=== PATIENT | male | born 1980 | race Caucasian/White ===

== ENCOUNTER 2017-01-27 21:33 | Inpatient (IN) | payer OTHER ==
[~2017-01-27] VITALS: Ht 177.8 cm; Wt 102.3 kg
[~2017-01-27 21:33] MED LIST: ASPI81TA28 PO; FLV1 PO; LSN20 PO; NRV5 PO; THM100 PO; TPRSR50 PO; WARF3TAB6 PO; WARF4TAB8 PO
[2017-01-27] MEDS ORDERED: ONDANSETRON INJ 2 MG/ML 2 ML VIAL IV STA (21:44)
[2017-01-27] MEDS ORDERED: SODIUM CHLORIDE 0.9% 1000ML 1,000 ML IV STA ×2 (21:44)
[2017-01-27] MEDS ORDERED: DICYCLOMINE HCL 10 MG/ML 2 ML AMP IM ONE (21:45)
[2017-01-27] MEDS ORDERED: OPTIRAY 320 IV PRN (22:00)
[2017-01-27] MEDS ORDERED: WARF4TAB44 PO (22:05)
[2017-01-27] MEDS ORDERED: WARF-283 PO (22:05)
[2017-01-27] MEDS ORDERED: LISI1TAB3 PO (22:05)
[2017-01-27] MEDS ORDERED: TPRSR/100 PO (22:05)
[2017-01-27 22:22] LABS: BASO % 0.2 %; BASO ABS # 0.03 K/uL (0-0.2); COMPLETE YES; EOS % 0.5 %; HEMATOCRIT 45.3 % (42-52); IG% 0.4 %; LYMPH % 12.7 %; LYMPH ABS # 1.77 K/uL (1.2-3.4); MEAN CELL VOLUME 97.6 fL (80-100); MEAN CORPUSCULAR HEMOGLOBIN 34.5 pg (25-34); MEAN CORPUSCULAR HGB CONC 35.3 g/dl (32-36); MEAN PLATELET VOLUME 10.3 fL (7.4-10.4); MONO % 7.7 %; NEUT % 78.5 %; PLATELET COUNT 203 K/uL (130-400); RED BLOOD COUNT 4.64 M/uL (4.7-6.1); WHITE BLOOD COUNT 13.94 K/uL (4.8-10.8)
--- NOTE | 2017-01-27 22:32 | DIAGNOSTIC IMAGING REPORT ---
CHEST ONE VIEW PORTABLE CLINICAL HISTORY: 36 years-old Male presenting with epigastric PAIN. TECHNIQUE: Portable upright AP view of the chest was obtained. COMPARISON: 03/08/2016. FINDINGS: Median sternotomy wires and prosthetic aortic valve again noted. Cardiac silhouette normal in size. Minimally increased prominence of pulmonary vasculature in comparison to prior. Lungs and pleural spaces clear. Osseous structures normal. Upper abdomen normal. IMPRESSION: 1. No acute cardiopulmonary disease. Electronically signed by: Jose Real M.D. 01/27/2017 10:31 PM Dictated Date/Time: 01/27/2017 10:29 PM
[2017-01-27 22:37] LABS: URINE APPEARANCE CLEAR (CLEAR); URINE BILIRUBIN NEG (NEG); URINE COLOR YELLOW; URINE EPITHELIAL CELL AUTO 0-5 /lpf (0-5); URINE NITRITE NEG (NEG); URINE PH 7.5 (4.5-7.5); URINE SPECIFIC GRAVITY 1.017 (1.000-1.030); UROBILINOGEN NEG (NEG); ZZUR CULT IF INDIC CLEAN CATCH YES
[2017-01-27 22:39] LABS: ALT/SGPT 68 U/L (12-78); BLOOD UREA NITROGEN 7 mg/dl (7-18); BUN/CREATININE RATIO 7.8 (10-20); CALCIUM 9.5 mg/dl (8.5-10.1); CARBON DIOXIDE 26 mmol/L (21-32); CHLORIDE 103 mmol/L (98-107); CREATININE 0.86 mg/dl (0.60-1.40); GLUCOSE 112 mg/dl (70-99); MANUAL MICROSCOPIC REQUIRED? NO; REVIEW REQ? NO; SODIUM 137 mmol/L (136-145)
[2017-01-27 22:40] LABS: PROTHROMBIN TIME (PATIENT) 85.6 SECONDS (9.0-12.0)
[2017-01-27 22:44] LABS: ALKALINE PHOSPHATASE 82 U/L (45-117); AST/SGOT 61 U/L (15-37); CKMB/CK RATIO 0.7 (0-3.0)
[2017-01-27 22:47] LABS: BENZODIAZEPINE, URINE NEG (NEG); COCAINE,URINE NEG (NEG); PHENCYCLIDINE, URINE NEG (NEG)
[2017-01-27 22:51] LABS: INR 7.4 (0.9-1.1)
[2017-01-27] MEDS ORDERED: CEFOXITIN 2000MG/60 ML D5W IV STA (23:46)
[2017-01-28] VITALS (21 sets, daily range): BP systolic 133–180; BP diastolic 81–138; PULSE 71–90; TEMP 36.7–37.5; O2SAT 94–98; Ht 177.8 cm; Wt 102.3 kg
[2017-01-28] MEDS ORDERED: PHYTONADIONE 5 MG TAB PO STA (01:11)
[2017-01-28] MEDS ORDERED: ONDANSETRON INJ 2 MG/ML 2 ML VIAL IV PRN ×2 (01:15→20:15)
[2017-01-28] MEDS ORDERED: MAGNESIUM HYDROXIDE SUSP 30 ML UDC PO PRN (01:15)
[2017-01-28] MEDS ORDERED: POLYETHYLENE (MIRALAX) 17 GM PACK PO PRN (01:15)
[2017-01-28] MEDS ORDERED: ACETAMINOPHEN 325 MG TAB PO PRN ×2 (01:15→20:00)
[2017-01-28] MEDS ORDERED: ALUMINUM/MAGNESIUM/SIMETH (MAALOX MAX) 30 ML UDC PO PRN (01:15)
--- NOTE | 2017-01-28 01:50 | History and Physical ---
History & Physical Date & Time of Service: Jan 28, 2017 at 01:25 Chief Complaint: Acute Pain In Rt Abdomen Primary Care Physician: Jeremias Szymanski D.O. History of Present Illness Source: patient 36 year old male presented to [facility] with abdominal pain The pain started at 230pm after taking a nap. It was gradual in onset. Located in the RLQ. Made worse by moving. Laying flat was the only thing that made the pain better. It was constant and the patient rated it as a 8-9/10. He then came to the ED. He has associated sweats and chills. He did not have any nausea, or vomiting. He was found to have a elevated WCC of 13 in the ED with evidence of appendicitis on CT of the patients abdomen. He was started on antibiotics and IV fluids and was made NPO. The surgeon was contacted who said he would be doing the surgery in the morning and that the medical team will admit the patient for him. 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 Plata. He takes Warfarin and his INR was 7.4 in the ED. He also was recently treated for prostatitis and finished a 10 day course of antibiotics. He is still having some residual discomfort with urination. 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 Family History Diabetes mellitus FHx: cancer FHx: heart disease Hypertension Social History Smoking Status: Current Every Day Smoker (25 pack year) Alcohol Use: heavy (6 beers daily with 3-4 shots of hard liquor) Drug Use: heroin (past) Marital Status: Housing status: lives with family Occupational Status: employed Multi-Drug Resistant Organisms History of MDRO: No Allergies Coded Allergies: No Known Allergies (Verified , 03/02/16) Home Medications Scheduled Aspirin (Aspirin Ec), 81 MG PO DAILY Lisinopril (Zestril), 30 MG PO QAM Metoprolol Succinate (Metoprolol Succinate ER), 100 MG PO DAILY Warfarin Sodium (Warfarin Sodium), 3 MG PO 3XWK Warfarin Sodium (Warfarin Sodium), 4 MG PO 4XWK Review of Systems Constitutional: + chills, + sweats, No fever, No weakness Respiratory: No cough, No sputum, No shortness of breath Cardiovascular: No chest pain, No edema, No palpitations Abdomen: + pain, No nausea, No vomiting, No diarrhea, No constipation Musculoskeletal: No joint pain, No muscle pain, No calf pain Genitourinary - Male: + problem reported (discomfort with urination), No hematuria, No dysuria Neurologic: No paralysis, No weakness, No numbness/tingling Physical Exam Vital Signs Date Time Temp Pulse Resp B/P (MAP) Pulse Ox O2 Delivery O2 Flow Rate FiO2 01/27/17 23:34 91 18 157/108 98 Room Air 01/27/17 22:15 94 01/27/17 22:13 Room Air 01/27/17 22:13 Room Air 01/27/17 21:35 37.0 104 20 165/111 96 Room Air General Appearance: WD/WN, no apparent distress Eyes: PERRL, EOMI, funduscopic exam normal ENT: hearing grossly normal, pharynx normal Neck: supple, no JVD, no carotid bruits Respiratory/Chest: lungs clear, no respiratory distress, no accessory muscle use Cardiovascular: regular rate, rhythm, no murmur, normal peripheral pulses, + pertinent finding (audible click from mechanical valve) Abdomen/GI: normal bowel sounds, soft, + tenderness (in the RLQ without any rebound or gaurding) Back: normal inspection, no CVA tenderness, normal range of motion Extremities/Musculoskelatal: normal inspection, no calf tenderness, no pedal edema, non-tender Neurologic/Psych: alert, normal mood/affect, oriented x 3 Skin: normal color, warm/dry, no rash Diagnostics Laboratory Results Results Past 24 Hours Test 01/27/17 22:10 Range/Units White Blood Count 13.94 4.8-10.8 K/uL Red Blood Count 4.64 4.7-6.1 M/uL Hemoglobin 16.0 14.0-18.0 g/dL Hematocrit 45.3 42-52 % Mean Corpuscular Volume 97.6 80-100 fL Mean Corpuscular Hemoglobin 34.5 25-34 pg Mean Corpuscular Hemoglobin Concent 35.3 32-36 g/dl Platelet Count 203 130-400 K/uL Mean Platelet Volume 10.3 7.4-10.4 fL Neutrophils (%) (Auto) 78.5 % Lymphocytes (%) (Auto) 12.7 % Monocytes (%) (Auto) 7.7 % Eosinophils (%) (Auto) 0.5 % Basophils (%) (Auto) 0.2 % Neutrophils # (Auto) 10.93 1.4-6.5 K/uL Lymphocytes # (Auto) 1.77 1.2-3.4 K/uL Monocytes # (Auto) 1.08 0.11-0.59 K/uL Eosinophils # (Auto) 0.07 0-0.5 K/uL Basophils # (Auto) 0.03 0-0.2 K/uL RDW Standard Deviation 46.6 36.4-46.3 fL RDW Coefficient of Variation 13.2 11.5-14.5 % Immature Granulocyte % (Auto) 0.4 % Immature Granulocyte # (Auto) 0.06 0.00-0.02 K/uL Prothrombin Time 85.6 9.0-12.0 SECONDS Prothromb Time International Ratio 7.4 0.9-1.1 Activated Partial Thromboplast Time 53.1 21.0-31.0 SECONDS Partial Thromboplastin Ratio 2.0 Urine Color YELLOW Urine Appearance CLEAR CLEAR Urine pH 7.5 4.5-7.5 Urine Specific [place] 1.017 1.000-1.030 Urine Protein NEG NEG Urine Glucose (UA) NEG NEG Urine Ketones NEG NEG Urine Occult Blood TRACE NEG Urine Nitrite NEG NEG Urine Bilirubin NEG NEG Urine Urobilinogen NEG NEG Urine Leukocyte Esterase MODERATE NEG Urine WBC (Auto) >30 0-5 /hpf Urine RBC (Auto) 5-10 0-4 /hpf Urine Hyaline Casts (Auto) 1-5 0-5 /lpf Urine Epithelial Cells (Auto) 0-5 0-5 /lpf Urine Bacteria (Auto) 1+ NEG Sodium Level 137 136-145 mmol/L Potassium Level 4.0 3.5-5.1 mmol/L Chloride Level 103 98-107 mmol/L Carbon Dioxide Level 26 21-32 mmol/L Anion Gap 8.0 3-11 mmol/L Blood Urea Nitrogen 7 7-18 mg/dl Creatinine 0.86 0.60-1.40 mg/dl Est Creatinine Clear Calc Drug Dose 138.6 ml/min Estimated GFR () 127.5 Estimated GFR (Non- 110.0 BUN/Creatinine Ratio 7.8 10-20 Random Glucose 112 70-99 mg/dl Calcium Level 9.5 8.5-10.1 mg/dl Total Bilirubin 0.7 0.2-1 mg/dl Direct Bilirubin 0.2 0-0.2 mg/dl Aspartate Amino Transf (AST/SGOT) 61 15-37 U/L Alanine Aminotransferase (ALT/SGPT) 68 12-78 U/L Alkaline Phosphatase 82 45-117 U/L Total Creatine Kinase 166 39-308 U/L Creatine Kinase MB 1.1 0.5-3.6 ng/ml Creatine Kinase MB Ratio 0.7 0-3.0 Troponin I < 0.015 0-0.045 ng/ml Total Protein 7.9 6.4-8.2 gm/dl Albumin 3.9 3.4-5.0 gm/dl Lipase 279 73-393 U/L Urine Opiates Screen NEG NEG Urine Methadone, Qualitative NEG NEG Urine Barbiturates NEG NEG Urine Phencyclidine (PCP) Level NEG NEG Ur Amphetamine/Methamphetamine NEG NEG MDMA (Ecstasy) Screen NEG NEG Urine Benzodiazepines Screen NEG NEG Urine Cocaine Metabolite NEG NEG Urine Marijuana (THC) NEG NEG Microbiology Results 01/27/17 Urine Culture, Received Pending CXR normal Normal EKG Impression Assessment and Plan 36 year old male admitted to the hospital with Appendicitis Appendicitis - admitted to the surgical team (Dr. Klein) - will go for surgery in the AM - NPO - IVF with NS 125mls/hr - Morphine 2mg q2 for pain relief - Unasyn for antibiotic coverage - Will add Vanc due to patients hx of endocarditis Mechanical Mitral Valve - Hx of IV drug use and endocarditis - On warfarin at home with goal INR 2.5--3.5 - follows with Dr. Gutiérrez, will consult - INR 7.4 - will give 5 of vitamin K and 2 units of FFP - will reassess INR and will given another unit of FFP if INR> 1.5 HTN - Lisinopril and metoprolol held for now - continue to monitor Hx of Pancreatitis - monitor for alcohol withdrawal - may need thiamine, folic acid and multivitamin - may need librium Patient has Hep C Hx of Stroke NPO DVT prophylaxis held as INR >7 and going for surgery THIS PATIENT WILL BE ADMITTED TO SURGICAL TEAM. WE WILL BE CONSULTED FOR MEDICAL MANAGEMENT Resident Physician Supervision Note: I was present with Dr. Brumfield during the history and exam. I discussed the case with the resident and agree with the findings and plan as documented in the note. Any exceptions or clarifications are listed here: 36 y/o M Hx IVDU, endocarditis and resultant mitral valve replacement Pt presents with abdominal pain and was diagnosed with acute appendicitis Pts INR is 7.4 on arrival - admitted by medical team to surgical service due to high INR OE AAO x 3 S1,2 R CTAB + lower quadrant tenderness P: Pt is to proceed to OR for appendectomy We have ordered a low dose of vitamin K and Fps - following FFP admin INR will be rechecked and additional FFP can be provided if remains supratherapeutic The pt should have Lovenox or a Heparin drip for bridging at the earliest possible time following surgery - pt has requested to be seen by his readiness paraprofessional Documented By: Antony Sandoval Level of Care Med/Surg Resuscitation Status FULL RESUSCITATION VTE Prophylaxis VTE Risk Assessment Done? Y/N: Yes Risk Level: Moderate Given or contraindicated: Contraindicated
--- NOTE | 2017-01-28 02:48 | History and Physical ---
History & Physical Date & Time of Service: Jan 28, 2017 at 02:37 Chief Complaint: Appendicitis Primary Care Physician: Jeremias Szymanski D.O. History of Present Illness 36 year old male with mechanical mitral valve on chronic anticoagulation and history of IVDA presented to ED with abdominal pain. Started this afternoon, periumbilical cramping pain, migrated to right lower quadrant. No prior episodes. Recently treated for prostatitis. +nausea and anorexia, denies fevers. Normal bm's. No family history of IBD. On arrival he had supratherapeutic INR. Past Medical/Surgical History Past Medical History: mechanical mitral valve chronic anticoagulation Hep C history of IVDA recent prostatitis HTN Past Surgical History: mitral valve replacement no abdominal surgeries Family History Diabetes mellitus FHx: cancer FHx: heart disease Hypertension Social History Smoking Status: Current Every Day Smoker (25 pack year) Alcohol Use: heavy (6 beers daily with 3-4 shots of hard liquor) Drug Use: heroin (past) Marital Status: Housing status: lives with family Occupational Status: employed Multi-Drug Resistant Organisms History of MDRO: No Allergies Coded Allergies: No Known Allergies (Verified , 03/02/16) Home Medications Scheduled Aspirin (Aspirin Ec), 81 MG PO DAILY Lisinopril (Zestril), 30 MG PO QAM Metoprolol Succinate (Metoprolol Succinate ER), 100 MG PO DAILY Warfarin Sodium (Warfarin Sodium), 3 MG PO 3XWK Warfarin Sodium (Warfarin Sodium), 4 MG PO 4XWK Review of Systems Constitutional: No fever, No chills, No sweats, No weight loss, No weakness, No fatigue, No problem reported Eyes: No worsening of vision, No eye pain, No redness, No discharge, No diplopia, No problem reported ENT: No hearing loss, No unusual epistaxis, No nasal symptoms, No sore throat, No tinnitus, No dental problems, No trouble swallowing, No problem reported Respiratory: No cough, No sputum, No wheezing, No shortness of breath, No dyspnea on exertion, No dyspnea at rest, No hemoptysis, No problem reported Cardiovascular: No chest pain, No orthopnea, No PND, No edema, No claudication , No palpitations, No problem reported Abdomen: + pain, + nausea, No diarrhea, No constipation Musculoskeletal: No joint pain, No muscle pain, No swelling, No calf pain, No problem reported Neurologic: No memory loss, No paralysis, No weakness, No numbness/tingling, No vertigo, No balance problems, No problem reported Psychiatric: No depression symptoms, No anhedonism, No anxiety, No insomnia, No substance abuse, No problem reported Endocrine: No fatigue, No excessive thirst, No excessive urination, No problem reported Integumentary: No rash, No itch, No new/changing skin lesions, No color change , No bleeding, No problem reported Allergic / Immunologic: No environmental allergies, No seasonal allergies, No pet sensitivities, No food allergies, No hives, No frequent infections, No poor healing, No prolonged convalescence, No problem reported Physical Exam Vital Signs Date Time Temp Pulse Resp B/P (MAP) Pulse Ox O2 Delivery O2 Flow Rate FiO2 01/28/17 02:00 37.0 73 18 155/109 99 01/27/17 23:34 91 18 157/108 98 Room Air 01/27/17 22:15 94 01/27/17 22:13 Room Air 01/27/17 22:13 Room Air 01/27/17 21:35 37.0 104 20 165/111 96 Room Air General Appearance: WD/WN, no apparent distress Eyes: PERRL, EOMI, funduscopic exam normal ENT: hearing grossly normal, pharynx normal Neck: supple, no JVD, no carotid bruits Respiratory/Chest: lungs clear, no respiratory distress, no accessory muscle use Cardiovascular: regular rate, rhythm, no murmur, normal peripheral pulses, + pertinent finding (audible click from mechanical valve) Abdomen/GI: normal bowel sounds, soft, + tenderness (Tender to palpation in RLQ at McBurney's, localized guarding, no rebound) Back: normal inspection, no CVA tenderness, normal range of motion Extremities/Musculoskelatal: normal inspection, no calf tenderness, no pedal edema, non-tender Neurologic/Psych: alert, normal mood/affect, oriented x 3 Skin: normal color, warm/dry, no rash Lymphatic: no adenopathy Diagnostics Laboratory Results Results Past 24 Hours Test 01/27/17 22:10 Range/Units White Blood Count 13.94 4.8-10.8 K/uL Red Blood Count 4.64 4.7-6.1 M/uL Hemoglobin 16.0 14.0-18.0 g/dL Hematocrit 45.3 42-52 % Mean Corpuscular Volume 97.6 80-100 fL Mean Corpuscular Hemoglobin 34.5 25-34 pg Mean Corpuscular Hemoglobin Concent 35.3 32-36 g/dl Platelet Count 203 130-400 K/uL Mean Platelet Volume 10.3 7.4-10.4 fL Neutrophils (%) (Auto) 78.5 % Lymphocytes (%) (Auto) 12.7 % Monocytes (%) (Auto) 7.7 % Eosinophils (%) (Auto) 0.5 % Basophils (%) (Auto) 0.2 % Neutrophils # (Auto) 10.93 1.4-6.5 K/uL Lymphocytes # (Auto) 1.77 1.2-3.4 K/uL Monocytes # (Auto) 1.08 0.11-0.59 K/uL Eosinophils # (Auto) 0.07 0-0.5 K/uL Basophils # (Auto) 0.03 0-0.2 K/uL RDW Standard Deviation 46.6 36.4-46.3 fL RDW Coefficient of Variation 13.2 11.5-14.5 % Immature Granulocyte % (Auto) 0.4 % Immature Granulocyte # (Auto) 0.06 0.00-0.02 K/uL Prothrombin Time 85.6 9.0-12.0 SECONDS Prothromb Time International Ratio 7.4 0.9-1.1 Activated Partial Thromboplast Time 53.1 21.0-31.0 SECONDS Partial Thromboplastin Ratio 2.0 Urine Color YELLOW Urine Appearance CLEAR CLEAR Urine pH 7.5 4.5-7.5 Urine Specific [place] 1.017 1.000-1.030 Urine Protein NEG NEG Urine Glucose (UA) NEG NEG Urine Ketones NEG NEG Urine Occult Blood TRACE NEG Urine Nitrite NEG NEG Urine Bilirubin NEG NEG Urine Urobilinogen NEG NEG Urine Leukocyte Esterase MODERATE NEG Urine WBC (Auto) >30 0-5 /hpf Urine RBC (Auto) 5-10 0-4 /hpf Urine Hyaline Casts (Auto) 1-5 0-5 /lpf Urine Epithelial Cells (Auto) 0-5 0-5 /lpf Urine Bacteria (Auto) 1+ NEG Sodium Level 137 136-145 mmol/L Potassium Level 4.0 3.5-5.1 mmol/L Chloride Level 103 98-107 mmol/L Carbon Dioxide Level 26 21-32 mmol/L Anion Gap 8.0 3-11 mmol/L Blood Urea Nitrogen 7 7-18 mg/dl Creatinine 0.86 0.60-1.40 mg/dl Est Creatinine Clear Calc Drug Dose 138.6 ml/min Estimated GFR () 127.5 Estimated GFR (Non- 110.0 BUN/Creatinine Ratio 7.8 10-20 Random Glucose 112 70-99 mg/dl Calcium Level 9.5 8.5-10.1 mg/dl Total Bilirubin 0.7 0.2-1 mg/dl Direct Bilirubin 0.2 0-0.2 mg/dl Aspartate Amino Transf (AST/SGOT) 61 15-37 U/L Alanine Aminotransferase (ALT/SGPT) 68 12-78 U/L Alkaline Phosphatase 82 45-117 U/L Total Creatine Kinase 166 39-308 U/L Creatine Kinase MB 1.1 0.5-3.6 ng/ml Creatine Kinase MB Ratio 0.7 0-3.0 Troponin I < 0.015 0-0.045 ng/ml Total Protein 7.9 6.4-8.2 gm/dl Albumin 3.9 3.4-5.0 gm/dl Lipase 279 73-393 U/L Urine Opiates Screen NEG NEG Urine Methadone, Qualitative NEG NEG Urine Barbiturates NEG NEG Urine Phencyclidine (PCP) Level NEG NEG Ur Amphetamine/Methamphetamine NEG NEG MDMA (Ecstasy) Screen NEG NEG Urine Benzodiazepines Screen NEG NEG Urine Cocaine Metabolite NEG NEG Urine Marijuana (THC) NEG NEG Microbiology Results 01/27/17 Urine Culture, Received Pending Diagnostic Radiology CT personally reviewed: CT abd/pelvis with mildly dilated appendix with periappendiceal inflammation, no evidence of perforation Impression Assessment and Plan 36 year old male with mechanical mitral valve on anticoagulation, history of IVDA now with acute appendicitis. Discussed antibiotics verus surgery, patient elects for surgery. plan for laparoscopic appendectomy later today after INR <1.5 RIsks of the surgery discussed to include but not limited to bleeding, infection , normal appendix, need for future or more extensive surgery, damage to surrounding structures, conversion to open, abscess, hernia, and risks of anesthesia FFP and vit k for supratherapeutic INR, goal < 1.5 prior to surgery will need lovenox bridge after surgery admit to med surg, npo, ivf's, scd's mefoxin 2 grams iv q6h Medicine consulted for anticoagulation reversal and assistance with medical problems, appreciate their assistance the diagnosis, risks of surgery, and plan of care were discussed with the patient, all questions answered, patient agreed to proceed with surgery Barry Klein, DO VTE Prophylaxis VTE Risk Assessment Done? Y/N: Yes Risk Level: Moderate Given or contraindicated: Contraindicated
[2017-01-28] MEDS: SODIUM CHLORIDE 0.9% 1000ML 1,000 ML IV SCH ×3 (03:00→16:29)
[2017-01-28] MEDS: AMPICILLIN/SULBACTAM SOD INJ 1,500 MG in SODIUM CHLORIDE 0.9% 100ML 100 ML IV SCH ×4 (03:00→22:43)
[2017-01-28] MEDS: MoRPHine SULFATE 2 MG/ML CARP IV PRN ×5 (04:02→16:28)
[2017-01-28 04:32] LABS: INR 5.5 (0.9-1.1); PROTHROMBIN TIME (PATIENT) 62.9 SECONDS (9.0-12.0)
[2017-01-28] MEDS ORDERED: VANCOMYCIN CONSULT ACTIVE PRN (05:15)
[2017-01-28] MEDS ORDERED: VANCOMYCIN INJ 2,500 MG in SODIUM CHLORIDE 0.9% 500ML 500 ML IV ONE (05:30)
--- NOTE | 2017-01-28 06:22 | DIAGNOSTIC IMAGING REPORT ---
CT ABD/PELVIS IV CONTRAST ONLY CLINICAL HISTORY: Right lower quadrant abdominal pain COMPARISON STUDY: 03/02/2016 TECHNIQUE: Following the IV administration of 93 mL of Optiray-320, CT scan of the abdomen and pelvis was performed from the lung bases to the proximal femurs. Images are reviewed in the axial, sagittal, and coronal planes. IV contrast was administered without complication. A dose lowering technique was utilized adhering to the principles of ALARA. CT DOSE: 1039.82 mGycm FINDINGS: Lower chest: There are postsurgical changes of a midline sternotomy. There are minimal dependent atelectatic changes. Liver: There is hepatic steatosis. No focal masses are visualized. Gallbladder: Unremarkable. Spleen: Normal in size and attenuation. Pancreas: Unremarkable. Adrenal glands: Unremarkable. Kidneys: There is symmetric renal cortical enhancement. The kidneys are normal in size without hydronephrosis. Bowel: There are no transition zones indicate bowel obstruction. There is no acute diverticulitis. There is minimal appendiceal wall thickening of (8 mm, with equivocal minimal periappendiceal stranding. There is mild some mucosal fat hypertrophy within the appendix and cecum. Peritoneum: There is no intraperitoneal free air or abdominal ascites. Vasculature: The abdominal aorta is normal in course and caliber. Adenopathy: None. Pelvic viscera: There is borderline bladder wall thickening which may be secondary to incomplete distention Skeletal structures: No destructive osseous lesions are seen. IMPRESSION: 1. No evidence of bowel obstruction. No evidence of free air 2. Minimal appendiceal wall thickening, with equivocal minimal periappendiceal stranding. The study is equivocal for early acute appendicitis, and clinical correlation and/or close clinical follow-up is advocated. Electronically signed by: Jamie Terry M.D. 01/28/2017 6:20 AM Dictated Date/Time: 01/28/2017 6:15 AM
--- NOTE | 2017-01-28 06:27 | EMERGENCY ROOM VISIT NOTE ---
History First contact with patient: 21:41 Chief Complaint: ABDOMINAL PAIN Stated Complaint: APPENDICITIS Nursing Triage Summary: Pt c/o RLQ abd pain since 1400 today. Pain has increased and is uncomfortable now. History of Present Illness The patient is a 36 year old male who presents to the Emergency Room with complaints of right lower quadrant pain and dysuria since this afternoon after eating lunch. Pain currently 7 out of 10. Nothing makes it better or worse. Patient states he had two sloppy [employer] images with some potato salad and then had some beers and a shot and then went to sleep and woke up with severe pain. No history of similar symptoms in the past. Patient just finished Keflex for UTI and possible prostatitis from urgent care. No INR was checked this week. Last week he was subtherapeutic. He is unsure the exact number. He's had a mitral valve replacement. Patient denies chest pain, dyspnea, rectal pain, penile pain, testicular pain, back pain, vomiting. Patient states he normally has 3-6 drinks a day. No recent recreational drug use. Review of Systems See HPI for pertinent positives & negatives. A total of 10 systems reviewed and were otherwise negative. Past Medical/Surgical History Medical Problems: (1) Appendicitis (2) Blood-tinged sputum (3) CVA (cerebral vascular accident) (4) Heroin overdose Surgical Problems: (1) H/O mitral valve replacement Family History Diabetes mellitus FHx: cancer FHx: heart disease Hypertension Social History Smoking Status: Current Every Day Smoker Alcohol Use: occasionally Drug Use: heroin (past) Marital Status: Housing Status: lives with family Occupation Status: employed Current/Historical Medications Scheduled Aspirin (Aspirin Ec), 81 MG PO DAILY Lisinopril (Zestril), 30 MG PO QAM Metoprolol Succinate (Metoprolol Succinate ER), 100 MG PO DAILY Warfarin Sodium (Warfarin Sodium), 3 MG PO 3XWK Warfarin Sodium (Warfarin Sodium), 4 MG PO 4XWK Allergies Coded Allergies: No Known Allergies (Verified , 03/02/16) Physical Exam Vital Signs Date Time Temp Pulse Resp B/P (MAP) Pulse Ox O2 Delivery O2 Flow Rate FiO2 01/27/17 23:34 91 18 157/108 98 Room Air 01/27/17 22:15 94 01/27/17 22:13 Room Air 01/27/17 22:13 Room Air 01/27/17 21:35 37.0 104 20 165/111 96 Room Air Pain Rating (0-10): 2.0 Physical Exam VITALS: Vitals are noted on the nurse's note and reviewed by myself. Vital signs hypertensive. GENERAL: White male, in no acute distress, nondiaphoretic, well-developed well- nourished. SKIN: The skin was without rashes, erythema, edema, or bruising. There is no tenting of the skin. Capillary reflex less than 2 seconds. HEAD: Normocephalic atraumatic. EARS: External auditory canals clear, tympanic membranes pearly cannon without erythema or effusion bilaterally. EYES: Pupils equal round and reactive to light and accommodation. Conjunctivae without injection, sclerae without icterus. Extraocular movements intact. NOSE: Patent, turbinates without inflammation or discharge. MOUTH: Mucous membranes moist. Pharynx without erythema or exudate. Uvula midline. Airway patent. Tongue does not deviate. NECK: Supple without nuchal rigidity. No lymphadenopathy. No thyromegaly. Cervical spine is nontender. No JVD. HEART: Regular rate and rhythm LUNGS: Clear to auscultation bilaterally without wheezes, rales or rhonchi. No dullness to percussion. No retractions or accessory muscle use. ABDOMEN: Positive bowel sounds x 4. Normal tympanic percussion. Soft, tender to palpation right lower quadrant, no CVA tenderness, without masses or organomegaly. Estrada sign negative. No guarding or rebound tenderness. MUSCULOSKELETAL: No muscle atrophy, erythema, or edema noted. NEURO: Patient was alert and oriented to person place and time. Normal sensation to light and sharp touch. No focal neurological deficits. Medical Decision & Procedures Laboratory Results 01/27/17 22:10 Red Blood Count 4.64, Mean Corpuscular Volume 97.6, Mean Corpuscular Hemoglobin 34.5, Mean Corpuscular Hemoglobin Concent 35.3, Mean Platelet Volume 10.3, Neutrophils (%) (Auto) 78.5, Lymphocytes (%) (Auto) 12.7, Monocytes (%) (Auto) 7.7, Eosinophils (%) (Auto) 0.5, Basophils (%) (Auto) 0.2, Neutrophils # (Auto) 10.93, Lymphocytes # (Auto) 1.77, Monocytes # (Auto) 1.08, Eosinophils # (Auto) 0.07, Basophils # (Auto) 0.03 01/27/17 22:10 Test 01/27/17 22:10 White Blood Count 13.94 K/uL (4.8-10.8) Red Blood Count 4.64 M/uL (4.7-6.1) Hemoglobin 16.0 g/dL (14.0-18.0) Hematocrit 45.3 % (42-52) Mean Corpuscular Volume 97.6 fL (80-100) Mean Corpuscular Hemoglobin 34.5 pg (25-34) Mean Corpuscular Hemoglobin Concent 35.3 g/dl (32-36) Platelet Count 203 K/uL (130-400) Mean Platelet Volume 10.3 fL (7.4-10.4) Neutrophils (%) (Auto) 78.5 % Lymphocytes (%) (Auto) 12.7 % Monocytes (%) (Auto) 7.7 % Eosinophils (%) (Auto) 0.5 % Basophils (%) (Auto) 0.2 % Neutrophils # (Auto) 10.93 K/uL (1.4-6.5) Lymphocytes # (Auto) 1.77 K/uL (1.2-3.4) Monocytes # (Auto) 1.08 K/uL (0.11-0.59) Eosinophils # (Auto) 0.07 K/uL (0-0.5) Basophils # (Auto) 0.03 K/uL (0-0.2) RDW Standard Deviation 46.6 fL (36.4-46.3) RDW Coefficient of Variation 13.2 % (11.5-14.5) Immature Granulocyte % (Auto) 0.4 % Immature Granulocyte # (Auto) 0.06 K/uL (0.00-0.02) Activated Partial Thromboplast Time 53.1 SECONDS (21.0-31.0) Partial Thromboplastin Ratio 2.0 Urine Color YELLOW Urine Appearance CLEAR (CLEAR) Urine pH 7.5 (4.5-7.5) Urine Specific [place] 1.017 (1.000-1.030) Urine Protein NEG (NEG) Urine Glucose (UA) NEG (NEG) Urine Ketones NEG (NEG) Urine Occult Blood TRACE (NEG) Urine Nitrite NEG (NEG) Urine Bilirubin NEG (NEG) Urine Urobilinogen NEG (NEG) Urine Leukocyte Esterase MODERATE (NEG) Urine WBC (Auto) >30 /hpf (0-5) Urine RBC (Auto) 5-10 /hpf (0-4) Urine Hyaline Casts (Auto) 1-5 /lpf (0-5) Urine Epithelial Cells (Auto) 0-5 /lpf (0-5) Urine Bacteria (Auto) 1+ (NEG) Anion Gap 8.0 mmol/L (3-11) Est Creatinine Clear Calc Drug Dose 138.6 ml/min Estimated GFR () 127.5 Estimated GFR (Non- 110.0 BUN/Creatinine Ratio 7.8 (10-20) Calcium Level 9.5 mg/dl (8.5-10.1) Total Bilirubin 0.7 mg/dl (0.2-1) Direct Bilirubin 0.2 mg/dl (0-0.2) Aspartate Amino Transf (AST/SGOT) 61 U/L (15-37) Alanine Aminotransferase (ALT/SGPT) 68 U/L (12-78) Alkaline Phosphatase 82 U/L (45-117) Total Creatine Kinase 166 U/L (39-308) Creatine Kinase MB 1.1 ng/ml (0.5-3.6) Creatine Kinase MB Ratio 0.7 (0-3.0) Troponin I < 0.015 ng/ml (0-0.045) Total Protein 7.9 gm/dl (6.4-8.2) Albumin 3.9 gm/dl (3.4-5.0) Lipase 279 U/L (73-393) Urine Opiates Screen NEG (NEG) Urine Methadone, Qualitative NEG (NEG) Urine Barbiturates NEG (NEG) Urine Phencyclidine (PCP) Level NEG (NEG) Ur Amphetamine/Methamphetamine NEG (NEG) MDMA (Ecstasy) Screen NEG (NEG) Urine Benzodiazepines Screen NEG (NEG) Urine Cocaine Metabolite NEG (NEG) Urine Marijuana (THC) NEG (NEG) Medications Administered Medications (Trade) Dose Ordered Sig/Krista Route Start Time Stop Time Status Last Admin Dose Admin Sodium Chloride 1,000 ml @ 999 mls/hr Q1H1M STAT IV 01/27/17 21:44 01/27/17 22:44 DC 01/27/17 22:22 999 MLS/HR Sodium Chloride 1,000 ml @ 125 mls/hr Q8H STAT IV 01/27/17 21:44 01/28/17 03:27 DC 01/27/17 22:22 125 MLS/HR Ondansetron HCl (Zofran Inj) 4 mg NOW STAT IV 01/27/17 21:44 01/27/17 21:54 DC 01/27/17 22:23 4 MG Dicyclomine HCl (Bentyl Inj) 20 mg NOW ONCE IM 01/27/17 21:45 01/27/17 21:54 DC 01/27/17 22:23 20 MG Cefoxitin Sodium (Mefoxin 2000mg/ 60 ml D5W) 2,000 mg NOW STAT IV 01/27/17 23:46 01/27/17 23:47 DC 01/28/17 00:07 2,000 MG Acetaminophen (Tylenol Tab) 650 mg Q4H PRN PO 01/28/17 01:15 02/27/17 01:14 01/28/17 04:03 650 MG Sodium Chloride 1,000 ml @ 125 mls/hr Q8H IV 01/28/17 01:15 02/27/17 01:14 01/28/17 03:00 125 MLS/HR Phytonadione (Mephyton Tab) 5 mg NOW STAT PO 01/28/17 01:11 01/28/17 01:33 DC 01/28/17 01:51 5 MG Morphine Sulfate (MoRPHine SULFATE INJ) 2 mg Q2HWA PRN IV 01/28/17 01:15 02/11/17 01:14 01/28/17 04:02 2 MG ED Course Prior records/ancillary studies reviewed. Triage Nursing notes reviewed. Additional history obtained from family. The patient's history was concerning for abdominal pain. Differential diagnosis: Etiologies such as appendicitis, diverticulitis, PUD, biliary pathology, UTI, pancreatitis, obstruction, mesenteric ischemia, aortic pathology, infections, inflammatory bowel disease, renal colic, as well as others were entertained. Physical examination findings: As above. ER treatment provided: IV fluids, Mefoxin, Zofran On reassessment the patient felt better. Diagnostics interpreted by me: ECG: Normal sinus, normal intervals, no acute ST-T wave changes. Impression normal sinus rhythm interpreted by myself The labs revealed stable H&H. Supratherapeutic INR Leukocytosis Imaging studies: CT concerning for appendicitis per stat radiology Consultation: A consultation was placed with the surgery, Dr. Klein, and recommends medical admission due to his multiple medical problems. I spoke to medicine, Dr. Sandoval, and will evaluate the patient and surgery will take the full admission. Dr. Klein is agreeable to this. The case was discussed and diagnostics were reviewed. The patient was evaluated in the ER for further treatment. Exam and history seem consistent with appendicitis with supratherapeutic INR. Medicine will reverse the INR and antibiosis given for the urine and appendicitis. Patient is agreeable to treatment plan of admission. Surgery will take the patient to the OR today. By the evaluation outlined above emergent etiologies such as diverticulitis, PUD, biliary pathology, pancreatitis, obstruction, mesenteric ischemia, aortic pathology, inflammatory bowel disease, renal colic, as well as others were deemed relatively unlikely. The pt informed about the findings as listed above. All questions were answered and pleased with the treatment. Case reviewed with my attending Medical Decision As above Impression Primary Impression: Appendicitis Additional Impression: Supratherapeutic INR Departure Information Dispostion Admitted as an inpatient Condition GOOD Referrals Jeremias Szymanski D.O. (PCP) Forms Call Back Authorization, HOME CARE DOCUMENTATION FORM, IMPORTANT VISIT INFORMATION Patient Instructions My [facility] Problem Qualifiers Primary Impression: Appendicitis Appendicitis type: acute appendicitis Acute appendicitis type: with localized peritonitis Qualified Codes: K35.3 - Acute appendicitis with localized peritonitis
[2017-01-28 06:53] LABS: INR 2.4 (0.9-1.1); PROTHROMBIN TIME (PATIENT) 26.4 SECONDS (9.0-12.0)
[2017-01-28] MEDS ORDERED: PHYTONADIONE INJ 2.5 MG in SODIUM CHLORIDE 0.9% 50ML 50 ML IV ONE (10:15)
[2017-01-28 12:37] LABS: INR 1.8 (0.9-1.1); PROTHROMBIN TIME (PATIENT) 20.3 SECONDS (9.0-12.0)
--- NOTE | 2017-01-28 13:11 | Medical Consult ---
Consultation Note Date of Service Jan 28, 2017. Consultation Note 01/28/[address] Schmid. Asked to provide inputon this 36 year old man with a mechanical mitral valve who follows in the [facility]. Martin was last seen in our clinic on 01/20/17 at which time his INR was subtherapeutic at 2.2 (range 2.5-3.5). At the time of that visit, he was on Keflex for a UTI and had about 3 days left of his treatment ( per his report). He was given an 8% bolus and his standard dose of coumadin was resumed. Early this morning he was admitted with RLQ abdominal pain, fever and chills. He was found to have a leukocytosis and CT scan showed minimal appendiceal wall thickening, with equivocal minimal periappendiceal stranding; felt to be equivocal for early acute appendicitis. His INR was 7.4. He was admitted, placed on antibiotics and given 5 mg PO vitamin K and 2 units of FFP for upcoming surgery in the AM. Repeat INR this AM was 2.4. 9:[address] Keane contacted by phone. Given that his INR should be 1.5 or less for surgery, I recommended that he receive 2.5 mg IV vitamin K and an additional unit of FFP. Followng this, the patient's INR repeated at 1.8 ( however, this was drawn only about 90 minutes post infusion; recommended repeat) . The patient should be placed on IV heparin post operatively, as soon as surgery feels that hemostasis is established and it is safe to do so. I would recommend the normal adult weight based dosing nomogram, using a bolus. He should receive two 8 mg loading doses of coumadin (the first tonight after surgery if surgeon agrees) and the second tomorrow, after which his regular weekly dose of 3 mg MWF and 4 mg T,Th,Sa,Castañeda can be resumed (25 mg/week). Therapeutic lovenox is a reasonable alternative, dosing at therapeutic levels: 100 mg BID until his INR is documented to be in the therapeutic range. He can follow up in the clinic next week.
[2017-01-28] MEDS ORDERED: HydrALAZINE HCL 20 MG/ML VIAL IV. ONE (13:45)
[2017-01-28 14:15] LABS: INR 1.7 (0.9-1.1)
--- NOTE | 2017-01-28 14:34 | Family Medicine Progress Note ---
Progress Note Date of Service Jan 28, 2017. Subjective Pt evaluation today including: conversation w/ patient, physical exam, chart review, lab review, review of studies, conversation w/ informatics consultant, review of inpatient medication list Patient feeling better than he was prior to admission. States RLQ abdo pain well controlled with morphine- brings severity down from 7/10 to 3/10. No associated nausea. Though he feels best at rest, states he is able to sit up/ ambulate with decreased pain, compared to previous. Otherwise denies CP, SOB. Patient has been NPO, but states he is feeling more hungry now. His last meal is ~24 hours ago. States he has been voiding and stooling since pain onset, but does have residual urinary symptoms. He was being treated for prostatitis until Monday with Keflex 500mg QID, and initially his symptoms were almost resolved, but seemed to start to begin to recur as of /Mon. No fever, chills, skin changes/bruising noted by patient. States compliance with warfarin. Does admit to drinking a beer and having a "shot of [place]" with meals. Denies ever having had alcohol withdrawal in the past. ROS unremarkable except as noted above. Objective Vital Signs Date Time Temp Pulse Resp B/P (MAP) Pulse Ox O2 Delivery O2 Flow Rate FiO2 01/28/17 14:17 37.0 82 18 164/100 01/28/17 13:16 37.3 72 20 180/138 (152) 98 Room Air 01/28/17 12:00 36.9 82 18 158/109 (125) 96 Room Air 01/28/17 10:59 37.5 77 18 155/95 (115) 97 Room Air 01/28/17 10:45 36.9 76 18 155/99 01/28/17 10:29 Room Air 01/28/17 07:15 36.8 80 18 137/81 (99) 97 Room Air 01/28/17 06:00 37.3 76 18 144/95 01/28/17 05:16 37.2 81 16 143/92 (109) 96 Room Air 01/28/17 04:45 37.2 78 18 145/96 01/28/17 04:27 37.4 82 146/98 01/28/17 02:56 37.4 84 16 153/103 (120) 95 Room Air 01/28/17 02:10 37.4 84 16 153/103 Room Air 01/28/17 02:10 Room Air 01/28/17 02:00 37.0 73 18 155/109 99 01/27/17 23:34 91 18 157/108 98 Room Air 01/27/17 22:15 94 01/27/17 22:13 Room Air 01/27/17 22:13 Room Air 01/27/17 21:35 37.0 104 20 165/111 96 Room Air Physical Exam General Appearance: WD/WN, no apparent distress Eyes: normal inspection, sclerae normal ENT: hearing grossly normal, pharynx normal Neck: supple, no adenopathy Respiratory/Chest: lungs clear, normal breath sounds, no respiratory distress, no accessory muscle use Cardiovascular: regular rate, rhythm, + systolic murmur, + pertinent finding ( click in mitral region during S2 consistent with mechanical valve) Abdomen: normal bowel sounds, soft, no organomegaly, + tenderness, + pertinent finding (No guarding or rebound) Extremities: normal inspection, no pedal edema, no calf tenderness Neurologic/Psychiatric: alert, normal mood/affect, oriented x 3 Skin: normal color, warm/dry, no rash Laboratory Results Results Past 24 Hours Test 01/28/17 04:08 01/28/17 06:33 01/28/17 12:14 01/28/17 13:52 Range/Units Prothrombin Time 62.9 26.4 20.3 19.0 9.0-12.0 SECONDS Prothromb Time International Ratio 5.5 2.4 1.8 1.7 0.9-1.1 Test 01/28/17 16:57 Range/Units Prothrombin Time 16.3 9.0-12.0 SECONDS Prothromb Time International Ratio 1.5 0.9-1.1 Assessment and Plan 36 year old male admitted to the hospital with early appendicitis as per CT abdomen and found to have supratherapeutic INR. Appendicitis - NPO with mIVF with NSS 125mls/hr - Plans for surgery with Dr. Klein once INR <1.5 - IV Morphine 2mg q2h for pain relief - Continue Unasyn for antibiotic coverage. Vancomycin discontinued. 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 Gutiérrez consulted, recs appreciated. (Patient follows with Dr. Gutiérrez at anticoagulation clinic) - Initial INR 7.4. Improved to 2.4 s/p 5mg IV vitamin K and 2 units FFP - Surgical requirement INR <1.5, therefore ordered additional 2.5mg IV vitamin K and 1 unit FFP, as per Dr. Gutiérrez. Recheck INR 2 hours after administration shows INR 1.8. - Dr. Klein ordered 1 more unit FFP, with plans for appendectomy this evening. - Post surgical goals include therapeutic anticoagulation of patient as soon as surgery approves with either therapeutic IV heparin 1.5mg/kg (with bolus) or therapeutic enoxaparin 100mg BID. - Will resume warfarin tomorrow with 8mg x 2 days and 3mg x // + 4mg x // / (as it will take several days to become therapeutic). Target INR 2.5-3.5. HTN - Lisinopril and metoprolol held for now due to patient NPO. Will resume tomorrow. - IV Hydralazine 5mg for SBP >170 - Continue to monitor Prostatitis - Possibly partially treated with Keflex. - UA positive with leuks, bacteria, blood. Patient also symptomatic - Currently being treated with Unasyn Alcohol use - Monitor for alcohol withdrawal - May need thiamine, folic acid, multivitamin - May need librium Patient has Hep C - Adrian precautions Mechanical vmitral valve - Trend CBC Hx of Stroke - Monitor INR DVT prophylaxis - Chemical prophylaxis held as INR >7 and going for surgery - SCD Continued [facility] stay due to: inadequate oral pain control, multiple IV medications needed Discharge planning: home Resident Tracking Resident Involvement: Resident Care Provided Care Provided: Adult Hospital Medicine History Resident Physician Supervision Note: I was present with Dr. Keane during the history and exam. I discussed the case with the resident and agree with the findings and plan as documented in the note. Any exceptions or clarifications are listed here. Pt seen and examined at bedside. Abdominal pain is significantly improved since starting abx and pain medications. Reports no nausea, fever, chest pain, SOB, bleeding/bruising. General Appearance: WD/WN, no apparent distress Respiratory: chest non-tender, lungs clear, normal breath sounds, no respiratory distress Cardiovascular: normal peripheral pulses, regular rate, rhythm, no edema, systolic murmur (2/6) Gastrointestinal: normal bowel sounds, non tender, soft, no organomegaly Assessment/Plan 36 y/o male h/o IVDA, mitral valve replacement, HTN consulted for management of INR, medical conditions in appendicitis Appendicitis - surgical intervention per primary team after INR rectified - will d/c vanc and continue unasyn, continue morphine for pain mgmt Supratherapeutic INR - rec'd 7.5 of vit K and 3 of FFP, trending INR, will start therapeutic heparin w/ bolus per Dr. Daniel ISABEL after HTN - holding Bblocker and DEEPTHI-I, hydralazine IV PRN Alcohol abuse - CIWA protocol for prevention Hep C Hx of Stroke
[2017-01-28] MEDS ORDERED: HydrALAZINE HCL 20 MG/ML VIAL IV. STA (15:04)
[2017-01-28 17:17] LABS: INR 1.5 (0.9-1.1); PROTHROMBIN TIME (PATIENT) 16.3 SECONDS (9.0-12.0)
--- NOTE | 2017-01-28 17:22 | Surgery Progress Note ---
Surgery Progress Note Date of Service Jan 28, 2017. Subjective 36 year old male admitted with appendicitis, but INR supratherapeutic. He has been receiving FFP and vit K, INR is now 1.5 and we will proceed with surgery. Objective Vital Signs: Date Time Temp Pulse Resp B/P (MAP) Pulse Ox O2 Delivery O2 Flow Rate FiO2 01/28/17 16:12 37.0 87 18 166/97 97 01/28/17 16:05 87 166/97 (120) 01/28/17 15:14 37.2 83 20 160/107 (124) 97 Room Air 01/28/17 14:54 37.4 01/28/17 14:17 37.0 82 18 164/100 01/28/17 13:16 37.3 72 20 180/138 (152) 98 Room Air 01/28/17 12:00 36.9 82 18 158/109 (125) 96 Room Air 01/28/17 10:59 37.5 77 18 155/95 (115) 97 Room Air 01/28/17 10:45 36.9 76 18 155/99 01/28/17 10:29 Room Air 01/28/17 07:15 36.8 80 18 137/81 (99) 97 Room Air 01/28/17 06:00 37.3 76 18 144/95 01/28/17 05:16 37.2 81 16 143/92 (109) 96 Room Air 01/28/17 04:45 37.2 78 18 145/96 01/28/17 04:27 37.4 82 146/98 01/28/17 02:56 37.4 84 16 153/103 (120) 95 Room Air 01/28/17 02:10 37.4 84 16 153/103 Room Air 01/28/17 02:10 Room Air 01/28/17 02:00 37.0 73 18 155/109 99 01/27/17 23:34 91 18 157/108 98 Room Air 01/27/17 22:15 94 01/27/17 22:13 Room Air 01/27/17 22:13 Room Air 01/27/17 21:35 37.0 104 20 165/111 96 Room Air Laboratory Results: Results Past 24 Hours Test 01/27/17 22:10 01/28/17 04:08 01/28/17 06:33 01/28/17 12:14 Range/Units White Blood Count 13.94 4.8-10.8 K/uL Red Blood Count 4.64 4.7-6.1 M/uL Hemoglobin 16.0 14.0-18.0 g/dL Hematocrit 45.3 42-52 % Mean Corpuscular Volume 97.6 80-100 fL Mean Corpuscular Hemoglobin 34.5 25-34 pg Mean Corpuscular Hemoglobin Concent 35.3 32-36 g/dl Platelet Count 203 130-400 K/uL Mean Platelet Volume 10.3 7.4-10.4 fL Neutrophils (%) (Auto) 78.5 % Lymphocytes (%) (Auto) 12.7 % Monocytes (%) (Auto) 7.7 % Eosinophils (%) (Auto) 0.5 % Basophils (%) (Auto) 0.2 % Neutrophils # (Auto) 10.93 1.4-6.5 K/uL Lymphocytes # (Auto) 1.77 1.2-3.4 K/uL Monocytes # (Auto) 1.08 0.11-0.59 K/uL Eosinophils # (Auto) 0.07 0-0.5 K/uL Basophils # (Auto) 0.03 0-0.2 K/uL RDW Standard Deviation 46.6 36.4-46.3 fL RDW Coefficient of Variation 13.2 11.5-14.5 % Immature Granulocyte % (Auto) 0.4 % Immature Granulocyte # (Auto) 0.06 0.00-0.02 K/uL Prothrombin Time 85.6 62.9 26.4 20.3 9.0-12.0 SECONDS Prothromb Time International Ratio 7.4 5.5 2.4 1.8 0.9-1.1 Activated Partial Thromboplast Time 53.1 21.0-31.0 SECONDS Partial Thromboplastin Ratio 2.0 Urine Color YELLOW Urine Appearance CLEAR CLEAR Urine pH 7.5 4.5-7.5 Urine Specific [place] 1.017 1.000-1.030 Urine Protein NEG NEG Urine Glucose (UA) NEG NEG Urine Ketones NEG NEG Urine Occult Blood TRACE NEG Urine Nitrite NEG NEG Urine Bilirubin NEG NEG Urine Urobilinogen NEG NEG Urine Leukocyte Esterase MODERATE NEG Urine WBC (Auto) >30 0-5 /hpf Urine RBC (Auto) 5-10 0-4 /hpf Urine Hyaline Casts (Auto) 1-5 0-5 /lpf Urine Epithelial Cells (Auto) 0-5 0-5 /lpf Urine Bacteria (Auto) 1+ NEG Sodium Level 137 136-145 mmol/L Potassium Level 4.0 3.5-5.1 mmol/L Chloride Level 103 98-107 mmol/L Carbon Dioxide Level 26 21-32 mmol/L Anion Gap 8.0 3-11 mmol/L Blood Urea Nitrogen 7 7-18 mg/dl Creatinine 0.86 0.60-1.40 mg/dl Est Creatinine Clear Calc Drug Dose 138.6 ml/min Estimated GFR () 127.5 Estimated GFR (Non- 110.0 BUN/Creatinine Ratio 7.8 10-20 Random Glucose 112 70-99 mg/dl Calcium Level 9.5 8.5-10.1 mg/dl Total Bilirubin 0.7 0.2-1 mg/dl Direct Bilirubin 0.2 0-0.2 mg/dl Aspartate Amino Transf (AST/SGOT) 61 15-37 U/L Alanine Aminotransferase (ALT/SGPT) 68 12-78 U/L Alkaline Phosphatase 82 45-117 U/L Total Creatine Kinase 166 39-308 U/L Creatine Kinase MB 1.1 0.5-3.6 ng/ml Creatine Kinase MB Ratio 0.7 0-3.0 Troponin I < 0.015 0-0.045 ng/ml Total Protein 7.9 6.4-8.2 gm/dl Albumin 3.9 3.4-5.0 gm/dl Lipase 279 73-393 U/L Urine Opiates Screen NEG NEG Urine Methadone, Qualitative NEG NEG Urine Barbiturates NEG NEG Urine Phencyclidine (PCP) Level NEG NEG Ur Amphetamine/Methamphetamine NEG NEG MDMA (Ecstasy) Screen NEG NEG Urine Benzodiazepines Screen NEG NEG Urine Cocaine Metabolite NEG NEG Urine Marijuana (THC) NEG NEG Test 01/28/17 13:52 01/28/17 16:57 Range/Units Prothrombin Time 19.0 16.3 9.0-12.0 SECONDS Prothromb Time International Ratio 1.7 1.5 0.9-1.1 Microbiology Results 01/27/17 Urine Culture, Received Pending
[2017-01-28] MEDS ORDERED: BUPIVACAINE 0.5 % 5 MG/1 ML MPF 30ML VIAL ONE (18:17)
[2017-01-28] MEDS ORDERED: MIDAZOLAM HCL 1 MG/ML 2ML VIAL ONE (18:30)
[2017-01-28] MEDS ORDERED: FENTANYL CITRATE INJ 50 MCG/1 ML 2 ML VIAL ONE (18:30)
[2017-01-28] MEDS ORDERED: HYDROmorphone INJ 2 MG/ML SYR/VIAL ONE ×2 (19:08→20:44)
[2017-01-28] MEDS ORDERED: DEXAMETHASONE SOD INJ 4 MG/ML VIAL ONE (19:37)
[2017-01-28] MEDS ORDERED: PROPOFOL IV EMULSION 10 MG/ML 20 ML VIAL IV ONE ×2 (19:37→19:38)
[2017-01-28] MEDS ORDERED: ONDANSETRON INJ 2 MG/ML 2 ML VIAL ONE (19:37)
[2017-01-28] MEDS ORDERED: NEOSTIGMINE METHYLSULFATE 5 MG/5 ML SYR ONE (19:38)
[2017-01-28] MEDS ORDERED: GLYCOPYRROLATE INJ 0.2 MG/ML VIAL ONE (19:38)
[2017-01-28] MEDS ORDERED: ROCURONIUM BROMIDE 10 MG/ML 5 ML VIAL IV ONE (19:41)
[2017-01-28] MEDS ORDERED: SUCCINYLCHOLINE CHLORIDE 20 MG/ML 10 ML VIAL IV ONE (19:41)
--- NOTE | 2017-01-28 19:53 | [facility] Post Operative Brief Note ---
Immediate Operative Summary Operative Date Jan 28, 2017. Pre-Operative Diagnosis Acute Appendicitis Post-Operative Diagnosis Acute appendicitis Procedure(s) Performed Laparoscopic Appendectomy Surgeon Dr. Klein Line Fixer Surgeon(s) None Estimated Blood Loss 5 mL Findings acute, non perforated appendicitis. base taken with stapler, mesoappendix taken with harmonic, excellent hemostasis. Specimens Permanent specimens A: Appendix Drains None Anesthesia GETA Complication(s) None Disposition Recovery Room / PACU
--- NOTE | 2017-01-28 20:08 | [facility] Operative Report ---
Operative Report Operative Date Jan 28, 2017. Pre-Operative Diagnosis Acute Appendicitis Post-Operative Diagnosis acute, non perforated appendicitis Procedure(s) Performed laparoscopic appendectomy Surgeon Dr. Klein Customer Technical Services Manager Surgeon(s) None Estimated Blood Loss 5 mL Findings acute, non perforated appendicitis. base taken with stapler, mesoappendix taken with harmonic, excellent hemostasis Specimens Permanent specimens A: Appendix Drains None Anesthesia GETA Complication(s) None Disposition Recovery Room / PACU Indications 36 year old male with acute appendicitis. Patient on coumadin for mechanical mitral valve, supratherapeutic INR. Admitted and given vit k and FFP, placed on antibiotics. Planned for laparoscopic appendectomy after normalization of INR to 1.5. The risks of the procedure were discussed, all questions were answered, and the patient agreed to proceed with surgery as planned. Description of Procedure The patient was properly identified, consented, and taken to the operating room where he was placed in the supine position. General endotracheal anesthesia was induced. SCDs and a safety belt were placed. Preoperative antibiotics were administered. A Luther catheter was not placed. The patient's abdomen was prepped and draped in the standard sterile fashion. Surgical timeout was performed and all parties were in agreement that this was the correct patient and procedure to be performed and we continued as planned. A curvilinear infraumbilical incision was made with electrocautery and deepened down to the fascia with blunt dissection. The base of the umbilicus was grasped with a Bernabe and elevated towards the ceiling. An incision was made in the midline fascia with a knife and entry into the peritoneum was confirmed. Stay suture of 0 Vicryl was placed and a Baig trocar was inserted. The abdomen was insufflated with carbon dioxide which the patient tolerated without incident. The laparoscope was inserted and no damage from initial trocar placement was noted, no gross abnormalities were noted within the 4 quadrants the abdomen. 5 mm ports were then placed in the left lower quadrant with care not to damage the epigastric vessels, and in the suprapubic midline with care not to damage the bladder. The patient was placed in Trendelenburg position and rotated towards the left. The small bowel was swept away from the right lower quadrant. The cecum was grasped withan atraumatic grasper exposing the appendix. The appendix was mildly inflamed and there was no evidence of perforation. There was some turbid fluid in the right paracolic gutter. A window was created between the base of the appendix and the mesoappendix. A saini loaded 30 mm endoscopic stapler was then used to divide the appendix at its base. The harmonic was then used to divide the mesoappendix. Hemostasis was excellent. The appendix was placed in an Endo Catch bag and removed through the umbilical port site. The right lower quadrant and pelvis was irrigated and hemostasis was found to be excellent. 5 mm trochars were removed under direct visualization and the abdomen was allowed to collapse. The umbilical port site fascia was closed with 0 Vicryl suture. The wound was irrigated, and the skin of all ports was closed with 4-0 Monocryl subcuticular sutures. Dermabond was placed over the wounds. The patient was extubated in the operating room and taken to the PACU where he] recovered without apparent incident. All sponge, instrument and needle counts were correct at the conclusion of the procedure. The patient tolerated the procedure well. I attest to the content of the Intraoperative Record and any orders documented therein. Any exceptions are noted below.
[2017-01-28] MEDS ORDERED: LABETALOL HCL IV 5 MG/ML 20ML IV ONE (20:11)
[2017-01-28] MEDS ORDERED: NALOXONE HCL 0.4 MG/1 ML VIAL/CARP IV PRN (20:15)
[2017-01-28] MEDS ORDERED: HYDROmorphone INJ 1 MG/ML SYR IV PRN (20:15)
[2017-01-28] MEDS: LABETALOL HCL IV 5 MG/ML 20ML IV PRN ×5 (20:15→20:55)
[2017-01-28] MEDS ORDERED: PROMETHAZINE HCL INJ 12.5 MG in SODIUM CHLORIDE 0.9% 50ML 50 ML IV PRN (20:15)
[2017-01-28] MEDS ORDERED: FLUMAZENIL 0.1 MG/1 ML 10 ML VIAL IV PRN (20:15)
[2017-01-28] MEDS ORDERED: ATROPINE SULFATE 0.1 MG/ML 5ML SYR IV PRN (20:15)
[2017-01-28] MEDS ORDERED: EpHEDrine SULFATE INJ 50 MG/ML AMP IV PRN (20:15)
--- NOTE | 2017-01-28 20:50 | Anesthesiology Progress Note ---
Anesthesia Post Op Note Date & Time Jan 28, 2017 at 20:50 Vital Signs Pain Intensity: 6.0 Vital Signs Past 12 Hours Date Time Temp Pulse Resp B/P (MAP) Pulse Ox O2 Delivery O2 Flow Rate FiO2 01/28/17 20:47 82 15 94 01/28/17 20:47 83 15 01/28/17 20:46 156/96 01/28/17 20:42 84 13 01/28/17 20:42 90 13 94 01/28/17 20:41 153/100 01/28/17 20:37 89 15 01/28/17 20:37 86 15 96 01/28/17 20:36 152/101 01/28/17 20:34 92 17 01/28/17 20:34 92 17 98 01/28/17 20:31 157/103 01/28/17 20:29 86 15 97 01/28/17 20:29 88 15 01/28/17 20:26 141/98 01/28/17 20:24 90 16 01/28/17 20:24 88 16 96 01/28/17 20:21 154/106 01/28/17 20:19 74 12 98 01/28/17 20:19 76 12 01/28/17 20:16 162/106 01/28/17 20:14 93 19 01/28/17 20:14 92 19 99 01/28/17 20:11 166/107 01/28/17 20:09 91 19 01/28/17 20:09 91 19 95 01/28/17 20:08 168/110 01/28/17 20:05 151/101 01/28/17 20:04 37.2 84 15 151/101 99 Oxymask 10 01/28/17 20:04 93 01/28/17 20:04 93 99 01/28/17 16:12 37.0 87 18 166/97 97 01/28/17 16:05 87 166/97 (120) 01/28/17 15:30 97 Room Air 01/28/17 15:14 37.2 83 20 160/107 (124) 97 Room Air 01/28/17 14:54 37.4 01/28/17 14:17 37.0 82 18 164/100 01/28/17 13:16 37.3 72 20 180/138 (152) 98 Room Air 01/28/17 12:00 36.9 82 18 158/109 (125) 96 Room Air 01/28/17 10:59 37.5 77 18 155/95 (115) 97 Room Air 01/28/17 10:45 36.9 76 18 155/99 01/28/17 10:29 Room Air Notes Mental Status: alert / awake / arousable, participated in evaluation Pt Amnestic to Procedure: Yes Nausea / Vomiting: adequately controlled Pain: adequately controlled Airway Patency, RR, SpO2: stable & adequate BP & HR: stable & adequate Hydration State: stable & adequate Anesthetic Complications: no major complications apparent
[2017-01-28] MEDS ORDERED: ENOXAPARIN 30 MG/0.3 ML SYR SQ SCH (21:00)
[2017-01-28] MEDS: METOPROLOL TARTRATE 50 MG TAB PO SCH (22:10)
[2017-01-28] MEDS: KETOROLAC TROMETHAMINE 15 MG/ML VIAL IV SCH (22:11)
[2017-01-29] MEDS: SODIUM CHLORIDE 0.9% 1000ML 1,000 ML IV SCH ×2 (00:06→08:41)
[2017-01-29] MEDS: TRAMADOL HCL 50 MG TAB PO PRN ×3 (01:42→21:38)
[2017-01-29] MEDS: KETOROLAC TROMETHAMINE 15 MG/ML VIAL IV SCH ×4 (03:50→21:35)
[2017-01-29] MEDS: AMPICILLIN/SULBACTAM SOD INJ 1,500 MG in SODIUM CHLORIDE 0.9% 100ML 100 ML IV SCH ×2 (03:50→10:02)
[2017-01-29] MEDS: WARFARIN SOD 4 MG TAB PO SCH ×2 (05:29→16:29)
[2017-01-29 06:11] LABS: COMPLETE YES; HEMATOCRIT 34.7 % (42-52); IG% 0.4 %; LYMPH % 5.6 %; LYMPH ABS # 0.48 K/uL (1.2-3.4); MEAN CELL VOLUME 99.7 fL (80-100); MEAN CORPUSCULAR HEMOGLOBIN 33.3 pg (25-34); MEAN CORPUSCULAR HGB CONC 33.4 g/dl (32-36); MEAN PLATELET VOLUME 10.6 fL (7.4-10.4); PLATELET COUNT 155 K/uL (130-400); RED BLOOD COUNT 3.48 M/uL (4.7-6.1); WHITE BLOOD COUNT 8.52 K/uL (4.8-10.8)
[2017-01-29 06:14] LABS: INR 1.3 (0.9-1.1); PROTHROMBIN TIME (PATIENT) 13.9 SECONDS (9.0-12.0)
[2017-01-29 06:40] LABS: BUN/CREATININE RATIO 12.2 (10-20); CREATININE 0.64 mg/dl (0.60-1.40)
[2017-01-29 07:20] VITALS: O2SAT 96
--- NOTE | 2017-01-29 07:22 | Family Medicine Progress Note ---
Progress Note Date of Service Jan 29, 2017. Subjective Pt evaluation today including: conversation w/ patient, physical exam, chart review, lab review, review of studies, conversation w/ professional services consultant, review of inpatient medication list Patient well postop. Denies any acute overnight events. Has abdominal pain at site of surgery, and is experiencing some dyspnea secondary to inability to fully expand his chest given subsequent abdominal pain. He has been using the incentive spirometer multiple times today. His abdominal pain is described as a dull ache, exacerbated when transitioning from lying to standing and vice versa. Patient is also complaining of some right shoulder pain, which Dr. Klein has assured him is related to his surgery position/irritation of nerve leading to it. The analgesia he is being does help but advised the patient. Patient otherwise denies chest pain, palpitations, nausea, vomiting, headache. He has been tolerating diet, and voiding and stooling appropriately. ROS unremarkable except as noted above. Objective Vital Signs Date Time Temp Pulse Resp B/P (MAP) Pulse Ox O2 Delivery O2 Flow Rate FiO2 01/29/17 00:08 Room Air 01/28/17 23:52 36.7 80 16 158/95 (116) 94 Room Air 01/28/17 22:40 37.4 71 16 133/93 (106) 95 Room Air 01/28/17 22:10 36.8 80 15 155/92 (113) 97 Nasal Cannula 2.0 01/28/17 22:02 97 Nasal Cannula 2.0 01/28/17 21:40 36.9 90 18 154/91 (112) 97 Nasal Cannula 2.0 01/28/17 21:26 143/93 01/28/17 21:23 82 14 94 01/28/17 21:23 81 14 01/28/17 21:21 133/92 01/28/17 21:18 89 12 96 01/28/17 21:18 89 12 01/28/17 21:16 143/96 01/28/17 21:13 85 12 01/28/17 21:13 84 12 95 01/28/17 21:13 36.9 01/28/17 21:11 138/90 01/28/17 21:08 88 15 96 01/28/17 21:08 91 15 01/28/17 21:07 88 20 01/28/17 21:07 92 20 95 01/28/17 21:06 136/91 1617 21:03 139/90 1617 21:02 95 16 17 21:02 97 16 96 01/28/17 21:01 147/100 17 20:57 94 18 16/17 20:57 93 18 95 1617 20:56 150/98 1617 20:53 87 17 01/28/17 20:53 86 17 94 1617 20:51 132/99 1617 20:48 89 17 94 1617 20:48 92 17 01/28/17 20:47 82 15 94 1617 20:47 83 15 01/28/17 20:46 156/96 01/28/17 20:42 84 13 16 20:42 90 13 94 1617 20:41 153/100 17 20:37 89 15 01/28/17 20:37 86 15 96 01/28/17 20:36 152/101 01/28/17 20:34 92 17 01/28/17 20:34 92 17 98 01/28/17 20:31 157/103 17 20:29 86 15 97 17 20:29 88 15 17 20:26 141/98 17 20:24 90 16 01/28/17 20:24 88 16 96 01/28/17 20:21 154/106 01/28/17 20:19 74 12 98 01/28/17 20:19 76 12 01/28/17 20:16 162/106 01/28/17 20:14 93 19 1617 20:14 92 19 99 01/28/17 20:11 166/107 17 20:09 91 19 01/28/17 20:09 91 19 95 01/28/17 20:08 168/110 01/28/17 20:05 151/101 01/28/17 20:04 37.2 84 15 151/101 99 Oxymask 10 01/28/17 20:04 93 16/17 20:04 93 99 17 16:12 37.0 87 18 166/97 97 01/28/17 16:05 87 166/97 (120) 01/28/17 15:30 97 Room Air 01/28/17 15:14 37.2 83 20 160/107 (124) 97 Room Air 01/28/17 14:54 37.4 01/28/17 14:17 37.0 82 18 164/100 01/28/17 13:16 37.3 72 20 180/138 (152) 98 Room Air 01/28/17 12:00 36.9 82 18 158/109 (125) 96 Room Air 01/28/17 10:59 37.5 77 18 155/95 (115) 97 Room Air 01/28/17 10:45 36.9 76 18 155/99 01/28/17 10:29 Room Air Physical Exam General Appearance: WD/WN, no apparent distress Eyes: normal inspection ENT: hearing grossly normal Neck: supple, no adenopathy Respiratory/Chest: lungs clear, normal breath sounds, no respiratory distress, no accessory muscle use Cardiovascular: regular rate, rhythm, + systolic murmur, + pertinent finding ( S2 click related to mechanical mitral valve) Abdomen: normal bowel sounds, soft, + distended (Mild), + tenderness ( Particularly at RLQ), + pertinent finding (3 incision sites clean, dry and intact. No dressing, closed with Dermabond.) Extremities: normal inspection, no pedal edema, no calf tenderness Neurologic/Psychiatric: alert, normal mood/affect, oriented x 3 Skin: normal color, warm/dry, no rash Laboratory Results Results Past 24 Hours Test 01/29/17 05:40 Range/Units White Blood Count 8.52 4.8-10.8 K/uL Red Blood Count 3.48 4.7-6.1 M/uL Hemoglobin 11.6 14.0-18.0 g/dL Hematocrit 34.7 42-52 % Mean Corpuscular Volume 99.7 80-100 fL Mean Corpuscular Hemoglobin 33.3 25-34 pg Mean Corpuscular Hemoglobin Concent 33.4 32-36 g/dl Platelet Count 155 130-400 K/uL Mean Platelet Volume 10.6 7.4-10.4 fL Neutrophils (%) (Auto) 89.0 % Lymphocytes (%) (Auto) 5.6 % Monocytes (%) (Auto) 5.0 % Eosinophils (%) (Auto) 0.0 % Basophils (%) (Auto) 0.0 % Neutrophils # (Auto) 7.58 1.4-6.5 K/uL Lymphocytes # (Auto) 0.48 1.2-3.4 K/uL Monocytes # (Auto) 0.43 0.11-0.59 K/uL Eosinophils # (Auto) 0.00 0-0.5 K/uL Basophils # (Auto) 0.00 0-0.2 K/uL RDW Standard Deviation 46.8 36.4-46.3 fL RDW Coefficient of Variation 12.9 11.5-14.5 % Immature Granulocyte % (Auto) 0.4 % Immature Granulocyte # (Auto) 0.03 0.00-0.02 K/uL Prothrombin Time 13.9 9.0-12.0 SECONDS Prothromb Time International Ratio 1.3 0.9-1.1 Sodium Level 139 136-145 mmol/L Potassium Level 4.0 3.5-5.1 mmol/L Chloride Level 108 98-107 mmol/L Carbon Dioxide Level 24 21-32 mmol/L Anion Gap 7.0 3-11 mmol/L Blood Urea Nitrogen 8 7-18 mg/dl Creatinine 0.64 0.60-1.40 mg/dl Est Creatinine Clear Calc Drug Dose 186.3 ml/min Estimated GFR () 144.0 Estimated GFR (Non- 124.2 BUN/Creatinine Ratio 12.2 10-20 Random Glucose 124 70-99 mg/dl Calcium Level 8.0 8.5-10.1 mg/dl Assessment and Plan 36 year old male admitted to the hospital with early appendicitis as per CT abdomen and found to have supratherapeutic INR. Appendicitis - s/p laparoscopic appendectomy 01/28/17. No complications. 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 Gutiérrez consulted, recs appreciated. (Patient follows with Dr. Gutiérrez at anticoagulation clinic) - Initial INR 7.4. Improved to 1.5 (surgical requirement) s/p 7.5mg IV vitamin K and 4 units FFP total - Post surgically started on therapeutic Enoxaparin 100mg BID + loading dose of warfarin tomorrow with 8mg - Resume regular warfarin dosing 01/30: 3mg x // + 4mg x ///. Target INR 2.5-3.5. Check INR daily. - Discharge with prescription for 4-5 days worth of therapeutic Enoxaparin - Follow up with Dr. Gutiérrez in anticoagulation clinic on Monday. HTN - Home meds Lisinopril 30mg qAM. Metoprolol Increased from 50mg to 100 mg BID - IV Hydralazine 5mg for SBP >170 - Continue to monitor Prostatitis - Possibly partially treated with Keflex as outpatient. - UA positive with leuks, bacteria, blood. Patient also symptomatic. Urine culture positive for Escherichia coli. Sensitivities pending. - Started on ciprofloxacin 500 mg BID to be continued for prolonged ten-day course, with follow-up with PCP for potential extended course. Alcohol use - No signs of alcohol withdrawal - Continue to assess need for librium +/- thiamine, folic acid, multivitamin Patient has Hep C - [place] precautions Mechanical mitral valve - Trend CBC Hx of Stroke - Monitor INR DVT prophylaxis - Therapeutic enoxaprin commenced for target INR 2.5-3.5 given mechanical valve Full code Continued [facility] stay due to: inadequate oral pain control Resident Tracking Resident Involvement: Resident Care Provided Care Provided: Adult Hospital Medicine History Resident Physician Supervision Note: I was present with Dr. Keane during the history and exam. I discussed the case with the resident and agree with the findings and plan as documented in the note. Any exceptions or clarifications are listed here. Pt seen and examined at bedside. Pt reports aching right lower quadrant pain worse with movement which radiates to the right shoulder intermittently which is not worsened by resisted movement which is generally well controlled on present pain regimen. General Appearance: WD/WN, no apparent distress Respiratory: chest non-tender, lungs clear, normal breath sounds, no respiratory distress Cardiovascular: normal peripheral pulses, regular rate, rhythm, no murmur Gastrointestinal: normal bowel sounds, guarding, tenderness Assessment/Plan 36 y/o male h/o IVDA, mitral valve replacement, HTN consulted for management of INR, medical conditions in appendicitis Appendicitis - POD#1 - postoperative management per primary team UTI w/ h/o prostatitis recently treated w/ cephalosporin - agree w/ ciprofloxacin Mitral valve replacement w/ h/o IVDA - lovenox and coumadin w/ loading dose per hematology, trend INR daily HTN - restart metoprolol, lisinopril. t/c increase lisinopril to 40mg if difficulty w/ control. Hydralazine IV PRN Alcohol abuse - [place] protocol for prevention Hep C Hx of Stroke
[2017-01-29] MEDS: MoRPHine SULFATE 2 MG/ML CARP IV PRN ×3 (07:47→14:38)
[2017-01-29 08:02] VITALS: BP 144/91; PULSE 76; O2SAT 96
[2017-01-29] MEDS: METOPROLOL TARTRATE 50 MG TAB PO SCH (08:04)
[2017-01-29] MEDS: LISINOPRIL 20 MG TAB PO SCH (08:05)
[2017-01-29] MEDS: ENOXAPARIN 100 MG/1ML SYR SQ SCH ×2 (08:41→21:36)
[2017-01-29] MEDS ORDERED: NON-FORMULARY MEDICATION (Metoprolol Succinate (Metoprolol Succinate ER) 100 MG) PO SCH (09:00)
--- NOTE | 2017-01-29 10:01 | Surgery Progress Note ---
Surgery Progress Note Date of Service Jan 29, 2017. Subjective POD#1 lap appendectomy for non perforated appendicitis. Doing well, sore but pain tolerable. Ambulating. Some hematuria. Feels better than prior to surgery. Objective Vital Signs: Date Time Temp Pulse Resp B/P (MAP) Pulse Ox O2 Delivery O2 Flow Rate FiO2 01/29/17 08:02 76 16 144/91 (108) 96 Room Air 01/29/17 07:20 96 Room Air 01/29/17 00:08 Room Air 01/28/17 23:52 36.7 80 16 158/95 (116) 94 Room Air 01/28/17 22:40 37.4 71 16 133/93 (106) 95 Room Air 01/28/17 22:10 36.8 80 15 155/92 (113) 97 Nasal Cannula 2.0 01/28/17 22:02 97 Nasal Cannula 2.0 01/28/17 21:40 36.9 90 18 154/91 (112) 97 Nasal Cannula 2.0 01/28/17 21:26 143/93 01/28/17 21:23 82 14 94 01/28/17 21:23 81 14 01/28/17 21:21 133/92 01/28/17 21:18 89 12 96 01/28/17 21:18 89 12 01/28/17 21:16 143/96 01/28/17 21:13 85 12 01/28/17 21:13 84 12 95 01/28/17 21:13 36.9 01/28/17 21:11 138/90 01/28/17 21:08 88 15 96 01/28/17 21:08 91 15 01/28/17 21:07 88 20 01/28/17 21:07 92 20 95 01/28/17 21:06 136/91 01/28/17 21:03 139/90 01/28/17 21:02 95 16 01/28/17 21:02 97 16 96 01/28/17 21:01 147/100 01/28/17 20:57 94 18 01/28/17 20:57 93 18 95 01/28/17 20:56 150/98 01/28/17 20:53 87 17 01/28/17 20:53 86 17 94 01/28/17 20:51 132/99 9/16/17 20:48 89 17 94 01/28/17 20:48 92 17 01/28/17 20:47 82 15 94 01/28/17 20:47 83 15 01/28/17 20:46 156/96 01/28/17 20:42 84 13 01/28/17 20:42 90 13 94 01/28/17 20:41 153/100 01/28/17 20:37 89 15 01/28/17 20:37 86 15 96 01/28/17 20:36 152/101 01/28/17 20:34 92 17 01/28/17 20:34 92 17 98 01/28/17 20:31 157/103 01/28/17 20:29 86 15 97 01/28/17 20:29 88 15 01/28/17 20:26 141/98 01/28/17 20:24 90 16 01/28/17 20:24 88 16 96 01/28/17 20:21 154/106 01/28/17 20:19 74 12 98 01/28/17 20:19 76 12 01/28/17 20:16 162/106 01/28/17 20:14 93 19 01/28/17 20:14 92 19 99 01/28/17 20:11 166/107 01/28/17 20:09 91 19 01/28/17 20:09 91 19 95 01/28/17 20:08 168/110 01/28/17 20:05 151/101 01/28/17 20:04 37.2 84 15 151/101 99 Oxymask 10 01/28/17 20:04 93 01/28/17 20:04 93 99 01/28/17 16:12 37.0 87 18 166/97 97 01/28/17 16:05 87 166/97 (120) 01/28/17 15:30 97 Room Air 01/28/17 15:14 37.2 83 20 160/107 (124) 97 Room Air 01/28/17 14:54 37.4 01/28/17 14:17 37.0 82 18 164/100 01/28/17 13:16 37.3 72 20 180/138 (152) 98 Room Air 01/28/17 12:00 36.9 82 18 158/109 (125) 96 Room Air 01/28/17 10:59 37.5 77 18 155/95 (115) 97 Room Air 01/28/17 10:45 36.9 76 18 155/99 01/28/17 10:29 Room Air General Appearance: WD/WN, no apparent distress Head: normocephalic, atraumatic Neck: supple, no adenopathy, thyroid normal, no JVD, no carotid bruits, trachea midline Respiratory/Chest: chest non-tender, lungs clear, normal breath sounds, no respiratory distress, no accessory muscle use Cardiovascular: regular rate, rhythm, no edema, no JVD Abdomen: normal bowel sounds, non distended, soft, no organomegaly, no pulsatile mass, + tenderness (appropriate) Incision(s): clean, dry, intact, no erythema, no drainage Extremities: normal range of motion, non-tender, normal inspection, no pedal edema, no calf tenderness, normal capillary refill, pelvis stable Laboratory Results: Results Past 24 Hours Test 01/28/17 12:14 01/28/17 13:52 01/28/17 16:57 01/29/17 05:40 Range/Units Prothrombin Time 20.3 19.0 16.3 13.9 9.0-12.0 SECONDS Prothromb Time International Ratio 1.8 1.7 1.5 1.3 0.9-1.1 White Blood Count 8.52 4.8-10.8 K/uL Red Blood Count 3.48 4.7-6.1 M/uL Hemoglobin 11.6 14.0-18.0 g/dL Hematocrit 34.7 42-52 % Mean Corpuscular Volume 99.7 80-100 fL Mean Corpuscular Hemoglobin 33.3 25-34 pg Mean Corpuscular Hemoglobin Concent 33.4 32-36 g/dl Platelet Count 155 130-400 K/uL Mean Platelet Volume 10.6 7.4-10.4 fL Neutrophils (%) (Auto) 89.0 % Lymphocytes (%) (Auto) 5.6 % Monocytes (%) (Auto) 5.0 % Eosinophils (%) (Auto) 0.0 % Basophils (%) (Auto) 0.0 % Neutrophils # (Auto) 7.58 1.4-6.5 K/uL Lymphocytes # (Auto) 0.48 1.2-3.4 K/uL Monocytes # (Auto) 0.43 0.11-0.59 K/uL Eosinophils # (Auto) 0.00 0-0.5 K/uL Basophils # (Auto) 0.00 0-0.2 K/uL RDW Standard Deviation 46.8 36.4-46.3 fL RDW Coefficient of Variation 12.9 11.5-14.5 % Immature Granulocyte % (Auto) 0.4 % Immature Granulocyte # (Auto) 0.03 0.00-0.02 K/uL Sodium Level 139 136-145 mmol/L Potassium Level 4.0 3.5-5.1 mmol/L Chloride Level 108 98-107 mmol/L Carbon Dioxide Level 24 21-32 mmol/L Anion Gap 7.0 3-11 mmol/L Blood Urea Nitrogen 8 7-18 mg/dl Creatinine 0.64 0.60-1.40 mg/dl Est Creatinine Clear Calc Drug Dose 186.3 ml/min Estimated GFR () 144.0 Estimated GFR (Non- 124.2 BUN/Creatinine Ratio 12.2 10-20 Random Glucose 124 70-99 mg/dl Calcium Level 8.0 8.5-10.1 mg/dl Diagnostic Interpretation: RUN DATE: 01/29/17 [facility] LAB PAGE 1 RUN TIME: 840 Specimen Inquiry PATIENT: HOOD KEY LOC: Jarod U # : [id number] AGE/SX: 36/M ROOM: E323 REG : 01/28/[address]: aWylon Klein DO : 1980 BED: 1 DIS : STATUS: ADM IN TLOC: SPEC #: [id number] ADRIAN: 01/27/17 STATUS: RES REQ #: [id number] RECD: 01/27/[address]: Rizwana Bradley PA-C SOURCE: CHRISTA, CC ENTR: 01/27/[address] [facility] [address]: Jeremias Szymanski ,D.OMissy [facility]: Nadira Melara DO ORDERED: CULTURE URCLEAN Procedure Result Verified Site URINE CULTURE Preliminary 01/29/17 Organism 1 ESCHERICHIA COLI COLONY COUNT 80,000 CFU/ml SENS SENSITIVITY TO FOLLOW Assessment & Plan POD#1 lap appendectomy, doing well. Started on therapeutic lovenox this am and coumadin. HCT down 11 points, likely partially dilutional. UTI/prostatitis with E Coli, sensitivities pending. Appendicitis - resolved s/p lap appendectomy advance diet h/l iv repeat cbc in am likely d/c tomorrow Anticoagulation therapeutic lovenox, coumadin per medicine and pharmacy, okay from general surgery perspective follow up in coumadin clinic UTI/Prostatitis Growing Ecoli, sensitivities pending transition to oral antibiotics per medicine choice. No need for continued antibiotics from gen surg perspective monitor reported hematuria, if persists then urology consult appreciate medicine assistance with this patient Barry Klein, DO
[2017-01-29 11:15] VITALS: BP 141/96; PULSE 76; TEMP 36.7; O2SAT 96
[2017-01-29] MEDS: CIPROFLOXACIN 500 MG TAB PO SCH ×2 (12:53→21:35)
[2017-01-29 15:07] VITALS: BP 127/84; PULSE 77; TEMP 36.6; O2SAT 92
[2017-01-29] MEDS: METOPROLOL TARTRATE 100 MG TAB PO SCH (21:00)
[2017-01-29 21:35] VITALS: BP 107/74; PULSE 102
[2017-01-29] MEDS ORDERED: METOPROLOL TARTRATE 50 MG TAB PO STA (23:20)
[2017-01-29] MEDS ORDERED: NURSING VERBAL MED ORDER ONE (23:30)
[2017-01-29 23:38] VITALS: BP 119/79; PULSE 100; TEMP 36.8; O2SAT 94
[2017-01-30] VITALS (24 sets, daily range): BP systolic 92–157; BP diastolic 61–89; PULSE 76–250; TEMP 36.5–37.5; O2SAT 92–98
[2017-01-30] MEDS ORDERED: THIAMINE HCL 100 MG TAB PO STA (00:57)
[2017-01-30] MEDS: KETOROLAC TROMETHAMINE 15 MG/ML VIAL IV SCH ×2 (04:24→09:32)
[2017-01-30 06:11] LABS: HEMATOCRIT 26.7 % (42-52); MEAN CELL VOLUME 101.1 fL (80-100); MEAN CORPUSCULAR HEMOGLOBIN 33.3 pg (25-34); MEAN PLATELET VOLUME 10.1 fL (7.4-10.4); PLATELET COUNT 154 K/uL (130-400); RED BLOOD COUNT 2.64 M/uL (4.7-6.1); WHITE BLOOD COUNT 8.98 K/uL (4.8-10.8)
[2017-01-30 06:29] LABS: INR 1.9 (0.9-1.1); PROTHROMBIN TIME (PATIENT) 21.1 SECONDS (9.0-12.0)
[2017-01-30 06:40] LABS: BUN/CREATININE RATIO 22.8 (10-20); CALCIUM 8.6 mg/dl (8.5-10.1); CREATININE 0.86 mg/dl (0.60-1.40)
--- NOTE | 2017-01-30 07:39 | Surgery Progress Note ---
Surgery Progress Note Date of Service Jan 30, 2017. Subjective Post OP Day: 2 BM x3, lightheaded this morning, bloated but tolerating diet Objective Vital Signs: Date Time Temp Pulse Resp B/P (MAP) Pulse Ox O2 Delivery O2 Flow Rate FiO2 01/30/17 07:26 36.8 94 18 110/76 (87) 94 Room Air 01/30/17 04:15 36.8 85 18 108/74 (85) 92 Room Air 01/30/17 02:59 36.6 79 16 102/68 (79) 93 Room Air 01/30/17 02:55 76 108/61 (77) 01/29/17 23:38 36.8 100 16 119/79 (92) 94 Room Air 01/29/17 23:30 Room Air 01/29/17 21:35 102 107/74 (85) 01/29/17 16:15 Room Air 01/29/17 15:07 36.6 77 18 127/84 (98) 92 Room Air 01/29/17 11:15 36.7 76 17 141/96 (111) 96 Room Air 01/29/17 08:02 76 16 144/91 (108) 96 Room Air Abdomen: soft, + distended (mildly) Incision(s): clean, dry Laboratory Results: Results Past 24 Hours Test 01/30/17 05:50 Range/Units White Blood Count 8.98 4.8-10.8 K/uL Red Blood Count 2.64 4.7-6.1 M/uL Hemoglobin 8.8 14.0-18.0 g/dL Hematocrit 26.7 42-52 % Mean Corpuscular Volume 101.1 80-100 fL Mean Corpuscular Hemoglobin 33.3 25-34 pg Mean Corpuscular Hemoglobin Concent 33.0 32-36 g/dl RDW Standard Deviation 48.9 36.4-46.3 fL RDW Coefficient of Variation 13.3 11.5-14.5 % Platelet Count 154 130-400 K/uL Mean Platelet Volume 10.1 7.4-10.4 fL Prothrombin Time 21.1 9.0-12.0 SECONDS Prothromb Time International Ratio 1.9 0.9-1.1 Sodium Level 140 136-145 mmol/L Potassium Level 4.0 3.5-5.1 mmol/L Chloride Level 107 98-107 mmol/L Carbon Dioxide Level 26 21-32 mmol/L Anion Gap 7.0 3-11 mmol/L Blood Urea Nitrogen 20 7-18 mg/dl Creatinine 0.86 0.60-1.40 mg/dl Est Creatinine Clear Calc Drug Dose 138.6 ml/min Estimated GFR () 127.5 Estimated GFR (Non- 110.0 BUN/Creatinine Ratio 22.8 10-20 Random Glucose 105 70-99 mg/dl Calcium Level 8.6 8.5-10.1 mg/dl Assessment & Plan s/p lap appy, anticoagulated for mechanical valve H&H drifted to 02/08, will recheck at noon, INR 1.9 recheck later today Patient seen and examined, labs reviewed, agree with above. s/p appy on a/c for mechanical valve, on coumadin with therapeutic lovenox bridge. Hct down to 27 (34), mildly symptomatic but normotensive. will repeat at noon, may need to stop lovenox if continued bleed. T&C 2 units. continue to monitor. Barry Klein, DO
[2017-01-30] MEDS: TRAMADOL HCL 50 MG TAB PO PRN (07:48)
[2017-01-30] MEDS: LORAZEPAM 1 MG TAB PO PRN ×2 (07:48→19:45)
[2017-01-30] MEDS: METOPROLOL TARTRATE 100 MG TAB PO SCH (07:49)
[2017-01-30] MEDS ORDERED: OXYC-57 PO (07:49)
[2017-01-30] MEDS: LISINOPRIL 20 MG TAB PO SCH (07:49)
--- NOTE | 2017-01-30 07:50 | Discharge Instructions ---
Discharge Instructions Date of Service Jan 30, 2017. Admission Reason for Admission: Appendicitis Discharge Discharge Diagnosis / Problem: laparoscopic appendectomy Discharge Goals Goal(s): Decrease discomfort Activity Recommendations Activity Limitations: as noted below Lifting Limitations: no more than 10 pounds Shower/Bathe: no limitations Driving or Machine Use: resume 3 days after discharge . Instructions / Follow-Up Instructions / Follow-Up Dr. Klein in 2 weeks, [address], call [phone] to schedule Current Hospital Diet Patient's current hospital diet: Regular Diet Discharge Diet Recommended Diet: Regular Diet Procedures Procedures Performed: Laparoscopic Appendectomy Pending Studies Studies pending at discharge: no Medical Emergencies . Who to Call and When: Medical Emergencies: If at any time you feel your situation is an emergency, please call 911 immediately. . Non-Emergent Contact Non-Emergency issues call your: Surgeon Call Non-Emergent contact if: you have a fever, temperature is above 101.5, your pain is not controlled, wound has increased pain, you have any medication questions . "Provider Documentation" section prepared by Jr Roy. . VTE Core Measure Inpt VTE Proph given/why not?: Contraindicated [place] Drug Monitoring Program Search Results: no issues identified
[2017-01-30] MEDS: CIPROFLOXACIN 500 MG TAB PO SCH ×2 (08:40→21:29)
[2017-01-30] MEDS: THIAMINE HCL 100 MG TAB PO SCH (08:40)
[2017-01-30] MEDS: ENOXAPARIN 100 MG/1ML SYR SQ SCH (08:42)
[2017-01-30] MEDS: SODIUM CHLORIDE 0.9% 1000ML 1,000 ML IV SCH ×2 (09:54→22:12)
--- NOTE | 2017-01-30 11:26 | Family Medicine Progress Note ---
Progress Note Date of Service Jan 30, 2017. Subjective Pt evaluation today including: conversation w/ patient, physical exam, chart review, conversation w/ plan consultant, review of inpatient medication list Pain: mild-moderate PO Intake: good Voiding: no voiding problems Patient feeling tired and dizzy when standing Hgb 8.8 this morning with no evidence of bleeding, no blood in stool, no blood in urine, no vomiting of blood still having pain in abdomen with deep inspiration Constitutional: + weakness, + fatigue, No fever, No chills, No sweats Respiratory: No cough, No sputum, No shortness of breath, No hemoptysis Cardiovascular: No chest pain, No edema, No palpitations Abdomen: + pain, No nausea, No vomiting, No diarrhea, No constipation, No GI bleeding Musculoskeletal: No joint pain, No muscle pain, No swelling, No calf pain Heme: No abnormal bleeding/bruising, No night sweats Skin: No rash, No itch, No new/changing skin lesions Medications Current Inpatient Medications Medications (Trade) Dose Ordered Sig/Krista Route Start Time Stop Time Status Last Admin Dose Admin Magnesium Hydroxide (Milk Of Magnesia Susp) 30 ml Q6H PRN PO 01/28/17 01:15 02/27/17 01:14 Polyethylene (Miralax Powder Packet) 17 gm DAILY PRN PO 01/28/17 01:15 02/27/17 01:14 Ondansetron HCl (Zofran Inj) 4 mg Q6H PRN IV 01/28/17 01:15 02/27/17 01:14 Hydralazine HCl (HydrALAZINE INJ) 5 mg TID PRN IV. 01/28/17 14:45 02/27/17 14:44 Morphine Sulfate (MoRPHine SULFATE INJ) 2 mg Q1H PRN IV 01/28/17 20:00 02/11/17 19:59 01/29/17 14:38 2 MG Ketorolac Tromethamine (Toradol Inj) 15 mg Q6H IV 01/28/17 22:00 02/02/17 19:59 01/30/17 09:32 15 MG Morphine Sulfate (MoRPHine SULFATE INJ) 4 mg Q1H PRN IV 01/28/17 20:00 02/11/17 19:59 Diphenhydramine HCl (Benadryl Cap) 25 mg Q4H PRN PO 01/28/17 20:00 02/27/17 19:59 Lisinopril (Zestril Tab) 30 mg QAM PO 01/29/17 09:00 02/28/17 08:59 01/29/17 08:05 30 MG Warfarin Sodium (Coumadin Tab) 8 mg DAILY@1600 PO 01/29/17 05:00 02/28/17 04:59 01/29/17 16:29 8 MG Enoxaparin Sodium (Lovenox Inj) 100 mg Q12H SQ 01/29/17 09:00 02/28/17 08:59 01/30/17 08:42 100 MG Metoprolol Tartrate (Lopressor Tab) 100 mg BID PO 01/29/17 21:00 02/27/17 21:59 Ciprofloxacin (Cipro Tab) 500 mg BID PO 01/29/17 12:00 02/08/17 11:59 01/30/17 08:40 500 MG Tramadol HCl (Ultram Tab) 100 mg Q4H PRN PO 01/29/17 20:00 02/27/17 19:59 01/30/17 07:48 100 MG Oxycodone/ Acetaminophen (Percocet 5-325mg Tab) 1 tab Q4H PRN PO 01/29/17 19:00 02/12/17 18:59 Oxycodone/ Acetaminophen (Percocet 5-325mg Tab) 2 tab Q4H PRN PO 01/29/17 19:00 02/12/17 18:59 Lorazepam (Ativan Tab) PRN Dosing -Active Protocol UD PRN PO 01/30/17 01:00 03/01/17 00:59 01/30/17 07:48 1 MG Thiamine HCl (Vitamin B-1 Tab) 100 mg QAM PO 01/30/17 09:00 03/01/17 08:59 01/30/17 08:40 100 MG Sodium Chloride 1,000 ml @ 125 mls/hr Q8H IV 01/30/17 09:30 03/01/17 09:29 01/30/17 09:54 125 MLS/HR Objective Vital Signs Date Time Temp Pulse Resp B/P (MAP) Pulse Ox O2 Delivery O2 Flow Rate FiO2 01/30/17 10:32 37.2 111 18 121/71 (88) 95 Room Air 01/30/17 08:38 37.1 85 18 92/61 (71) 93 Room Air 01/30/17 07:50 Room Air 01/30/17 07:35 92/64 (73) 01/30/17 07:26 36.8 94 18 110/76 (87) 94 Room Air 01/30/17 04:15 36.8 85 18 108/74 (85) 92 Room Air 01/30/17 02:59 36.6 79 16 102/68 (79) 93 Room Air 01/30/17 02:55 76 108/61 (77) 01/29/17 23:38 36.8 100 16 119/79 (92) 94 Room Air 01/29/17 23:30 Room Air 01/29/17 21:35 102 107/74 (85) 01/29/17 16:15 Room Air 01/29/17 15:07 36.6 77 18 127/84 (98) 92 Room Air Physical Exam General Appearance: WD/WN, no apparent distress ENT: hearing grossly normal, pharynx normal Respiratory/Chest: no respiratory distress, no accessory muscle use, + decreased breath sounds (at the bases bilaterally) Cardiovascular: regular rate, rhythm, no edema, no murmur, + pertinent finding (obvious mechanical click ) Abdomen: normal bowel sounds, + distended, + tenderness (mild tenderness throughout) Extremities: non-tender, no pedal edema, no calf tenderness Neurologic/Psychiatric: alert, normal mood/affect, oriented x 3 Skin: warm/dry, no rash, + pallor Laboratory Results Results Past 24 Hours Test 01/30/17 05:50 Range/Units White Blood Count 8.98 4.8-10.8 K/uL Red Blood Count 2.64 4.7-6.1 M/uL Hemoglobin 8.8 14.0-18.0 g/dL Hematocrit 26.7 42-52 % Mean Corpuscular Volume 101.1 80-100 fL Mean Corpuscular Hemoglobin 33.3 25-34 pg Mean Corpuscular Hemoglobin Concent 33.0 32-36 g/dl RDW Standard Deviation 48.9 36.4-46.3 fL RDW Coefficient of Variation 13.3 11.5-14.5 % Platelet Count 154 130-400 K/uL Mean Platelet Volume 10.1 7.4-10.4 fL Prothrombin Time 21.1 9.0-12.0 SECONDS Prothromb Time International Ratio 1.9 0.9-1.1 Sodium Level 140 136-145 mmol/L Potassium Level 4.0 3.5-5.1 mmol/L Chloride Level 107 98-107 mmol/L Carbon Dioxide Level 26 21-32 mmol/L Anion Gap 7.0 3-11 mmol/L Blood Urea Nitrogen 20 7-18 mg/dl Creatinine 0.86 0.60-1.40 mg/dl Est Creatinine Clear Calc Drug Dose 138.6 ml/min Estimated GFR () 127.5 Estimated GFR (Non- 110.0 BUN/Creatinine Ratio 22.8 10-20 Random Glucose 105 70-99 mg/dl Calcium Level 8.6 8.5-10.1 mg/dl Assessment and Plan 36 year old male admitted to the hospital with early appendicitis as per CT abdomen and found to have supratherapeutic INR. Appendicitis - s/p laparoscopic appendectomy 01/28/17. No complications. POD 2 - Pain management as per surgery: Tramadol PO, Percocet PO, Morphine IV Anemia - Hgb 8.8 this morning, patient symptomatic - will repeat at 12 - drop of 2 overnight, dilutional?, blood loss from surgery? GI bleeding? retroperitoneal? - continue to monitor - Patient blood pressure has been low, restarted maintenance IV fluids in case actively bleeding - Repeat hb later in the day 7.4. Discussed with Dr Klein and Dr. Daniel - transfuse 2 units of PRBC and hold coumadin. 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 Gutiérrez following, - Post surgically started on therapeutic Enoxaparin 100mg BID + loading dose of warfarin tomorrow with 8mg. (Received total of 16mgs in 24 hrs) - Target INR 2.5-3.5. Check INR daily. - With concern of active bleeding - holding coumadin. Lovenox d/clementine - Check INR and follow results. HTN - Home meds Lisinopril 30mg qAM. Metoprolol Increased from 50mg to 100 mg BID - IV Hydralazine 5mg for SBP >170 - Continue to monitor Prostatitis - Possibly partially treated with Keflex as outpatient. - UA positive with leuks, bacteria, blood. Patient also symptomatic. Urine culture positive for Escherichia coli. Sensitivities pending. - Started on ciprofloxacin 500 mg BID to be continued for prolonged ten-day course, with follow-up with PCP for potential extended course. Alcohol use - No signs of alcohol withdrawal - Continue to assess need for librium +/- thiamine, folic acid, multivitamin Patient has Hep C - Revelo precautions Mechanical mitral valve - Trend CBC Hx of Stroke - Monitor INR DVT prophylaxis - Therapeutic enoxaprin commenced for target INR 2.5-3.5 given mechanical valve Full code Continued [facility] stay due to: ambulation difficulties, multiple IV medications needed Reviewed: Pt Seen/Exam by Me History c/o abdomen feeling distended Constitutional: denies: fever Respiratory: negative: short of breath Cardiovascular: denies chest pain General Appearance: no apparent distress Respiratory: lungs clear, no respiratory distress Cardiovascular: regular rate, rhythm Gastrointestinal: normal bowel sounds, soft, distended (mild) Neurologic/Psychiatric: alert, oriented x 3 Assessment/Plan Resident Physician Supervision Note: I was present with Dr. Schmid in bedside. I verified the wheeler history and physical, reviewed labs and image studies, discussed the case with the resident and agree with the findings and care plan.
[2017-01-30 12:33] LABS: HEMATOCRIT 24.1 % (42-52)
[2017-01-30] MEDS ORDERED: NURSING VERBAL MED ORDER ONE (15:45)
[2017-01-30 15:50] LABS: HEMATOCRIT 23.1 % (42-52)
[2017-01-30] MEDS ORDERED: WARFARIN SOD 3 MG TAB PO SCH (16:00)
--- NOTE | 2017-01-30 16:45 | DIAGNOSTIC IMAGING REPORT ---
KUB CLINICAL HISTORY: Abdominal distention. FINDINGS: 2 AP, portable, supine abdominal radiographs are correlated with abdominal CT dated 01/27/2017. There is no radiographic evidence of bowel obstruction. There is a paucity of gas in the small bowel. No abnormal abdominal calcifications are identified. The bony structures appear intact. IMPRESSION: There is no radiographic evidence of bowel obstruction Electronically signed by: Len Myers M.D. 01/30/2017 4:44 PM Dictated Date/Time: 01/30/2017 4:41 PM
[2017-01-30 17:05] LABS: INR 2.2 (0.9-1.1); PROTHROMBIN TIME (PATIENT) 24.2 SECONDS (9.0-12.0)
--- NOTE | 2017-01-30 21:17 | DIAGNOSTIC IMAGING REPORT ---
CT SCAN OF THE ABDOMEN AND PELVIS WITHOUT IV CONTRAST CLINICAL HISTORY: Drop in hematocrit status post appendectomy. COMPARISON STUDY: Abdominal CT dated 01/27/2017. TECHNIQUE: CT scan of the abdomen and pelvis is performed from the lung bases to the proximal femora. Images are reviewed in the axial, sagittal, and coronal planes. IV contrast was not administered for this examination as per the referring clinician. A dose lowering technique was utilized adhering to the principles of ALARA. CT DOSE: 1164.72 mGycm FINDINGS: Lung bases: Sternotomy wires are noted. The heart is normal in size and without pericardial effusion. Postoperative change is noted involving the mitral valve. There are small pleural effusions with bibasilar consolidation. A tiny hiatal hernia is noted. Liver: The unenhanced liver is enlarged, measuring 22 cm in length. The liver demonstrates diffusely diminished attenuation consistent with hepatic steatosis. Fatty sparing is seen adjacent to gallbladder fossa. There is no intrahepatic biliary ductal dilatation. Gallbladder: Unremarkable. Spleen: Normal in size and attenuation. Pancreas: Unremarkable. Adrenal glands: Unremarkable. Kidneys: The unenhanced kidneys are normal in size and without hydronephrosis. There are no renal calculi identified. There is no evidence of contour deforming renal mass lesion. Abdominal vasculature: The abdominal aorta is normal in course and caliber noting mild atherosclerotic calcification. Bowel: The small bowel and colon are normal in course and caliber. Postoperative changes are consistent with appendectomy. Peritoneum: There is a small to moderate volume of complex fluid identified in the abdomen and pelvis consistent with hemoperitoneum. A layering hematocrit level is observed. No intraperitoneal free air is seen. There is a small fat-containing umbilical hernia. Periumbilical induration is likely related to a laparoscopy port. Lymphadenopathy: None. Pelvic viscera: The bladder, prostate, and seminal vesicles are normal as visualized. Skeletal structures: No lytic or blastic lesions are seen. IMPRESSION: 1. There is a small to moderate volume of hemoperitoneum identified. Hematocrit levels are noted in the pelvis. 2. No bowel obstruction is seen. There is evidence of interval appendectomy. 3. Hepatomegaly and severe hepatic steatosis. 4. Small pleural effusions with dependent consolidation. This likely represents atelectasis. Clinical correlation will be required. 5. Additional findings as above. Electronically signed by: Len Myers M.D. 01/30/2017 9:15 PM Dictated Date/Time: 01/30/2017 9:09 PM
--- NOTE | 2017-01-30 21:21 | Progress Note ---
Progress Note Date of Service Jan 30, 2017. Progress Note Called due to persistent tachycardia - Pt receiving 1st unit of PRBCs. BP stable but has been tachycardia throughout the day. - Advised nurse to obtain EKG, which showed sinus tachycardia with slight lateral ST depressions - Due to concern of internal bleeding, stat CT was ordered. Pending final read. - Pt transferred to telemetry in meantime - Advised to obtain H&H 30 min after transfusion Will continue to follow overnight Resident Tracking Resident Involvement: Science Intern Coverage Note Care Provided: Adult Hospital Medicine
[2017-01-30] MEDS: MoRPHine SULFATE 2 MG/ML CARP IV PRN (21:29)
[2017-01-30] MEDS: METOPROLOL TARTRATE 50 MG TAB PO SCH (21:29)
--- NOTE | 2017-01-30 22:04 | Surgery Progress Note ---
Surgery Progress Note Date of Service Jan 30, 2017. Objective Vital Signs: Date Time Temp Pulse Resp B/P (MAP) Pulse Ox O2 Delivery O2 Flow Rate FiO2 01/30/17 20:30 37.0 156 18 134/85 96 01/30/17 20:15 36.8 155 20 128/84 96 01/30/17 19:42 36.7 157 18 118/80 94 01/30/17 18:45 36.9 146 20 138/89 95 01/30/17 18:18 36.8 150 24 157/82 94 01/30/17 17:45 37.5 142 24 117/74 95 01/30/17 17:18 37.3 142 18 110/71 94 01/30/17 17:03 37.0 145 18 113/72 94 01/30/17 15:56 123 01/30/17 15:10 36.6 250 18 118/72 (87) 93 Room Air 01/30/17 12:52 36.5 115 22 123/77 (92) 96 Room Air 01/30/17 11:36 37.0 118 20 116/71 (86) 95 Room Air 01/30/17 10:32 37.2 111 18 121/71 (88) 95 Room Air 01/30/17 08:38 37.1 85 18 92/61 (71) 93 Room Air 01/30/17 07:50 Room Air 01/30/17 07:35 92/64 (73) 01/30/17 07:26 36.8 94 18 110/76 (87) 94 Room Air 01/30/17 04:15 36.8 85 18 108/74 (85) 92 Room Air 01/30/17 02:59 36.6 79 16 102/68 (79) 93 Room Air 01/30/17 02:55 76 108/61 (77) 01/29/17 23:38 36.8 100 16 119/79 (92) 94 Room Air 01/29/17 23:30 Room Air Abdomen: normal bowel sounds, soft, + distended, + tenderness Laboratory Results: Results Past 24 Hours Test 01/30/17 05:50 01/30/17 12:17 01/30/17 15:42 01/30/17 16:50 Range/Units White Blood Count 8.98 4.8-10.8 K/uL Red Blood Count 2.64 4.7-6.1 M/uL Hemoglobin 8.8 8.0 7.4 14.0-18.0 g/dL Hematocrit 26.7 24.1 23.1 42-52 % Mean Corpuscular Volume 101.1 80-100 fL Mean Corpuscular Hemoglobin 33.3 25-34 pg Mean Corpuscular Hemoglobin Concent 33.0 32-36 g/dl RDW Standard Deviation 48.9 36.4-46.3 fL RDW Coefficient of Variation 13.3 11.5-14.5 % Platelet Count 154 130-400 K/uL Mean Platelet Volume 10.1 7.4-10.4 fL Prothrombin Time 21.1 24.2 9.0-12.0 SECONDS Prothromb Time International Ratio 1.9 2.2 0.9-1.1 Sodium Level 140 136-145 mmol/L Potassium Level 4.0 3.5-5.1 mmol/L Chloride Level 107 98-107 mmol/L Carbon Dioxide Level 26 21-32 mmol/L Anion Gap 7.0 3-11 mmol/L Blood Urea Nitrogen 20 7-18 mg/dl Creatinine 0.86 0.60-1.40 mg/dl Est Creatinine Clear Calc Drug Dose 138.6 ml/min Estimated GFR () 127.5 Estimated GFR (Non- 110.0 BUN/Creatinine Ratio 22.8 10-20 Random Glucose 105 70-99 mg/dl Calcium Level 8.6 8.5-10.1 mg/dl Test 01/30/17 20:30 Range/Units Diagnostic Interpretation: CT SCAN OF THE ABDOMEN AND PELVIS WITHOUT IV CONTRAST CLINICAL HISTORY: Drop in hematocrit status post appendectomy. COMPARISON STUDY: Abdominal CT dated 01/27/2017. TECHNIQUE: CT scan of the abdomen and pelvis is performed from the lung bases to the proximal femora. Images are reviewed in the axial, sagittal, and coronal planes. IV contrast was not administered for this examination as per the referring clinician. A dose lowering technique was utilized adhering to the principles of ALARA. CT DOSE: 1164.72 mGycm FINDINGS: Lung bases: Sternotomy wires are noted. The heart is normal in size and without pericardial effusion. Postoperative change is noted involving the mitral valve. There are small pleural effusions with bibasilar consolidation. A tiny hiatal hernia is noted. Liver: The unenhanced liver is enlarged, measuring 22 cm in length. The liver demonstrates diffusely diminished attenuation consistent with hepatic steatosis. Fatty sparing is seen adjacent to gallbladder fossa. There is no intrahepatic biliary ductal dilatation. Gallbladder: Unremarkable. Spleen: Normal in size and attenuation. Pancreas: Unremarkable. Adrenal glands: Unremarkable. Kidneys: The unenhanced kidneys are normal in size and without hydronephrosis. There are no renal calculi identified. There is no evidence of contour deforming renal mass lesion. Abdominal vasculature: The abdominal aorta is normal in course and caliber noting mild atherosclerotic calcification. Bowel: The small bowel and colon are normal in course and caliber. Postoperative changes are consistent with appendectomy. Peritoneum: There is a small to moderate volume of complex fluid identified in the abdomen and pelvis consistent with hemoperitoneum. A layering hematocrit level is observed. No intraperitoneal free air is seen. There is a small fat-containing umbilical hernia. Periumbilical induration is likely related to a laparoscopy port. Lymphadenopathy: None. Pelvic viscera: The bladder, prostate, and seminal vesicles are normal as visualized. Skeletal structures: No lytic or blastic lesions are seen. IMPRESSION: 1. There is a small to moderate volume of hemoperitoneum identified. Hematocrit levels are noted in the pelvis. 2. No bowel obstruction is seen. There is evidence of interval appendectomy. 3. Hepatomegaly and severe hepatic steatosis. 4. Small pleural effusions with dependent consolidation. This likely represents atelectasis. Clinical correlation will be required. 5. Additional findings as above. Assessment & Plan POD#2 lap appendectomy restarted on therapeutic a/c yesterday, bleeding today. CT showed moderate hemoperitoneum as expected. Hct drifted to 23, patient was lightheaded with fairly significant tachycardia, currently being transfused 2 units. passing gas and urinating, though not being recorded. 2nd unit almost in, will check on follow up h&h. Patient transferred to [facility], npo after midnight. Will continue to follow closely. Barry Klein, DO
[2017-01-30 23:13] LABS: HEMATOCRIT 26.5 % (42-52)
[2017-01-30] MEDS ORDERED: NURSING VERBAL MED ORDER STA (23:47)
[2017-01-30] MEDS ORDERED: LORAZEPAM 0.5 MG TAB ONE (23:50)
[2017-01-31] VITALS (14 sets, daily range): BP systolic 95–154; BP diastolic 62–94; PULSE 20–133; TEMP 36.4–37; O2SAT 90–98
[2017-01-31] MEDS ORDERED: LORAZEPAM 0.5 MG TAB PO STA (00:06)
[2017-01-31 04:23] LABS: BASO % 0.1 %; BASO ABS # 0.02 K/uL (0-0.2); HEMATOCRIT 23.7 % (42-52); LYMPH % 11.8 %; MEAN CORPUSCULAR HEMOGLOBIN 31.3 pg (25-34); MEAN CORPUSCULAR HGB CONC 33.3 g/dl (32-36); MEAN PLATELET VOLUME 10.3 fL (7.4-10.4); MONO % 12.8 %; NEUT % 74.3 %; PLATELET COUNT 152 K/uL (130-400); RED BLOOD COUNT 2.52 M/uL (4.7-6.1); WHITE BLOOD COUNT 15.21 K/uL (4.8-10.8)
[2017-01-31 04:43] LABS: CREATININE 1.2 mg/dl (0.60-1.40)
[2017-01-31] MEDS: TRAMADOL HCL 50 MG TAB PO PRN ×2 (05:49→20:08)
[2017-01-31 05:58] LABS: COMPLETE YES
[2017-01-31] MEDS ORDERED: NURSING VERBAL MED ORDER SCH (07:30)
[2017-01-31] MEDS: LORAZEPAM 1 MG TAB PO PRN (07:53)
[2017-01-31] MEDS: OXYCODONE/ACETAMINOPHEN 5-325 TAB PO PRN ×2 (07:54→14:59)
[2017-01-31] MEDS: CIPROFLOXACIN 500 MG TAB PO SCH ×2 (07:55→21:06)
[2017-01-31] MEDS: METOPROLOL TARTRATE 50 MG TAB PO SCH ×2 (07:55→21:06)
[2017-01-31] MEDS: LISINOPRIL 20 MG TAB PO SCH (07:56)
[2017-01-31] MEDS: THIAMINE HCL 100 MG TAB PO SCH (07:56)
--- NOTE | 2017-01-31 09:07 | Surgery Progress Note ---
Surgery Progress Note Date of Service Jan 31, 2017. Subjective POD#3 lap appendectomy restarted on therapeutic anticoagulation on POD#1 for mechanical mitral valve, complicated by bleeding. Lovenox held. CT last night showed moderate hemoperitoneum as expected. Transfused 2 units last night, follow up HCT up 4 points, back to 23 this AM, 1 unit ordered by hospitalist and currently transfusing. Overall feels better, currently NPO. Objective Vital Signs: Date Time Temp Pulse Resp B/P (MAP) Pulse Ox O2 Delivery O2 Flow Rate FiO2 01/31/17 06:20 36.9 128 20 134/86 95 01/31/17 05:50 37.0 131 22 125/68 94 01/31/17 05:39 37.0 133 20 95/62 95 01/31/17 04:00 94 Room Air 01/31/17 03:10 37.0 118 18 122/80 (94) 94 Room Air 01/30/17 23:59 36.9 109 20 118/80 (93) 98 Room Air 01/30/17 23:59 98 Room Air 01/30/17 21:55 36.9 137 19 121/84 98 01/30/17 21:45 36.9 147 20 116/79 97 01/30/17 21:00 36.9 164 24 131/86 97 01/30/17 20:30 37.0 156 18 134/85 96 01/30/17 20:20 36.9 137 19 98 01/30/17 20:15 36.8 155 20 128/84 96 01/30/17 19:42 36.7 157 18 118/80 94 01/30/17 18:45 36.9 146 20 138/89 95 01/30/17 18:18 36.8 150 24 157/82 94 01/30/17 17:45 37.5 142 24 117/74 95 01/30/17 17:18 37.3 142 18 110/71 94 01/30/17 17:03 37.0 145 18 113/72 94 01/30/17 15:56 123 01/30/17 15:30 Room Air 01/30/17 15:10 36.6 250 18 118/72 (87) 93 Room Air 01/30/17 12:52 36.5 115 22 123/77 (92) 96 Room Air 01/30/17 11:36 37.0 118 20 116/71 (86) 95 Room Air 01/30/17 10:32 37.2 111 18 121/71 (88) 95 Room Air 01/30/17 08:38 37.1 85 18 92/61 (71) 93 Room Air 01/30/17 07:50 Room Air 01/30/17 07:35 92/64 (73) General Appearance: WD/WN, no apparent distress, + obese Head: normocephalic, atraumatic Neck: supple, no adenopathy, thyroid normal, no JVD, no carotid bruits, trachea midline Respiratory/Chest: chest non-tender, lungs clear, normal breath sounds, no respiratory distress, no accessory muscle use Cardiovascular: no gallop, + tachycardia Abdomen: normal bowel sounds, soft, no organomegaly, no pulsatile mass, + distended, + tenderness (improved from yesterday) Incision(s): clean, dry, intact, no erythema, no drainage Extremities: normal range of motion, non-tender, normal inspection, no pedal edema, no calf tenderness, normal capillary refill, pelvis stable Laboratory Results: Results Past 24 Hours Test 01/30/17 12:17 01/30/17 15:42 01/30/17 16:50 01/30/17 22:38 Range/Units Hemoglobin 8.0 7.4 8.7 14.0-18.0 g/dL Hematocrit 24.1 23.1 26.5 42-52 % Prothrombin Time 24.2 9.0-12.0 SECONDS Prothromb Time International Ratio 2.2 0.9-1.1 Test 01/31/17 04:12 Range/Units White Blood Count 15.21 4.8-10.8 K/uL Red Blood Count 2.52 4.7-6.1 M/uL Hemoglobin 7.9 14.0-18.0 g/dL Hematocrit 23.7 42-52 % Mean Corpuscular Volume 94.0 80-100 fL Mean Corpuscular Hemoglobin 31.3 25-34 pg Mean Corpuscular Hemoglobin Concent 33.3 32-36 g/dl Platelet Count 152 130-400 K/uL Mean Platelet Volume 10.3 7.4-10.4 fL Neutrophils (%) (Auto) 74.3 % Lymphocytes (%) (Auto) 11.8 % Monocytes (%) (Auto) 12.8 % Eosinophils (%) (Auto) 0.0 % Basophils (%) (Auto) 0.1 % Neutrophils # (Auto) 11.30 1.4-6.5 K/uL Lymphocytes # (Auto) 1.80 1.2-3.4 K/uL Monocytes # (Auto) 1.94 0.11-0.59 K/uL Eosinophils # (Auto) 0.00 0-0.5 K/uL Basophils # (Auto) 0.02 0-0.2 K/uL RDW Standard Deviation 55.0 36.4-46.3 fL RDW Coefficient of Variation 16.2 11.5-14.5 % Immature Granulocyte % (Auto) 1.0 % Immature Granulocyte # (Auto) 0.15 0.00-0.02 K/uL Nucleated RBC Absolute Count (auto) 0.10 0-0 K/uL Nucleated Red Blood Cells % 0.6 % Red Blood Cell Morphology Unremarkable Prothrombin Time 22.0 9.0-12.0 SECONDS Prothromb Time International Ratio 2.0 0.9-1.1 Creatinine 1.20 0.60-1.40 mg/dl Est Creatinine Clear Calc Drug Dose 99.4 ml/min Estimated GFR () 88.4 Estimated GFR (Non- 76.3 Diagnostic Interpretation: CT SCAN OF THE ABDOMEN AND PELVIS WITHOUT IV CONTRAST CLINICAL HISTORY: Drop in hematocrit status post appendectomy. COMPARISON STUDY: Abdominal CT dated 01/27/2017. TECHNIQUE: CT scan of the abdomen and pelvis is performed from the lung bases to the proximal femora. Images are reviewed in the axial, sagittal, and coronal planes. IV contrast was not administered for this examination as per the referring clinician. A dose lowering technique was utilized adhering to the principles of ALARA. CT DOSE: 1164.72 mGycm FINDINGS: Lung bases: Sternotomy wires are noted. The heart is normal in size and without pericardial effusion. Postoperative change is noted involving the mitral valve. There are small pleural effusions with bibasilar consolidation. A tiny hiatal hernia is noted. Liver: The unenhanced liver is enlarged, measuring 22 cm in length. The liver demonstrates diffusely diminished attenuation consistent with hepatic steatosis. Fatty sparing is seen adjacent to gallbladder fossa. There is no intrahepatic biliary ductal dilatation. Gallbladder: Unremarkable. Spleen: Normal in size and attenuation. Pancreas: Unremarkable. Adrenal glands: Unremarkable. Kidneys: The unenhanced kidneys are normal in size and without hydronephrosis. There are no renal calculi identified. There is no evidence of contour deforming renal mass lesion. Abdominal vasculature: The abdominal aorta is normal in course and caliber noting mild atherosclerotic calcification. Bowel: The small bowel and colon are normal in course and caliber. Postoperative changes are consistent with appendectomy. Peritoneum: There is a small to moderate volume of complex fluid identified in the abdomen and pelvis consistent with hemoperitoneum. A layering hematocrit level is observed. No intraperitoneal free air is seen. There is a small fat-containing umbilical hernia. Periumbilical induration is likely related to a laparoscopy port. Lymphadenopathy: None. Pelvic viscera: The bladder, prostate, and seminal vesicles are normal as visualized. Skeletal structures: No lytic or blastic lesions are seen. IMPRESSION: 1. There is a small to moderate volume of hemoperitoneum identified. Hematocrit levels are noted in the pelvis. 2. No bowel obstruction is seen. There is evidence of interval appendectomy. 3. Hepatomegaly and severe hepatic steatosis. 4. Small pleural effusions with dependent consolidation. This likely represents atelectasis. Clinical correlation will be required. 5. Additional findings as above. Assessment & Plan 36 y/o male POD#3 laparoscopic appendectomy complicated by post operative bleeding due to therapeutic anticoagulation for mechanical mitral valve. Overall doing better. Holding lovenox, INR is 2.0, currently getting additional unit of blood. Discussed the current status with the patient and his . no indication for surgery at this point as most likely will find diffuse oozing from anticoagulation or old blood. They expressed understanding. Plan: follow up hct continue npo, if appropriate response to blood then will advance diet continue to hold lovenox no indication for surgical intervention at this time limit IVF's will continue to monitor closely Barry Klein, DO
[2017-01-31] MEDS: MoRPHine SULFATE 4 MG/ML 1 ML CARP\\VIAL IV PRN (09:24)
[2017-01-31] MEDS: NICOTINE 21 MG/24 HR TDSY EXT SCH (09:24)
[2017-01-31 11:31] LABS: HEMATOCRIT 24.9 % (42-52)
--- NOTE | 2017-01-31 11:39 | Family Medicine Progress Note ---
Progress Note Date of Service Jan 31, 2017. Subjective Pt evaluation today including: conversation w/ patient, physical exam, chart review, lab review, conversation w/ sap consultant, review of inpatient medication list Pain: mild PO Intake: NPO Voiding: no voiding problems Patient with symptomatic anemia yesterday with a decreasing Hgb. Dr. Klein evaluated patient and decided to administer 2 units of PRBC yesterday evening and repeat Hgb 8.7. Hgb this morning was 7.[address] Klein ordered another unit of PRBC and patient was given 1 unit of PRBC this morning Patients INR 2.0 this morning and patient with mechanical mitral valve so therefore we need to talk to Cardiology to decide how long patient can remain with INR of 2.0 as patient with evidence of haemoperitoneum on CT (mild to moderate amount of blood), therefore need to assess risk vs benefits of anticoagulation Patient did say he was feeling better this morning but is still light headed and dizzy when trying to walk around Constitutional: No fever, No chills, No sweats Respiratory: + dyspnea on exertion, No cough, No shortness of breath, No dyspnea at rest Cardiovascular: No chest pain, No edema, No palpitations Abdomen: + pain, No nausea, No vomiting, No diarrhea, No constipation, No GI bleeding Male : No hematuria Neurologic: + weakness, + balance problems, No paralysis Heme: No abnormal bleeding/bruising, No clotting problems Endo: + fatigue Skin: No rash, No itch, No new/changing skin lesions Medications Current Inpatient Medications Medications (Trade) Dose Ordered Sig/Krista Route Start Time Stop Time Status Last Admin Dose Admin Magnesium Hydroxide (Milk Of Magnesia Susp) 30 ml Q6H PRN PO 01/28/17 01:15 02/27/17 01:14 Polyethylene (Miralax Powder Packet) 17 gm DAILY PRN PO 01/28/17 01:15 02/27/17 01:14 Ondansetron HCl (Zofran Inj) 4 mg Q6H PRN IV 01/28/17 01:15 02/27/17 01:14 Hydralazine HCl (HydrALAZINE INJ) 5 mg TID PRN IV. 01/28/17 14:45 02/27/17 14:44 Morphine Sulfate (MoRPHine SULFATE INJ) 2 mg Q1H PRN IV 01/28/17 20:00 02/11/17 19:59 01/30/17 21:29 2 MG Morphine Sulfate (MoRPHine SULFATE INJ) 4 mg Q1H PRN IV 01/28/17 20:00 02/11/17 19:59 01/31/17 09:24 4 MG Diphenhydramine HCl (Benadryl Cap) 25 mg Q4H PRN PO 01/28/17 20:00 02/27/17 19:59 01/30/17 23:08 25 MG Lisinopril (Zestril Tab) 30 mg QAM PO 01/29/17 09:00 02/28/17 08:59 01/31/17 07:56 30 MG Ciprofloxacin (Cipro Tab) 500 mg BID PO 01/29/17 12:00 02/08/17 11:59 01/31/17 07:55 500 MG Tramadol HCl (Ultram Tab) 100 mg Q4H PRN PO 01/29/17 20:00 02/27/17 19:59 01/31/17 05:49 100 MG Oxycodone/ Acetaminophen (Percocet 5-325mg Tab) 1 tab Q4H PRN PO 01/29/17 19:00 02/12/17 18:59 Oxycodone/ Acetaminophen (Percocet 5-325mg Tab) 2 tab Q4H PRN PO 01/29/17 19:00 02/12/17 18:59 01/31/17 07:54 2 TAB Lorazepam (Ativan Tab) PRN Dosing -Active Protocol UD PRN PO 01/30/17 01:00 03/01/17 00:59 01/31/17 07:53 1 MG Thiamine HCl (Vitamin B-1 Tab) 100 mg QAM PO 01/30/17 09:00 03/01/17 08:59 01/31/17 07:56 100 MG Sodium Chloride 1,000 ml @ 30 mls/hr Q24H IV 01/30/17 09:30 03/01/17 09:29 01/30/17 22:12 30 MLS/HR Metoprolol Tartrate (Lopressor Tab) 50 mg BID PO 01/30/17 21:00 02/27/17 21:59 01/31/17 07:55 50 MG Warfarin Sodium (Coumadin Tab) 3 mg MoWeFr@1600 PO 9/18/17 16:00 03/01/17 15:59 Future Hold Warfarin Sodium (Coumadin Tab) 4 mg SuTuThSa@1600 PO 01/31/17 16:00 03/02/17 15:59 Future Hold Nicotine (Nicoderm Cq 21MG Patch) 1 patch QAM EXT 01/31/17 07:45 03/02/17 07:44 01/31/17 09:24 1 PATCH Miscellaneous (Remove Nicoderm Patch) 1 ea HS N/A 01/31/17 21:00 03/02/17 20:59 Objective Vital Signs Date Time Temp Pulse Resp B/P (MAP) Pulse Ox O2 Delivery O2 Flow Rate FiO2 01/31/17 08:01 36.8 118 20 130/94 (106) 98 01/31/17 08:00 98 Nasal Cannula 4.0 01/31/17 07:39 36.7 128 24 154/89 92 01/31/17 06:20 36.9 128 20 134/86 95 01/31/17 05:50 37.0 131 22 125/68 94 01/31/17 05:39 37.0 133 20 95/62 95 01/31/17 04:00 94 Room Air 01/31/17 03:10 37.0 118 18 122/80 (94) 94 Room Air 01/30/17 23:59 36.9 109 20 118/80 (93) 98 Room Air 01/30/17 23:59 98 Room Air 01/30/17 21:55 36.9 137 19 121/84 98 01/30/17 21:45 36.9 147 20 116/79 97 01/30/17 21:00 36.9 164 24 131/86 97 01/30/17 20:30 37.0 156 18 134/85 96 01/30/17 20:20 36.9 137 19 98 01/30/17 20:15 36.8 155 20 128/84 96 01/30/17 19:42 36.7 157 18 118/80 94 01/30/17 18:45 36.9 146 20 138/89 95 01/30/17 18:18 36.8 150 24 157/82 94 01/30/17 17:45 37.5 142 24 117/74 95 01/30/17 17:18 37.3 142 18 110/71 94 01/30/17 17:03 37.0 145 18 113/72 94 01/30/17 15:56 123 01/30/17 15:30 Room Air 01/30/17 15:10 36.6 250 18 118/72 (87) 93 Room Air 01/30/17 12:52 36.5 115 22 123/77 (92) 96 Room Air 01/30/17 11:36 37.0 118 20 116/71 (86) 95 Room Air Physical Exam General Appearance: WD/WN, no apparent distress Neck: supple, no JVD, no carotid bruits, trachea midline Respiratory/Chest: lungs clear, no respiratory distress, no accessory muscle use, + decreased breath sounds (at the bases) Cardiovascular: regular rate, rhythm, no murmur Abdomen: normal bowel sounds, non tender, soft, + distended, + pertinent finding (small incisional scars from surgery) Extremities: non-tender, no calf tenderness, normal capillary refill Neurologic/Psychiatric: alert, normal mood/affect, oriented x 3 Skin: normal color Laboratory Results Results Past 24 Hours Test 01/30/17 12:17 01/30/17 15:42 01/30/17 16:50 01/30/17 22:38 Range/Units Hemoglobin 8.0 7.4 8.7 14.0-18.0 g/dL Hematocrit 24.1 23.1 26.5 42-52 % Prothrombin Time 24.2 9.0-12.0 SECONDS Prothromb Time International Ratio 2.2 0.9-1.1 Test 01/31/17 04:12 01/31/17 09:51 Range/Units White Blood Count 15.21 4.8-10.8 K/uL Red Blood Count 2.52 4.7-6.1 M/uL Hemoglobin 7.9 8.3 14.0-18.0 g/dL Hematocrit 23.7 24.9 42-52 % Mean Corpuscular Volume 94.0 80-100 fL Mean Corpuscular Hemoglobin 31.3 25-34 pg Mean Corpuscular Hemoglobin Concent 33.3 32-36 g/dl Platelet Count 152 130-400 K/uL Mean Platelet Volume 10.3 7.4-10.4 fL Neutrophils (%) (Auto) 74.3 % Lymphocytes (%) (Auto) 11.8 % Monocytes (%) (Auto) 12.8 % Eosinophils (%) (Auto) 0.0 % Basophils (%) (Auto) 0.1 % Neutrophils # (Auto) 11.30 1.4-6.5 K/uL Lymphocytes # (Auto) 1.80 1.2-3.4 K/uL Monocytes # (Auto) 1.94 0.11-0.59 K/uL Eosinophils # (Auto) 0.00 0-0.5 K/uL Basophils # (Auto) 0.02 0-0.2 K/uL RDW Standard Deviation 55.0 36.4-46.3 fL RDW Coefficient of Variation 16.2 11.5-14.5 % Immature Granulocyte % (Auto) 1.0 % Immature Granulocyte # (Auto) 0.15 0.00-0.02 K/uL Nucleated RBC Absolute Count (auto) 0.10 0-0 K/uL Nucleated Red Blood Cells % 0.6 % Red Blood Cell Morphology Unremarkable Prothrombin Time 22.0 9.0-12.0 SECONDS Prothromb Time International Ratio 2.0 0.9-1.1 Creatinine 1.20 0.60-1.40 mg/dl Est Creatinine Clear Calc Drug Dose 99.4 ml/min Estimated GFR () 88.4 Estimated GFR (Non- 76.3 Assessment and Plan 36 year old male admitted to the hospital with early appendicitis as per CT abdomen and found to have supratherapeutic INR. Appendicitis - s/p laparoscopic appendectomy 01/28/17.. POD 3 - Pain management as per surgery: Tramadol PO, Percocet PO, Morphine IV Acute blood loss Anemia - Hgb dropped overnight from 8.7-->7.9, has received 3 units of PRBC so far. repat Hgb this afternoon this morning, patient symptomatic - moderate haemoperitoneum on CT scan - continue to monitor - Patient has been tachy, likely compensation for anemia - INR 2.0 this morning and holding coumadin. 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 Gutiérrez following, - Post surgically started on therapeutic Enoxaparin 100mg BID + loading dose of warfarin tomorrow with 8mg. (Received total of 16mgs in 24 hrs) - Target INR 2.5-3.5. Check INR daily. Today INR 2.0 - With concern of active bleeding - holding coumadin. Lovenox d/clementine HTN - Home meds Lisinopril 30mg qAM. Metoprolol Increased from 50mg to 100 mg BID - IV Hydralazine 5mg for SBP >170 - Continue to monitor Prostatitis - Possibly partially treated with Keflex as outpatient. - UA positive with leuks, bacteria, blood. Patient also symptomatic. Urine culture positive for Escherichia coli. Sensitivities pending. - Started on ciprofloxacin 500 mg BID to be continued for prolonged ten-day course, with follow-up with PCP for potential extended course. Alcohol use - patient tachy, due to blood loss or due to withdrawal - Continue to assess need for librium +/- thiamine, folic acid, multivitamin Patient has Hep C - [place] precautions Mechanical mitral valve - Trend CBC - will consult cardiology for further recommendations Hx of Stroke - Monitor INR DVT prophylaxis - Therapeutic enoxaprin commenced for target INR 2.5-3.5 given mechanical valve Full code Continued [facility] stay due to: ambulation difficulties, multiple IV medications needed Continued [facility] stay due to: multiple IV medications needed Reviewed: Pt Seen/Exam by Me History tachycardic and diaphoretic since am. episode of confusion Constitutional: denies: fever Respiratory: negative: short of breath Cardiovascular: denies chest pain Gastrointestinal/Abdominal: negative: abdominal pain General Appearance: mild distress (diaphoretic) Respiratory: lungs clear, no respiratory distress Cardiovascular: regular rate, rhythm Gastrointestinal: normal bowel sounds, soft, distended, tenderness (incisional) Neurologic/Psychiatric: alert, oriented x 3 Assessment/Plan Resident Physician Supervision Note: I was present with Dr. Schmid in bedside. I verified the wheeler history and physical, reviewed labs and image studies, discussed the case with the resident and agree with the findings and care plan. Concern of alcohol withdrawal. drinks 6 paks daily - start CIWA protocol
--- NOTE | 2017-01-31 11:46 | Cardiology Consultation ---
Cardiology Consultation Date of Consultation: Jan 31, 2017. Requesting Physician: Dr. Schmid Attending Physician: Dr. Plata Reason for Consultation: Mechanical mitral valve Pt evaluation today including: conversation w/ patient, physical exam, chart review, lab review, review of studies, review of inpatient medication list, conversation w/ attending History of Present Illness Mr. Thakkar is a 36 year old male with a medical history significant for history of mitral valve replacement December 18, 2002 and then repeat mitral valve surgery December 27, 2002 (mechanical valve) for endocarditis secondary to IV drug use, hypertension, sinus tachycardia, hepatitis C and tobacco use. His cardiac history dates back to 2002. He developed endocarditis involving his mitral valve secondary to IV drug use. He underwent mitral valve replacement with repeat surgery on 12/18/2002 and 12/27/2002 at [facility] in [place]. [place] mitral valve model 31M 5-691. The valve is MRI compatible. His valvular disease became apparent when he sustained an acute CVA which was bilateral hemispheric. Secondary to embolic phenomenon from the endocarditis. He did not have any residual neurologic deficit. Echocardiogram 2016 demonstrated normal LV size and function (EF 60-65%), mild concentric LVH, mechanical mitral valve with normal gradients. He is chronically anticoagulated with Coumadin. He was admitted to [facility] on 01/27/17 with acute appendicitis and underwent laparoscopic appendectomy on 01/28/17. He was started on anticoagulation with Lovenox and Coumadin on post op day 1. He subsequently developed dizziness and dyspnea on exertion. He was found to be significantly anemic, hemoglobin dropped to 7.4, and CT of his abdomen/pelvis was remarkable for small to moderate volume hemoperitoneum. His INR was subtherapeutic. His anticoagulation was discontinued. He underwent blood transfusion yesterday and hemoglobin temporarily improved. This morning his hemoglobin dropped again to 7.9 and he underwent additional transfusion. He was seen at the bedside today. He reports having less abdominal pain and bloating than yesterday. He continues to experience dyspnea and lightheadedness with exertion. He also can feel his heart racing at times, typically with ambulation. He denies any chest discomfort. He denies dyspnea at rest, orthopnea , PND, peripheral edema, presyncope or syncope. No cerebrovascular symptoms. No melena, hematochezia or hematuria. The remainder of his review of systems is unremarkable. Family History Diabetes mellitus FHx: cancer FHx: heart disease Hypertension Social History Smoking Status: Current Every Day Smoker History of Alcohol Use: Yes (daily use) Smokes 1 pack per day. Daily alcohol use (2-4 shots of liquor or beers, more on the weekends). Occasional marijuana use. No IV drug use for the past year. and has a 12 year old daughter. Works for a [employer] company. All Other Systems: Reviewed and Negative Allergies Coded Allergies: No Known Allergies (Verified , 03/02/16) Medications Current Inpatient Medications Medications (Trade) Dose Ordered Sig/Krista Route Start Time Stop Time Status Last Admin Dose Admin Magnesium Hydroxide (Milk Of Magnesia Susp) 30 ml Q6H PRN PO 01/28/17 01:15 02/27/17 01:14 Polyethylene (Miralax Powder Packet) 17 gm DAILY PRN PO 01/28/17 01:15 02/27/17 01:14 Ondansetron HCl (Zofran Inj) 4 mg Q6H PRN IV 01/28/17 01:15 02/27/17 01:14 Hydralazine HCl (HydrALAZINE INJ) 5 mg TID PRN IV. 01/28/17 14:45 02/27/17 14:44 Morphine Sulfate (MoRPHine SULFATE INJ) 2 mg Q1H PRN IV 01/28/17 20:00 02/11/17 19:59 01/30/17 21:29 2 MG Morphine Sulfate (MoRPHine SULFATE INJ) 4 mg Q1H PRN IV 01/28/17 20:00 02/11/17 19:59 01/31/17 09:24 4 MG Diphenhydramine HCl (Benadryl Cap) 25 mg Q4H PRN PO 01/28/17 20:00 02/27/17 19:59 01/30/17 23:08 25 MG Lisinopril (Zestril Tab) 30 mg QAM PO 01/29/17 09:00 02/28/17 08:59 01/31/17 07:56 30 MG Ciprofloxacin (Cipro Tab) 500 mg BID PO 01/29/17 12:00 02/08/17 11:59 01/31/17 07:55 500 MG Tramadol HCl (Ultram Tab) 100 mg Q4H PRN PO 01/29/17 20:00 02/27/17 19:59 01/31/17 05:49 100 MG Oxycodone/ Acetaminophen (Percocet 5-325mg Tab) 1 tab Q4H PRN PO 01/29/17 19:00 02/12/17 18:59 Oxycodone/ Acetaminophen (Percocet 5-325mg Tab) 2 tab Q4H PRN PO 01/29/17 19:00 02/12/17 18:59 01/31/17 07:54 2 TAB Lorazepam (Ativan Tab) PRN Dosing -Active Protocol UD PRN PO 01/30/17 01:00 03/01/17 00:59 01/31/17 07:53 1 MG Thiamine HCl (Vitamin B-1 Tab) 100 mg QAM PO 01/30/17 09:00 03/01/17 08:59 01/31/17 07:56 100 MG Sodium Chloride 1,000 ml @ 30 mls/hr Q24H IV 01/30/17 09:30 03/01/17 09:29 01/30/17 22:12 30 MLS/HR Metoprolol Tartrate (Lopressor Tab) 50 mg BID PO 01/30/17 21:00 02/27/17 21:59 01/31/17 07:55 50 MG Warfarin Sodium (Coumadin Tab) 3 mg MoWeFr@1600 PO 01/30/17 16:00 03/01/17 15:59 Future Hold Warfarin Sodium (Coumadin Tab) 4 mg SuTuThSa@1600 PO 01/31/17 16:00 03/02/17 15:59 Future Hold Nicotine (Nicoderm Cq 21MG Patch) 1 patch QAM EXT 01/31/17 07:45 03/02/17 07:44 01/31/17 09:24 1 PATCH Miscellaneous (Remove Nicoderm Patch) 1 ea HS N/A 01/31/17 21:00 03/02/17 20:59 Physical Exam Vital Signs Past 12 Hours Date Time Temp Pulse Resp B/P (MAP) Pulse Ox O2 Delivery O2 Flow Rate FiO2 01/31/17 08:01 36.8 118 20 130/94 (106) 98 01/31/17 07:39 36.7 128 24 154/89 92 01/31/17 06:20 36.9 128 20 134/86 95 01/31/17 05:50 37.0 131 22 125/68 94 01/31/17 05:39 37.0 133 20 95/62 95 01/31/17 04:00 94 Room Air 01/31/17 03:10 37.0 118 18 122/80 (94) 94 Room Air 01/30/17 23:59 36.9 109 20 118/80 (93) 98 Room Air 01/30/17 23:59 98 Room Air General: No acute distress. Alert and oriented x3. HEENT: Normocephalic. PERRLA. EOMI. Sclera nonicteric. Ears, nose and throat unremarkable. Neck: Supple without JVD or carotid bruit. Lungs: Clear to auscultation bilaterally without rales, rhonchi or wheezes. Cardiac: Regular rate and rhythm. S1 and S2 normal. [place] mechanical valve sound. No obvious murmur, gallop or rub. Abdomen: Distended. Hypoactive bowel sounds. Incisions from recent surgery. Extremities: Without cyanosis, clubbing or peripheral edema. Peripheral pulses intact. Skin: Pale and somewhat diaphoretic. No rash. Neurologic: No lateralizing changes. Affect: Seems appropriate. Data Laboratory Results: Last 24 Hours Test 01/30/17 12:17 01/30/17 15:42 01/30/17 16:50 01/30/17 22:38 Hemoglobin 8.0 g/dL 7.4 g/dL 8.7 g/dL Hematocrit 24.1 % 23.1 % 26.5 % Prothrombin Time 24.2 SECONDS Prothromb Time International Ratio 2.2 Test 01/31/17 04:12 01/31/17 09:51 White Blood Count 15.21 K/uL Red Blood Count 2.52 M/uL Hemoglobin 7.9 g/dL Hematocrit 23.7 % Mean Corpuscular Volume 94.0 fL Mean Corpuscular Hemoglobin 31.3 pg Mean Corpuscular Hemoglobin Concent 33.3 g/dl Platelet Count 152 K/uL Mean Platelet Volume 10.3 fL Neutrophils (%) (Auto) 74.3 % Lymphocytes (%) (Auto) 11.8 % Monocytes (%) (Auto) 12.8 % Eosinophils (%) (Auto) 0.0 % Basophils (%) (Auto) 0.1 % Neutrophils # (Auto) 11.30 K/uL Lymphocytes # (Auto) 1.80 K/uL Monocytes # (Auto) 1.94 K/uL Eosinophils # (Auto) 0.00 K/uL Basophils # (Auto) 0.02 K/uL RDW Standard Deviation 55.0 fL RDW Coefficient of Variation 16.2 % Immature Granulocyte % (Auto) 1.0 % Immature Granulocyte # (Auto) 0.15 K/uL Nucleated RBC Absolute Count (auto) 0.10 K/uL Nucleated Red Blood Cells % 0.6 % Red Blood Cell Morphology Unremarkable Prothrombin Time 22.0 SECONDS Prothromb Time International Ratio 2.0 Creatinine 1.20 mg/dl Est Creatinine Clear Calc Drug Dose 99.4 ml/min Estimated GFR () 88.4 Estimated GFR (Non- 76.3 ECG 01/27/17: Sinus rhythm at 97 bpm. ECG 01/30/17: Sinus tachycardia at [address] and T wave abnormality. ECG 01/30/17: Sinus tachycardia at 109 bpm. Telemetry reviewed: Sinus rhythm to sinus tachycardia. Sinus tachycardia typically correlates to exertion. Assessment & Plan Patient discussed with Dr. Plata. The patient was also seen and examined by Dr. Plata. 1. 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 He was started back on anticoagulation on post op day #1 with Lovenox and Coumadin. However, he developed significant anemia with evidence of hemoperitoneum on CT scan. He has required multiple blood transfusions. His anticoagulation was discontinued. From a cardiac standpoint patient should be maintained on anticoagulation given his mechanical mitral valve and associated risk of stroke. Recommend resuming anticoagulation as soon as deemed safe from surgical standpoint. He could be restarted on heparin and then transitioned to Coumadin. His INR goal is 2.5-3.5. Most recent echocardiogram in 2016 showed his valve is functioning well with normal gradients. 2. Tachycardia: He has a history of sinus tachycardia. Telemetry shows sinus rhythm with periods of sinus tachycardia often related to exertion. His tachycardia is likely exacerbated by his significant anemia. Recommend continuing beta ana therapy. 3. Appendicitis status post appendectomy with postoperative bleeding: Per primary service and surgery. Thank you for the consultation. The patient was seen and examined by me today in conjunction with Ms. Fang. Agree with above assessment, plan, history, and exam. The patient currently has no significant cardiac type complaints. He does have mild dyspnea which is likely related to both his anemia and the restriction of lung expansion from his abdominal distention . He feels that he cannot take a deep breath. would not reinstitute anticoagulation therapy until there is no clinical evidence of continued active bleeding. Would like to see his hemoglobin become stable. Although his INR today is subtherapeutic for mechanical valve it is still elevated. When anticoagulation is reinstituted would use IV unfractionated heparin. This can be stopped quickly and reversed if he develops further evidence of bleeding. If he is stable on the heparin would then reinstitute anticoagulation therapy with warfarin. Would not use enoxaparin for anticoagulation. Jayda Plata MD
[2017-01-31] MEDS ORDERED: LORAZEPAM 2 MG/ML 1 ML VIAL IV PRN (12:15)
--- NOTE | 2017-01-31 12:16 | Anticoagulation Clinic ---
Anticoagulation Progress Note Events of yesterday and today reviewed. I spoke with Dr. Ashley yesterday afternoon and recommended repeat INR since he received two 8 mg doses of coumadin in one day. As the repeat INR was 2.2, it was reasonable to hold yesterday's coumadin dose given declining hemoglobin and hematocrit as evidence of active bleeding. Additionally, hemoperitoneum was identified by CT. His INR is declining now (2.0 today) and will continue to fall as he is off coumadin , which is currently on hold. His white count is somewhat elevated and it remains to be seen how he will maintain his hemoglobin and hematocrit values. IV heparin should be resumed as soon as surgery feels that it is safe to do so. I would not to give additional warfarin until he his hematologic parameters are stable on therapeutic IV heparin, the effects of which are rapidly eliminated when the medication is discontinued..
[2017-01-31] MEDS ORDERED: THIAMINE HCL INJ 100 MG in SODIUM CHLORIDE 0.9% 50ML 50 ML IV SCH (13:00)
[2017-01-31] MEDS: THIAMINE HCL INJ 100 MG in SODIUM CHLORIDE 0.9% 50ML 50 ML IV SCH (13:01)
[2017-01-31 14:07] LABS: BASO % 0.1 %; BASO ABS # 0.02 K/uL (0-0.2); EOS % 0.1 %; HEMATOCRIT 23.1 % (42-52); LYMPH % 14.7 %; LYMPH ABS # 2.13 K/uL (1.2-3.4); MEAN CELL VOLUME 92.4 fL (80-100); MEAN CORPUSCULAR HEMOGLOBIN 32.4 pg (25-34); MEAN CORPUSCULAR HGB CONC 35.1 g/dl (32-36); MEAN PLATELET VOLUME 10.4 fL (7.4-10.4); MONO % 15.9 %; NEUT % 68.2 %; PLATELET COUNT 136 K/uL (130-400); WHITE BLOOD COUNT 14.49 K/uL (4.8-10.8)
[2017-01-31 14:30] LABS: BUN/CREATININE RATIO 17.4 (10-20); CALCIUM 8.4 mg/dl (8.5-10.1); CREATININE 1.9 mg/dl (0.60-1.40); POTASSIUM 4.6 mmol/L (3.5-5.1)
[2017-01-31 14:40] LABS: ANISOCYTOSIS PRESENT; COMPLETE YES; POLYCHROMASIA 1+
[2017-01-31] MEDS ORDERED: CHLORDIAZEPOXIDE 25 MG CAP PO SCH (16:15)
[2017-01-31] MEDS ORDERED: LORAZEPAM 0.5 MG TAB PO PRN (16:15)
[2017-01-31] MEDS: CHLORDIAZEPOXIDE 25MG 1ST DOSE PO SCH ×2 (16:27→21:06)
[2017-01-31] MEDS ORDERED: NURSING VERBAL MED ORDER ONE (20:45)
[2017-01-31 22:05] LABS: HEMATOCRIT 21.6 % (42-52)
[2017-02-01] VITALS (24 sets, daily range): BP systolic 94–148; BP diastolic 57–98; PULSE 74–116; TEMP 36.3–37.1; O2SAT 91–100
[2017-02-01] MEDS: LORAZEPAM 1 MG TAB PO PRN (02:22)
[2017-02-01] MEDS: CHLORDIAZEPOXIDE 25MG 1ST DOSE PO SCH ×2 (02:50→10:00)
[2017-02-01] MEDS: LORAZEPAM 2 MG/ML 1 ML VIAL IV PRN (04:37)
[2017-02-01 07:19] LABS: MEAN CELL VOLUME 95.5 fL (80-100); MEAN CORPUSCULAR HEMOGLOBIN 32.3 pg (25-34); MEAN CORPUSCULAR HGB CONC 33.8 g/dl (32-36); MEAN PLATELET VOLUME 9.8 fL (7.4-10.4); PLATELET COUNT 143 K/uL (130-400); WHITE BLOOD COUNT 12.86 K/uL (4.8-10.8)
[2017-02-01 07:26] LABS: INR 1.6 (0.9-1.1); PROTHROMBIN TIME (PATIENT) 17.9 SECONDS (9.0-12.0)
[2017-02-01 07:54] LABS: BUN/CREATININE RATIO 19.8 (10-20); CALCIUM 8.6 mg/dl (8.5-10.1); POTASSIUM 4.4 mmol/L (3.5-5.1)
--- NOTE | 2017-02-01 08:29 | Surgery Progress Note ---
Surgery Progress Note Date of Service Feb 01, 2017. Subjective Post OP Day: 4 sleeping, did not waken, was noncooperative overnight, refusing to use urinal, picked off dermabond Objective Vital Signs: Date Time Temp Pulse Resp B/P (MAP) Pulse Ox O2 Delivery O2 Flow Rate FiO2 02/01/17 07:53 36.8 74 18 144/68 (93) 99 02/01/17 04:00 Room Air 02/01/17 03:25 36.5 112 24 148/93 (111) 94 Nasal Cannula 5.0 02/01/17 00:00 Room Air 01/31/17 23:40 36.4 87 18 110/70 (83) 90 Room Air 01/31/17 20:00 90 Room Air 01/31/17 19:34 36.5 105 16 115/78 (90) 90 Room Air 01/31/17 16:00 36.7 99 16 116/77 (90) 90 Room Air 01/31/17 16:00 Room Air 01/31/17 14:28 36.7 91 20 110/74 (86) 92 Room Air 20 91 01/31/17 12:00 Room Air 01/31/17 11:54 37.0 109 22 128/62 (84) 96 Laboratory Results: Results Past 24 Hours Test 01/31/17 09:51 01/31/17 13:42 01/31/17 21:45 02/01/17 06:48 Range/Units Hemoglobin 8.3 8.1 7.5 7.1 14.0-18.0 g/dL Hematocrit 24.9 23.1 21.6 21.0 42-52 % White Blood Count 14.49 12.86 4.8-10.8 K/uL Red Blood Count 2.50 2.20 4.7-6.1 M/uL Mean Corpuscular Volume 92.4 95.5 80-100 fL Mean Corpuscular Hemoglobin 32.4 32.3 25-34 pg Mean Corpuscular Hemoglobin Concent 35.1 33.8 32-36 g/dl Platelet Count 136 143 130-400 K/uL Mean Platelet Volume 10.4 9.8 7.4-10.4 fL Neutrophils (%) (Auto) 68.2 % Lymphocytes (%) (Auto) 14.7 % Monocytes (%) (Auto) 15.9 % Eosinophils (%) (Auto) 0.1 % Basophils (%) (Auto) 0.1 % Neutrophils # (Auto) 9.87 1.4-6.5 K/uL Lymphocytes # (Auto) 2.13 1.2-3.4 K/uL Monocytes # (Auto) 2.31 0.11-0.59 K/uL Eosinophils # (Auto) 0.01 0-0.5 K/uL Basophils # (Auto) 0.02 0-0.2 K/uL RDW Standard Deviation 54.7 58.3 36.4-46.3 fL RDW Coefficient of Variation 16.8 17.1 11.5-14.5 % Immature Granulocyte % (Auto) 1.0 % Immature Granulocyte # (Auto) 0.15 0.00-0.02 K/uL Nucleated RBC Absolute Count (auto) 0.13 0.07 0-0 K/uL Nucleated Red Blood Cells % 0.9 0.5 % Polychromasia 1+ Anisocytosis PRESENT Sodium Level 137 138 136-145 mmol/L Potassium Level 4.6 4.4 3.5-5.1 mmol/L Chloride Level 106 108 98-107 mmol/L Carbon Dioxide Level 24 24 21-32 mmol/L Anion Gap 7.0 6.0 3-11 mmol/L Blood Urea Nitrogen 33 40 7-18 mg/dl Creatinine 1.90 2.00 0.60-1.40 mg/dl Est Creatinine Clear Calc Drug Dose 64.1 61.0 ml/min Estimated GFR () 50.7 47.7 Estimated GFR (Non- 43.7 41.1 BUN/Creatinine Ratio 17.4 19.8 10-20 Random Glucose 114 99 70-99 mg/dl Calcium Level 8.4 8.6 8.5-10.1 mg/dl Total Bilirubin 0.6 0.2-1 mg/dl Aspartate Amino Transf (AST/SGOT) 78 15-37 U/L Alanine Aminotransferase (ALT/SGPT) 62 12-78 U/L Alkaline Phosphatase 47 45-117 U/L Total Protein 5.7 6.4-8.2 gm/dl Albumin 2.9 3.4-5.0 gm/dl Globulin 2.8 2.5-4.0 gm/dl Albumin/Globulin Ratio 1.0 0.9-2 Prothrombin Time 17.9 9.0-12.0 SECONDS Prothromb Time International Ratio 1.6 0.9-1.1 Assessment & Plan s/p lap appy, post-op anemia/hemoperitoneum, anticoagulated for mechanical valve H&H down slightly, still equilibrating fluids, weight is up 5 kg, not able to get an accurate UOP overnight will transfuse 4th unit this AM if noon H&H stable will consider starting heparin gtt without bolus Patient seen and examined, notes, and labs reviewed, agree with above. POD#4 s/ p lap appy, started on therapeutic a/c for mechanical MV, complicated by intra- abdominal bleeding which appears to have stopped. He is now going through alcohol withdrawal and being treated with prn benzo's. His a/c is currently on hold. Luther placed due to indeterminant urine output. He is being transfused 1 unit pRBC's for morning h&h of 12/02, though relatively stable. O2 requirement of 4L and labored breathing, may be due to volume overload. Abd is distended but soft with some echymosis, patient is having bm's. Will repeat h& h after tranfusion, also bmp and urine lytes to calculate fena, cxr ordered. Cr elevation likely ATN from acute bleed, he is currently 5kg up and net positive about 6 liters of fluid. May need lasix despite cr. Will discuss with FP service. Possibly restart a/c with heparin drip, but No bolus protocol. Barry Klein, DO
[2017-02-01] MEDS ORDERED: LIDOCAINE HCL 2% JELLY 30 ML TUBE EXT ONE (08:50)
[2017-02-01] MEDS: LISINOPRIL 20 MG TAB PO SCH (09:00)
[2017-02-01] MEDS: METOPROLOL TARTRATE 50 MG TAB PO SCH ×2 (09:00→20:45)
[2017-02-01] MEDS: MoRPHine SULFATE 4 MG/ML 1 ML CARP\\VIAL IV PRN (09:01)
[2017-02-01] MEDS ORDERED: SODIUM CHLORIDE 0.9% 1000ML 1,000 ML IV SCH (09:15)
[2017-02-01] MEDS: NICOTINE 21 MG/24 HR TDSY EXT SCH (09:59)
[2017-02-01] MEDS: CIPROFLOXACIN 500 MG TAB PO SCH ×2 (10:00→20:45)
--- NOTE | 2017-02-01 11:53 | DIAGNOSTIC IMAGING REPORT ---
CHEST ONE VIEW PORTABLE CLINICAL HISTORY: hypoxia dyspnea COMPARISON STUDY: 01/27/2017 FINDINGS: Interval development of small bilateral pleural effusions. Mild cardiac enlargement. Prior median sternotomy. Slight prominence of pulmonary vasculature. IMPRESSION: Small bilateral pleural effusions with findings suggesting early congestive failure The above report was generated using voice recognition software. It may contain grammatical, syntax or spelling errors. Electronically signed by: Ricky Isaacs M.D. 02/01/2017 11:52 AM Dictated Date/Time: 02/01/2017 11:51 AM
[2017-02-01 12:55] LABS: HEMATOCRIT 25.1 % (42-52)
[2017-02-01 13:20] LABS: BUN/CREATININE RATIO 23.8 (10-20); CALCIUM 8.6 mg/dl (8.5-10.1); CREATININE 1.7 mg/dl (0.60-1.40); POTASSIUM 4.2 mmol/L (3.5-5.1)
[2017-02-01] MEDS: MoRPHine SULFATE 2 MG/ML CARP IV PRN (13:38)
[2017-02-01] MEDS: THIAMINE HCL INJ 100 MG in SODIUM CHLORIDE 0.9% 50ML 50 ML IV SCH (14:11)
--- NOTE | 2017-02-01 14:52 | Family Medicine Progress Note ---
Progress Note Date of Service Feb 01, 2017. Subjective Pt evaluation today including: conversation w/ patient, physical exam, chart review, conversation w/ websphere consultant, review of inpatient medication list Pain: mild PO Intake: poor Patient was started on CIWA protocol yesterday and was transitioned to IV ativan from PO He continues to be tachycardic post op He has been very anxious and has been umcompliant with nurses. They attempted to get a mendoza catheter in this morning however they were unable to pass due to patient large prostate. Dr. Klein asked for a mendoza to be placed. He has been given 2 units of PRBC this morning and his most recent H&H is 8.1 Constitutional: + weakness, + fatigue, No fever, No chills, No sweats Respiratory: + shortness of breath, No cough Cardiovascular: No chest pain, No edema, No palpitations Abdomen: + pain, No nausea, No vomiting, No diarrhea Male : No dysuria, No hematuria Neurologic: + weakness Psychiatric: + anxiety, + insomnia Heme: No abnormal bleeding/bruising Endo: + fatigue Skin: + bleeding Medications Current Inpatient Medications Medications (Trade) Dose Ordered Sig/Krista Route Start Time Stop Time Status Last Admin Dose Admin Magnesium Hydroxide (Milk Of Magnesia Susp) 30 ml Q6H PRN PO 01/28/17 01:15 02/27/17 01:14 Polyethylene (Miralax Powder Packet) 17 gm DAILY PRN PO 01/28/17 01:15 02/27/17 01:14 Ondansetron HCl (Zofran Inj) 4 mg Q6H PRN IV 01/28/17 01:15 02/27/17 01:14 Hydralazine HCl (HydrALAZINE INJ) 5 mg TID PRN IV. 01/28/17 14:45 02/27/17 14:44 Morphine Sulfate (MoRPHine SULFATE INJ) 2 mg Q1H PRN IV 01/28/17 20:00 02/11/17 19:59 02/01/17 13:38 2 MG Morphine Sulfate (MoRPHine SULFATE INJ) 4 mg Q1H PRN IV 01/28/17 20:00 02/11/17 19:59 02/01/17 09:01 4 MG Diphenhydramine HCl (Benadryl Cap) 25 mg Q4H PRN PO 01/28/17 20:00 02/27/17 19:59 02/01/17 02:50 25 MG Lisinopril (Zestril Tab) 30 mg QAM PO 01/29/17 09:00 02/28/17 08:59 01/31/17 07:56 30 MG Ciprofloxacin (Cipro Tab) 500 mg BID PO 01/29/17 12:00 02/08/17 11:59 02/01/17 10:00 500 MG Tramadol HCl (Ultram Tab) 100 mg Q4H PRN PO 01/29/17 20:00 02/27/17 19:59 01/31/17 20:08 100 MG Oxycodone/ Acetaminophen (Percocet 5-325mg Tab) 1 tab Q4H PRN PO 01/29/17 19:00 02/12/17 18:59 Oxycodone/ Acetaminophen (Percocet 5-325mg Tab) 2 tab Q4H PRN PO 01/29/17 19:00 02/12/17 18:59 01/31/17 14:59 2 TAB Lorazepam (Ativan Tab) PRN Dosing -Active Protocol UD PRN PO 01/30/17 01:00 03/01/17 00:59 02/01/17 02:22 2 MG Metoprolol Tartrate (Lopressor Tab) 50 mg BID PO 01/30/17 21:00 02/27/17 21:59 02/01/17 09:00 50 MG Warfarin Sodium (Coumadin Tab) 3 mg MoWeFr@1600 PO 01/30/17 16:00 03/01/17 15:59 Future Hold Warfarin Sodium (Coumadin Tab) 4 mg SuTuThSa@1600 PO 01/31/17 16:00 03/02/17 15:59 Future Hold Nicotine (Nicoderm Cq 21MG Patch) 1 patch QAM EXT 01/31/17 07:45 03/02/17 07:44 02/01/17 09:59 1 PATCH Miscellaneous (Remove Nicoderm Patch) 1 ea HS N/A 01/31/17 21:00 03/02/17 20:59 01/31/17 21:07 1 EA Thiamine HCl 100 mg/Sodium Chloride 51 ml @ 2 mls/min Q24H IV 01/31/17 12:45 03/02/17 12:44 02/01/17 14:11 2 MLS/MIN Lorazepam (Ativan Tab) 0.5 mg QID PRN PO 01/31/17 16:15 03/02/17 16:14 Chlordiazepoxide (Librium Cap) 25 mg Q8H PO 02/01/17 20:00 02/02/17 12:01 Chlordiazepoxide (Librium Cap) 10 mg Q8H PO 02/02/17 22:00 02/03/17 14:01 Chlordiazepoxide (Librium Cap) 5 mg Q12H PO 02/04/17 00:00 02/04/17 12:01 Lorazepam (Ativan Inj) PRN Dosing -Active Protocol Q1H PRN IV 02/01/17 04:15 03/03/17 04:14 02/01/17 04:37 3 MG Sodium Chloride 1,000 ml @ 100 mls/hr Q10H IV 02/01/17 09:15 03/03/17 09:14 02/01/17 09:15 100 MLS/HR Objective Vital Signs Date Time Temp Pulse Resp B/P (MAP) Pulse Ox O2 Delivery O2 Flow Rate FiO2 02/01/17 12:22 36.5 77 18 143/60 (87) 93 02/01/17 12:19 36.7 108 24 107/75 97 4.0 02/01/17 11:15 36.7 103 22 111/57 97 4.0 02/01/17 10:45 36.7 103 24 122/78 98 4.0 02/01/17 10:25 106 22 115/69 99 4.0 02/01/17 10:10 36.7 106 22 115/69 99 4.0 02/01/17 09:55 36.8 101 24 94/61 100 4.0 02/01/17 09:35 36.7 106 20 94/61 100 4.0 02/01/17 09:20 36.9 101 26 110/70 99 4.0 02/01/17 07:53 36.8 74 18 144/68 (93) 99 02/01/17 04:00 Room Air 02/01/17 03:25 36.5 112 24 148/93 (111) 94 Nasal Cannula 5.0 02/01/17 00:00 Room Air 01/31/17 23:40 36.4 87 18 110/70 (83) 90 Room Air 01/31/17 20:00 90 Room Air 01/31/17 19:34 36.5 105 16 115/78 (90) 90 Room Air 01/31/17 16:00 36.7 99 16 116/77 (90) 90 Room Air 01/31/17 16:00 Room Air Physical Exam Notes: General Appearance: WD/WN, mild to moderate distress, appears tremulous with stuttering speech, patient appears pale Neck: supple, no JVD, no carotid bruits, trachea midline Respiratory/Chest: lungs clear, no respiratory distress, no accessory muscle use, + decreased breath sounds (at the bases) Cardiovascular: regular rate, rhythm, no murmur Abdomen: normal bowel sounds, non tender, soft, + distended, + pertinent finding (small incisional scars from surgery) Extremities: non-tender, no calf tenderness, normal capillary refill Laboratory Results Results Past 24 Hours Test 01/31/17 21:45 02/01/17 00:00 02/01/17 06:48 02/01/17 12:30 Range/Units Hemoglobin 7.5 7.1 8.1 14.0-18.0 g/dL Hematocrit 21.6 21.0 25.1 42-52 % Urine Random Creatinine 86.0 mg/dl Urine Random Sodium 40 mEq/L Urine Random Urea Nitrogen 643 mg/dl White Blood Count 12.86 4.8-10.8 K/uL Red Blood Count 2.20 4.7-6.1 M/uL Mean Corpuscular Volume 95.5 80-100 fL Mean Corpuscular Hemoglobin 32.3 25-34 pg Mean Corpuscular Hemoglobin Concent 33.8 32-36 g/dl RDW Standard Deviation 58.3 36.4-46.3 fL RDW Coefficient of Variation 17.1 11.5-14.5 % Platelet Count 143 130-400 K/uL Mean Platelet Volume 9.8 7.4-10.4 fL Nucleated RBC Absolute Count (auto) 0.07 0-0 K/uL Nucleated Red Blood Cells % 0.5 % Prothrombin Time 17.9 9.0-12.0 SECONDS Prothromb Time International Ratio 1.6 0.9-1.1 Sodium Level 138 140 136-145 mmol/L Potassium Level 4.4 4.2 3.5-5.1 mmol/L Chloride Level 108 109 98-107 mmol/L Carbon Dioxide Level 24 23 21-32 mmol/L Anion Gap 6.0 8.0 3-11 mmol/L Blood Urea Nitrogen 40 40 7-18 mg/dl Creatinine 2.00 1.70 0.60-1.40 mg/dl Est Creatinine Clear Calc Drug Dose 61.0 71.7 ml/min Estimated GFR () 47.7 58.0 Estimated GFR (Non- 41.1 50.0 BUN/Creatinine Ratio 19.8 23.8 10-20 Random Glucose 99 87 70-99 mg/dl Calcium Level 8.6 8.6 8.5-10.1 mg/dl Assessment and Plan 36 year old male admitted to the hospital with early appendicitis as per CT abdomen and found to have supratherapeutic INR. Appendicitis - s/p laparoscopic appendectomy 01/28/17.. POD 3 - Pain management as per surgery: Tramadol PO, Percocet PO, Morphine IV Acute blood loss Anemia - Hgb stable at 8.1, has received 5 units of PRBC so far. repat Hgb this afternoon patient symptomatic - moderate haemoperitoneum on CT scan - continue to monitor - Patient has been tachy, likely compensation for anemia - INR 1.6 this morning and holding coumadin. - cardiology consulted and suggested restarting anticoagulation with heparin when patients Hgb more stable SABINE - Likely prerenal sec to hypovolemia - IVF, prbc. 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 Gutiérrez following, - Post surgically started on therapeutic Enoxaparin 100mg BID + loading dose of warfarin with 8mg. (Received total of 16mgs in 24 hrs) - Target INR 2.5-3.5. Check INR daily. Today INR 1.6 - With concern of active bleeding - holding coumadin. Lovenox d/clementine - Cardiology consulted and suggesting holding off on anticoagulation until Hgb stable, suggest restarting with heparin HTN - Home meds Lisinopril 30mg qAM. Metoprolol Increased from 50mg to 100 mg BID - IV Hydralazine 5mg for SBP >170 - Continue to monitor Prostatitis - Possibly partially treated with Keflex as outpatient. - UA positive with leuks, bacteria, blood. Patient also symptomatic. Urine culture positive for Escherichia coli. Sensitivities pending. - Started on ciprofloxacin 500 mg BID to be continued for prolonged ten-day course, with follow-up with PCP for potential extended course. Alcohol withdrawal - patient tachy, due to blood loss or due to withdrawal - Patient started on CIWA protocol with librium, ativan, and thiamine and multivitamin Bilateral pleural effusions - small bilateral seen on CXR - hold IVF fluids Patient has Hep C - [place] precautions Mechanical mitral valve - Trend CBC - cardiology suggest holding off on anticoagulation until Hgb stable Hx of Stroke - Monitor INR DVT prophylaxis - held until Hgb stable Tobacco abuse - nicotine patch Full code Continued [facility] stay due to: multiple IV medications needed Reviewed: Pt Seen/Exam by Me History confused all night and in the morning Constitutional: denies: fever Respiratory: negative: short of breath Cardiovascular: denies chest pain General Appearance: no apparent distress Respiratory: lungs clear, no respiratory distress Cardiovascular: regular rate, rhythm Gastrointestinal: normal bowel sounds, soft, distended, tenderness (incisional) Neurologic/Psychiatric: alert, other (arousable but falls back asleep. ) Skin Characteristics: warm/dry Assessment/Plan Resident Physician Supervision Note: I was present with Dr. Schmid in bedside. I verified the wheeler history and physical, reviewed labs and image studies, discussed the case with the resident and agree with the findings and care plan.
[2017-02-01 16:50] LABS: BUN/CREATININE RATIO 24.6 (10-20); CALCIUM 8.8 mg/dl (8.5-10.1); CREATININE 1.5 mg/dl (0.60-1.40); POTASSIUM 3.8 mmol/L (3.5-5.1)
[2017-02-01 19:53] LABS: HEMATOCRIT 28.6 % (42-52)
[2017-02-01] MEDS: CHLORDIAZEPOXIDE 25MG Q8H DOSE PO SCH (20:45)
[2017-02-02] VITALS (7 sets, daily range): BP systolic 141–174; BP diastolic 62–108; PULSE 74–122; TEMP 36.6–37.3; O2SAT 92–99
[2017-02-02] MEDS: MoRPHine SULFATE 4 MG/ML 1 ML CARP\\VIAL IV PRN (04:41)
[2017-02-02] MEDS: CHLORDIAZEPOXIDE 25MG Q8H DOSE PO SCH ×2 (04:45→12:10)
[2017-02-02 07:12] LABS: INR 1.5 (0.9-1.1)
[2017-02-02 07:19] LABS: HEMATOCRIT 29.1 % (42-52); MEAN CELL VOLUME 96.4 fL (80-100); MEAN CORPUSCULAR HEMOGLOBIN 29.8 pg (25-34); MEAN CORPUSCULAR HGB CONC 30.9 g/dl (32-36); PLATELET COUNT 179 K/uL (130-400); RED BLOOD COUNT 3.02 M/uL (4.7-6.1); WHITE BLOOD COUNT 10.35 K/uL (4.8-10.8)
[2017-02-02 07:35] LABS: BUN/CREATININE RATIO 23.2 (10-20); CALCIUM 8.5 mg/dl (8.5-10.1); CREATININE 1.3 mg/dl (0.60-1.40); POTASSIUM 3.7 mmol/L (3.5-5.1)
--- NOTE | 2017-02-02 07:37 | Surgery Progress Note ---
Surgery Progress Note Date of Service Feb 02, 2017. Subjective POD#5 lap appendectomy restarted on therapeutic anticoagulation on POD#1 for mechanical mitral valve complicated by bleeding. Anticoagulation held which appears to have stopped the bleeding. Patient transfused 5 units pRBC's total. Patient also going through alcohol withdrawal and has been placed on CIWA protocol requiring prn ativan. Overall doing well this morning, still confused. oriented to self and somewhat to place and time, but not on specific details. Tolerating diet, having bm's. Mendoza in place. Objective Vital Signs: Date Time Temp Pulse Resp B/P (MAP) Pulse Ox O2 Delivery O2 Flow Rate FiO2 02/02/17 04:00 36.8 97 20 141/97 (112) 92 Room Air 02/02/17 04:00 Room Air 02/02/17 00:00 Room Air 02/01/17 23:14 36.6 84 18 130/83 (99) 91 Room Air 02/01/17 20:00 98 Room Air 02/01/17 19:05 36.6 97 18 114/75 91 02/01/17 18:05 36.5 99 18 129/83 93 02/01/17 17:35 36.6 106 18 139/94 97 02/01/17 17:15 37.1 105 18 133/88 96 02/01/17 17:00 37.0 109 18 144/98 97 02/01/17 17:00 37.0 109 18 144/98 97 02/01/17 17:00 37.0 109 18 144/98 97 02/01/17 16:45 36.5 115 18 146/82 98 02/01/17 16:45 36.5 115 18 144/98 97 02/01/17 16:45 36.5 115 18 146/82 98 02/01/17 16:45 36.5 115 18 146/82 98 02/01/17 16:30 36.3 115 18 134/86 98 02/01/17 16:00 98 Nasal Cannula 4.0 02/01/17 15:15 36.4 116 16 118/77 (91) 92 Room Air 02/01/17 12:22 36.5 77 18 143/60 (87) 93 02/01/17 12:19 36.7 108 24 107/75 97 4.0 02/01/17 12:00 98 Nasal Cannula 4.0 02/01/17 11:15 36.7 103 22 111/57 97 4.0 02/01/17 10:45 36.7 103 24 122/78 98 4.0 02/01/17 10:25 106 22 115/69 99 4.0 02/01/17 10:10 36.7 106 22 115/69 99 4.0 02/01/17 09:55 36.8 101 24 94/61 100 4.0 02/01/17 09:35 36.7 106 20 94/61 100 4.0 02/01/17 09:20 36.9 101 26 110/70 99 4.0 02/01/17 08:00 97 Nasal Cannula 4.0 02/01/17 07:53 36.8 74 18 144/68 (93) 99 General Appearance: WD/WN, no apparent distress Abdomen: normal bowel sounds, non tender, soft, no organomegaly, no pulsatile mass, + distended (stable distention, some echymossis of abdominal wall) Incision(s): clean, dry (dressings in place as patient pulled off dermabond), intact, no erythema, no drainage Laboratory Results: Results Past 24 Hours Test 02/01/17 12:30 02/01/17 16:07 02/01/17 19:32 02/02/17 06:41 Range/Units Hemoglobin 8.1 9.1 9.0 14.0-18.0 g/dL Hematocrit 25.1 28.6 29.1 42-52 % Sodium Level 140 142 136-145 mmol/L Potassium Level 4.2 3.8 3.5-5.1 mmol/L Chloride Level 109 111 98-107 mmol/L Carbon Dioxide Level 23 23 21-32 mmol/L Anion Gap 8.0 8.0 3-11 mmol/L Blood Urea Nitrogen 40 37 7-18 mg/dl Creatinine 1.70 1.50 0.60-1.40 mg/dl Est Creatinine Clear Calc Drug Dose 71.7 81.3 ml/min Estimated GFR () 58.0 67.5 Estimated GFR (Non- 50.0 58.2 BUN/Creatinine Ratio 23.8 24.6 10-20 Random Glucose 87 87 70-99 mg/dl Calcium Level 8.6 8.8 8.5-10.1 mg/dl White Blood Count 10.35 4.8-10.8 K/uL Red Blood Count 3.02 4.7-6.1 M/uL Mean Corpuscular Volume 96.4 80-100 fL Mean Corpuscular Hemoglobin 29.8 25-34 pg Mean Corpuscular Hemoglobin Concent 30.9 32-36 g/dl RDW Standard Deviation 58.8 36.4-46.3 fL RDW Coefficient of Variation 17.6 11.5-14.5 % Platelet Count 179 130-400 K/uL Mean Platelet Volume 10.0 7.4-10.4 fL Nucleated RBC Absolute Count (auto) 0.05 0-0 K/uL Nucleated Red Blood Cells % 0.5 % Prothrombin Time 16.0 9.0-12.0 SECONDS Prothromb Time International Ratio 1.5 0.9-1.1 Assessment & Plan POD#5 s/p lap appy, started on therapeutic a/c for mechanical MV, complicated by intra-abdominal bleeding which appears to have stopped. He is now going through alcohol withdrawal and being treated with prn benzo's. His a/c is currently on hold. Mendoza placed due to indeterminant urine output. He has been transfused 5 unit pRBC's and his H&H is stable. Abd is distended but soft with some echymosis, patient is having bm's. Overall improving. bmp pending Okay to restart a/c with heparin drip, but No bolus protocol okay to restart coumadin continue regular diet will d/c mendoza once patient can ambulate without assistance scd's continue cipro for prostatitis/uti continue ciwa protocol, prn benzo for alcohol withdrawal minimize ivf's, likely will only need tour driver for heparin drip appreciate medicine assistance with this patient d/c after therapeutic on coumadin, likely early next week Barry Klein, DO
[2017-02-02] MEDS: OXYCODONE/ACETAMINOPHEN 5-325 TAB PO PRN (08:18)
[2017-02-02] MEDS: CIPROFLOXACIN 500 MG TAB PO SCH ×2 (08:19→21:22)
[2017-02-02] MEDS: METOPROLOL TARTRATE 50 MG TAB PO SCH ×2 (08:19→21:22)
[2017-02-02] MEDS: NICOTINE 21 MG/24 HR TDSY EXT SCH (08:19)
[2017-02-02] MEDS: LISINOPRIL 20 MG TAB PO SCH (08:20)
[2017-02-02 08:42] LABS: PARTIAL THROMBOPLASTIN RATIO 1.1
[2017-02-02 08:56] LABS: BASO % 0.1 %; BASO ABS # 0.01 K/uL (0-0.2); COMPLETE YES; EOS % 0.5 %; IG% 0.7 %; LYMPH % 16.3 %; LYMPH ABS # 1.71 K/uL (1.2-3.4); NEUT % 69.4 %
[2017-02-02] MEDS: HEPARIN 25,000 UNIT/500ML D5W 500 ML IV PRN (09:56)
[2017-02-02] MEDS: THIAMINE HCL INJ 100 MG in SODIUM CHLORIDE 0.9% 50ML 50 ML IV SCH (12:10)
[2017-02-02] MEDS: MULTI-VITAMIN INFUSION INJ 10 ML, THIAMINE HCL INJ 100 MG, FoLIC ACID INJ 1 MG in SODIU... IV SCH (12:10)
[2017-02-02 16:21] LABS: PARTIAL THROMBOPLASTIN RATIO 1.4
--- NOTE | 2017-02-02 16:45 | Family Medicine Progress Note ---
Progress Note Date of Service Feb 02, 2017. Subjective Pt evaluation today including: conversation w/ patient, physical exam, chart review, lab review, conversation w/ process improvement consultant Pain: mild PO Intake: good Voiding: mendoza catheter in place patient feeling better today no longer having hallucinations, was having some yesterday afternoon abdominal pain has improved is still feeling anxious and have sweats at night has had bowel movement and is tolerating diet hgb has remained stable and will restart anticoagulation today Constitutional: + sweats, No fever, No chills Eyes: No worsening of vision Respiratory: + dyspnea on exertion, No cough, No sputum, No shortness of breath Cardiovascular: No chest pain, No edema, No palpitations Abdomen: + pain, No nausea, No vomiting, No diarrhea, No constipation Male : No dysuria, No urinary frequency, No hematuria Heme: No abnormal bleeding/bruising Endo: + fatigue Medications Current Inpatient Medications Medications (Trade) Dose Ordered Sig/Krista Route Start Time Stop Time Status Last Admin Dose Admin Magnesium Hydroxide (Milk Of Magnesia Susp) 30 ml Q6H PRN PO 01/28/17 01:15 02/27/17 01:14 Polyethylene (Miralax Powder Packet) 17 gm DAILY PRN PO 01/28/17 01:15 02/27/17 01:14 Ondansetron HCl (Zofran Inj) 4 mg Q6H PRN IV 01/28/17 01:15 02/27/17 01:14 Hydralazine HCl (HydrALAZINE INJ) 5 mg TID PRN IV. 01/28/17 14:45 02/27/17 14:44 Morphine Sulfate (MoRPHine SULFATE INJ) 2 mg Q1H PRN IV 01/28/17 20:00 02/11/17 19:59 02/01/17 13:38 2 MG Morphine Sulfate (MoRPHine SULFATE INJ) 4 mg Q1H PRN IV 01/28/17 20:00 02/11/17 19:59 02/02/17 04:41 4 MG Diphenhydramine HCl (Benadryl Cap) 25 mg Q4H PRN PO 01/28/17 20:00 02/27/17 19:59 02/01/17 02:50 25 MG Lisinopril (Zestril Tab) 30 mg QAM PO 01/29/17 09:00 02/28/17 08:59 02/02/17 08:20 30 MG Ciprofloxacin (Cipro Tab) 500 mg BID PO 01/29/17 12:00 02/08/17 11:59 02/02/17 08:19 500 MG Tramadol HCl (Ultram Tab) 100 mg Q4H PRN PO 01/29/17 20:00 02/27/17 19:59 01/31/17 20:08 100 MG Oxycodone/ Acetaminophen (Percocet 5-325mg Tab) 1 tab Q4H PRN PO 01/29/17 19:00 02/12/17 18:59 Oxycodone/ Acetaminophen (Percocet 5-325mg Tab) 2 tab Q4H PRN PO 01/29/17 19:00 02/12/17 18:59 02/02/17 08:18 2 TAB Lorazepam (Ativan Tab) PRN Dosing -Active Protocol UD PRN PO 01/30/17 01:00 03/01/17 00:59 02/01/17 02:22 2 MG Metoprolol Tartrate (Lopressor Tab) 50 mg BID PO 01/30/17 21:00 02/27/17 21:59 02/02/17 08:19 50 MG Warfarin Sodium (Coumadin Tab) 3 mg MoWeFr@1600 PO 01/30/17 16:00 03/01/17 15:59 Future hold Warfarin Sodium (Coumadin Tab) 4 mg SuTuThSa@1600 PO 01/31/17 16:00 03/02/17 15:59 Future hold Nicotine (Nicoderm Cq 21MG Patch) 1 patch QAM EXT 01/31/17 07:45 03/02/17 07:44 02/02/17 08:19 1 PATCH Miscellaneous (Remove Nicoderm Patch) 1 ea HS N/A 01/31/17 21:00 03/02/17 20:59 02/01/17 20:45 1 EA Thiamine HCl 100 mg/Sodium Chloride 51 ml @ 2 mls/min Q24H IV 01/31/17 12:45 03/02/17 12:44 02/02/17 12:10 2 MLS/MIN Lorazepam (Ativan Tab) 0.5 mg QID PRN PO 01/31/17 16:15 03/02/17 16:14 Chlordiazepoxide (Librium Cap) 10 mg Q8H PO 02/02/17 22:00 02/03/17 14:01 Chlordiazepoxide (Librium Cap) 5 mg Q12H PO 02/04/17 00:00 02/04/17 12:01 Lorazepam (Ativan Inj) PRN Dosing -Active Protocol Q1H PRN IV 02/01/17 04:15 03/03/17 04:14 02/01/17 04:37 3 MG Sodium Chloride 1,000 ml @ 100 mls/hr Q10H IV 02/01/17 09:15 03/03/17 09:14 Future Hold 02/01/17 09:15 100 MLS/HR Heparin Sodium/ Dextrose 500 ml @ 31 mls/hr Q16H8M PRN IV 02/02/17 08:45 03/04/17 08:44 02/02/17 09:56 31 MLS/HR Multivitamins 10 ml/Thiamine HCl 100 mg/Folic Acid 1 mg/Sodium Chloride 1,011.2 ml @ 125 mls/ hr DAILY IV 02/02/17 10:30 02/04/17 17:06 02/02/17 12:10 125 MLS/HR Objective Vital Signs Date Time Temp Pulse Resp B/P (MAP) Pulse Ox O2 Delivery O2 Flow Rate FiO2 02/02/17 15:24 36.6 94 18 152/102 (119) 94 Room Air 02/02/17 12:13 36.8 74 18 148/62 (90) 99 02/02/17 12:00 Nasal Cannula 4.0 02/02/17 08:12 36.8 76 18 151/91 (111) 95 02/02/17 08:00 96 Nasal Cannula 4.0 02/02/17 04:00 36.8 97 20 141/97 (112) 92 Room Air 02/02/17 04:00 Room Air 02/02/17 00:00 Room Air 02/01/17 23:14 36.6 84 18 130/83 (99) 91 Room Air 02/01/17 20:00 98 Room Air 02/01/17 19:05 36.6 97 18 114/75 91 02/01/17 18:05 36.5 99 18 129/83 93 02/01/17 17:35 36.6 106 18 139/94 97 02/01/17 17:15 37.1 105 18 133/88 96 02/01/17 17:00 37.0 109 18 144/98 97 02/01/17 17:00 37.0 109 18 144/98 97 02/01/17 17:00 37.0 109 18 144/98 97 02/01/17 16:45 36.5 115 18 146/82 98 02/01/17 16:45 36.5 115 18 144/98 97 02/01/17 16:45 36.5 115 18 146/82 98 02/01/17 16:45 36.5 115 18 146/82 98 Physical Exam General Appearance: WD/WN, no apparent distress Respiratory/Chest: lungs clear, no respiratory distress, no accessory muscle use, + decreased breath sounds (at the bases) Cardiovascular: regular rate, rhythm, no JVD, no murmur, + pertinent finding ( click due to mechanical mitral valve) Abdomen: normal bowel sounds, non tender, soft, + pertinent finding ( significant ecchymosis on LLQ and left flank) Extremities: non-tender, no calf tenderness, normal capillary refill Neurologic/Psychiatric: alert, normal mood/affect, oriented x 3 Skin: + pallor Laboratory Results Results Past 24 Hours Test 02/01/17 19:32 02/02/17 06:41 02/02/17 08:07 02/02/17 15:57 Range/Units Hemoglobin 9.1 9.0 14.0-18.0 g/dL Hematocrit 28.6 29.1 42-52 % White Blood Count 10.35 4.8-10.8 K/uL Red Blood Count 3.02 4.7-6.1 M/uL Mean Corpuscular Volume 96.4 80-100 fL Mean Corpuscular Hemoglobin 29.8 25-34 pg Mean Corpuscular Hemoglobin Concent 30.9 32-36 g/dl Platelet Count 179 130-400 K/uL Mean Platelet Volume 10.0 7.4-10.4 fL Neutrophils (%) (Auto) 69.4 % Lymphocytes (%) (Auto) 16.3 % Monocytes (%) (Auto) 13.0 % Eosinophils (%) (Auto) 0.5 % Basophils (%) (Auto) 0.1 % Neutrophils # (Auto) 7.30 1.4-6.5 K/uL Lymphocytes # (Auto) 1.71 1.2-3.4 K/uL Monocytes # (Auto) 1.37 0.11-0.59 K/uL Eosinophils # (Auto) 0.05 0-0.5 K/uL Basophils # (Auto) 0.01 0-0.2 K/uL RDW Standard Deviation 58.8 36.4-46.3 fL RDW Coefficient of Variation 17.6 11.5-14.5 % Immature Granulocyte % (Auto) 0.7 % Immature Granulocyte # (Auto) 0.07 0.00-0.02 K/uL Nucleated RBC Absolute Count (auto) 0.05 0-0 K/uL Nucleated Red Blood Cells % 0.5 % Prothrombin Time 16.0 9.0-12.0 SECONDS Prothromb Time International Ratio 1.5 0.9-1.1 Sodium Level 144 136-145 mmol/L Potassium Level 3.7 3.5-5.1 mmol/L Chloride Level 113 98-107 mmol/L Carbon Dioxide Level 24 21-32 mmol/L Anion Gap 7.0 3-11 mmol/L Blood Urea Nitrogen 30 7-18 mg/dl Creatinine 1.30 0.60-1.40 mg/dl Est Creatinine Clear Calc Drug Dose 93.6 ml/min Estimated GFR () 80.2 Estimated GFR (Non- 69.2 BUN/Creatinine Ratio 23.2 10-20 Random Glucose 91 70-99 mg/dl Calcium Level 8.5 8.5-10.1 mg/dl Activated Partial Thromboplast Time 29.3 37.5 21.0-31.0 SECONDS Partial Thromboplastin Ratio 1.1 1.4 Assessment and Plan 36 year old male admitted to the hospital with early appendicitis as per CT abdomen and found to have supratherapeutic INR. Appendicitis - s/p laparoscopic appendectomy 01/28/17.. POD 3 - Pain management as per surgery: Tramadol PO, Percocet PO, Morphine IV Acute blood loss Anemia - Hgb stable at 9.0, has received 5 units of PRBC so far - moderate haemoperitoneum on CT scan - continue to monitor SABINE - Likely prerenal sec to hypovolemia - IVF, prbc. 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 Gutiérrez following, - Post surgically wasstarted on therapeutic Enoxaparin 100mg BID + loading dose of warfarin with 8mg. (Received total of 16mgs in 24 hrs) - Target INR 2.5-3.5. Check INR daily. Today INR 1.5 - Restarted anticoagulation today with heparin drip and resume warfarin - Cardiology input appreciated HTN - Home meds Lisinopril 30mg qAM. Metoprolol Increased from 50mg to 100 mg BID - IV Hydralazine 5mg for SBP >170 - Continue to monitor Prostatitis - Possibly partially treated with Keflex as outpatient. - UA positive with leuks, bacteria, blood. Patient also symptomatic. Urine culture positive for Escherichia coli. Sensitivities pending. - Started on ciprofloxacin 500 mg BID to be continued for prolonged ten-day course, with follow-up with PCP for potential extended course. Alcohol withdrawal - patient tachy, due to blood loss or due to withdrawal - Continue with CIWA protocol - librium, ativan, and thiamine and multivitamin Bilateral pleural effusions - small bilateral seen on CXR - d/clementine IVF Patient has Hep C - [place] precautions Hx of Stroke - Monitor INR DVT prophylaxis - heparin drip started and warfarin restarted Tobacco abuse - nicotine patch Diet - Per surgery - On full liquid diet Mendoza - removed today Full code Continued [facility] stay due to: multiple IV medications needed Reviewed: Pt Seen/Exam by Me History comfortable in bed denies any concerns Constitutional: denies: fever Respiratory: negative: short of breath Cardiovascular: denies chest pain General Appearance: no apparent distress Respiratory: lungs clear, no respiratory distress Cardiovascular: regular rate, rhythm Gastrointestinal: normal bowel sounds, soft, tenderness (incisional) Neurologic/Psychiatric: alert, oriented x 3 Skin Characteristics: warm/dry Assessment/Plan Resident Physician Supervision Note: I was present with Dr. Schmid in bedside. I verified the wheeler history and physical, reviewed labs and image studies, discussed the case with the resident and agree with the findings and care plan.
[2017-02-02] MEDS: WARFARIN SOD 4 MG TAB PO SCH (16:51)
[2017-02-02] MEDS: LORAZEPAM 2 MG/ML 1 ML VIAL IV PRN ×3 (19:02→22:03)
[2017-02-02] MEDS ORDERED: HEPARIN IV BOLUS 7,000 UNIT in SYRINGE 0 ML IV ONE (20:00)
[2017-02-02] MEDS: CHLORDIAZEPOXIDE 10MG Q8H DOSE PO SCH (21:22)
[2017-02-03] VITALS (9 sets, daily range): BP systolic 146–176; BP diastolic 86–105; PULSE 78–102; TEMP 36.7–37.4; O2SAT 90–97
[2017-02-03] MEDS: LORAZEPAM 2 MG/ML 1 ML VIAL IV PRN ×7 (00:35→07:50)
[2017-02-03] MEDS: HEPARIN 25,000 UNIT/500ML D5W 500 ML IV PRN (00:40)
[2017-02-03 02:59] LABS: PARTIAL THROMBOPLASTIN RATIO 2.4
[2017-02-03] MEDS: CHLORDIAZEPOXIDE 10MG Q8H DOSE PO SCH ×2 (06:00→13:17)
[2017-02-03 06:52] LABS: HEMATOCRIT 27.3 % (42-52); MEAN CELL VOLUME 95.1 fL (80-100); MEAN CORPUSCULAR HEMOGLOBIN 32.1 pg (25-34); MEAN CORPUSCULAR HGB CONC 33.7 g/dl (32-36); MEAN PLATELET VOLUME 9.9 fL (7.4-10.4); PLATELET COUNT 182 K/uL (130-400); RED BLOOD COUNT 2.87 M/uL (4.7-6.1); WHITE BLOOD COUNT 10.07 K/uL (4.8-10.8)
[2017-02-03 07:03] LABS: INR 1.4 (0.9-1.1); PROTHROMBIN TIME (PATIENT) 14.9 SECONDS (9.0-12.0)
[2017-02-03 07:26] LABS: BUN/CREATININE RATIO 17.4 (10-20); CREATININE 1.1 mg/dl (0.60-1.40); POTASSIUM 3.4 mmol/L (3.5-5.1)
[2017-02-03] MEDS: NICOTINE 21 MG/24 HR TDSY EXT SCH (07:30)
[2017-02-03] MEDS: CIPROFLOXACIN 500 MG TAB PO SCH ×2 (07:32→20:27)
[2017-02-03] MEDS: METOPROLOL TARTRATE 50 MG TAB PO SCH ×2 (07:32→20:27)
[2017-02-03] MEDS: LISINOPRIL 20 MG TAB PO SCH (07:33)
[2017-02-03] MEDS: MULTI-VITAMIN INFUSION INJ 10 ML, THIAMINE HCL INJ 100 MG, FoLIC ACID INJ 1 MG in SODIU... IV SCH (07:39)
--- NOTE | 2017-02-03 09:20 | Surgery Progress Note ---
Surgery Progress Note Date of Service Feb 03, 2017. Subjective POD#6 lap appendectomy restarted on therapeutic anticoagulation on POD#1 for mechanical mitral valve complicated by bleeding. Anticoagulation held which appears to have stopped the bleeding. Patient transfused 5 units pRBC's total. Patient also going through alcohol withdrawal and has been placed on CIWA protocol requiring prn ativan. This morning he was restless, confused and agitated and required 5mg ativan per CIWA protocol. Tolerating liquids, having bm's. Luther removed and urinating. Objective Vital Signs: Date Time Temp Pulse Resp B/P (MAP) Pulse Ox O2 Delivery O2 Flow Rate FiO2 02/03/17 06:58 36.9 99 26 167/99 (121) 92 Room Air 02/03/17 04:07 91 26 152/86 (108) 94 Room Air 02/03/17 04:01 36.7 94 28 159/95 (116) 94 Room Air 02/03/17 04:00 97 Room Air 02/03/17 00:00 94 Room Air 02/02/17 23:16 37.3 98 20 161/104 (123) 94 Room Air 02/02/17 20:53 Room Air 02/02/17 18:56 36.6 122 26 174/108 (130) 93 Room Air 02/02/17 16:55 Room Air 02/02/17 15:24 36.6 94 18 152/102 (119) 94 Room Air 02/02/17 12:13 36.8 74 18 148/62 (90) 99 02/02/17 12:00 Nasal Cannula 4.0 General Appearance: no apparent distress Respiratory/Chest: chest non-tender, + crackles Cardiovascular: regular rate, rhythm Abdomen: normal bowel sounds, non tender, soft, + distended (improving distention. ), + pertinent finding (significant echymosis along abominal wall, left flank and thighs related to previous intra-abdominal bleeding) Incision(s): clean, dry, intact, no erythema, no drainage Laboratory Results: Results Past 24 Hours Test 02/02/17 15:57 02/03/17 02:25 02/03/17 06:21 Range/Units Activated Partial Thromboplast Time 37.5 61.3 21.0-31.0 SECONDS Partial Thromboplastin Ratio 1.4 2.4 White Blood Count 10.07 4.8-10.8 K/uL Red Blood Count 2.87 4.7-6.1 M/uL Hemoglobin 9.2 14.0-18.0 g/dL Hematocrit 27.3 42-52 % Mean Corpuscular Volume 95.1 80-100 fL Mean Corpuscular Hemoglobin 32.1 25-34 pg Mean Corpuscular Hemoglobin Concent 33.7 32-36 g/dl RDW Standard Deviation 56.6 36.4-46.3 fL RDW Coefficient of Variation 17.0 11.5-14.5 % Platelet Count 182 130-400 K/uL Mean Platelet Volume 9.9 7.4-10.4 fL Prothrombin Time 14.9 9.0-12.0 SECONDS Prothromb Time International Ratio 1.4 0.9-1.1 Sodium Level 147 136-145 mmol/L Potassium Level 3.4 3.5-5.1 mmol/L Chloride Level 115 98-107 mmol/L Carbon Dioxide Level 22 21-32 mmol/L Anion Gap 10.0 3-11 mmol/L Blood Urea Nitrogen 19 7-18 mg/dl Creatinine 1.10 0.60-1.40 mg/dl Est Creatinine Clear Calc Drug Dose 110.1 ml/min Estimated GFR () 98.2 Estimated GFR (Non- 84.7 BUN/Creatinine Ratio 17.4 10-20 Random Glucose 95 70-99 mg/dl Calcium Level 9.0 8.5-10.1 mg/dl Assessment & Plan POD#6 s/p lap appy, started on therapeutic a/c for mechanical MV, complicated by intra-abdominal bleeding which appears to have stopped. He is now going through alcohol withdrawal and being treated with prn benzo's. His a/c was restarted yesterday with heparin drip, pt therapeutic, hgb stable. Tolerating liquids, good bowel function. Volume up. Hypokalemia. continue heparin drip okay to restart coumadin advance to regular diet scd's continue cipro for prostatitis/uti continue ciwa protocol, prn benzo for alcohol withdrawal minimize ivf's, likely will only need motor coach driver for heparin drip appreciate medicine assistance with this patient d/c after therapeutic on coumadin, likely early next week Dr. Delgado will be covering over the weekend Barry Klein DO
[2017-02-03] MEDS ORDERED: POTASSIUM CHLORIDE 20 MEQ/15 ML UDC PO ONE (10:00)
[2017-02-03] MEDS ORDERED: FUROSEMIDE INJ 10 MG in SYRINGE 0 ML IV SCH (10:00)
--- NOTE | 2017-02-03 11:40 | Family Medicine Progress Note ---
Progress Note Date of Service Feb 03, 2017. Subjective Pt evaluation today including: conversation w/ patient, physical exam, chart review, conversation w/ outside sales consultant, review of inpatient medication list Voiding: no voiding problems patient was very restless overnight and was aggressive with nursing staff. per nursing he was hallucinating yesterday evening and continues to be tachycardic and tachypneic he was given ativan overnight several times to calm him down and has a 1:1 Additional Comments: unable to obtain ROS as patient was sleeping and did not respond to questioning Medications Current Inpatient Medications Medications (Trade) Dose Ordered Sig/Krista Route Start Time Stop Time Status Last Admin Dose Admin Magnesium Hydroxide (Milk Of Magnesia Susp) 30 ml Q6H PRN PO 01/28/17 01:15 02/27/17 01:14 Polyethylene (Miralax Powder Packet) 17 gm DAILY PRN PO 01/28/17 01:15 02/27/17 01:14 Ondansetron HCl (Zofran Inj) 4 mg Q6H PRN IV 01/28/17 01:15 02/27/17 01:14 Hydralazine HCl (HydrALAZINE INJ) 5 mg TID PRN IV. 01/28/17 14:45 02/27/17 14:44 Morphine Sulfate (MoRPHine SULFATE INJ) 2 mg Q1H PRN IV 01/28/17 20:00 02/11/17 19:59 02/01/17 13:38 2 MG Morphine Sulfate (MoRPHine SULFATE INJ) 4 mg Q1H PRN IV 01/28/17 20:00 02/11/17 19:59 02/02/17 04:41 4 MG Diphenhydramine HCl (Benadryl Cap) 25 mg Q4H PRN PO 01/28/17 20:00 02/27/17 19:59 02/01/17 02:50 25 MG Lisinopril (Zestril Tab) 30 mg QAM PO 01/29/17 09:00 02/28/17 08:59 02/03/17 07:33 30 MG Ciprofloxacin (Cipro Tab) 500 mg BID PO 01/29/17 12:00 02/08/17 11:59 02/03/17 07:32 500 MG Tramadol HCl (Ultram Tab) 100 mg Q4H PRN PO 01/29/17 20:00 02/27/17 19:59 01/31/17 20:08 100 MG Oxycodone/ Acetaminophen (Percocet 5-325mg Tab) 1 tab Q4H PRN PO 01/29/17 19:00 02/12/17 18:59 Oxycodone/ Acetaminophen (Percocet 5-325mg Tab) 2 tab Q4H PRN PO 01/29/17 19:00 02/12/17 18:59 02/02/17 08:18 2 TAB Lorazepam (Ativan Tab) PRN Dosing -Active Protocol UD PRN PO 01/30/17 01:00 03/01/17 00:59 02/01/17 02:22 2 MG Metoprolol Tartrate (Lopressor Tab) 50 mg BID PO 01/30/17 21:00 02/27/17 21:59 02/03/17 07:32 50 MG Warfarin Sodium (Coumadin Tab) 3 mg MoWeFr@1600 PO 01/30/17 16:00 03/01/17 15:59 Future hold Warfarin Sodium (Coumadin Tab) 4 mg SuTuThSa@1600 PO 01/31/17 16:00 03/02/17 15:59 Future hold 02/02/17 16:51 4 MG Nicotine (Nicoderm Cq 21MG Patch) 1 patch QAM EXT 01/31/17 07:45 03/02/17 07:44 02/03/17 07:30 1 PATCH Miscellaneous (Remove Nicoderm Patch) 1 ea HS N/A 01/31/17 21:00 03/02/17 20:59 02/02/17 21:22 1 EA Thiamine HCl 100 mg/Sodium Chloride 51 ml @ 2 mls/min Q24H IV 01/31/17 12:45 03/02/17 12:44 02/02/17 12:10 2 MLS/MIN Lorazepam (Ativan Tab) 0.5 mg QID PRN PO 01/31/17 16:15 03/02/17 16:14 Chlordiazepoxide (Librium Cap) 10 mg Q8H PO 02/02/17 22:00 02/03/17 14:01 02/02/17 21:22 10 MG Chlordiazepoxide (Librium Cap) 5 mg Q12H PO 02/04/17 00:00 02/04/17 12:01 Lorazepam (Ativan Inj) PRN Dosing -Active Protocol Q1H PRN IV 02/01/17 04:15 03/03/17 04:14 02/03/17 07:30 3 MG Sodium Chloride 1,000 ml @ 100 mls/hr Q10H IV 02/01/17 09:15 03/03/17 09:14 Future Hold 02/01/17 09:15 100 MLS/HR Heparin Sodium/ Dextrose 500 ml @ 38 mls/hr [id number] PRN IV 02/02/17 08:45 03/04/17 08:44 02/03/17 00:40 38 MLS/HR Multivitamins 10 ml/Thiamine HCl 100 mg/Folic Acid 1 mg/Sodium Chloride 1,011.2 ml @ 125 mls/ hr DAILY IV 02/02/17 10:30 02/04/17 17:06 02/03/17 07:39 125 MLS/HR Objective Vital Signs Date Time Temp Pulse Resp B/P (MAP) Pulse Ox O2 Delivery O2 Flow Rate FiO2 02/03/17 06:58 36.9 99 26 167/99 (121) 92 Room Air 02/03/17 04:07 91 26 152/86 (108) 94 Room Air 02/03/17 04:01 36.7 94 28 159/95 (116) 94 Room Air 02/03/17 04:00 97 Room Air 02/03/17 00:00 94 Room Air 02/02/17 23:16 37.3 98 20 161/104 (123) 94 Room Air 02/02/17 20:53 Room Air 02/02/17 18:56 36.6 122 26 174/108 (130) 93 Room Air 02/02/17 16:55 Room Air 02/02/17 15:24 36.6 94 18 152/102 (119) 94 Room Air 02/02/17 12:13 36.8 74 18 148/62 (90) 99 02/02/17 12:00 Nasal Cannula 4.0 Physical Exam General Appearance: WD/WN, + moderate distress Neck: no JVD Respiratory/Chest: lungs clear, no respiratory distress, no accessory muscle use, + decreased breath sounds (at the bases), + pertinent finding (tachypneic) Cardiovascular: regular rate, rhythm, no edema, no murmur, + pertinent finding (mechanical click on exam) Abdomen: normal bowel sounds, non tender, soft, + pertinent finding ( significant ecchymosis along left flank and left upper thigh (worse today)) Extremities: no pedal edema, normal capillary refill Laboratory Results Results Past 24 Hours Test 02/02/17 15:57 02/03/17 02:25 02/03/17 06:21 Range/Units Activated Partial Thromboplast Time 37.5 61.3 21.0-31.0 SECONDS Partial Thromboplastin Ratio 1.4 2.4 White Blood Count 10.07 4.8-10.8 K/uL Red Blood Count 2.87 4.7-6.1 M/uL Hemoglobin 9.2 14.0-18.0 g/dL Hematocrit 27.3 42-52 % Mean Corpuscular Volume 95.1 80-100 fL Mean Corpuscular Hemoglobin 32.1 25-34 pg Mean Corpuscular Hemoglobin Concent 33.7 32-36 g/dl RDW Standard Deviation 56.6 36.4-46.3 fL RDW Coefficient of Variation 17.0 11.5-14.5 % Platelet Count 182 130-400 K/uL Mean Platelet Volume 9.9 7.4-10.4 fL Prothrombin Time 14.9 9.0-12.0 SECONDS Prothromb Time International Ratio 1.4 0.9-1.1 Sodium Level 147 136-145 mmol/L Potassium Level 3.4 3.5-5.1 mmol/L Chloride Level 115 98-107 mmol/L Carbon Dioxide Level 22 21-32 mmol/L Anion Gap 10.0 3-11 mmol/L Blood Urea Nitrogen 19 7-18 mg/dl Creatinine 1.10 0.60-1.40 mg/dl Est Creatinine Clear Calc Drug Dose 110.1 ml/min Estimated GFR () 98.2 Estimated GFR (Non- 84.7 BUN/Creatinine Ratio 17.4 10-20 Random Glucose 95 70-99 mg/dl Calcium Level 9.0 8.5-10.1 mg/dl Assessment and Plan 36 year old male admitted to the hospital with early appendicitis as per CT abdomen and found to have supratherapeutic INR. Patient continues to be in DT's. Was aggressive with staff overnight and was hallucinating. Was given ativan per [place] protocol Appendicitis - s/p laparoscopic appendectomy 01/28/17.. POD 3 - Pain management as per surgery: Tramadol PO, Percocet PO, Morphine IV Acute blood loss Anemia - Hgb stable at 9.2, has received 5 units of PRBC so far - moderate haemoperitoneum on CT scan - continue to monitor Hypokalemia - Potassium 3.4 today - Will give 40meq PO when able to take PO later today - Continue to monitor SABINE - Likely prerenal sec to hypovolemia - IVF, prbc. 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 (Received total of 16mgs in 24 hrs) - Target INR 2.5-3.5. Check INR daily. Today INR 1.4 - Restarted anticoagulation yesterday with heparin drip and resume warfarin at regular daily dosing - Cardiology input appreciated HTN - Home meds Lisinopril 30mg qAM. Metoprolol Increased from 50mg to 100 mg BID - IV Hydralazine 5mg for SBP >170 - Continue to monitor Prostatitis - Possibly partially treated with Keflex as outpatient. - UA positive with leuks, bacteria, blood. Patient also symptomatic. Urine culture positive for Escherichia coli. Sensitivities pending. - Started on ciprofloxacin 500 mg BID to be continued for prolonged ten-day course, with follow-up with PCP for potential extended course. Alcohol withdrawal - patient tachy tachypneic due to withdrawal - Continue with CIWA protocol - librium, ativan, and thiamine and multivitamin Bilateral pleural effusions - small bilateral seen on CXR - d/clementine IVF Patient has Hep C - [place] precautions Hx of Stroke - Monitor INR DVT prophylaxis - heparin drip started and warfarin restarted Tobacco abuse - nicotine patch Diet - Per surgery - On full liquid diet Luther - removed today Full code Continued [facility] stay due to: multiple IV medications needed, home environment unsafe for pt Reviewed: Pt Seen/Exam by Me History was confused and agitated all night received multiple doses of lorazepam. sedated this morning Constitutional: denies: fever Respiratory: negative: short of breath Cardiovascular: denies chest pain General Appearance: no apparent distress Respiratory: lungs clear, no respiratory distress Cardiovascular: regular rate, rhythm Neurologic/Psychiatric: other (sedated ) Skin Characteristics: warm/dry Assessment/Plan Resident Physician Supervision Note: I was present with Dr. Schmid in bedside. I verified the wheeler history and physical, reviewed labs and image studies, discussed the case with the resident and agree with the findings and care plan.
[2017-02-03] MEDS: THIAMINE HCL INJ 100 MG in SODIUM CHLORIDE 0.9% 50ML 50 ML IV SCH (12:09)
[2017-02-03] MEDS ORDERED: POTASSIUM CHLORIDE 20 MEQ TABCR PO ONE (12:15)
[2017-02-03] MEDS: CHLORDIAZEPOXIDE 5MG Q12H DOSE PO SCH (23:06)
[2017-02-04] VITALS (10 sets, daily range): BP systolic 162–186; BP diastolic 96–120; PULSE 74–89; TEMP 36.6–37.6; O2SAT 93–96
[2017-02-04] MEDS: HydrALAZINE HCL 20 MG/ML VIAL IV. PRN ×2 (03:43→19:21)
[2017-02-04] MEDS: HEPARIN 25,000 UNIT/500ML D5W 500 ML IV PRN ×3 (05:34→22:55)
[2017-02-04 06:19] LABS: HEMATOCRIT 30.5 % (42-52); MEAN CELL VOLUME 97.4 fL (80-100); MEAN CORPUSCULAR HEMOGLOBIN 30.4 pg (25-34); MEAN CORPUSCULAR HGB CONC 31.1 g/dl (32-36); MEAN PLATELET VOLUME 9.9 fL (7.4-10.4); PLATELET COUNT 207 K/uL (130-400); RED BLOOD COUNT 3.13 M/uL (4.7-6.1); WHITE BLOOD COUNT 9.64 K/uL (4.8-10.8)
[2017-02-04 06:38] LABS: INR 1.4 (0.9-1.1); PARTIAL THROMBOPLASTIN RATIO 1.8; PROTHROMBIN TIME (PATIENT) 15.3 SECONDS (9.0-12.0)
[2017-02-04 06:49] LABS: BUN/CREATININE RATIO 15.9 (10-20); CALCIUM 8.7 mg/dl (8.5-10.1); CREATININE 0.99 mg/dl (0.60-1.40); POTASSIUM 3.4 mmol/L (3.5-5.1)
[2017-02-04] MEDS ORDERED: HEPARIN IV BOLUS 3,000 UNIT in SYRINGE 0 ML IV ONE (07:30)
[2017-02-04] MEDS: NICOTINE 21 MG/24 HR TDSY EXT SCH (07:54)
[2017-02-04] MEDS: CIPROFLOXACIN 500 MG TAB PO SCH ×2 (07:56→20:28)
[2017-02-04] MEDS: METOPROLOL TARTRATE 50 MG TAB PO SCH ×2 (07:56→20:28)
[2017-02-04] MEDS: LISINOPRIL 20 MG TAB PO SCH (07:57)
--- NOTE | 2017-02-04 08:48 | Surgery Progress Note ---
Surgery Progress Note Date of Service Feb 04, 2017. Subjective Post OP Day: 7 + feeling well, + complaints (some discomfort), + ambulating, + pain controlled , + diet (regular), No nausea, No vomiting Objective Vital Signs: Date Time Temp Pulse Resp B/P (MAP) Pulse Ox O2 Delivery O2 Flow Rate FiO2 02/04/17 07:12 37.1 86 18 173/115 (134) 96 Room Air 02/04/17 05:47 186/96 (126) 02/04/17 04:14 Room Air 02/04/17 03:52 36.6 83 26 179/120 (139) 95 Room Air 02/04/17 00:00 Room Air 02/03/17 23:46 37.2 85 22 166/104 (124) 94 Room Air 02/03/17 20:00 Room Air 02/03/17 19:12 36.9 96 17 176/105 (128) 95 Room Air 02/03/17 16:00 Room Air 02/03/17 15:07 37.2 78 28 146/96 (113) 95 Room Air 02/03/17 12:00 Room Air 02/03/17 11:32 37.4 102 32 156/100 (118) 90 Room Air General Appearance: WD/WN, no apparent distress Head: normocephalic, atraumatic Neck: supple, trachea midline Respiratory/Chest: lungs clear Cardiovascular: regular rate, rhythm Abdomen: soft, + distended (mild), + tenderness (alittle) Incision(s): clean, dry, intact, ecchymosis (left flank ecchymosis), findings Extremities: non-tender, no pedal edema Laboratory Results: Results Past 24 Hours Test 02/04/17 06:03 Range/Units White Blood Count 9.64 4.8-10.8 K/uL Red Blood Count 3.13 4.7-6.1 M/uL Hemoglobin 9.5 14.0-18.0 g/dL Hematocrit 30.5 42-52 % Mean Corpuscular Volume 97.4 80-100 fL Mean Corpuscular Hemoglobin 30.4 25-34 pg Mean Corpuscular Hemoglobin Concent 31.1 32-36 g/dl RDW Standard Deviation 58.2 36.4-46.3 fL RDW Coefficient of Variation 16.9 11.5-14.5 % Platelet Count 207 130-400 K/uL Mean Platelet Volume 9.9 7.4-10.4 fL Prothrombin Time 15.3 9.0-12.0 SECONDS Prothromb Time International Ratio 1.4 0.9-1.1 Activated Partial Thromboplast Time 45.9 21.0-31.0 SECONDS Partial Thromboplastin Ratio 1.8 Sodium Level 149 136-145 mmol/L Potassium Level 3.4 3.5-5.1 mmol/L Chloride Level 117 98-107 mmol/L Carbon Dioxide Level 24 21-32 mmol/L Anion Gap 8.0 3-11 mmol/L Blood Urea Nitrogen 16 7-18 mg/dl Creatinine 0.99 0.60-1.40 mg/dl Est Creatinine Clear Calc Drug Dose 121.2 ml/min Estimated GFR () 111.5 Estimated GFR (Non- 96.2 BUN/Creatinine Ratio 15.9 10-20 Random Glucose 95 70-99 mg/dl Calcium Level 8.7 8.5-10.1 mg/dl Assessment & Plan s/p lap appy complicated by intra-abdominal bleeding. [facility] valve needs to be anticoagulated -continue heparin drip -coumadin restarted per medicine -regular diet -continue cipro for prostatitis/uti -continue ciwa protocol, prn benzo for alcohol withdrawal -d/c after therapeutic on coumadin, likely early next week
--- NOTE | 2017-02-04 08:51 | Family Medicine Progress Note ---
Progress Note Date of Service Feb 04, 2017. Subjective Pt evaluation today including: conversation w/ patient, physical exam, chart review, lab review, review of studies, review of inpatient medication list Feeling improved this morning but still having some mild abdominal pain. Main concern is whether his Hgb has gone down and when he can go home. Constitutional: No fever, No chills All Other Systems: Reviewed and Negative Medications Current Inpatient Medications Medications (Trade) Dose Ordered Sig/Krista Route Start Time Stop Time Status Last Admin Dose Admin Magnesium Hydroxide (Milk Of Magnesia Susp) 30 ml Q6H PRN PO 01/28/17 01:15 02/27/17 01:14 Polyethylene (Miralax Powder Packet) 17 gm DAILY PRN PO 01/28/17 01:15 02/27/17 01:14 Ondansetron HCl (Zofran Inj) 4 mg Q6H PRN IV 01/28/17 01:15 02/27/17 01:14 Hydralazine HCl (HydrALAZINE INJ) 5 mg TID PRN IV. 01/28/17 14:45 02/27/17 14:44 02/04/17 03:43 5 MG Morphine Sulfate (MoRPHine SULFATE INJ) 2 mg Q1H PRN IV 01/28/17 20:00 02/11/17 19:59 02/01/17 13:38 2 MG Morphine Sulfate (MoRPHine SULFATE INJ) 4 mg Q1H PRN IV 01/28/17 20:00 02/11/17 19:59 02/02/17 04:41 4 MG Diphenhydramine HCl (Benadryl Cap) 25 mg Q4H PRN PO 01/28/17 20:00 02/27/17 19:59 02/01/17 02:50 25 MG Lisinopril (Zestril Tab) 30 mg QAM PO 01/29/17 09:00 02/28/17 08:59 02/04/17 07:57 30 MG Ciprofloxacin (Cipro Tab) 500 mg BID PO 01/29/17 12:00 02/08/17 11:59 02/04/17 07:56 500 MG Tramadol HCl (Ultram Tab) 100 mg Q4H PRN PO 01/29/17 20:00 02/27/17 19:59 01/31/17 20:08 100 MG Oxycodone/ Acetaminophen (Percocet 5-325mg Tab) 1 tab Q4H PRN PO 01/29/17 19:00 02/12/17 18:59 Oxycodone/ Acetaminophen (Percocet 5-325mg Tab) 2 tab Q4H PRN PO 01/29/17 19:00 02/12/17 18:59 02/02/17 08:18 2 TAB Lorazepam (Ativan Tab) PRN Dosing -Active Protocol UD PRN PO 01/30/17 01:00 03/01/17 00:59 02/01/17 02:22 2 MG Metoprolol Tartrate (Lopressor Tab) 50 mg BID PO 01/30/17 21:00 02/27/17 21:59 02/04/17 07:56 50 MG Warfarin Sodium (Coumadin Tab) 3 mg MoWeFr@1600 PO 01/30/17 16:00 03/01/17 15:59 Future hold 02/03/17 17:00 3 MG Warfarin Sodium (Coumadin Tab) 4 mg SuTuThSa@1600 PO 01/31/17 16:00 03/02/17 15:59 Future hold 02/02/17 16:51 4 MG Nicotine (Nicoderm Cq 21MG Patch) 1 patch QAM EXT 01/31/17 07:45 03/02/17 07:44 02/04/17 07:54 1 PATCH Miscellaneous (Remove Nicoderm Patch) 1 ea HS N/A 01/31/17 21:00 03/02/17 20:59 02/03/17 20:27 1 EA Thiamine HCl 100 mg/Sodium Chloride 51 ml @ 2 mls/min Q24H IV 01/31/17 12:45 03/02/17 12:44 02/03/17 12:09 2 MLS/MIN Lorazepam (Ativan Tab) 0.5 mg QID PRN PO 01/31/17 16:15 03/02/17 16:14 Chlordiazepoxide (Librium Cap) 5 mg Q12H PO 02/04/17 00:00 02/04/17 12:01 02/03/17 23:06 5 MG Lorazepam (Ativan Inj) PRN Dosing -Active Protocol Q1H PRN IV 02/01/17 04:15 03/03/17 04:14 02/03/17 07:50 2 MG Sodium Chloride 1,000 ml @ 100 mls/hr Q10H IV 02/01/17 09:15 03/03/17 09:14 Future Hold 02/01/17 09:15 100 MLS/HR Heparin Sodium/ Dextrose 500 ml @ 41 mls/hr [id number] PRN IV 02/02/17 08:45 03/04/17 08:44 02/04/17 05:34 38 MLS/HR Multivitamins 10 ml/Thiamine HCl 100 mg/Folic Acid 1 mg/Sodium Chloride 1,011.2 ml @ 125 mls/ hr DAILY IV 02/02/17 10:30 02/04/17 17:06 02/03/17 07:39 125 MLS/HR Objective Vital Signs Date Time Temp Pulse Resp B/P (MAP) Pulse Ox O2 Delivery O2 Flow Rate FiO2 02/04/17 07:12 37.1 86 18 173/115 (134) 96 Room Air 02/04/17 05:47 186/96 (126) 02/04/17 04:14 Room Air 02/04/17 03:52 36.6 83 26 179/120 (139) 95 Room Air 02/04/17 00:00 Room Air 02/03/17 23:46 37.2 85 22 166/104 (124) 94 Room Air 02/03/17 20:00 Room Air 02/03/17 19:12 36.9 96 17 176/105 (128) 95 Room Air 02/03/17 16:00 Room Air 02/03/17 15:07 37.2 78 28 146/96 (113) 95 Room Air 02/03/17 12:00 Room Air 02/03/17 11:32 37.4 102 32 156/100 (118) 90 Room Air Physical Exam General Appearance: WD/WN, no apparent distress, + obese Eyes: normal inspection (pupils equal) Neck: supple, no JVD, trachea midline Respiratory/Chest: chest non-tender, lungs clear, normal breath sounds, no respiratory distress, no accessory muscle use Cardiovascular: regular rate, rhythm, no edema, no murmur (mechanical heart sound noted) Abdomen: normal bowel sounds, soft, + pertinent finding (extensive bruising of left lower quadrant of abdomen and left groin thigh, increased from when marked on 02/02 tender on palpation) Extremities: no pedal edema, no calf tenderness, normal capillary refill 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, no motor/sensory deficits ( grossly), alert Skin: + pertinent finding (ecchymosis as noted above on LLQ abdomen, groin and anterior thigh ) Laboratory Results 02/04/17 06:03 02/04/17 06:03 Test 02/04/17 06:03 Red Blood Count 3.13 M/uL (4.7-6.1) Mean Corpuscular Volume 97.4 fL (80-100) Mean Corpuscular Hemoglobin 30.4 pg (25-34) Mean Corpuscular Hemoglobin Concent 31.1 g/dl (32-36) RDW Standard Deviation 58.2 fL (36.4-46.3) RDW Coefficient of Variation 16.9 % (11.5-14.5) Mean Platelet Volume 9.9 fL (7.4-10.4) Prothrombin Time 15.3 SECONDS (9.0-12.0) Prothromb Time International Ratio 1.4 (0.9-1.1) Activated Partial Thromboplast Time 45.9 SECONDS (21.0-31.0) Partial Thromboplastin Ratio 1.8 Anion Gap 8.0 mmol/L (3-11) Est Creatinine Clear Calc Drug Dose 121.2 ml/min Estimated GFR () 111.5 Estimated GFR (Non- 96.2 BUN/Creatinine Ratio 15.9 (10-20) Calcium Level 8.7 mg/dl (8.5-10.1) Assessment and Plan 36 year old male admitted to the hospital with early appendicitis as per CT abdomen and found to have supratherapeutic INR 7.4. Appendicitis - s/p laparoscopic appendectomy 01/28/17. POD 7 - Pain management as per surgery: Tramadol PO, Percocet PO, Morphine IV Acute blood loss Anemia - Hgb stable at 9.2, s/p 5 units of PRBC - moderate hemoperitoneum on CT scan - continue to monitor Hypokalemia - Potassium 3.4 today - 40 meq KCl PO - Continue to monitor SABINE - prerenal, resolved Supratherapeutic INR on admission - currently on heparin drip and warfarin until INR therapeutic > 2.5 Mechanical mitral valve - Target INR 2.5-3.5. Check INR daily. HTN - Home meds Lisinopril 30mg qAM. Metoprolol 50mg BID - IV Hydralazine 5mg for SBP >170 - Continue to monitor Prostatitis - Possibly partially treated with Keflex as outpatient. - UA positive with leuks, bacteria, blood. Patient also symptomatic. Urine culture positive for Escherichia coli. Sensitivities pending. - Started on ciprofloxacin 500 mg BID 10 days. (DAY 7) Alcohol use disorder/withdrawal - Continue with CIWA protocol - librium, ativan, and thiamine (switch to PO) and multivitamin Bilateral pleural effusions - small bilateral seen on CXR - d/clementine IVF - now hypernatremic therefore will monitor this closely as likely becoming dehydrated Patient has Hep C - [place] precautions Hx of embolic Stroke - Monitor INR Tobacco abuse - nicotine patch VTE prophylaxis - heparin drip and warfarin (INR subtherapeutic) Code Full code Disposition - can be transferred to med/srug. Continued stay due to IV heparin needed Resident Tracking Resident Involvement: Resident Care Provided Care Provided: Adult Hospital Medicine Reviewed: Pt Seen/Exam by Me History alert this am. no concerns Constitutional: denies: fever Respiratory: negative: short of breath Cardiovascular: denies chest pain Gastrointestinal/Abdominal: negative: abdominal pain General Appearance: no apparent distress Respiratory: lungs clear, no respiratory distress Cardiovascular: regular rate, rhythm Gastrointestinal: normal bowel sounds, soft, tenderness (incisional) Neurologic/Psychiatric: alert, oriented x 3 Skin Characteristics: other (abdominal wall bruise +) Assessment/Plan Resident Physician Supervision Note: I was present with Dr. Galvan in bedside. I verified the wheeler history and physical, reviewed labs and image studies, discussed the case with the resident and agree with the findings and care plan.
[2017-02-04] MEDS: MULTI-VITAMIN INFUSION INJ 10 ML, THIAMINE HCL INJ 100 MG, FoLIC ACID INJ 1 MG in SODIU... IV SCH (09:01)
[2017-02-04 10:32] LABS: PARTIAL THROMBOPLASTIN RATIO 2.3
[2017-02-04] MEDS: CHLORDIAZEPOXIDE 5MG Q12H DOSE PO SCH (12:10)
[2017-02-04] MEDS: THIAMINE HCL INJ 100 MG in SODIUM CHLORIDE 0.9% 50ML 50 ML IV SCH (12:14)
[2017-02-04 14:45] LABS: PARTIAL THROMBOPLASTIN RATIO 2.1
[2017-02-04] MEDS ORDERED: POTASSIUM CHLORIDE 20 MEQ TABCR PO STA (15:49)
[2017-02-04] MEDS: WARFARIN SOD 4 MG TAB PO SCH (16:52)
[2017-02-04] MEDS: TRAMADOL HCL 50 MG TAB PO PRN (18:16)
[2017-02-05] MEDS: HEPARIN 25,000 UNIT/500ML D5W 500 ML IV PRN ×4 (05:17→16:58)
[2017-02-05 06:25] LABS: BASO % 0.3 %; BASO ABS # 0.03 K/uL (0-0.2); COMPLETE YES; EOS % 2.2 %; HEMATOCRIT 31.4 % (42-52); IG% 0.7 %; LYMPH % 21.6 %; LYMPH ABS # 2.06 K/uL (1.2-3.4); MEAN CELL VOLUME 96.3 fL (80-100); MEAN CORPUSCULAR HEMOGLOBIN 31.3 pg (25-34); MEAN CORPUSCULAR HGB CONC 32.5 g/dl (32-36); MEAN PLATELET VOLUME 10.1 fL (7.4-10.4); MONO % 12.7 %; NEUT % 62.5 %; PLATELET COUNT 209 K/uL (130-400); RED BLOOD COUNT 3.26 M/uL (4.7-6.1); WHITE BLOOD COUNT 9.54 K/uL (4.8-10.8)
[2017-02-05 06:41] LABS: INR 1.4 (0.9-1.1); PARTIAL THROMBOPLASTIN RATIO 1.9; PROTHROMBIN TIME (PATIENT) 14.9 SECONDS (9.0-12.0)
[2017-02-05 06:54] LABS: BUN/CREATININE RATIO 13.8 (10-20); CALCIUM 8.8 mg/dl (8.5-10.1); CREATININE 0.97 mg/dl (0.60-1.40); POTASSIUM 3.7 mmol/L (3.5-5.1)
[2017-02-05 06:56] LABS: ALB/GLOB RATIO 0.9 (0.9-2)
[2017-02-05 07:34] VITALS: BP 172/90; PULSE 79; TEMP 37.1; O2SAT 96
[2017-02-05] MEDS: CIPROFLOXACIN 500 MG TAB PO SCH ×2 (09:05→19:56)
[2017-02-05] MEDS: METOPROLOL TARTRATE 50 MG TAB PO SCH ×2 (09:06→19:55)
[2017-02-05] MEDS: LISINOPRIL 20 MG TAB PO SCH (09:06)
[2017-02-05] MEDS: TRAMADOL HCL 50 MG TAB PO PRN ×2 (09:07→17:02)
[2017-02-05] MEDS: NICOTINE 21 MG/24 HR TDSY EXT SCH (09:07)
[2017-02-05] MEDS: MULTIVITAMIN TAB PO SCH (09:11)
[2017-02-05] MEDS: THIAMINE HCL 100 MG TAB PO SCH (09:11)
--- NOTE | 2017-02-05 09:31 | Surgery Progress Note ---
Surgery Progress Note Date of Service Feb 05, 2017. Subjective Post OP Day: 8 + feeling well, + flatus, + diet (regular), No complaints, No nausea, No vomiting Objective Vital Signs: Date Time Temp Pulse Resp B/P (MAP) Pulse Ox O2 Delivery O2 Flow Rate FiO2 02/05/17 07:34 37.1 79 19 172/90 (117) 96 Room Air 02/04/17 23:45 Room Air 02/04/17 22:52 37.0 74 16 172/108 (129) 95 Room Air 02/04/17 21:49 173/113 (133) 170/110 (130) 02/04/17 20:21 36.9 89 18 176/113 (134) 94 Room Air 02/04/17 17:00 Room Air 02/04/17 15:52 36.9 80 22 180/110 (133) 96 Room Air 02/04/17 15:33 37.6 78 22 93 02/04/17 15:10 37.6 78 22 165/107 (126) 93 Room Air 02/04/17 12:00 Room Air 02/04/17 11:41 37.2 76 18 168/109 (128) 96 Room Air General Appearance: WD/WN, no apparent distress Head: normocephalic, atraumatic Neck: supple Respiratory/Chest: lungs clear Cardiovascular: regular rate, rhythm Abdomen: normal bowel sounds, non distended, soft, + tenderness (mild), + pertinent finding (left flank ecchymosis stable) Incision(s): clean, dry, intact Extremities: non-tender, no pedal edema Laboratory Results: Results Past 24 Hours Test 02/04/17 09:43 02/04/17 13:52 02/05/17 06:13 Range/Units Activated Partial Thromboplast Time 59.3 53.4 48.5 21.0-31.0 SECONDS Partial Thromboplastin Ratio 2.3 2.1 1.9 White Blood Count 9.54 4.8-10.8 K/uL Red Blood Count 3.26 4.7-6.1 M/uL Hemoglobin 10.2 14.0-18.0 g/dL Hematocrit 31.4 42-52 % Mean Corpuscular Volume 96.3 80-100 fL Mean Corpuscular Hemoglobin 31.3 25-34 pg Mean Corpuscular Hemoglobin Concent 32.5 32-36 g/dl Platelet Count 209 130-400 K/uL Mean Platelet Volume 10.1 7.4-10.4 fL Neutrophils (%) (Auto) 62.5 % Lymphocytes (%) (Auto) 21.6 % Monocytes (%) (Auto) 12.7 % Eosinophils (%) (Auto) 2.2 % Basophils (%) (Auto) 0.3 % Neutrophils # (Auto) 5.96 1.4-6.5 K/uL Lymphocytes # (Auto) 2.06 1.2-3.4 K/uL Monocytes # (Auto) 1.21 0.11-0.59 K/uL Eosinophils # (Auto) 0.21 0-0.5 K/uL Basophils # (Auto) 0.03 0-0.2 K/uL RDW Standard Deviation 55.3 36.4-46.3 fL RDW Coefficient of Variation 16.1 11.5-14.5 % Immature Granulocyte % (Auto) 0.7 % Immature Granulocyte # (Auto) 0.07 0.00-0.02 K/uL Prothrombin Time 14.9 9.0-12.0 SECONDS Prothromb Time International Ratio 1.4 0.9-1.1 Sodium Level 145 136-145 mmol/L Potassium Level 3.7 3.5-5.1 mmol/L Chloride Level 114 98-107 mmol/L Carbon Dioxide Level 24 21-32 mmol/L Anion Gap 7.0 3-11 mmol/L Blood Urea Nitrogen 13 7-18 mg/dl Creatinine 0.97 0.60-1.40 mg/dl Est Creatinine Clear Calc Drug Dose 123.7 ml/min Estimated GFR () 114.3 Estimated GFR (Non- 98.6 BUN/Creatinine Ratio 13.8 10-20 Random Glucose 94 70-99 mg/dl Calcium Level 8.8 8.5-10.1 mg/dl Total Bilirubin 1.1 0.2-1 mg/dl Aspartate Amino Transf (AST/SGOT) 37 15-37 U/L Alanine Aminotransferase (ALT/SGPT) 40 12-78 U/L Alkaline Phosphatase 63 45-117 U/L Total Protein 6.4 6.4-8.2 gm/dl Albumin 3.0 3.4-5.0 gm/dl Globulin 3.4 2.5-4.0 gm/dl Albumin/Globulin Ratio 0.9 0.9-2 Assessment & Plan s/p lap appy complicated by intra-abdominal bleeding. [facility] valve needs to be anticoagulated -continue heparin drip -coumadin restarted per medicine -INR 1.4 -regular diet -continue cipro for prostatitis/uti -continue ciwa protocol, prn benzo for alcohol withdrawal -d/c after therapeutic on coumadin, likely early next week
--- NOTE | 2017-02-05 10:04 | Family Medicine Progress Note ---
Progress Note Date of Service Feb 05, 2017. Subjective Voiding: no voiding problems No current concerns or complaints. Continued admission due to IV heparin drip needed for transition to warfarin All Other Systems: Reviewed and Negative Medications Current Inpatient Medications Medications (Trade) Dose Ordered Sig/Krista Route Start Time Stop Time Status Last Admin Dose Admin Magnesium Hydroxide (Milk Of Magnesia Susp) 30 ml Q6H PRN PO 01/28/17 01:15 02/27/17 01:14 Polyethylene (Miralax Powder Packet) 17 gm DAILY PRN PO 01/28/17 01:15 02/27/17 01:14 Ondansetron HCl (Zofran Inj) 4 mg Q6H PRN IV 01/28/17 01:15 02/27/17 01:14 Hydralazine HCl (HydrALAZINE INJ) 5 mg TID PRN IV. 01/28/17 14:45 02/27/17 14:44 02/04/17 19:21 5 MG Diphenhydramine HCl (Benadryl Cap) 25 mg Q4H PRN PO 01/28/17 20:00 02/27/17 19:59 02/01/17 02:50 25 MG Lisinopril (Zestril Tab) 30 mg QAM PO 01/29/17 09:00 02/28/17 08:59 02/05/17 09:06 30 MG Ciprofloxacin (Cipro Tab) 500 mg BID PO 01/29/17 12:00 02/08/17 11:59 02/05/17 09:05 500 MG Tramadol HCl (Ultram Tab) 100 mg Q4H PRN PO 01/29/17 20:00 02/27/17 19:59 02/05/17 09:07 100 MG Oxycodone/ Acetaminophen (Percocet 5-325mg Tab) 1 tab Q4H PRN PO 01/29/17 19:00 02/12/17 18:59 Oxycodone/ Acetaminophen (Percocet 5-325mg Tab) 2 tab Q4H PRN PO 01/29/17 19:00 02/12/17 18:59 02/02/17 08:18 2 TAB Lorazepam (Ativan Tab) PRN Dosing -Active Protocol UD PRN PO 01/30/17 01:00 03/01/17 00:59 02/01/17 02:22 2 MG Metoprolol Tartrate (Lopressor Tab) 50 mg BID PO 01/30/17 21:00 02/27/17 21:59 02/05/17 09:06 50 MG Warfarin Sodium (Coumadin Tab) 3 mg MoWeFr@1600 PO 01/30/17 16:00 03/01/17 15:59 Future hold 02/03/17 17:00 3 MG Warfarin Sodium (Coumadin Tab) 4 mg SuTuThSa@1600 PO 01/31/17 16:00 03/02/17 15:59 Future hold 02/04/17 16:52 4 MG Nicotine (Nicoderm Cq 21MG Patch) 1 patch QAM EXT 01/31/17 07:45 03/02/17 07:44 02/05/17 09:07 1 PATCH Miscellaneous (Remove Nicoderm Patch) 1 ea HS N/A 01/31/17 21:00 03/02/17 20:59 02/04/17 20:27 1 EA Lorazepam (Ativan Tab) 0.5 mg QID PRN PO 01/31/17 16:15 03/02/17 16:14 Lorazepam (Ativan Inj) PRN Dosing -Active Protocol Q1H PRN IV 02/01/17 04:15 03/03/17 04:14 02/03/17 07:50 2 MG Sodium Chloride 1,000 ml @ 100 mls/hr Q10H IV 02/01/17 09:15 03/03/17 09:14 Future Hold 02/01/17 09:15 100 MLS/HR Heparin Sodium/ Dextrose 500 ml @ 41 mls/hr [id number] PRN IV 02/02/17 08:45 03/04/17 08:44 02/05/17 07:02 41 MLS/HR Thiamine HCl (Vitamin B-1 Tab) 100 mg QAM PO 02/05/17 09:00 03/07/17 08:59 02/05/17 09:11 100 MG Multivitamins (Multivitamin Tab) 1 tab QAM PO 02/05/17 09:00 03/07/17 08:59 02/05/17 09:11 1 TAB Objective Vital Signs Date Time Temp Pulse Resp B/P (MAP) Pulse Ox O2 Delivery O2 Flow Rate FiO2 02/05/17 07:34 37.1 79 19 172/90 (117) 96 Room Air 02/04/17 23:45 Room Air 02/04/17 22:52 37.0 74 16 172/108 (129) 95 Room Air 02/04/17 21:49 173/113 (133) 170/110 (130) 02/04/17 20:21 36.9 89 18 176/113 (134) 94 Room Air 02/04/17 17:00 Room Air 02/04/17 15:52 36.9 80 22 180/110 (133) 96 Room Air 02/04/17 15:33 37.6 78 22 93 02/04/17 15:10 37.6 78 22 165/107 (126) 93 Room Air 02/04/17 12:00 Room Air 02/04/17 11:41 37.2 76 18 168/109 (128) 96 Room Air Physical Exam General Appearance: WD/WN, no apparent distress Eyes: normal inspection Neck: supple, no JVD Respiratory/Chest: chest non-tender, lungs clear, normal breath sounds, no respiratory distress, no accessory muscle use Cardiovascular: regular rate, rhythm, no murmur (crisp sounding mechanical mitral valve) Abdomen: normal bowel sounds, non tender, soft Extremities: no pedal edema, no calf tenderness, normal capillary refill 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, no motor/sensory deficits, alert, oriented x 3 Skin: warm/dry, + pertinent finding (similar ecchymosis size to previous day LLQ abdomen/groin/thigh) Laboratory Results 02/05/17 06:13 Red Blood Count 3.26, Mean Corpuscular Volume 96.3, Mean Corpuscular Hemoglobin 31.3, Mean Corpuscular Hemoglobin Concent 32.5, Mean Platelet Volume 10.1, Neutrophils (%) (Auto) 62.5, Lymphocytes (%) (Auto) 21.6, Monocytes (%) (Auto) 12.7, Eosinophils (%) (Auto) 2.2, Basophils (%) (Auto) 0.3, Neutrophils # (Auto ) 5.96, Lymphocytes # (Auto) 2.06, Monocytes # (Auto) 1.21, Eosinophils # (Auto ) 0.21, Basophils # (Auto) 0.03 02/05/17 06:13 Test 02/05/17 06:13 White Blood Count 9.54 K/uL (4.8-10.8) Red Blood Count 3.26 M/uL (4.7-6.1) Hemoglobin 10.2 g/dL (14.0-18.0) Hematocrit 31.4 % (42-52) Mean Corpuscular Volume 96.3 fL (80-100) Mean Corpuscular Hemoglobin 31.3 pg (25-34) Mean Corpuscular Hemoglobin Concent 32.5 g/dl (32-36) Platelet Count 209 K/uL (130-400) Mean Platelet Volume 10.1 fL (7.4-10.4) Neutrophils (%) (Auto) 62.5 % Lymphocytes (%) (Auto) 21.6 % Monocytes (%) (Auto) 12.7 % Eosinophils (%) (Auto) 2.2 % Basophils (%) (Auto) 0.3 % Neutrophils # (Auto) 5.96 K/uL (1.4-6.5) Lymphocytes # (Auto) 2.06 K/uL (1.2-3.4) Monocytes # (Auto) 1.21 K/uL (0.11-0.59) Eosinophils # (Auto) 0.21 K/uL (0-0.5) Basophils # (Auto) 0.03 K/uL (0-0.2) RDW Standard Deviation 55.3 fL (36.4-46.3) RDW Coefficient of Variation 16.1 % (11.5-14.5) Immature Granulocyte % (Auto) 0.7 % Immature Granulocyte # (Auto) 0.07 K/uL (0.00-0.02) Prothrombin Time 14.9 SECONDS (9.0-12.0) Prothromb Time International Ratio 1.4 (0.9-1.1) Activated Partial Thromboplast Time 48.5 SECONDS (21.0-31.0) Partial Thromboplastin Ratio 1.9 Anion Gap 7.0 mmol/L (3-11) Est Creatinine Clear Calc Drug Dose 123.7 ml/min Estimated GFR () 114.3 Estimated GFR (Non- 98.6 BUN/Creatinine Ratio 13.8 (10-20) Calcium Level 8.8 mg/dl (8.5-10.1) Total Bilirubin 1.1 mg/dl (0.2-1) Aspartate Amino Transf (AST/SGOT) 37 U/L (15-37) Alanine Aminotransferase (ALT/SGPT) 40 U/L (12-78) Alkaline Phosphatase 63 U/L (45-117) Total Protein 6.4 gm/dl (6.4-8.2) Albumin 3.0 gm/dl (3.4-5.0) Globulin 3.4 gm/dl (2.5-4.0) Albumin/Globulin Ratio 0.9 (0.9-2) Assessment and Plan 36 year old male admitted to the hospital with early appendicitis as per CT abdomen and found to have supratherapeutic INR 7.4. Appendicitis - s/p laparoscopic appendectomy 01/28/17. POD 8 - Pain management as per surgery: Tramadol PO, Percocet PO, Morphine IV Acute blood loss Anemia sec to post op intraabdominal bleeding - Hgb stable at 10.2, s/p 5 units of PRBC - moderate hemoperitoneum on CT scan - continue to monitor Hypokalemia - Potassium 3.4 today - 40 meq KCl PO - Continue to monitor SABINE - prerenal, resolved Supratherapeutic INR on admission - currently on heparin drip and warfarin until INR therapeutic > 2.5 Mechanical mitral valve - Target INR 2.5-3.5. Check INR daily. HTN - Home meds Lisinopril 30mg qAM. Metoprolol 50mg BID - Start HCZT 25 mg with potassium supplementation - Continue to monitor Prostatitis - Possibly partially treated with Keflex as outpatient. - UA positive with leuks, bacteria, blood. Patient also symptomatic. Urine culture positive for Escherichia coli. Sensitivities pending. - Started on ciprofloxacin 500 mg BID 10 days. (DAY 8) Alcohol use disorder/withdrawal - no longer currently withdrawing - lorazepam PRN for agitation/anxiety - thiamine (switch to PO) and multivitamin Patient has Hep C - [place] precautions Tobacco abuse - nicotine patch VTE prophylaxis - heparin drip and warfarin (INR subtherapeutic), increase dose of warfarin today Code Full code Disposition - Continued stay due to IV heparin needed Resident Tracking Resident Involvement: Resident Care Provided Care Provided: Adult Hospital Medicine Reviewed: Pt Seen/Exam by Me History no concerns Constitutional: denies: fever Respiratory: negative: short of breath Cardiovascular: denies chest pain Gastrointestinal/Abdominal: negative: abdominal pain General Appearance: no apparent distress Respiratory: lungs clear, no respiratory distress Cardiovascular: regular rate, rhythm Gastrointestinal: normal bowel sounds, non tender, soft Neurologic/Psychiatric: alert, oriented x 3 Skin Characteristics: warm/dry, other (lower abdominal wall with bruise) Assessment/Plan Resident Physician Supervision Note: I independently interviewed and examined the patient and verified the wheeler history and physical, reviewed labs and image studies, discussed the case with the resident Dr. Galvan and agree with the findings and care plan.
[2017-02-05] MEDS ORDERED: HYDROCHLOROTHIAZIDE 25 MG TAB PO ONE (10:30)
[2017-02-05] MEDS ORDERED: POTASSIUM CHLORIDE 20 MEQ TABCR PO ONE (10:30)
[2017-02-05 12:50] VITALS: BP 163/110; PULSE 72; TEMP 37.1; O2SAT 97
[2017-02-05 14:00] VITALS: BP 154/106
[2017-02-05 15:16] VITALS: BP 167/111; PULSE 82; TEMP 36.7; O2SAT 96
[2017-02-05] MEDS: HydrALAZINE HCL 20 MG/ML VIAL IV. PRN (15:52)
[2017-02-05] MEDS ORDERED: WARFARIN SOD 10 MG TAB PO ONE (16:00)
[2017-02-05 19:35] VITALS: BP 167/111; PULSE 97; TEMP 36.8; O2SAT 94
[2017-02-05] MEDS: OXYCODONE/ACETAMINOPHEN 5-325 TAB PO PRN (19:55)
[2017-02-05 22:50] VITALS: BP 160/97; PULSE 81; TEMP 37; O2SAT 96
[2017-02-06] MEDS: HEPARIN 25,000 UNIT/500ML D5W 500 ML IV PRN ×5 (04:49→23:02)
[2017-02-06 06:01] LABS: BASO % 0.2 %; BASO ABS # 0.02 K/uL (0-0.2); COMPLETE YES; EOS % 2.8 %; HEMATOCRIT 34.5 % (42-52); IG% 0.5 %; LYMPH % 19.9 %; LYMPH ABS # 1.95 K/uL (1.2-3.4); MEAN CELL VOLUME 97.2 fL (80-100); MEAN CORPUSCULAR HEMOGLOBIN 30.7 pg (25-34); MEAN CORPUSCULAR HGB CONC 31.6 g/dl (32-36); MEAN PLATELET VOLUME 10.4 fL (7.4-10.4); MONO % 9.8 %; NEUT % 66.8 %; PLATELET COUNT 239 K/uL (130-400); RED BLOOD COUNT 3.55 M/uL (4.7-6.1); WHITE BLOOD COUNT 9.81 K/uL (4.8-10.8)
[2017-02-06 06:20] LABS: INR 1.8 (0.9-1.1); PARTIAL THROMBOPLASTIN RATIO 1.9; PROTHROMBIN TIME (PATIENT) 19.7 SECONDS (9.0-12.0)
[2017-02-06 06:39] LABS: BUN/CREATININE RATIO 14.3 (10-20); CALCIUM 8.9 mg/dl (8.5-10.1); POTASSIUM 3.4 mmol/L (3.5-5.1)
[2017-02-06 07:28] VITALS: BP 138/83; PULSE 88; TEMP 37.1; O2SAT 93
[2017-02-06] MEDS: NICOTINE 21 MG/24 HR TDSY EXT SCH (08:03)
[2017-02-06] MEDS: OXYCODONE/ACETAMINOPHEN 5-325 TAB PO PRN ×2 (08:03→14:25)
[2017-02-06] MEDS: THIAMINE HCL 100 MG TAB PO SCH (08:04)
[2017-02-06] MEDS: LISINOPRIL 20 MG TAB PO SCH (08:04)
[2017-02-06] MEDS: HYDROCHLOROTHIAZIDE 25 MG TAB PO SCH (08:04)
[2017-02-06] MEDS: POTASSIUM CHLORIDE 20 MEQ TABCR PO SCH (08:05)
[2017-02-06] MEDS: MULTIVITAMIN TAB PO SCH (08:05)
[2017-02-06] MEDS: METOPROLOL TARTRATE 50 MG TAB PO SCH ×2 (08:05→20:45)
[2017-02-06] MEDS: CIPROFLOXACIN 500 MG TAB PO SCH ×2 (08:06→20:45)
--- NOTE | 2017-02-06 08:08 | Surgery Progress Note ---
Surgery Progress Note Date of Service Feb 06, 2017. Subjective + feeling well, + ambulating, + diet (regular) Objective Vital Signs: Date Time Temp Pulse Resp B/P (MAP) Pulse Ox O2 Delivery O2 Flow Rate FiO2 02/06/17 07:28 37.1 88 19 138/83 (101) 93 Room Air 02/05/17 23:40 Room Air 02/05/17 22:50 37.0 81 18 160/97 (118) 96 Room Air 02/05/17 19:35 36.8 97 18 167/111 (129) 94 Room Air 02/05/17 15:16 36.7 82 18 167/111 (129) 96 Room Air 02/05/17 15:15 Room Air 02/05/17 14:00 154/106 (122) 02/05/17 12:50 37.1 72 16 163/110 (127) 97 Room Air General Appearance: no apparent distress Abdomen: soft Incision(s): ecchymosis (left flank, unchanged) Laboratory Results: Results Past 24 Hours Test 02/06/17 05:38 Range/Units White Blood Count 9.81 4.8-10.8 K/uL Red Blood Count 3.55 4.7-6.1 M/uL Hemoglobin 10.9 14.0-18.0 g/dL Hematocrit 34.5 42-52 % Mean Corpuscular Volume 97.2 80-100 fL Mean Corpuscular Hemoglobin 30.7 25-34 pg Mean Corpuscular Hemoglobin Concent 31.6 32-36 g/dl Platelet Count 239 130-400 K/uL Mean Platelet Volume 10.4 7.4-10.4 fL Neutrophils (%) (Auto) 66.8 % Lymphocytes (%) (Auto) 19.9 % Monocytes (%) (Auto) 9.8 % Eosinophils (%) (Auto) 2.8 % Basophils (%) (Auto) 0.2 % Neutrophils # (Auto) 6.56 1.4-6.5 K/uL Lymphocytes # (Auto) 1.95 1.2-3.4 K/uL Monocytes # (Auto) 0.96 0.11-0.59 K/uL Eosinophils # (Auto) 0.27 0-0.5 K/uL Basophils # (Auto) 0.02 0-0.2 K/uL RDW Standard Deviation 55.0 36.4-46.3 fL RDW Coefficient of Variation 15.7 11.5-14.5 % Immature Granulocyte % (Auto) 0.5 % Immature Granulocyte # (Auto) 0.05 0.00-0.02 K/uL Prothrombin Time 19.7 9.0-12.0 SECONDS Prothromb Time International Ratio 1.8 0.9-1.1 Activated Partial Thromboplast Time 48.7 21.0-31.0 SECONDS Partial Thromboplastin Ratio 1.9 Sodium Level 140 136-145 mmol/L Potassium Level 3.4 3.5-5.1 mmol/L Chloride Level 107 98-107 mmol/L Carbon Dioxide Level 26 21-32 mmol/L Anion Gap 7.0 3-11 mmol/L Blood Urea Nitrogen 14 7-18 mg/dl Creatinine 1.00 0.60-1.40 mg/dl Est Creatinine Clear Calc Drug Dose 120.0 ml/min Estimated GFR () 110.2 Estimated GFR (Non- 95.1 BUN/Creatinine Ratio 14.3 10-20 Random Glucose 91 70-99 mg/dl Calcium Level 8.9 8.5-10.1 mg/dl Total Bilirubin 1.2 0.2-1 mg/dl Aspartate Amino Transf (AST/SGOT) 35 15-37 U/L Alanine Aminotransferase (ALT/SGPT) 39 12-78 U/L Alkaline Phosphatase 66 45-117 U/L Total Protein 6.5 6.4-8.2 gm/dl Albumin 3.2 3.4-5.0 gm/dl Globulin 3.3 2.5-4.0 gm/dl Albumin/Globulin Ratio 1.0 0.9-2 Assessment & Plan lap appy, post op bleed, anticoagulated for mechanical valve, alcohol withdrawal H&H stable INR 1.8, continue heparin gtt until therapeutic on Cipro for UTI/prostatitis patient seen and examined, labs reviewed, agree with above. s/p lap appendectomy complicated by post op bleed secondary to restarting therapeutic anticoagulation on POD#1 for mechanical mitral valve, also with alcohol withdrawal. Patient is doing much better today, on heparin gtt, inr 1.8. H&H stable, tolerating diet. echymossis to abdomen/left flank stable. discharge once inr 2.5-3.5. patient is considering alcohol rehab. D. Isauro Klein,
[2017-02-06] MEDS ORDERED: POTASSIUM CHLORIDE 20 MEQ/15 ML UDC PO ONE (09:30)
--- NOTE | 2017-02-06 15:18 | Family Medicine Progress Note ---
Progress Note Date of Service Feb 06, 2017. Subjective Pt evaluation today including: conversation w/ patient, physical exam, chart review, lab review The patient was seen and examined at bedside. Slightly hypertensive overnight. Patient is resting comfortably in bed. Reports that the coloration of the abdomen is getting worse but feels that his abdominal pain is getting better. No difficulties urinating or BM. Plan of care was described to the patient and all questions were answered. Constitutional: No fever, No sweats, No weight loss ENT: No hearing loss Cardiovascular: No chest pain, No edema, No claudication Abdomen: + pain, No nausea, No vomiting, No diarrhea, No constipation Musculoskeletal: No joint pain Skin: No rash Objective Physical Exam General Appearance: WD/WN, no apparent distress, + obese Eyes: PERRL, EOMI Respiratory/Chest: chest non-tender, lungs clear, normal breath sounds, no respiratory distress, no accessory muscle use Cardiovascular: regular rate, rhythm, no edema, no gallop, no JVD, no murmur Abdomen: normal bowel sounds, non tender, soft, no organomegaly, + pertinent finding (well healing appedendectomy incision sites) Extremities: non-tender, normal inspection, no pedal edema Neurologic/Psychiatric: no motor/sensory deficits, normal mood/affect, oriented x 3, + pertinent finding (denies SI or HI, interested in inpatient alcohol treatment, he didn't know how bad his problem was until this admission, denies hearing voices) Skin: + pertinent finding (ecchymosis over lower abdomen, testicles and anterior right calf - according to senior resident that represents an improvement from the previous dya) Assessment and Plan 36yr old M with a PMHx of mechanical mitral valve 2/2 to IV drug use was admitted to the hospital with early appendicitis as per CT abdomen and found to have supratherapeutic INR 7.4. Post operative course was complicated by hemiperitoneum which was conservatively managed and alcohol withdrawal. Post op abdominal pain is improving. We are bridging to Coumadin to an INR goal of 2.5 -3.5. Pt is interested in inpatient alcohol rehab. Appendicitis - s/p laparoscopic appendectomy 01/28/17. POD 9 - Pain management as per surgery: Tramadol PO, Percocet PO, Morphine IV Acute blood loss Anemia sec to post op intraabdominal bleeding - Hgb stable at 10-11, s/p 5 units of PRBC - moderate hemoperitoneum on CT scan - continue to monitor Hypokalemia - Potassium 3.4 today - 40 meq KCl PO - Continue to monitor SABINE - prerenal, resolved Supratherapeutic INR on admission - currently on heparin drip and warfarin until INR therapeutic > 2.5 - Warfarin 6mg today. Mechanical mitral valve - Target INR 2.5-3.5. Check INR daily. HTN - Home meds Lisinopril 30mg qAM. Metoprolol 50mg BID - Start HCZT 25 mg with potassium supplementation - Continue to monitor Prostatitis - Possibly partially treated with Keflex as outpatient. - UA positive with leuks, bacteria, blood. Patient also symptomatic. Urine culture positive for Escherichia coli. RIOS Sensitive. - Started on ciprofloxacin 500 mg BID 10 days. (DAY 9) Alcohol use disorder/withdrawal - no longer currently withdrawing - lorazepam PRN for agitation/anxiety - thiamine (switch to PO) and multivitamin - Pt would like inpatient alcohol rehab program - CM is looking - Psych consult for depression/anxiety. Patient has Hep C - [place] precautions Tobacco abuse - nicotine patch VTE prophylaxis - heparin drip and warfarin (INR subtherapeutic), Warfarin as above. Code Full code Disposition - Continued stay due to IV heparin needed Resident Involvement: Resident Care Provided Care Provided: Adult Hospital Medicine
[2017-02-06 15:37] VITALS: BP 142/86; PULSE 87; TEMP 37.7; O2SAT 93
[2017-02-06] MEDS ORDERED: WARFARIN SOD 6 MG TAB PO ONE (16:00)
[2017-02-06 20:40] VITALS: BP 145/102; PULSE 97
[2017-02-06] MEDS: TRAMADOL HCL 50 MG TAB PO PRN (20:45)
[2017-02-06 23:15] VITALS: BP 133/90; PULSE 81; TEMP 37.2; O2SAT 94
[2017-02-07] MEDS: HEPARIN 25,000 UNIT/500ML D5W 500 ML IV PRN ×6 (05:31→23:10)
[2017-02-07 06:59] VITALS: BP 146/98; PULSE 76; TEMP 37.1; O2SAT 95
--- NOTE | 2017-02-07 07:39 | Surgery Progress Note ---
Surgery Progress Note Date of Service Feb 07, 2017. Subjective 36 year old male status post lap appendectomy complicated by post op bleed after being placed on therapeutic anticoagulation POD#1 for mechanical mitral valve and by alcohol withdrawal. He his H&H has been stable on therapeutic heparin and alcohol withdrawal is over. He is planning on inpatient alcohol rehab, psych eval pending. Was feeling down yesterday, but better today. Had some lower abdominal pain that responded with MOM and a bowel movement. Objective Vital Signs: Date Time Temp Pulse Resp B/P (MAP) Pulse Ox O2 Delivery O2 Flow Rate FiO2 02/07/17 06:59 37.1 76 20 146/98 (114) 95 Room Air 02/06/17 23:36 Room Air 02/06/17 23:15 37.2 81 16 133/90 (104) 94 Room Air 02/06/17 20:40 97 145/102 (116) 02/06/17 15:45 Room Air 02/06/17 15:37 37.7 87 18 142/86 (104) 93 Room Air 02/06/17 07:50 Room Air General Appearance: WD/WN, no apparent distress Head: normocephalic, atraumatic Neck: supple, no adenopathy, thyroid normal, no JVD, no carotid bruits, trachea midline Respiratory/Chest: chest non-tender, lungs clear, normal breath sounds, no respiratory distress, no accessory muscle use Cardiovascular: regular rate, rhythm, no edema, no gallop, no JVD Abdomen: normal bowel sounds, non tender, non distended, soft, no organomegaly , no pulsatile mass Incision(s): clean, dry, intact, no erythema, no drainage, ecchymosis ( significant left abdominal/flank echymosis is stable) Extremities: normal range of motion, non-tender, normal inspection, no pedal edema, no calf tenderness, normal capillary refill, pelvis stable Laboratory Results: Results Past 24 Hours Test 02/07/17 07:21 Range/Units Assessment & Plan s/p lap appendectomy complicated by post op bleed secondary to restarting therapeutic anticoagulation on POD#1 for mechanical mitral valve, also with alcohol withdrawal. Patient is doing much better today, on heparin gtt, labs pending. H&H stable, tolerating diet. echymossis to abdomen/left flank stable. continue heparing gtt discharge once inr 2.5-3.5 and pending inpatient alcohol rehab placement cipro for prostatitis/uti, management per medicine htn improved, on home meds D. Isauro Klein DO
[2017-02-07 07:40] LABS: BASO % 0.4 %; BASO ABS # 0.04 K/uL (0-0.2); COMPLETE YES; EOS % 2.4 %; HEMATOCRIT 38.6 % (42-52); IG% 0.5 %; LYMPH % 18.9 %; LYMPH ABS # 2.02 K/uL (1.2-3.4); MEAN CELL VOLUME 96.7 fL (80-100); MEAN CORPUSCULAR HEMOGLOBIN 31.3 pg (25-34); MEAN CORPUSCULAR HGB CONC 32.4 g/dl (32-36); MEAN PLATELET VOLUME 10.4 fL (7.4-10.4); MONO % 9.5 %; NEUT % 68.3 %; PLATELET COUNT 287 K/uL (130-400); RED BLOOD COUNT 3.99 M/uL (4.7-6.1); WHITE BLOOD COUNT 10.71 K/uL (4.8-10.8)
[2017-02-07 07:57] LABS: INR 2.4 (0.9-1.1); PARTIAL THROMBOPLASTIN RATIO 2.2; PROTHROMBIN TIME (PATIENT) 27.2 SECONDS (9.0-12.0)
[2017-02-07 08:07] LABS: BUN/CREATININE RATIO 13.2 (10-20); CALCIUM 9.6 mg/dl (8.5-10.1); CREATININE 1.1 mg/dl (0.60-1.40); POTASSIUM 3.9 mmol/L (3.5-5.1)
[2017-02-07 08:10] LABS: ALB/GLOB RATIO 0.8 (0.9-2)
[2017-02-07] MEDS: NICOTINE 21 MG/24 HR TDSY EXT SCH (09:00)
[2017-02-07] MEDS: MULTIVITAMIN TAB PO SCH (09:29)
[2017-02-07] MEDS: LISINOPRIL 20 MG TAB PO SCH (09:29)
[2017-02-07] MEDS: HYDROCHLOROTHIAZIDE 25 MG TAB PO SCH (09:30)
[2017-02-07] MEDS: POTASSIUM CHLORIDE 20 MEQ TABCR PO SCH (09:30)
[2017-02-07] MEDS: THIAMINE HCL 100 MG TAB PO SCH (09:30)
[2017-02-07] MEDS: METOPROLOL TARTRATE 50 MG TAB PO SCH ×2 (09:30→21:46)
[2017-02-07] MEDS: CIPROFLOXACIN 500 MG TAB PO SCH ×2 (09:30→21:46)
[2017-02-07 09:33] VITALS: O2SAT 95
[2017-02-07 11:05] VITALS: BP 150/84; PULSE 84; TEMP 36.7; O2SAT 95
[2017-02-07] MEDS ORDERED: INFLUENZA VIRUS QUAD VACCINE 0.5 ML SYR IM. ONE (12:45)
[2017-02-07] MEDS ORDERED: INFLUENZA ADMINISTRATION CHARGE ONE (12:45)
--- NOTE | 2017-02-07 14:14 | Psychiatric Consultation ---
Psychiatric Consultation Date of Service: Feb 07, 2017. Consult placed for psych eval to facilitate inpatient rehab. Discussed with Dr. Galvan. It is not necessary to have a psych eval in this case and social service is already making referrals. He has agreed to cancel the consult.
[2017-02-07 15:20] VITALS: BP 125/80; PULSE 77; TEMP 37.2; O2SAT 95
[2017-02-07] MEDS: WARFARIN SOD 4 MG TAB PO SCH (15:40)
--- NOTE | 2017-02-07 18:12 | Family Medicine Progress Note ---
Progress Note Date of Service Feb 07, 2017. Subjective Pt evaluation today including: conversation w/ patient, physical exam, chart review, lab review The patient was seen and examined at bedside. No acute overnight events. Patient is resting comfortably in bed. Denies having any pain. Eating and urinating well. Plan of care was described to the patient and all questions were answered. Constitutional: No fever, No chills, No sweats, No weight loss ENT: No hearing loss Respiratory: No cough, No sputum, No wheezing, No shortness of breath, No dyspnea on exertion Cardiovascular: No chest pain, No edema Abdomen: No pain, No nausea, No vomiting, No diarrhea, No constipation Musculoskeletal: No joint pain Male : No dysuria Skin: No rash Objective Physical Exam Notes: Physical Exam General Appearance: WD/WN, no apparent distress, + obese Eyes: PERRL, EOMI Respiratory/Chest: chest non-tender, lungs clear, normal breath sounds, no respiratory distress, no accessory muscle use Cardiovascular: regular rate, rhythm, no edema, no gallop, no JVD, no murmur Abdomen: normal bowel sounds, non tender, soft, no organomegaly, + pertinent finding (well healing appendectomy incision sites) Extremities: non-tender, normal inspection, no pedal edema Neurologic/Psychiatric: no motor/sensory deficits, normal mood/affect, oriented x 3, + pertinent finding (denies SI or HI, denies feeling depressed, denies hearing voices, recognizes the need for rehab) Skin: + pertinent finding (ecchymosis over lower abdomen, testicles and anterior right calf - improving from previous day) Assessment and Plan 36M with a PMHx of mechanical mitral valve 2/2 to IV drug use was admitted to the hospital with early appendicitis as per CT abdomen and found to have supratherapeutic INR 7.4. Post operative course was complicated by hemiperitoneum which was conservatively managed and alcohol withdrawal. Post op abdominal pain is improving. We are bridging to Coumadin to an INR goal of 2.5 -3.5. 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 Appendicitis - s/p laparoscopic appendectomy 01/28/17. POD 10 - Pain management as per surgery: Tramadol PO, Percocet PO, Morphine IV Acute blood loss Anemia sec to post op intraabdominal bleeding - Hgb stable at 10-11, s/p 5 units of PRBC - moderate hemoperitoneum on CT scan - continue to monitor Hypokalemia - Potassium 3.4 today - 40 meq KCl PO - Continue to monitor SABINE - prerenal, resolved Supratherapeutic INR on admission - currently on heparin drip and warfarin until INR therapeutic > 2.5 - Warfarin 4mg today. Mechanical mitral valve - Target INR 2.5-3.5. Check INR daily. HTN - Home meds Lisinopril 30mg qAM. Metoprolol 50mg BID - Start HCZT 25 mg with potassium supplementation - Continue to monitor Prostatitis - Possibly partially treated with Keflex as outpatient. - UA positive with leuks, bacteria, blood. Patient also symptomatic. Urine culture positive for Escherichia coli. RIOS Sensitive. - Started on ciprofloxacin 500 mg BID 10 days. (DAY 10 - END) Alcohol use disorder/withdrawal - no longer currently withdrawing - lorazepam PRN for agitation/anxiety - thiamine (switch to PO) and multivitamin - Psych - no needs. - Pt would like inpatient alcohol rehab program - CM is looking Patient has Hep C - [place] precautions Tobacco abuse - nicotine patch VTE prophylaxis - heparin drip and warfarin (INR subtherapeutic), Warfarin as above. Code Full code Disposition - Continued stay due to IV heparin needed Resident Involvement: Resident Care Provided Care Provided: Adult Hospital Medicine
[2017-02-07 21:44] VITALS: BP 135/90; PULSE 87
[2017-02-07 22:55] VITALS: BP 148/96; PULSE 82; TEMP 37.1; O2SAT 95
[2017-02-08] MEDS: HEPARIN 25,000 UNIT/500ML D5W 500 ML IV PRN ×3 (03:52→10:08)
[2017-02-08 06:56] VITALS: BP 117/76; PULSE 78; TEMP 36.8; O2SAT 96
[2017-02-08 07:57] LABS: HEMATOCRIT 42.5 % (42-52); MEAN CORPUSCULAR HEMOGLOBIN 31.7 pg (25-34); MEAN CORPUSCULAR HGB CONC 32.7 g/dl (32-36); MEAN PLATELET VOLUME 11.2 fL (7.4-10.4); PLATELET COUNT 315 K/uL (130-400); RED BLOOD COUNT 4.38 M/uL (4.7-6.1); WHITE BLOOD COUNT 12.09 K/uL (4.8-10.8)
[2017-02-08 08:12] LABS: INR 2.5 (0.9-1.1); PARTIAL THROMBOPLASTIN RATIO 2.2; PROTHROMBIN TIME (PATIENT) 27.6 SECONDS (9.0-12.0)
[2017-02-08 08:27] LABS: CREATININE 1.1 mg/dl (0.60-1.40)
[2017-02-08] MEDS: LISINOPRIL 20 MG TAB PO SCH (08:50)
[2017-02-08] MEDS: POTASSIUM CHLORIDE 20 MEQ TABCR PO SCH (08:50)
[2017-02-08] MEDS: MULTIVITAMIN TAB PO SCH (08:50)
[2017-02-08] MEDS: HYDROCHLOROTHIAZIDE 25 MG TAB PO SCH (08:50)
[2017-02-08] MEDS: NICOTINE 21 MG/24 HR TDSY EXT SCH (08:50)
[2017-02-08] MEDS: THIAMINE HCL 100 MG TAB PO SCH (08:50)
[2017-02-08] MEDS: CIPROFLOXACIN 500 MG TAB PO SCH (08:50)
[2017-02-08] MEDS: METOPROLOL TARTRATE 50 MG TAB PO SCH (08:51)
--- NOTE | 2017-02-08 09:28 | Surgery Progress Note ---
Surgery Progress Note Date of Service Feb 08, 2017. Subjective Post OP Day: 10 No complaints Objective Vital Signs: Date Time Temp Pulse Resp B/P (MAP) Pulse Ox O2 Delivery O2 Flow Rate FiO2 02/08/17 07:35 Room Air 02/08/17 06:56 36.8 78 18 117/76 (90) 96 Room Air 02/08/17 00:02 Room Air 02/07/17 22:55 37.1 82 18 148/96 (113) 95 Room Air 02/07/17 21:44 87 135/90 (105) 02/07/17 15:45 Room Air 02/07/17 15:20 37.2 77 18 125/80 (95) 95 Room Air 02/07/17 11:05 36.7 84 18 150/84 (106) 95 Room Air 02/07/17 09:33 95 Room Air Abdomen: soft Incision(s): ecchymosis (right flank) Laboratory Results: Results Past 24 Hours Test 02/08/17 06:56 Range/Units White Blood Count 12.09 4.8-10.8 K/uL Red Blood Count 4.38 4.7-6.1 M/uL Hemoglobin 13.9 14.0-18.0 g/dL Hematocrit 42.5 42-52 % Mean Corpuscular Volume 97.0 80-100 fL Mean Corpuscular Hemoglobin 31.7 25-34 pg Mean Corpuscular Hemoglobin Concent 32.7 32-36 g/dl RDW Standard Deviation 53.0 36.4-46.3 fL RDW Coefficient of Variation 15.0 11.5-14.5 % Platelet Count 315 130-400 K/uL Mean Platelet Volume 11.2 7.4-10.4 fL Prothrombin Time 27.6 9.0-12.0 SECONDS Prothromb Time International Ratio 2.5 0.9-1.1 Activated Partial Thromboplast Time 56.3 21.0-31.0 SECONDS Partial Thromboplastin Ratio 2.2 Creatinine 1.10 0.60-1.40 mg/dl Est Creatinine Clear Calc Drug Dose 109.1 ml/min Estimated GFR () 98.2 Estimated GFR (Non- 84.7 Assessment & Plan s/p lap appy, post op bleed, anticoagulated for mechanical valve, alcohol abuse/ withdrawal H&H stable INR 2.5, d/c heparin gtt when ok with medicine Cipro for UTI/prostatitis will be complete today awaiting options for rehab
--- NOTE | 2017-02-08 10:30 | Surgery Progress Note ---
Surgery Progress Note Date of Service Feb 08, 2017. Subjective 36-year-old male status post laparoscopic appendectomy, complicated by postoperative bleeding secondary to restarting therapeutic anticoagulation for mechanical mitral valve, also complicated by alcohol withdrawal. Overall he is doing well this morning, anxious to get out of the hospital. His INR is therapeutic this morning at 2.5. He is tolerating a regular diet, ambulating, urinating, having bowel movements. His pain is minimal. 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 Objective Vital Signs: Date Time Temp Pulse Resp B/P (MAP) Pulse Ox O2 Delivery O2 Flow Rate FiO2 02/08/17 07:35 Room Air 02/08/17 06:56 36.8 78 18 117/76 (90) 96 Room Air 02/08/17 00:02 Room Air 02/07/17 22:55 37.1 82 18 148/96 (113) 95 Room Air 02/07/17 21:44 87 135/90 (105) 02/07/17 15:45 Room Air 02/07/17 15:20 37.2 77 18 125/80 (95) 95 Room Air 02/07/17 11:05 36.7 84 18 150/84 (106) 95 Room Air Abdomen: normal bowel sounds, non tender, non distended, soft, no organomegaly , no pulsatile mass Incision(s): ecchymosis (Left abdominal and flank ecchymosis stable, starting to resolve.) Laboratory Results: Results Past 24 Hours Test 02/08/17 06:56 Range/Units White Blood Count 12.09 4.8-10.8 K/uL Red Blood Count 4.38 4.7-6.1 M/uL Hemoglobin 13.9 14.0-18.0 g/dL Hematocrit 42.5 42-52 % Mean Corpuscular Volume 97.0 80-100 fL Mean Corpuscular Hemoglobin 31.7 25-34 pg Mean Corpuscular Hemoglobin Concent 32.7 32-36 g/dl RDW Standard Deviation 53.0 36.4-46.3 fL RDW Coefficient of Variation 15.0 11.5-14.5 % Platelet Count 315 130-400 K/uL Mean Platelet Volume 11.2 7.4-10.4 fL Prothrombin Time 27.6 9.0-12.0 SECONDS Prothromb Time International Ratio 2.5 0.9-1.1 Activated Partial Thromboplast Time 56.3 21.0-31.0 SECONDS Partial Thromboplastin Ratio 2.2 Creatinine 1.10 0.60-1.40 mg/dl Est Creatinine Clear Calc Drug Dose 109.1 ml/min Estimated GFR () 98.2 Estimated GFR (Non- 84.7 Assessment & Plan Status post appendectomy complicated by postoperative bleeding secondary to of therapeutic anticoagulation for mechanical mitral valve, also complicated by alcohol withdrawal, which have both resolved. He is now therapeutic on his anticoagulation with an INR of 2.5. The awaiting placement for inpatient or outpatient alcohol rehabilitation. Patient may shower Okay for discharge from general surgery perspective Will need follow-up with Coumadin clinic Will discuss with social work, discharge pending acceptance into rehabilitation program. Will discuss continuation of ciprofloxacin with family medicine team for his prostatitis Follow up in clinic in 2 weeks Discontinue heparin GTT
[2017-02-08] MEDS ORDERED: ~HEPARIN DRIP~STOP ORDER SCH (13:00)
[2017-02-08] MEDS ORDERED: ACET325T96 PO (13:27)
[2017-02-08 15:11] VITALS: BP 125/82; PULSE 96; TEMP 36.6; O2SAT 93
--- NOTE | 2017-02-08 15:56 | Family Medicine Progress Note ---
Progress Note Date of Service Feb 08, 2017. Subjective Pt evaluation today including: conversation w/ patient, physical exam, chart review, lab review The patient was seen and examined at bedside. No acute overnight events. Patient is resting comfortably in bed. Denies having any pain. Eating and urinating well. Plan of care was described to the patient and all questions were answered. Constitutional: No fever, No chills, No sweats, No weight loss ENT: No hearing loss Respiratory: No cough, No sputum, No wheezing, No shortness of breath, No dyspnea on exertion Cardiovascular: No chest pain, No edema Abdomen: No pain, No nausea, No vomiting, No diarrhea, No constipation Musculoskeletal: No joint pain Male : No dysuria Skin: No rash Objective Physical Exam Notes: General Appearance: WD/WN, no apparent distress, + obese Eyes: PERRL, EOMI Respiratory/Chest: chest non-tender, lungs clear, normal breath sounds, no respiratory distress, no accessory muscle use Cardiovascular: regular rate, rhythm, no edema, no gallop, no JVD, no murmur Abdomen: normal bowel sounds, non tender, soft, no organomegaly, + pertinent finding (well healing appendectomy incision sites) Extremities: non-tender, normal inspection, no pedal edema Neurologic/Psychiatric: no motor/sensory deficits, normal mood/affect, oriented x 3, + pertinent finding (denies SI or HI, denies feeling depressed, denies hearing voices, recognizes the need for inpatient rehab for alcoholism) Skin: + pertinent finding (ecchymosis over lower abdomen, testicles and anterior right calf - improving from previous day) Assessment and Plan 36M with a PMHx of mechanical mitral valve 2/2 to IV drug use was admitted to the hospital with early appendicitis as per CT abdomen and found to have supratherapeutic INR 7.4. Post operative course was complicated by hemiperitoneum which was conservatively managed and alcohol withdrawal. Post op abdominal pain is improving. We are bridging to Coumadin to an INR goal of 2.5 -3.5. 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 Appendicitis - s/p laparoscopic appendectomy 01/28/17. POD 11 - Pain management as per surgery: Tramadol PO, Percocet PO, Morphine IV Acute blood loss Anemia sec to post op intraabdominal bleeding - Hgb stable at 10-11, s/p 5 units of PRBC - moderate hemoperitoneum on CT scan - continue to monitor SABINE - prerenal, resolved Supratherapeutic INR on admission - currently on heparin drip and warfarin until INR therapeutic > 2.5 - Warfarin 4mg today. Mechanical mitral valve - Target INR 2.5-3.5. Check INR daily. HTN - Home meds Lisinopril 30mg qAM. Metoprolol 50mg BID - Start HCZT 25 mg with potassium supplementation - Continue to monitor Prostatitis - Possibly partially treated with Keflex as outpatient. - UA positive with leuks, bacteria, blood. Patient also symptomatic. Urine culture positive for Escherichia coli - s/p 10 Days of Cipro 500 mg BID Alcohol use disorder/withdrawal - no longer currently withdrawing - lorazepam PRN for agitation/anxiety - thiamine (switch to PO) and multivitamin - Psych - no needs. - Pt would like inpatient alcohol rehab program - [facility] [place] today. Patient has Hep C - [place] precautions Tobacco abuse - nicotine patch VTE prophylaxis - heparin drip and warfarin (INR subtherapeutic), Warfarin as above. FULL CODE Resident Involvement: Resident Care Provided Care Provided: Adult Hospital Medicine
[2017-02-08] MEDS ORDERED: WARFARIN SOD 4 MG TAB PO SCH (16:00)
--- NOTE | 2017-02-08 16:05 | Discharge Instructions ---
Discharge Instructions Date of Service Feb 08, 2017. Admission Reason for Admission: Appendicitis Discharge Discharge Diagnosis / Problem: Appendicitis Discharge Goals Goal(s): Decrease discomfort, Improve function, Increase independence, Improve nutritional status, Learn about illness Activity Recommendations Activity Limitations: per Instructions/Follow-up section . Instructions / Follow-Up Instructions / Follow-Up Because your Coumadin level was very high we recommend more frequent blood checks at our Coumadin Clinic at our Coumadin Clinic. At present you can continue your 3mg /4mg Coumadin schedule. Once you are discharged from [place] you should follow up with your PCP within one week and our Coumadin clinic within 2-3 days. While in the hospital we started you on a new medication called Hydrochlorothiazide for your blood pressure. You may not need this medication once your are discharged from [place]. Your PCP will be able to further evaluate your blood pressure medication needs. You completed a 10 day course of Ciprofloxacin for Prostatitis while you were in the hospital. This medication also treated any urinary tract infection you may have had. A urine culture of your urine grew E. Coli that was sensitive to Ciprofloxacin and should have been completely treated by now. Please refrain from smoking or drinking as both of these activities lead to adverse health outcomes. Current Hospital Diet Patient's current hospital diet: Regular Diet Discharge Diet Recommended Diet: Regular Diet Procedures Procedures Performed: Laparoscopic Appendectomy Pending Studies Studies pending at discharge: no Medical Emergencies . Who to Call and When: Medical Emergencies: If at any time you feel your situation is an emergency, please call 911 immediately. . Non-Emergent Contact Non-Emergency issues call your: Primary Care Provider, Specialist (Coumadin Clinic) . . "Provider Documentation" section prepared by Ricky Hay. . VTE Core Measure Inpt VTE Proph given/why not?: Warfarin (Coumadin), SCD's Resident Involvement: Resident Care Provided Care Provided: Adult Hospital Medicine
[2017-02-08 17:08] VITALS: BP 125/82; PULSE 96; TEMP 36.6; O2SAT 93
--- NOTE | 2017-02-09 10:24 | DISCHARGE SUMMARY ---
PRIMARY DISCHARGE DIAGNOSES: 1. Acute appendicitis. 2. Postoperative (blood loss) anemia. 3. Alcohol use disorder with withdrawal. 4. Mechanical mitral valve. 5. Recent prostatitis, partially treated as an outpatient. 6. Acute kidney injury -- resolved. 7. Hepatitis C. 8. Hypertension. PROCEDURE PERFORMED: Laparoscopic appendectomy on 01/28/2017. CONSULTATIONS: 1. [facility] hospitalist to assist in medical management. 2. Cardiology for tachycardia and hypertension. 3. Dr. Gutiérrez for recommendations on anticoagulation and reversal. HOSPITAL COURSE: The patient is a 36-year-old male who presented to the Emergency Department with abdominal pain, beginning periumbilical and localizing to the right lower quadrant. His white count was 13,000. CT was consistent with acute appendicitis. His INR was 7 as he is anticoagulated for mechanical heart valve. He was admitted to surgery service overnight and Coumadin reversed with vitamin K and 4 units of FFP. The next afternoon, he was taken to the operating room for laparoscopic appendectomy. Procedure was well tolerated. He was returned to the surgical floor. He was kept on IV Cipro postoperatively primarily for a recent prostatitis and urine culture, which grew E. coli. He was started on therapeutic Lovenox on postoperative day 1 and Coumadin later that evening. By postoperative day 2, his H&H fell into 9 and 27. He was lightheaded and had increasing tachycardia during the day. He was transfused 2 units of packed red blood cells that afternoon. He was transferred that evening to PCU for persistent tachycardia. Repeat CT at that time confirmed a postoperative hemoperitoneum. His Coumadin and Lovenox were held. He was transfused with an additional 3 units over the next 2 days. By the evening of postoperative day 3, he was showing signs of alcohol withdrawal. He was started on CIWA protocol. He was able to tolerate an advancing diet. His H&H remained stable after a total of 5 units transfused. He was started on a heparin drip on postoperative day 5 once his H&H stabilized. He was also restarted on Coumadin. He was transferred to the surgical floor. He was making good progress over the next several days. We are primarily waiting for his INR to be therapeutic. community services coordinator assisted in referral to an inpatient alcohol treatment program. On postoperative day 10, his INR was within target range at 2.5. He had completed 10 days of IV Cipro for prostatitis. His H&H had equilibrated at 13 and 42. His abdomen was benign. He has ecchymosis along the left flank. Incisions are healing well. Arrangements were made for transfer to [facility] for inpatient alcohol rehabilitation. DISCHARGE INSTRUCTIONS: Transfer to [address] as described above. Will followup with the coag clinic as an outpatient. Follow up with his PCP within 2-3 days from discharge from [address]. He may follow up with Dr. Klein within a week or two after discharge from [address]. DISCHARGE MEDICATIONS: Tylenol 650 mg every 4 hours as needed, aspirin 81 mg daily, Zestril 30 mg daily, metoprolol ER 100 mg daily, and Coumadin 3 mg 3 days a week and 4 mg 4 days a week. MTDD
== END 2017-02-08 17:49 | DRG 341 ==
LOC: C.EDB 21:34 → C.3E 01-28 01:24 → ENRESERV 01-28 01:38 → C.2T 01-30 21:01 → ENRESERV 02-04 14:52 → C.MSN 02-04 15:49
PROVIDERS: ADMIT Surgery; ATTEND Surgery
PROC: 0DTJ4ZZ Resection of Appendix, Percutaneous Endoscopic Approach (ICD-10-PCS; principal; 2017-01-28 13:00)
DX: K35.80 Unspecified acute appendicitis (principal); K66.1 Hemoperitoneum; N17.0 Acute kidney failure with tubular necrosis; D62 Acute posthemorrhagic anemia; F10.231 Alcohol dependence with withdrawal delirium; J90 Pleural effusion, not elsewhere classified; T45.515A Adverse effect of anticoagulants, initial encounter; N41.9 Inflammatory disease of prostate, unspecified; B96.20 Unspecified Escherichia coli [E. coli] as the cause of diseases classified elsewhere; R79.1 Abnormal coagulation profile; E87.70 Fluid overload, unspecified; E87.6 Hypokalemia; I10 Essential (primary) hypertension; B19.20 Unspecified viral hepatitis C without hepatic coma; F17.200 Nicotine dependence, unspecified, uncomplicated; F11.21 Opioid dependence, in remission; Z95.2 Presence of prosthetic heart valve; Z86.79 Personal history of other diseases of the circulatory system; Z86.73 Personal history of transient ischemic attack (TIA), and cerebral infarction without residual deficits; Z86.19 Personal history of other infectious and parasitic diseases; Z87.19 Personal history of other diseases of the digestive system; Z79.01 Long term (current) use of anticoagulants; Z79.82 Long term (current) use of aspirin; Z82.49 Family history of ischemic heart disease and other diseases of the circulatory system; Z83.3 Family history of diabetes mellitus; E66.9 Obesity, unspecified

== ENCOUNTER 2021-10-05 09:08 | Inpatient (IN) ==
[2021-10-05] MEDS ORDERED: SODIUM CHLORIDE 0.9% 1000ML 1,000 ML IV STA (09:44)
[2021-10-05] MEDS ORDERED: PANTOprazole 80 MG in DEXTROSE 5% 100 ML IV ONE (09:54)
[2021-10-05] MEDS ORDERED: PANTOPRAZOLE BOLUS/DRIP 1 EA IV STA (09:54)
--- NOTE | 2021-10-05 09:54 | Emergency Department Note ---
Impression & Plan Acute lower GI bleeding ADMIT ED Provider Note HPI: The patient is a 41-year-old gentleman with history of hepatitis C, gastritis, history of endocarditis status post valve replacement, on Lovenox, presents the emergency department with a chief complaint of dark-colored diarrhea and vomitus that occurred since yesterday evening and throughout the night. On arrival to the ED the patient states he has had some intermittent epigastric pain but does not currently have any pain. He is noted to be tachycardic in the 110s, borderline hypotensive with blood pressures in the low 100s systolic. Patient denies any chest pain or shortness of breath. ROS: -GI: Intermittent abdominal pain, melanotic stools, nausea and vomiting *10 point review systems was conducted and is otherwise negative unless stated above *Outpatient medications and allergy history reviewed PE: General: Alert, NAD HEENT: Normocephalic, atraumatic Eyes: Extraocular eye movement is intact, no scleral erythema Pulmonary: Clear to auscultation bilaterally, no wheezing Cardio: Tachycardic rate and regular rhythm GI: Abdomen is soft, nontender, rectal examination performed with female RN at the bedside shows no evidence of any gross bleeding, occult stool positive : No suprapubic tenderness MSK: No evidence of trauma or malformation of the extremities, no edema Skin: No evidence of rash Neuro: Alert, no focal deficits 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 Patient does have a history of alcohol induced gastritis with grade 1 esophageal varices per recent endoscopy this past fall, on arrival here to the ED he is tachycardic and hypotensive. Shortly after arrival IV was established, patient was given IV fluid bolus, lab work was obtained, CT imaging of the chest as well as the abdomen pelvis was ordered. Patient was ordered octreotide bolus and drip, Protonix bolus and drip, also ordered prophylactic dose of ceftriaxone. Lab work shows evidence of a hemoglobin of 9.1, uremia of 103, acute kidney injury with a creatinine of 2.55, patient did respond well to IV fluid bolus and blood pressure improved to greater than 100 systolic, as he did have an episode into the 80s systolic prior to fluid bolus being initiated. Occult stool was obtained at the bedside and is positive. CT imaging of the chest as well as CT imaging of the abdomen pelvis was per formed without contrast given the patient's acute kidney injury, this does not show any evidence of free air or perforation of gastric ulcer. No evidence of any acute surgical abnormality. Case was discussed with on-call gastroenterology for [facility], Dr. Perez, who is in agreement for consulta tion and did evaluate the patient here in the ED at the bedside and we will plan for EGD. Case was also discussed with the on-call hospitalist for [facility], Dr. Hills, and patient will be admitted to a telemetry bed for further management. * CRITICAL CARE TIME: 50 min -Management of acute GI bleed with anemia, tachycardia, and hypotension requiring packed red blood cell transfusion time spent at the bedside, interpretation of diagnostic studies, discussion with specialty physician/gastroenterology, arrangement of admission Diagnosis: 1. Lower GI bleed 2. SABINE 3. Tachycardia, hypotension 4. Anemia secondary to lower GI bleed 5. History of endocarditis, mitral valve replacement, on Lovenox therapy 6. History of hepatitis C infection 7. Vomiting 8. Uremia Disposition: Admission Ricky Conde DO Emergency Medicine Past Med/Surg History Medical History CVA (cerebral vascular accident) AGE 23> DUE TO DRUG USE > NO RESIDUAL EFFECTS PER PT GERD (gastroesophageal reflux disease) Hepatitis C Heroin overdose 4 YRS AGO Hyperlipidemia Hypertension Pre-diabetes ? POSSIBLE Sciatic leg pain Sleep apnea NO CPAP Surgical History History of appendectomy (~2017) History of esophagogastroduodenoscopy (EGD) History of tooth extraction Mitral valve replaced (2 OPERATIONS BACK TO BACK) AGE 23> FOLLOWS [facility]> LOVENOX FOR THIS Family History Father Diabetes Mother Family history of reaction to anesthesia "makes her a little wacky" Social History Smoking Status: Current every day smoker Cigarettes Per Day: 1 PPD; Second Hand Exposure: No; Hx Alcohol Use: Yes Alcohol type: beer, wine and hard liquor Hx Substance Use: Yes (smokes marijuana intermittently) Last Used Substance: Unknown Last Used Substance Other:: a month ago Substance Use Type Other:: MARIJUANA RARE USE Preferred Language: Maltese Communication Ability: Effective Obstetrics Nurse Required: No Beliefs That Will Affect Care: None Current Living Situation: Spouse and Family Current Living Situation Comment: Lives with and 16yr old daughter Feels Safe at Home: Yes Assistive Devices: None Allergies Allergies Allergy/AdvReac Type Severity Reaction Status Date / Time No Known Allergies Allergy Verified 02/09/21 12:30 Home Meds Home Medications Medication Instructions Recorded Confirmed lisinopril 30 mg tablet 30 mg PO QAM #0 tab 01/27/17 08/31/21 metoprolol succinate 100 mg 100 mg PO QAM #0 01/27/17 08/31/21 tablet,extended release 24 hr folic acid 1 mg tablet 1 mg PO QAM 90 Days #90 tab 06/07/17 08/31/21 hydrochlorothiazide 12.5 mg tablet 12.5 mg PO QAM 04/23/19 08/31/21 aspirin 81 mg tablet,delayed 81 mg PO QAM 03/12/20 08/31/21 release magnesium 250 mg tablet 250 mg PO QAM 02/03/21 08/31/21 multivitamin 1 tab PO DAILY 02/03/21 08/31/21 Previous Rx's Medication Instructions Recorded pantoprazole 40 mg tablet,delayed 40 mg PO QAM 90 Days #90 tab 02/09/21 release enoxaparin 100 mg/mL subcutaneous 90 mg SUBCUT Q12H #60 syr 08/26/21 syringe Results & Data (ED) Vital Signs Vital Signs - 24 hr 10/05/21 09:23 10/05/21 10:07 10/05/21 10:54 Temperature 36.6 C Temperature Source Oral Pulse Rate 126 H 100 H Pulse Rate [Finger] 100 H 99 H Respiratory Rate 16 16 16 Respiratory Effort / Characteristics Non-Labored Respiratory Depth Normal Blood Pressure 105/64 Blood Pressure [Left Arm] 102/62 87/62 L Blood Pressure Mean 77 Blood Pressure Mean [Left Arm] 75 70 Pulse Oximetry 99 100 97 Oxygen Delivery Method Room Air Room Air Room Air Sepsis Recent Fever Within 48 Hours No Sepsis New/Unexplained Change in Mental Status No Sepsis Action Taken by Nursing No Action Required 10/05/21 12:32 10/05/21 14:04 Temperature Temperature Source Pulse Rate Pulse Rate [Finger] 86 74 Respiratory Rate 16 16 Respiratory Effort / Characteristics Non-Labored Respiratory Depth Normal Blood Pressure Blood Pressure [Left Arm] 118/69 112/66 Blood Pressure Mean Blood Pressure Mean [Left Arm] 85 81 Pulse Oximetry 99 99 Oxygen Delivery Method Room Air Room Air Sepsis Recent Fever Within 48 Hours Sepsis New/Unexplained Change in Mental Status Sepsis Action Taken by Nursing Laboratory Data Result diagrams: 10/05/21 09:58 10/05/21 09:58 Lab Results 10/05/21 10/05/21 10/05/21 Range/Units 09:58 09:58 09:58 WBC 8.22 (4.8-10.8) K/uL RBC 2.68 L (4.7-6.1) M/uL Hgb 9.2 L (14.0-18.0) g/dL Hct 28.0 L (42-52) % MCV 104.5 H (80-100) fL MCH 34.3 H (25-34) pg MCHC 32.9 (32-36) g/dL RDW Std Deviation 56.6 H (36.4-46.3) fL RDW Coeff of Bri 14.8 H (11.5-14.5) % Plt Count 109 L (130-400) K/uL MPV 12.5 H (7.4-10.4) fL Immature Gran % (Auto) 0.1 % Neut % (Auto) 75.9 % Lymph % (Auto) 11.4 % [place] % (Auto) 11.9 % Eos % (Auto) 0.2 % Baso % (Auto) 0.5 % Neut # (Auto) 6.23 (1.4-6.5) K/uL Lymph # (Auto) 0.94 L (1.2-3.4) K/uL [place] # (Auto) 0.98 H (0.11-0.59) K/uL Eos # (Auto) 0.02 (0-0.5) K/uL Baso # (Auto) 0.04 (0-0.2) K/uL Immature Gran # (Auto) 0.01 (0.00-0.02) K/uL Platelet Estimate Decreased L (Normal) Hypochromasia Present Pappenheimer Bodies 1+ PT 13.7 H (9.0-12.0) Seconds INR 1.3 H (0.9-1.1) Sodium 135 L (136-145) mmol/L Potassium 5.4 H (3.5-5.1) mmol/L Chloride 100 (98-107) mmol/L Carbon Dioxide 19 L (21-32) mmol/L Anion Gap 16 H (3-11) BUN 103 H (6-23) mg/dl Creatinine 2.55 H (0.6-1.4) mg/dl Est Cr Clr Drug Dosing 39.6 ml/min Est GFR ( Amer) 34.3 ml/min Est GFR (Non-Af Amer) 29.6 ml/min BUN/Creatinine Ratio 40.4 H (10-20) Glucose 154 H (70-99(Fasting)) mg/dl Calcium 10.7 H (8.5-10.1) mg/dl Total Bilirubin 1.2 H (0.2-1.0) mg/dl AST 61 H (13-39) U/L ALT 26 (7-52) U/L Alkaline Phosphatase 51 (34-104) U/L Total Protein 8.6 H (6.0-8.3) gm/dl Albumin 5.1 H (3.4-5.0) gm/dl Globulin 3.5 (2.5-4.0) gm/dl Albumin/Globulin Ratio 1.5 (0.9-2) Lipase 251 H (11-82) U/L SARS-CoV-2, RNA, NAAT (NEGATIVE) Blood Type Antibody Screen Antibody Identification Antibody ID Comment Crossmatch 10/05/21 10/05/21 Range/Units 09:58 11:52 WBC (4.8-10.8) K/uL RBC (4.7-6.1) M/uL Hgb (14.0-18.0) g/dL Hct (42-52) % MCV (80-100) fL MCH (25-34) pg MCHC (32-36) g/dL RDW Std Deviation (36.4-46.3) fL RDW Coeff of Bri (11.5-14.5) % Plt Count (130-400) K/uL MPV (7.4-10.4) fL Immature Gran % (Auto) % Neut % (Auto) % Lymph % (Auto) % [place] % (Auto) % Eos % (Auto) % Baso % (Auto) % Neut # (Auto) (1.4-6.5) K/uL Lymph # (Auto) (1.2-3.4) K/uL [place] # (Auto) (0.11-0.59) K/uL Eos # (Auto) (0-0.5) K/uL Baso # (Auto) (0-0.2) K/uL Immature Gran # (Auto) (0.00-0.02) K/uL Platelet Estimate (Normal) Hypochromasia Pappenheimer Bodies PT (9.0-12.0) Seconds INR (0.9-1.1) Sodium (136-145) mmol/L Potassium (3.5-5.1) mmol/L Chloride (98-107) mmol/L Carbon Dioxide (21-32) mmol/L Anion Gap (3-11) BUN (6-23) mg/dl Creatinine (0.6-1.4) mg/dl Est Cr Clr Drug Dosing ml/min Est GFR ( Amer) ml/min Est GFR (Non-Af Amer) ml/min BUN/Creatinine Ratio (10-20) Glucose (70-99(Fasting)) mg/dl Calcium (8.5-10.1) mg/dl Total Bilirubin (0.2-1.0) mg/dl AST (13-39) U/L ALT (7-52) U/L Alkaline Phosphatase (34-104) U/L Total Protein (6.0-8.3) gm/dl Albumin (3.4-5.0) gm/dl Globulin (2.5-4.0) gm/dl Albumin/Globulin Ratio (0.9-2) Lipase (11-82) U/L SARS-CoV-2, RNA, NAAT NEGATIVE (NEGATIVE) Blood Type A Positive Antibody Screen NEGATIVE Antibody Identification Cancelled Antibody ID Comment Cancelled Crossmatch See Detail Administered Medications Pantoprazole Sodium 40 mg/ (Dextrose) 100 mls @ 20 mls/hr IV Q5H LOUISE Stop: 11/04/21 10:14 Last Admin: 10/05/21 10:22 Dose: 8 mg/hr, 20 mls/hr Documented by: [id number] Octreotide Acetate 500 mcg/ (Dextrose) 100.5 mls @ 10.05 mls/hr IV .Q10H LOUISE Stop: 11/04/21 10:44 Last Admin: 10/05/21 11:10 Dose: 50 mcg/hr, 10.1 mls/hr Documented by: [id number] Discontinued Medications Sodium Chloride (Nss 1000ml) 1,000 mls @ 999 mls/hr IV .Q1H1M STA Stop: 10/05/21 10:44 Last Infusion: 10/05/21 11:09 Dose: 0 mls/hr Documented by: [id number] Admin: 10/05/21 10:15 Dose: 999 mls/hr Documented by: [id number] Pantoprazole Sodium (Protonix Bolus/Drip) 0 mls @ 1 mls/hr IV ONE STA Stop: 10/05/21 09:55 Last Admin: 10/05/21 10:35 Dose: Not Given Documented by: [id number] Pantoprazole Sodium 80 mg/ (Dextrose) 120 mls @ 400 mls/hr IV NOW ONE Stop: 10/05/21 10:11 Last Infusion: 10/05/21 10:40 Dose: 0 mls/hr Documented by: [id number] Admin: 10/05/21 10:22 Dose: 400 mls/hr Documented by: [id number] Octreotide Acetate 50 mcg/ (Syringe) 10 mls @ 3 mls/min IV ONE STA Stop: 10/05/21 09:58 Last Admin: 10/05/21 10:57 Dose: 3 mls/min Documented by: [id number] Ceftriaxone Sodium (Rocephin) 2,000 mg in 70 mls @ 140 mls/hr IV NOW STA Stop: 10/05/21 10:24 Last Infusion: 10/05/21 10:45 Dose: 0 mls/hr Documented by: [id number] Admin: 10/05/21 10:15 Dose: 140 mls/hr Documented by: [id number] Miscellaneous (Stat Iv) 1 ea N/A NOW STA Stop: 10/05/21 09:56 Last Admin: 10/05/21 10:35 Dose: Not Given Documented by: [id number] Imaging Data Radiologist's Impression: Abdomen/Pelvis CT 10/05/21 11:[address] WITHOUT CONTRAST CT DOSE: 1068.83 mGy.cm HISTORY: Nausea, vomiting, upper and lower GIB, eval for ulcer/perf TECHNIQUE: Multiaxial CT images of the abdomen and pelvis were performed without contrast. A dose lowering technique was utilized adhering to the principles of ALARA. COMPARISON STUDY: Abdomen and pelvis CT 01/30/2017. FINDINGS: Please refer to the same day chest CT for further evaluation of the lung bases. No pneumoperitoneum. No pneumatosis. Poststernotomy changes and a mitral valve prosthesis again noted. No suspicious lytic or blastic osseous lesions. Heterogeneous appearance of liver consistent with hepatic steatosis. Subtle nodular contour to the liver consistent with cirrhosis. The spleen, adrenal glands, and pancreas are unremarkable. There is a punctate stone within the lower pole the right kidney. No left renal calculi. No ureteral calculi. No hydronephrosis. Normal bladder. No retroperitoneal lymphadenopathy. Stable subcentimeter periaortic lymph nodes. There is a single prominent gastrohepatic lymph node measuring 9 mm in short axis diameter. This has slightly increased in size. Minimal inflammatory change/edema adjacent to the gallbladder is likely due to the underlying cirrhosis. No gallbladder wall thickening identified. Mild calcified plaque within the normal caliber abdominal aorta. Soft tissue densities within the gluteal regions favor medication injection. Mild subcutaneous fat stranding within the left lateral abdominal wall. Suboptimal evaluation for bowel pathology due to the lack of intravenous and oral contrast. However, there is no definite bowel wall thickening or obstruction. Prior appendectomy. Colonic diverticulosis. No evidence for acute diverticulitis. IMPRESSION: 1. No bowel wall thickening or obstruction. 2. Colonic diverticulosis. No evidence for acute diverticulitis. 3. Cirrhotic liver demonstrating fatty change. 4. Minimal inflammatory change/edema adjacent to the gallbladder is likely due to underlying cirrhosis. No gallbladder wall thickening identified. 5. A single mildly enlarged gastrohepatic lymph node. This bears watching future examinations. 6. Mild subcutaneous fat stranding within the left lateral abdominal wall. This could be due to cellulitis or prior medication injection. 7. Right-sided nephrolithiasis. No ureteral stones. No hydronephrosis. ACT 112: Negative or not required by law. Electronically signed by: Yogesh Daniel M.D. 10/05/2021 11:[address] 10/05/21 11:25 CT chest diagnostic wo con CLINICAL HISTORY: upper GIB, N/V TECHNIQUE: Multidetector row helical CT of the chest was performed. Coronal and sagittal reformations were obtained. Automated dose lowering techniques and/or adjustment according to patient size were utilized for this exam. Comparison: None available at the time of this dictation. FINDINGS: Lungs and pleura: Normal. Heart and pericardium: Mitral annular prosthesis is seen. Vessels: Moderate atherosclerotic changes in the aorta and coronary arteries. Mediastinum and gloria: Unremarkable. Chest wall and lower neck: Unremarkable. Abdomen: A splenule is seen. Hepatic steatosis is seen. Bones: Unremarkable. IMPRESSION: Unremarkable evaluation of the chest. ACT 112: Negative or not required by law. Electronically signed by: Dale Baker M.D. 10/05/2021 12:09 PM Discharge Plan Visit Data Chief Complaint: GI Bleed Stated Complaint: ULCER BLEEDING ED Provider: Ricky Conde Discharge Problem: Acute lower GI bleeding Forms Stand Alone Forms: [facility] [place] [employer] Prescriptions Prescriptions: No Action hydrochlorothiazide 12.5 mg tablet 12.5 mg PO QAM RF: 0 metoprolol succinate 100 mg Tablet Extended Release 24 Hr 100 mg PO QAM Qty: 0 RF: 0 lisinopril 30 mg Tablet 30 mg PO QAM Qty: 0 RF: 0 folic acid 1 mg Tablet 1 mg PO QAM 90 Days Qty: 90 RF: 1 enoxaparin 100 mg/mL syringe 90 mg subcut Q12H Qty: 60 RF: 2 aspirin 81 mg Tablet,Delayed Release (Dr/Ec) 81 mg PO QAM RF: 0 multivitamin Tablet 1 tab PO DAILY RF: 0 magnesium 250 mg Tablet 250 mg PO QAM RF: 0 pantoprazole 40 mg Tablet,Delayed Release (Dr/Ec) 40 mg PO QAM 90 Days Qty: 90 RF: 1 Referrals Referrals: Isauro Madera MD [Primary Care Provider] -
[2021-10-05] MEDS ORDERED: cefTRIAXone SODIUM 2,000 MG/70 ML BAG IV STA (09:55)
[2021-10-05] MEDS ORDERED: STAT IV STA (09:55)
[2021-10-05] MEDS ORDERED: OCTREOTIDE ACETATE 50 MCG in SYRINGE 9.5 ML IV STA (09:55)
[2021-10-05] MEDS ORDERED: SODIUM CHLORIDE 0.9% 250 ML IV PRN (09:57)
[2021-10-05] MEDS: PANTOprazole 40 MG in DEXTROSE 5% 100 ML IV SCH ×3 (10:22→22:31)
[2021-10-05 10:27] LABS: INR 1.3 (0.9-1.1); Prothrombin Time 13.7 Seconds (9.0-12.0)
[2021-10-05 10:40] LABS: Albumin Globulin Ratio 1.5 (0.9-2); Albumin Level 5.1 gm/dl (3.4-5.0); BUN Creatinine Ratio 40.4 (10-20); Bilirubin,Total 1.2 mg/dl (0.2-1.0); Calcium 10.7 mg/dl (8.5-10.1); Creatinine Clr Calc Pharmacy 39.6 ml/min; Est GFR (African American) 34.3 ml/min; Est GFR (Non-African American) 29.6 ml/min; Globulin 3.5 gm/dl (2.5-4.0); Potassium 5.4 mmol/L (3.5-5.1); Total Protein 8.6 gm/dl (6.0-8.3)
[2021-10-05 10:44] LABS: Hemoglobin 9.2 g/dL (14.0-18.0); Mean Corpuscular Hemoglobin 34.3 pg (25-34); Mean Corpuscular Hgb Conc 32.9 g/dL (32-36); Mean Corpuscular Volume 104.5 fL (80-100); Mean Platelet Volume 12.5 fL (7.4-10.4); Platelet Count 109 K/uL (130-400); RDW Coefficient of Variation 14.8 % (11.5-14.5); RDW Standard Deviation 56.6 fL (36.4-46.3); Red Blood Count 2.68 M/uL (4.7-6.1); White Blood Count 8.22 K/uL (4.8-10.8)
[2021-10-05 10:45] LABS: Basophils # (auto) 0.04 K/uL (0-0.2); Basophils % (auto) 0.5 %; Eosinophils # (auto) 0.02 K/uL (0-0.5); Eosinophils % (auto) 0.2 %; Hypochromasia Present; Immature Granulocytes # (auto) 0.01 K/uL (0.00-0.02); Immature Granulocytes % (auto) 0.1 %; Lymphocytes # (auto) 0.94 K/uL (1.2-3.4); Lymphocytes % (auto) 11.4 %; Monocytes # (auto) 0.98 K/uL (0.11-0.59); Monocytes % (auto) 11.9 %; Neutrophils # (auto) 6.23 K/uL (1.4-6.5); Neutrophils % (auto) 75.9 %; Pappenheimer Bodies 1+; Platelet Estimate Decreased (Normal)
[2021-10-05] MEDS: OCTREOTIDE ACETATE 500mcg / D5W 100mL @50mcg/hr IV SCH ×2 (11:10→19:23)
--- NOTE | 2021-10-05 11:59 | CT Scan Report ---
ABDOMEN AND PELVIS CT WITHOUT CONTRAST CT DOSE: 1068.83 mGy.cm HISTORY: Nausea, vomiting, upper and lower GIB, eval for ulcer/perf TECHNIQUE: Multiaxial CT images of the abdomen and pelvis were performed without contrast. A dose lo wering technique was utilized adhering to the principles of ALARA. COMPARISON STUDY: Abdomen and pelvis CT 01/30/2017. FINDINGS: Please refer to the same day chest CT for further evaluation of the lung bases. No pneumope ritoneum. No pneumatosis. Poststernotomy changes and a mitral valve prosthesis again noted. No suspic ious lytic or blastic osseous lesions. Heterogeneous appearance of liver consistent with hepatic stea tosis. Subtle nodular contour to the liver consistent with cirrhosis. The spleen, adrenal glands, and pancreas are unremarkable. There is a punctate stone within the lower pole the right kidney. No left renal calculi. No ureteral calculi. No hydronephrosis. Normal bladder. No retroperitoneal lymphadeno flip. Stable subcentimeter periaortic lymph nodes. There is a single prominent gastrohepatic lymph n ode measuring 9 mm in short axis diameter. This has slightly increased in size. Minimal inflammatory change/edema adjacent to the gallbladder is likely due to the underlying cirrhosis. No gallbladder wa ll thickening identified. Mild calcified plaque within the normal caliber abdominal aorta. Soft tissu e densities within the gluteal regions favor medication injection. Mild subcutaneous fat stranding wi thin the left lateral abdominal wall. Suboptimal evaluation for bowel pathology due to the lack of in travenous and oral contrast. However, there is no definite bowel wall thickening or obstruction. Prio r appendectomy. Colonic diverticulosis. No evidence for acute diverticulitis. IMPRESSION: 1. No bowel wall thickening or obstruction. 2. Colonic diverticulosis. No evidence for acute diverticulitis. 3. Cirrhotic liver demonstrating fatty change. 4. Minimal inflammatory change/edema adjacent to the gallbladder is likely due to underlying cirrhosi s. No gallbladder wall thickening identified. 5. A single mildly enlarged gastrohepatic lymph node. This bears watching future examinations. 6. Mild subcutaneous fat stranding within the left lateral abdominal wall. This could be due to cellu litis or prior medication injection. 7. Right-sided nephrolithiasis. No ureteral stones. No hydronephrosis. ACT 112: Negative or not required by law. Electronically signed by: Yogesh Daniel M.D. 10/05/2021 11:58 AM
--- NOTE | 2021-10-05 12:11 | CT Scan Report ---
CT chest diagnostic wo con CLINICAL HISTORY: upper GIB, N/V TECHNIQUE: Multidetector row helical CT of the chest was performed. Coronal and sagittal reformations were obtained. Automated dose lowering techniques and/or adjustment according to patient size were u tilized for this exam. Comparison: None available at the time of this dictation. FINDINGS: Lungs and pleura: Normal. Heart and pericardium: Mitral annular prosthesis is seen. Vessels: Moderate atherosclerotic changes in the aorta and coronary arteries. Mediastinum and gloria: Unremarkable. Chest wall and lower neck: Unremarkable. Abdomen: A splenule is seen. Hepatic steatosis is seen. Bones: Unremarkable. IMPRESSION: Unremarkable evaluation of the chest. ACT 112: Negative or not required by law. Electronically signed by: Dale Baker M.D. 10/05/2021 12:09 PM
--- NOTE | 2021-10-05 12:39 | History & Physical Report ---
Date of Service October 05, 2021 Assessment & Plan (1) UGI bleed: Plan: - Suspected, with BUN 103 and reported multiple episodes of dark tarry stools last evening and coffee-ground emesis x1 this morning. With known history of cirrhosis, grade 1 esophageal varices. - Started on Protonix drip with bolus and octreotide in ED continue these. Also continue ceftriaxone started in ED. - N.p.o., GI plans for EGD this afternoon. - Control pain, nausea/vomiting. (2) Anemia: Plan: - Symptomatic, with lightheadedness and palpitations. Likely due to upper GI bleed. Type and cross, consent achieved in ED. 2 units PRBCs ordered in ED. - Hgb 9.2 upon presentation, recheck prior to EGD later this afternoon was 7.6; was 11.7 in April 2021. - Recheck H&H later this evening s/p transfusion. 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 - Previously on warfarin, however was switched to Lovenox when his hepatitis C treatment was initiated due to difficulty maintaining therapeutic INR. Patient on Lovenox for mechanical valve, last dose was last evening. We will hold this for now and place consult for Dr. Gutiérrez see patient, appreciate her recommendations regarding anticoagulation moving forward. (4) SABINE (acute kidney injury): Plan: - Creatinine 2.55 baseline around 1.101.30. - Normosol at 125 cc/hour. - Follow renal function on a.m. labs. (5) Alcohol abuse: Plan: - Near daily use, varying amounts, reports drinking a fifth of liquor/day this weekend, last drink yesterday around 3 PM yesterday 10/04. - AWSS with as needed lorazepam. - Currently attending AA meetings weekly, would benefit from rehab, patient has completed this before and is interested. (6) Hypertension: Plan: - Hold antihypertensives for now in the setting of hypotensin due to acute blood loss. - Home medications include HCTZ 12.5 mg daily, lisinopril 30 mg daily, metopro lol 100 mg daily. (7) Hepatitis C: Plan: - Recently completed treatment for this with [facility]. (8) GERD (gastroesophageal reflux disease): Plan: - Protonix at home, will be on IV Protonix for now. Plan: - Admit to PCU. - SCDs for DVT ppx. - Full Code. History of Present Illness Primary Care Provider: Isauro Madera MD Mr. Thakkar is a 41-year-old male with past medical history of IVDA with history of hepatitis C which he recently completed treatment for, endocarditis and CVA in 2002 now s/p mechanical mitral valve replacement currently on Lovenox, alcohol abuse with cirrhosis, hypertension, hyperlipidemia, and GERD who presents today with dark stools and hematemesis. Patient reports he had an alcohol mobley this weekend, consuming a fifth of liquor/day on Monday and Monday. Last evening, he began experiencing dark, tarry stools and this morning had 1 episode of bloody emesis this morning. He also felt lightheaded and experienced palpitations this morning, which prompted his arrival to the ED for further evaluation. In ED, heart rate 126, borderline hypotensive at 105/64 then later became hypotensive 87/62, but responsive to IVF. Labs significant for Hgb 9.2, PT 13.7, INR 1.3, K+ 5.4, BUN 103, Cr 2.55, glucose 154, t. bili 1.2, AST 61, lipase 251. CT A/P with cirrhotic liver demonstrated fatty change. Chest CT unremarkable. Patient received IVF currently started on Protonix drip with bolus, as well as octreotide and ceftriaxone in ED. GI consulted, plan for endoscopy this afternoon. Hospitalist service consulted for further evaluation and admission. Allergies Allergy/AdvReac Type Severity Reaction Status Date / Time No Known Allergies Allergy Verified 02/09/21 12:30 Home Medications Medication Instructions Recorded Confirmed Type lisinopril 30 mg tablet 30 mg PO QAM #0 tab 01/27/17 08/31/21 History metoprolol succinate 100 mg 100 mg PO QAM #0 01/27/17 08/31/21 History tablet,extended release 24 hr folic acid 1 mg tablet 1 mg PO QAM 90 Days #90 tab 06/07/17 08/31/21 History hydrochlorothiazide 12.5 mg tablet 12.5 mg PO QAM 04/23/19 08/31/21 History aspirin 81 mg tablet,delayed 81 mg PO QAM 03/12/20 08/31/21 History release magnesium 250 mg tablet 250 mg PO QAM 02/03/21 08/31/21 History multivitamin 1 tab PO DAILY 02/03/21 08/31/21 History pantoprazole 40 mg tablet,delayed 40 mg PO QAM 90 Days #90 tab 02/09/21 08/31/21 Rx release enoxaparin 100 mg/mL subcutaneous 90 mg SUBCUT Q12H #60 syr 08/26/21 08/31/21 Rx syringe Past Med/Surg History Medical History (Updated 10/05/21 @ 14:36 by Yogesh Frazier MD) SABINE (acute kidney injury) Alcohol abuse CVA (cerebral vascular accident) AGE 23> DUE TO DRUG USE > NO RESIDUAL EFFECTS PER PT GERD (gastroesophageal reflux disease) Hepatitis C Heroin overdose 4 YRS AGO Hyperlipidemia Hypertension Pre-diabetes ? POSSIBLE Sciatic leg pain Sleep apnea NO CPAP Tobacco abuse Surgical History History of appendectomy (~2017) History of esophagogastroduodenoscopy (EGD) History of tooth extraction Mitral valve replaced (2 OPERATIONS BACK TO BACK) AGE 23> FOLLOWS [facility]> LOVENOX FOR THIS Family History Father Diabetes Mother Family history of reaction to anesthesia "makes her a little wacky" Social History Smoking Status: Current every day smoker Cigarettes Per Day: 1 PPD; Second Hand Exposure: No; Hx Alcohol Use: Yes Alcohol type: beer, wine and hard liquor Hx Substance Use: Yes (smokes marijuana intermittently) Last Used Substance: Unknown Last Used Substance Other:: a month ago Substance Use Type Other:: MARIJUANA RARE USE Preferred Language: Lithuanian Communication Ability: Effective Fire Observer Required: No Beliefs That Will Affect Care: None Current Living Situation: Spouse and Family Current Living Situation Comment: Lives with and 16yr old daughter Feels Safe at Home: Yes Assistive Devices: None Review of Systems Review of Systems: Constitutional: lightheadedness this AM; No fever/chills, fatigue, myalgias, anorexia, night sweats Eyes: No diplopia, no worsening or blurred vision ENT: normal hearing, no trouble swallowing Respiratory: No cough, sputum, dyspnea at rest or on exertion Cardiovascular: palpitations this AM; No chest pain/tightness Abdomen: waxing/waning abdominal cramps, nausea with bloody emesis x1, melena since last evening : Denies dysuria, hematuria, increased urgency/frequency, urinary retention Musculoskeletal: No joint pain, calf pain, swelling Neurologic: No weakness, numbness/tingling, or balance problems Psychiatric: No anxiety or depression Skin: No rash or itch Physical Exam Physical Exam: General: awake, alert, no apparent distress Head: Normocephalic, atraumatic ENT: PERRL, EOMI, no pharyngeal exudate, mucous membranes moist Chest: Clear to auscultation, on room air, no adventitious breath sounds Cardiac: Regular rate and rhythm, no murmur, no JVD, normal peripheral pulses, good capillary refill Abdominal: NABS x 4 quadrants, soft, nontender to palpation, no rebound, guarding or tenderness Extremities: Normal inspection, no peripheral edema or erythema, calfs nontender to palpation Psych: Normal mood and affect Neuro: AAO x 3, strength intact bilaterally and rated 5/5, no motor deficits, speech is clear, no peripheral sensory deficits Skin: bruising no rash or erythema Results & Data Results & Data ([facility]) Vital Signs (Past 12 Hours) Vital Signs Temp Pulse Pulse Resp BP BP Pulse Ox 10/05/21 12:32 86 16 118/69 99 10/05/21 10:54 99 H 16 87/62 L 97 10/05/21 10:07 100 H 100 H 16 102/62 100 10/05/21 09:23 36.6 C 126 H 16 105/64 99 Laboratory Results Abnormal lab results 10/05/21 10/05/21 10/05/21 Range/Units 09:58 09:58 09:58 RBC 2.68 L (4.7-6.1) M/uL Hgb 9.2 L (14.0-18.0) g/dL Hct 28.0 L (42-52) % MCV 104.5 H (80-100) fL MCH 34.3 H (25-34) pg RDW Std Deviation 56.6 H (36.4-46.3) fL RDW Coeff of Bri 14.8 H (11.5-14.5) % Plt Count 109 L (130-400) K/uL MPV 12.5 H (7.4-10.4) fL Lymph # (Auto) 0.94 L (1.2-3.4) K/uL [facility] # (Auto) 0.98 H (0.11-0.59) K/uL Platelet Estimate Decreased L (Normal) PT 13.7 H (9.0-12.0) Seconds INR 1.3 H (0.9-1.1) Sodium 135 L (136-145) mmol/L Potassium 5.4 H (3.5-5.1) mmol/L Carbon Dioxide 19 L (21-32) mmol/L Anion Gap 16 H (3-11) BUN 103 H (6-23) mg/dl Creatinine 2.55 H (0.6-1.4) mg/dl BUN/Creatinine Ratio 40.4 H (10-20) Glucose 154 H (70-99(Fasting)) mg/dl Calcium 10.7 H (8.5-10.1) mg/dl Total Bilirubin 1.2 H (0.2-1.0) mg/dl AST 61 H (13-39) U/L Total Protein 8.6 H (6.0-8.3) gm/dl Albumin 5.1 H (3.4-5.0) gm/dl Lipase 251 H (11-82) U/L Antibody Screen Crossmatch 10/05/21 Range/Units 09:58 RBC (4.7-6.1) M/uL Hgb (14.0-18.0) g/dL Hct (42-52) % MCV (80-100) fL MCH (25-34) pg RDW Std Deviation (36.4-46.3) fL RDW Coeff of Bri (11.5-14.5) % Plt Count (130-400) K/uL MPV (7.4-10.4) fL Lymph # (Auto) (1.2-3.4) K/uL [facility] # (Auto) (0.11-0.59) K/uL Platelet Estimate (Normal) PT (9.0-12.0) Seconds INR (0.9-1.1) Sodium (136-145) mmol/L Potassium (3.5-5.1) mmol/L Carbon Dioxide (21-32) mmol/L Anion Gap (3-11) BUN (6-23) mg/dl Creatinine (0.6-1.4) mg/dl BUN/Creatinine Ratio (10-20) Glucose (70-99(Fasting)) mg/dl Calcium (8.5-10.1) mg/dl Total Bilirubin (0.2-1.0) mg/dl AST (13-39) U/L Total Protein (6.0-8.3) gm/dl Albumin (3.4-5.0) gm/dl Lipase (11-82) U/L Antibody Screen POSITIVE A Crossmatch See Detail Diagnostic Findings Abdomen/Pelvis CT 10/05/21 11:[address] WITHOUT CONTRAST CT DOSE: 1068.83 mGy.cm HISTORY: Nausea, vomiting, upper and lower GIB, eval for ulcer/perf TECHNIQUE: Multiaxial CT images of the abdomen and pelvis were performed without contrast. A dose lowering technique was utilized adhering to the principles of ALARA. COMPARISON STUDY: Abdomen and pelvis CT 01/30/2017. FINDINGS: Please refer to the same day chest CT for further evaluation of the lung bases. No pneumoperitoneum. No pneumatosis. Poststernotomy changes and a mitral valve prosthesis again noted. No suspicious lytic or blastic osseous lesions. Heterogeneous appearance of liver consistent with hepatic steatosis. Subtle nodular contour to the liver consistent with cirrhosis. The spleen, adrenal glands, and pancreas are unremarkable. There is a punctate stone within the lower pole the right kidney. No left renal calculi. No ureteral calculi. No hydronephrosis. Normal bladder. No retroperitoneal lymphadenopathy. Stable subcentimeter periaortic lymph nodes. There is a single prominent gastrohepatic lymph node measuring 9 mm in short axis diameter. This has slightly increased in size. Minimal inflammatory change/edema adjacent to the gallbladder is likely due to the underlying cirrhosis. No gallbladder wall thickening identified. Mild calcified plaque within the normal caliber abdominal aorta. Soft tissue densities within the gluteal regions favor medication injection. Mild subcutaneous fat stranding within the left lateral abdominal wall. Suboptimal evaluation for bowel pathology due to the lack of intravenous and oral contrast. However, there is no definite bowel wall thickening or obstruction. Prior appendectomy. Colonic diverticulosis. No evidence for acute diverticulitis. IMPRESSION: 1. No bowel wall thickening or obstruction. 2. Colonic diverticulosis. No evidence for acute diverticulitis. 3. Cirrhotic liver demonstrating fatty change. 4. Minimal inflammatory change/edema adjacent to the gallbladder is likely due to underlying cirrhosis. No gallbladder wall thickening identified. 5. A single mildly enlarged gastrohepatic lymph node. This bears watching future examinations. 6. Mild subcutaneous fat stranding within the left lateral abdominal wall. This could be due to cellulitis or prior medication injection. 7. Right-sided nephrolithiasis. No ureteral stones. No hydronephrosis. ACT 112: Negative or not required by law. Electronically signed by: Yogesh Daniel M.D. 10/05/2021 11:[address] 10/05/21 11:25 CT chest diagnostic wo con CLINICAL HISTORY: upper GIB, N/V TECHNIQUE: Multidetector row helical CT of the chest was performed. Coronal and sagittal reformations were obtained. Automated dose lowering techniques and/or adjustment according to patient size were utilized for this exam. Comparison: None available at the time of this dictation. FINDINGS: Lungs and pleura: Normal. Heart and pericardium: Mitral annular prosthesis is seen. Vessels: Moderate atherosclerotic changes in the aorta and coronary arteries. Mediastinum and gloria: Unremarkable. Chest wall and lower neck: Unremarkable. Abdomen: A splenule is seen. Hepatic steatosis is seen. Bones: Unremarkable. IMPRESSION: Unremarkable evaluation of the chest. ACT 112: Negative or not required by law. Electronically signed by: Dale Baker M.D. 10/05/2021 12:09 PM ECG Additional Comments: Sinus tachycardia Otherwise normal ECG When compared with ECG of 31-JAN-2017 00:03, Nonspecific T wave abnormality no longer evident in Lateral leads. Code Status & VTE Plan Code Status Full code. VTE Prophylaxis Plan VTE Prophylaxis will be ordered: Yes Supervising Physician Co-Signing Physician Notes Patient was seen and examined independently I discussed the case with Sunshine ZARATE I reviewed pertinent past medical social family history and also the plan of care and agree with the plan of care. Patient is a history of polysubstance abuse and a history of esophageal varices and erosive esophagitis and GI bleeding presents with vomitus of brown liquid and coffee grounds, brown dark diarrhea, increased BUN all consistent with possible upper GI bleed. Patient's hemoglobin did drop from 11 g to 7 g he is macrocytic in the ER. Patient is chronically anticoagulated for mechanical heart valve due to previous history of endocarditis from intravenous drug use. Patient has most recently been on Lovenox as he had to come off warfarin due to wide swings of his INR with concurrent treatment for his hepatitis C. I personally spoke to Dr. Tena burger in the relation clinic and she wishes for the patient be transition back to warfarin at discharge due to his completion of his hepatitis C treatment I examined the patient he was slightly pale slightly tachycardic no acute distress some epigastric discomfort heart was regular systolic murmur was heard I cannot hear quite a click as he had it would be expected but his valve is somewhat old and his lungs were clear Patient is on resuscitated transfused with blood products and taken to endoscopy suite this afternoon he will be on PPI Any exceptions will be noted below PG Care Time/CCT Total # of Minutes Spent Total Time Spent with Patient: Total time spent is greater than 50% in coordination of care (as documented) at patient's floor/unit and/or counseling patient: Coding Level of Care Code 14016 Initial Inpt Care Lvl 3 Diagnoses UGI bleed K92.2 Hepatitis C B19.20 Anemia D64.9 H/O mitral valve replacement Z95.2 Hypertension I10 GERD (gastroesophageal reflux disease) K21.9 Alcohol abuse F10.10 SABINE (acute kidney injury) N17.9
--- NOTE | 2021-10-05 12:45 | Gastrointestinal Consultation ---
Date of Consultation October 05, 2021 Assessment & Plan (1) Melena: Most likely UGI bleed. Discussed with patient recommendation for EGD today with therapeutic intent. Procedure and risks explained to patient which include but not limited to medication reaction, bleeding, perforation, aspirat ion, and missed lesions. Cirrhosis--discussed recommend ETOH cessation hep C outpt followup History of Present Illness Reason for Consultation: melena History of Present Illness CC black stools and vomiting HPI Reviewed [facility] EMR and this EMR. Noted EGD fro 01/2021 showing grade 1 varices, multiple stomach erosions some of which had stigmata of recent bleeding. Pt with hep C and ETOH abuse and cirrhosis. He continue to use ETOH and he had a mobley over the weekend per his report. He also is on ASA and lovenox per for mechanical mitral valve replacement. He has some mild epi pain off and on. Last night about 9 pm started having black stools which have continue throughout the day and night. After smoking this am had vomitus of coffee ground material. Per my discussiion with ER phycian, black stool heme positive noted on rectal exam. Hgb 9.2 at arrival vs 11.7 on 04/19/2021. Pt hypotensive on arrival with initial improvement with fluid bolus then drop again. At time of interview SBP 111. Allergies Allergy/AdvReac Type Severity Reaction Status Date / Time No Known Allergies Allergy Verified 02/09/21 12:30 Home Medications Medication Instructions Recorded Confirmed Type lisinopril 30 mg tablet 30 mg PO QAM #0 tab 01/27/17 08/31/21 History metoprolol succinate 100 mg 100 mg PO QAM #0 01/27/17 08/31/21 History tablet,extended release 24 hr folic acid 1 mg tablet 1 mg PO QAM 90 Days #90 tab 06/07/17 08/31/21 History hydrochlorothiazide 12.5 mg tablet 12.5 mg PO QAM 04/23/19 08/31/21 History aspirin 81 mg tablet,delayed 81 mg PO QAM 03/12/20 08/31/21 History release magnesium 250 mg tablet 250 mg PO QAM 02/03/21 08/31/21 History multivitamin 1 tab PO DAILY 02/03/21 08/31/21 History pantoprazole 40 mg tablet,delayed 40 mg PO QAM 90 Days #90 tab 02/09/21 08/31/21 Rx release enoxaparin 100 mg/mL subcutaneous 90 mg SUBCUT Q12H #60 syr 08/26/21 08/31/21 Rx syringe Patient History Medical History CVA (cerebral vascular accident) AGE 23> DUE TO DRUG USE > NO RESIDUAL EFFECTS PER PT GERD (gastroesophageal reflux disease) Hepatitis C Heroin overdose 4 YRS AGO Hyperlipidemia Hypertension Pre-diabetes ? POSSIBLE Sciatic leg pain Sleep apnea NO CPAP Surgical History History of appendectomy (~2017) History of esophagogastroduodenoscopy (EGD) History of tooth extraction Mitral valve replaced (2 OPERATIONS BACK TO BACK) AGE 23> FOLLOWS [facility]> LOVENOX FOR THIS Family History Father Diabetes Mother Family history of reaction to anesthesia "makes her a little wacky" Social History Smoking Status: Current every day smoker Cigarettes Per Day: 1 PPD; Second Hand Exposure: No; Hx Alcohol Use: Yes Alcohol type: beer, wine and hard liquor Hx Substance Use: Yes (smokes marijuana intermittently) Last Used Substance: Unknown Last Used Substance Other:: a month ago Substance Use Type Other:: MARIJUANA RARE USE Preferred Language: Hungarian Communication Ability: Effective Bottle Label Inspector Required: No Beliefs That Will Affect Care: None Current Living Situation: Spouse and Family Current Living Situation Comment: Lives with and 16yr old daughter Feels Safe at Home: Yes Assistive Devices: None Review of Systems Review of Systems: All systems reviewed & are unremarkable except as noted in HPI & below Physical Exam Constitutional: WD/WN, vitals as above Eyes: PERRL, conjunctivae normal, anicteric sclerae ENMT: Ears: no hearing impairment Nose: no external nose abnormality Neck: normal visual inspection and trachea midline Respiratory: normal respiratory effort, lungs clear to auscultation Cardiovascular: RRR, no murmur, no edema Gastrointestinal (Abdomen): normal bowel sounds, soft, nontender, no hepatosplenomegaly Skin: normal turgor Neurologic: PERRL, EOMI, accommodation nl, no face palsy, no dysarthria Psychiatric: A+Ox3, euthymic affect Results & Data ([facility]) Vital Signs (Past 12 Hours) Vital Signs Temp Pulse Pulse Resp BP BP Pulse Ox 10/05/21 12:32 86 16 118/69 99 10/05/21 10:54 99 H 16 87/62 L 97 10/05/21 10:07 100 H 100 H 16 102/62 100 10/05/21 09:23 36.6 C 126 H 16 105/64 99
--- NOTE | 2021-10-05 14:15 | Anesthesiology Consultation ---
Date of Service October 05, 2021 Assessment & Plan Chart Review Chart Review: Acceptable Risk for Surgery Consults Requested none ASA [id number] Proposed Anesthesia Anesthesia Type: General Risk / Benefits Reviewed With: PT / POA / Parent / Guardian, Accepts Plan and Informed Consent Obtained History Surgery Operation Date: 10/05/21 16:15 Proposed Procedures p Esophagogastroduodenoscopy Dr Perez - Sundar Perez Height/Weight Height: 5 ft 8 in Weight: 84.7 kg Allergies Allergy/AdvReac Type Severity Reaction Status Date / Time No Known Allergies Allergy Verified 02/09/21 12:30 Medications Home Medications Medication Instructions Recorded Confirmed Last Taken lisinopril 30 mg tablet 30 mg PO QAM #0 tab 01/27/17 08/31/21 02/09/21 07:00 metoprolol succinate 100 mg 100 mg PO QAM #0 01/27/17 08/31/21 02/09/21 07:00 tablet,extended release 24 hr folic acid 1 mg tablet 1 mg PO QAM 90 Days #90 tab 06/07/17 08/31/21 01/23/19 hydrochlorothiazide 12.5 mg tablet 12.5 mg PO QAM 04/23/19 08/31/21 02/09/21 07:00 aspirin 81 mg tablet,delayed 81 mg PO QAM 03/12/20 08/31/21 02/09/21 07:00 release magnesium 250 mg tablet 250 mg PO QAM 02/03/21 08/31/21 02/08/21 08:00 multivitamin 1 tab PO DAILY 02/03/21 08/31/21 Unknown pantoprazole 40 mg tablet,delayed 40 mg PO QAM 90 Days #90 tab 02/09/21 08/31/21 Unknown release enoxaparin 100 mg/mL subcutaneous 90 mg SUBCUT Q12H #60 syr 08/26/21 08/31/21 Unknown syringe Active Medications Generic Name Dose Route Start Last Admin Trade Name Freq PRN Reason Stop Dose Admin Pantoprazole Sodium 40 mg/ 100 mls @ 20 mls/hr 10/05/21 10:15 10/05/21 10:22 Dextrose IV 11/04/21 10:14 8 mg/hr Q5H LOUISE 20 mls/hr Administration 8 MG/HR Octreotide Acetate 500 mcg/ 100.5 mls @ 10.05 mls/hr 10/05/21 10:45 10/05/21 11:10 Dextrose IV 11/04/21 10:44 50 mcg/hr .Q10H LOUISE 10.1 mls/hr Administration 50 MCG/HR NPO Date Last Intake of Fluids: 10/05/21 Time Last Intake of Fluids: 08:00 Date Last Intake of Solids: 10/05/21 Time Last Intake of Solids: 08:00 Last Intake of Solids Comment: half yogurt Past Medical History Medical History CVA (cerebral vascular accident) AGE 23> DUE TO DRUG USE > NO RESIDUAL EFFECTS PER PT GERD (gastroesophageal reflux disease) Hepatitis C Heroin overdose 4 YRS AGO Hyperlipidemia Hypertension Pre-diabetes ? 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) AGE 23> FOLLOWS [facility]> LOVENOX FOR THIS MVR x2 d/t inf endocarditis, on Lovenox, last dose last night Past Anesthesia History No Hx of Anesthesia Complications and No Family Hx of Anesthesia Complications History of PONV No Hx of PONV and No Hx of Motion Sickness Social History Smoking Status: Current every day smoker tobacco type: cigarettes Smoking cigarettes per day: 1 PPD Hx Alcohol Use: Yes Alcohol type: beer, wine and hard liquor alcohol intake frequency: 3 or more drinks per day Hx Substance Use: Yes (smokes marijuana intermittently) substance use type: marijuana Substance Use Type Other:: MARIJUANA RARE USE Last Used Substance: Unknown Last Used Substance Other:: a month ago Review of Systems ROS Unobtainable: All systems reviewed & are unremarkable except as noted in HPI & below Constitutional: as per Subjective / HPI Eyes: as per Subjective / HPI Ear, Nose, Mouth, Throat: as per Subjective / HPI Respiratory: as per Subjective / HPI Cardiovascular: as per Subjective / HPI Gastrointestinal: as per Subjective / HPI Genitourinary (Male): + as per Subjective / HPI Musculoskeletal: as per Subjective / HPI Neurologic: as per Subjective / HPI Psychiatric: as per Subjective / HPI Endocrine: as per Subjective / HPI Hematologic / Lymphatic: as per Subjective / HPI Allergy / Immunological: as per Subjective / HPI Physical Exam Vital Signs Last Vital Signs Temp 36.6 C 10/05/21 09:23 Pulse 74 10/05/21 14:04 Resp 16 10/05/21 14:04 BP 112/66 10/05/21 14:04 Pulse Ox 99 10/05/21 14:04 Constitutional WD/WN, vitals as above well developed, well nourished and + well hydrated; no acute distress ENMT external ear and nose normal, oropharynx normal Mouth: no loose teeth Thyromental Distance: > or= 3.5 Finger Breadths Mallampati Class: II Throat: uvula midline Neck normal visual inspection and trachea midline Respiratory normal respiratory effort, lungs clear to auscultation normal respiratory effort; no respiratory distress Auscultation: lungs clear to auscultation bilaterally Cardiovascular RRR, no murmur, no edema Rate/Rhythm: regular rate and regular rhythm Heart Sounds: no murmur Musculoskeletal Extremities: extremities normal to inspection Skin no rashes, warm and dry Neurologic moves all extremities and awake; no focal motor deficits Psychiatric A+Ox3, euthymic affect Orientation: alert and oriented x 3 Eye Contact: good eye contact Testing Laboratory Results 10/05/21 09:58 10/05/21 09:58 PT 13.7 Seconds (9.0-12.0) H 10/05/21 09:58 INR 1.3 (0.9-1.1) H 10/05/21 09:58 Blood Type A Positive 10/05/21 09:58 Antibody Screen NEGATIVE 10/05/21 09:58 repeat CBC ordered Echocardiogram Date: 05/15/15 EF: 50-54% (all according to cardiology note 2017) LV Function: normal
[2021-10-05 14:23] LABS: Hematocrit (blood only) 22.6 % (42-52); Hemoglobin 7.6 g/dL (14.0-18.0); Mean Corpuscular Hgb Conc 33.6 g/dL (32-36); Mean Corpuscular Volume 104.1 fL (80-100); Mean Platelet Volume 12.5 fL (7.4-10.4); Platelet Count 74 K/uL (130-400); RDW Coefficient of Variation 14.6 % (11.5-14.5); RDW Standard Deviation 55.5 fL (36.4-46.3); Red Blood Count 2.17 M/uL (4.7-6.1); White Blood Count 6.18 K/uL (4.8-10.8)
[2021-10-05] MEDS ORDERED: PROPOFOL IV EMULSION 10 MG/ML 20 ML VIAL IV ONE (14:30)
[2021-10-05] MEDS ORDERED: SUCCINYLCHOLINE CHLORIDE 20 MG/ML 10 ML VIAL IV ONE (14:30)
[2021-10-05] MEDS ORDERED: LIDOCAINE 2% 2 ML VIAL/AMP(20MG/ML) INFIL ONE (14:30)
[2021-10-05 14:43] LABS: Partial Thromboplastin Time 26.5 Seconds (21.0-31.0)
[2021-10-05 14:54] LABS: Basophils # (auto) 0.02 K/uL (0-0.2); Basophils % (auto) 0.3 %; Immature Granulocytes # (auto) 0.01 K/uL (0.00-0.02); Immature Granulocytes % (auto) 0.2 %; Lymphocytes # (auto) 0.74 K/uL (1.2-3.4); Monocytes # (auto) 0.72 K/uL (0.11-0.59); Monocytes % (auto) 11.7 %; Neutrophils # (auto) 4.69 K/uL (1.4-6.5); Neutrophils % (auto) 75.8 %
--- NOTE | 2021-10-05 15:00 | Electrocardiogram Report ---
Test Reason : Blood Pressure : / mmHG Vent. Rate : 120 BPM Atrial Rate : 120 BPM P-R Int : 152 ms QRS Dur : 088 ms QT Int : 304 ms P-R-T Axes : 019 030 041 degrees QTc Int : 429 ms Sinus tachycardia Otherwise normal ECG When compared with ECG of 31-JAN-2017 00:03, Nonspecific T wave abnormality no longer evident in Lateral leads Confirmed by Edson Agosto ([id number]) on 10/05/2021 2:59:27 PM Referred By: REFERRED SELF Confirmed By:Edson Agosto
[2021-10-05] MEDS ORDERED: fentaNYL citrate 100 MCG/2 ML VIAL ONE (15:18)
[2021-10-05] MEDS ORDERED: ATROPINE SULFATE 0.1 MG/ML 10ML SYR IV PRN (15:24)
[2021-10-05] MEDS ORDERED: ONDANSETRON INJ 2 MG/ML 2 ML VIAL IV PRN ×2 (15:24→17:18)
[2021-10-05] MEDS ORDERED: PROMETHAZINE HCL 12.5 MG in SODIUM CHLORIDE 0.9% 50 ML IV PRN (15:24)
[2021-10-05] MEDS ORDERED: fentaNYL citrate 100 MCG/2 ML VIAL IV PRN (15:24)
[2021-10-05] MEDS ORDERED: ONDANSETRON INJ 2 MG/ML 2 ML VIAL ONE (16:09)
--- NOTE | 2021-10-05 16:17 | GI REPORT ---
Patient Name: Isauro Thakkar Procedure Date: 10/05/2021 2:36 PM Date of : 1980 Admit Type: Emergency Department Age: 41 Gender: Male Attending MD: Sundar Perez MD Procedure: Upper GI endoscopy Providers: Sundar Perez MD Referring MD: Referred Self Indications: Coffee-ground emesis, Melena Medicines: General Anesthesia Complications: No immediate complications. Estimated blood loss: Minimal. Estimated Blood Loss: Estimated blood loss was minimal. Procedure: Pre-Anesthesia Assessment: - The risks and benefits of the procedure and the sedation options and risks were discussed with the patient. All questions were answered and informed consent was obtained. After obtaining informed consent, the endoscope was passed under direct vision. Throughout the procedure, the patient's blood pressure, pulse, and oxygen saturations were monitored continuously. The Endoscope was introduced through the mouth, and advanced to the second part of duodenum. The upper GI endoscopy was accomplished without difficulty. The patient tolerated the procedure well. Procedure and risks explained to patient which include but not limited to medication reaction, bleeding, perforation, aspiration , and missed lesions. Judicious gas insufflation was used and gas removal done on the way out. The lumen was always visualized when advancing the scope. Prep was good. Washes and suctioning used as needed to get good visualization of the mucosa. Retroflexion to look at the fundus and cardia of the stomach and GE junction was done. Findings: The Z-line was regular and was found 41 cm from the incisors. Grade I varices were found in the middle third of the esophagus and in the lower third of the esophagus. Moderate portal hypertensive gastropathy was found in the gastric fundus and in the gastric body. A few localized small erosions with stigmata of recent bleeding were found in the gastric antrum. Multiple areas of stigmata of recent bleeding in the stomach body and fundus consisting of black eschars in setting of portal gastropathy oozing. One area of fresh heme in area of portal gastropathy which recurred post washing was noted. Argon Plasms coagulation used (flow 1.4, 35W) successfully to stop bleeding. A few localized, small erosions with stigmata of recent bleeding were found in the first portion of the duodenum. The exam was otherwise without abnormality. Impression: - Z-line regular, 41 cm from the incisors. - Grade I esophageal varices. - Portal hypertensive gastropathy. - Erosive gastropathy with stigmata of recent bleeding. - Multiple areas of stigmata of recent bleeding in the stomach body and fundus consisting of black eschars in setting of portal gastropathy oozing. One area of fresh heme in area of portal gastropathy which recurred post washing was noted. Argon Plasms coagulation used (flow 1.4, 35W) successfully to stop bleeding. - Erosive duodenopathy with stigmata of recent bleeding. - The examination was otherwise normal. - No specimens collected. Recommendation: - Return patient to [facility] for ongoing care. - Continue PPI and can start clear liquid diet. Sundar Perez M.D. Sundar Perez MD 10/05/2021 4:16:44 PM This report has been signed electronically. Note Initiated On: 10/05/2021 2:36 PM Number of Addenda: 0 I attest to the content of the Intraoperative Record and orders documented therein, exceptions below {[id number]}
--- NOTE | 2021-10-05 16:40 | Anesthesiology Progress Note ---
Date of Service October 05, 2021 Anesthesia Post Procedure Vital Signs Vital Signs: Temp Pulse Pulse Pulse Resp BP BP 10/05/21 16:35 66 12 104/66 10/05/21 16:25 68 13 104/62 10/05/21 16:15 79 16 109/62 10/05/21 16:05 36.6 C 92 H 16 106/61 10/05/21 14:55 36.9 C 84 20 121/71 10/05/21 14:37 86 18 102/67 10/05/21 14:04 74 16 112/66 10/05/21 12:32 86 16 118/69 10/05/21 10:54 99 H 16 87/62 L 10/05/21 10:07 100 H 100 H 16 102/62 10/05/21 09:23 36.6 C 126 H 16 105/64 Pulse Ox 10/05/21 16:35 96 10/05/21 16:25 100 10/05/21 16:15 100 10/05/21 16:05 100 10/05/21 14:55 99 10/05/21 14:37 96 10/05/21 14:04 99 10/05/21 12:32 99 10/05/21 10:54 97 10/05/21 10:07 100 10/05/21 09:23 99 Transfer of Care Handoff Completed per policy Notes Mental Status: alert / awake / arousable Patient Amnestic to Procedure: Yes Nausea / Vomiting: adequately controlled Pain: adequately controlled Airway Patency, RR, SpO2: stable & adequate BP & HR: stable & adequate Hydration State: stable & adequate Anesthetic Complications: no major complications apparent
[2021-10-05] MEDS ORDERED: LORazepam 2 MG/1 ML VIAL IV PRN (17:18)
[2021-10-05] MEDS ORDERED: POLYETHYLENE (MIRALAX) 17 GM PACK PO PRN (17:18)
[2021-10-05] MEDS ORDERED: NORMOSOL-R 1,000 ML IV SCH (17:18)
[2021-10-05] MEDS: SODIUM CHLORIDE 0.9% 1000ML 1,000 ML IV SCH (19:06)
[2021-10-05 22:04] LABS: Appearance Urine Clear (Clear); Bilirubin Urine Negative (Negative); Blood Urine Negative (Negative); Color Urine Yellow; Glucose Urine UA Negative (Negative); Ketones Urine Negative (Negative); Leukocyte Esterase Urine Negative (Negative); Nitrite Urine Negative (Negative); Protein Urine Negative (Negative); Specific Gravity Urine 1.015 (1.000-1.030); Urobilinogen Urine Negative (Negative); pH Urine 5.5 (4.5-7.5)
[2021-10-06 00:47] LABS: Hematocrit (blood only) 27.9 % (42-52); Hemoglobin 9.4 g/dL (14.0-18.0)
[2021-10-06] MEDS: PANTOprazole 40 MG in DEXTROSE 5% 100 ML IV SCH ×5 (02:54→22:26)
[2021-10-06] MEDS: SODIUM CHLORIDE 0.9% 1000ML 1,000 ML IV SCH ×3 (03:38→23:13)
[2021-10-06] MEDS: OCTREOTIDE ACETATE 500mcg / D5W 100mL @50mcg/hr IV SCH ×2 (04:38→15:37)
[2021-10-06 06:59] LABS: Hemoglobin 9.6 g/dL (14.0-18.0); Mean Corpuscular Hemoglobin 32.5 pg (25-34); Mean Corpuscular Hgb Conc 33.1 g/dL (32-36); Mean Corpuscular Volume 98.3 fL (80-100); Platelet Count 66 K/uL (130-400); RDW Coefficient of Variation 19.4 % (11.5-14.5); RDW Standard Deviation 69.2 fL (36.4-46.3); Red Blood Count 2.95 M/uL (4.7-6.1); White Blood Count 6.05 K/uL (4.8-10.8)
[2021-10-06 07:17] LABS: Albumin Globulin Ratio 1.5 (0.9-2); Albumin Level 4.3 gm/dl (3.4-5.0); BUN Creatinine Ratio 54.2 (10-20); Bilirubin,Total 1.1 mg/dl (0.2-1.0); Calcium 9.5 mg/dl (8.5-10.1); Creatinine Clr Calc Pharmacy 67.8 ml/min; Est GFR (African American) 63.6 ml/min; Est GFR (Non-African American) 54.9 ml/min; Globulin 2.9 gm/dl (2.5-4.0); Potassium 4.8 mmol/L (3.5-5.1); Total Protein 7.2 gm/dl (6.0-8.3)
[2021-10-06 07:19] LABS: Basophils # (auto) 0.03 K/uL (0-0.2); Basophils % (auto) 0.5 %; Eosinophils # (auto) 0.07 K/uL (0-0.5); Eosinophils % (auto) 1.2 %; Immature Granulocytes # (auto) 0.02 K/uL (0.00-0.02); Immature Granulocytes % (auto) 0.3 %; Lymphocytes # (auto) 1.01 K/uL (1.2-3.4); Lymphocytes % (auto) 16.7 %; Monocytes % (auto) 6.6 %; Neutrophils # (auto) 4.52 K/uL (1.4-6.5); Neutrophils % (auto) 74.7 %
[2021-10-06] MEDS: FOLIC ACID 1 MG TAB PO SCH (08:04)
[2021-10-06] MEDS: THIAMINE HCL 100 MG TAB PO SCH (08:04)
--- NOTE | 2021-10-06 08:28 | Gastroenterology Progress Note ---
Date of Service October 06, 2021 Assessment & Plan (1) Alcohol abuse: Plan: Upper GI bleeding: Status post EGD 10/05/2021 which demonstrated bleeding portal hypertensive gastropathy. Continue PPI. He is on anticoagulation chronically due to history of mitral valve replacement. Advance diet as tolerated. Cirrhosis: Likely due to alcohol with history of hepatitis C as well. Strongly recommend alcohol cessation Hepatitis C: Follow-up in outpatient clinic Case reviewed with Dr. Perez. Please refer to supervising physician addendum for further recommendations. I have spent 20 minutes of discrete time performing the activities of this visit which include but are not limited to review of the medical record, obtaining a history, physical exam, and entering information in the electronic record. (2) Portal hypertensive gastropathy: (3) Hepatitis C: Admission and Anticipated Discharge Date Admission Date: October 05, 2021 Supervising Physician Co-Signing Physician Notes I have seen and examined the patient. I agree with note above by XUAN Barillas except as noted below. HPI Pt without complaint. Only small stool since EGD. CT a/p shows gastrohepatic node slighltly larger than 2017 with recommendation to follow it. Hgb 9.6 vs 7.6 yesterday PE Abdomen pos bs, soft, no guarding nor rebound. A/P UGI bleeding--from portal gastropathy--stable. Can advance to solid diet. Oral PPI can be used. Can stop octreotide enlarged abdominal lymph node--suggest following this, Pt should get imaging for cirrhoisis every 6 months and can do CT scan as imaging study for now. As the supervising physician, I , Sundar Perez MD have spent 19 minutes of discrete time performing the activities of this visit which include but not limited to review of the medical records, obtaining a history, physical exam and entering information in the electronic record. XUAN Barillas has reported spending 20 minutes of discrete time with the activities of this visit. Subjective On exam/interview today the patient states "I am feeling overall better". Began having black loose/diarrhea stools Monday evening which continued through the night into Monday with multiple bowel movements and increased weakness noted. He contacted the gastroenterology office and was directed to the emergency department for further evaluation he was subsequently admitted and EGD was obtained. Patient denies abdominal pain this morning. No nausea or vomiting. Tolerating clear liquid diet. No bowel movement yet today. He does report positive flatus and has some abdominal bloating. No fever or chills. Does continue with regular alcohol use. He is also on aspirin and Lovenox for history of mechanical mitral valve replacement. Social History: The patient is a current smoker. He reports that he smoked 1 pack of cigarettes per day since 13 years of age. He has at least a 26-year pack per day history of smoking. 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 He reports he has been clean since an overdose approximately 5 years ago. Denies any use of recreational drugs excepting occasional marijuana approximately every 1 to 3 months. Reports that he consumes alcohol 3 to 4 days/week both beers and shots. He works for [employer] in [place]. He is and has a 15-year-old daughter. Review of Systems Review of Systems: All systems reviewed & are unremarkable except as noted in Subjective Physical Exam Gastrointestinal (Abdomen): Inspection/Auscultation: abdomen normal to inspection and normal bowel sounds; abdomen not distended Percussion/Palpation: + tympanic to percussion Results & Data ([facility]) Vital Signs (Past 12 Hours) Vital Signs Temp Pulse Pulse Resp BP BP Pulse Ox 10/06/21 07:11 36.6 C 73 16 105/60 97 10/06/21 03:36 36.7 C 70 16 110/73 98 10/06/21 01:03 74 10/05/21 23:50 36.9 C 74 22 124/78 94 10/05/21 23:35 36.9 C 74 22 124/78 94 10/05/21 23:00 36.6 C 78 18 132/79 98 10/05/21 22:00 36.9 C 78 18 130/69 98 10/05/21 21:30 36.8 C 70 16 133/83 98 10/05/21 21:15 36.8 C 69 18 116/76 97 10/05/21 21:00 36.8 C 74 18 120/78 97 10/05/21 20:58 36.7 C 71 20 127/81 96 10/05/21 20:51 36.7 C 71 20 127/81 97 Laboratory Results Laboratory Results - last 24 hr 10/05/21 10/05/21 10/05/21 09:58 09:58 09:58 WBC 8.22 RBC 2.68 L Hgb 9.2 L Hct 28.0 L MCV 104.5 H MCH 34.3 H MCHC 32.9 RDW Std Deviation 56.6 H RDW Coeff of Bri 14.8 H Plt Count 109 L MPV 12.5 H Immature Gran % (Auto) 0.1 Neut % (Auto) 75.9 Lymph % (Auto) 11.4 Day % (Auto) 11.9 Eos % (Auto) 0.2 Baso % (Auto) 0.5 Neut # (Auto) 6.23 Lymph # (Auto) 0.94 L Day # (Auto) 0.98 H Eos # (Auto) 0.02 Baso # (Auto) 0.04 Immature Gran # (Auto) 0.01 Platelet Estimate Decreased L Hypochromasia Present Pappenheimer Bodies 1+ PT 13.7 H INR 1.3 H APTT PTT Ratio Sodium 135 L Potassium 5.4 H Chloride 100 Carbon Dioxide 19 L Anion Gap 16 H BUN 103 H Creatinine 2.55 H Est Cr Clr Drug Dosing 39.6 Est GFR ( Amer) 34.3 Est GFR (Non-Af Amer) 29.6 BUN/Creatinine Ratio 40.4 H Glucose 154 H POC Glucose Calcium 10.7 H Total Bilirubin 1.2 H AST 61 H ALT 26 Alkaline Phosphatase 51 Total Protein 8.6 H Albumin 5.1 H Globulin 3.5 Albumin/Globulin Ratio 1.5 Lipase 251 H Urine Color Urine Appearance Urine pH Ur Specific [place] Urine Protein Urine Glucose (UA) Urine Ketones Urine Blood Urine Nitrite Urine Bilirubin Urine Urobilinogen Ur Leukocyte Esterase Ethyl Alcohol mg/dL SARS-CoV-2, RNA, NAAT Blood Type Antibody Screen Antibody Identification Antibody ID Comment Crossmatch 10/05/21 10/05/21 10/05/21 09:58 11:52 14:08 WBC RBC Hgb Hct MCV MCH MCHC RDW Std Deviation RDW Coeff of Bri Plt Count MPV Immature Gran % (Auto) Neut % (Auto) Lymph % (Auto) Day % (Auto) Eos % (Auto) Baso % (Auto) Neut # (Auto) Lymph # (Auto) Day # (Auto) Eos # (Auto) Baso # (Auto) Immature Gran # (Auto) Platelet Estimate Hypochromasia Pappenheimer Bodies PT INR APTT 26.5 PTT Ratio 1.0 Sodium Potassium Chloride Carbon Dioxide Anion Gap BUN Creatinine Est Cr Clr Drug Dosing Est GFR ( Amer) Est GFR (Non-Af Amer) BUN/Creatinine Ratio Glucose POC Glucose Calcium Total Bilirubin AST ALT Alkaline Phosphatase Total Protein Albumin Globulin Albumin/Globulin Ratio Lipase Urine Color Urine Appearance Urine pH Ur Specific [place] Urine Protein Urine Glucose (UA) Urine Ketones Urine Blood Urine Nitrite Urine Bilirubin Urine Urobilinogen Ur Leukocyte Esterase Ethyl Alcohol mg/dL SARS-CoV-2, RNA, NAAT NEGATIVE Blood Type A Positive Antibody Screen NEGATIVE Antibody Identification Cancelled Antibody ID Comment Cancelled Crossmatch See Detail 10/05/21 10/05/21 10/05/21 14:08 15:14 17:26 WBC 6.18 RBC 2.17 L Hgb 7.6 L Hct 22.6 L MCV 104.1 H MCH 35.0 H MCHC 33.6 RDW Std Deviation 55.5 H RDW Coeff of Bri 14.6 H Plt Count 74 L MPV 12.5 H Immature Gran % (Auto) 0.2 Neut % (Auto) 75.8 Lymph % (Auto) 12.0 Day % (Auto) 11.7 Eos % (Auto) 0.0 Baso % (Auto) 0.3 Neut # (Auto) 4.69 Lymph # (Auto) 0.74 L Day # (Auto) 0.72 H Eos # (Auto) 0.00 Baso # (Auto) 0.02 Immature Gran # (Auto) 0.01 Platelet Estimate Hypochromasia Pappenheimer Bodies PT INR APTT PTT Ratio Sodium Potassium Chloride Carbon Dioxide Anion Gap BUN Creatinine Est Cr Clr Drug Dosing Est GFR ( Amer) Est GFR (Non-Af Amer) BUN/Creatinine Ratio Glucose POC Glucose 186 H Calcium Total Bilirubin AST ALT Alkaline Phosphatase Total Protein Albumin Globulin Albumin/Globulin Ratio Lipase Urine Color Urine Appearance Urine pH Ur Specific [place] Urine Protein Urine Glucose (UA) Urine Ketones Urine Blood Urine Nitrite Urine Bilirubin Urine Urobilinogen Ur Leukocyte Esterase Ethyl Alcohol mg/dL < 10.0 SARS-CoV-2, RNA, NAAT Blood Type Antibody Screen Antibody Identification Antibody ID Comment Crossmatch 10/05/21 10/06/21 10/06/21 21:55 00:35 06:22 WBC 6.05 RBC 2.95 L Hgb 9.4 L 9.6 L Hct 27.9 L 29.0 L MCV 98.3 D MCH 32.5 MCHC 33.1 RDW Std Deviation 69.2 H RDW Coeff of Bri 19.4 H Plt Count 66 L MPV 12.0 H Immature Gran % (Auto) 0.3 Neut % (Auto) 74.7 Lymph % (Auto) 16.7 Day % (Auto) 6.6 Eos % (Auto) 1.2 Baso % (Auto) 0.5 Neut # (Auto) 4.52 Lymph # (Auto) 1.01 L Day # (Auto) 0.40 Eos # (Auto) 0.07 Baso # (Auto) 0.03 Immature Gran # (Auto) 0.02 Platelet Estimate Hypochromasia Pappenheimer Bodies PT INR APTT PTT Ratio Sodium Potassium Chloride Carbon Dioxide Anion Gap BUN Creatinine Est Cr Clr Drug Dosing Est GFR ( Amer) Est GFR (Non-Af Amer) BUN/Creatinine Ratio Glucose POC Glucose Calcium Total Bilirubin AST ALT Alkaline Phosphatase Total Protein Albumin Globulin Albumin/Globulin Ratio Lipase Urine Color Yellow Urine Appearance Clear Urine pH 5.5 Ur Specific [place] 1.015 Urine Protein Negative Urine Glucose (UA) Negative Urine Ketones Negative Urine Blood Negative Urine Nitrite Negative Urine Bilirubin Negative Urine Urobilinogen Negative Ur Leukocyte Esterase Negative Ethyl Alcohol mg/dL SARS-CoV-2, RNA, NAAT Blood Type Antibody Screen Antibody Identification Antibody ID Comment Crossmatch 10/06/21 06:22 WBC RBC Hgb Hct MCV MCH MCHC RDW Std Deviation RDW Coeff of Bri Plt Count MPV Immature Gran % (Auto) Neut % (Auto) Lymph % (Auto) Day % (Auto) Eos % (Auto) Baso % (Auto) Neut # (Auto) Lymph # (Auto) Day # (Auto) Eos # (Auto) Baso # (Auto) Immature Gran # (Auto) Platelet Estimate Hypochromasia Pappenheimer Bodies PT INR APTT PTT Ratio Sodium 137 Potassium 4.8 Chloride 110 H Carbon Dioxide 18 L Anion Gap 9 BUN 83 H D Creatinine 1.53 H D Est Cr Clr Drug Dosing 67.8 Est GFR ( Amer) 63.6 Est GFR (Non-Af Amer) 54.9 BUN/Creatinine Ratio 54.2 H Glucose 115 H POC Glucose Calcium 9.5 Total Bilirubin 1.1 H AST 119 H ALT 30 Alkaline Phosphatase 41 Total Protein 7.2 Albumin 4.3 Globulin 2.9 Albumin/Globulin Ratio 1.5 Lipase Urine Color Urine Appearance Urine pH Ur Specific [place] Urine Protein Urine Glucose (UA) Urine Ketones Urine Blood Urine Nitrite Urine Bilirubin Urine Urobilinogen Ur Leukocyte Esterase Ethyl Alcohol mg/dL SARS-CoV-2, RNA, NAAT Blood Type Antibody Screen Antibody Identification Antibody ID Comment Crossmatch Diagnostic Findings Abdomen/Pelvis CT 10/05/21 11:[address] WITHOUT CONTRAST CT DOSE: 1068.83 mGy.cm HISTORY: Nausea, vomiting, upper and lower GIB, eval for ulcer/perf TECHNIQUE: Multiaxial CT images of the abdomen and pelvis were performed without contrast. A dose lowering technique was utilized adhering to the principles of ALARA. COMPARISON STUDY: Abdomen and pelvis CT 01/30/2017. FINDINGS: Please refer to the same day chest CT for further evaluation of the lung bases. No pneumoperitoneum. No pneumatosis. Poststernotomy changes and a mitral valve prosthesis again noted. No suspicious lytic or blastic osseous lesions. Heterogeneous appearance of liver consistent with hepatic steatosis. Subtle nodular contour to the liver consistent with cirrhosis. The spleen, adrenal glands, and pancreas are unremarkable. There is a punctate stone within the lower pole the right kidney. No left renal calculi. No ureteral calculi. No hydronephrosis. Normal bladder. No retroperitoneal lymphadenopathy. Stable subcentimeter periaortic lymph nodes. There is a single prominent gastrohepatic lymph node measuring 9 mm in short axis diameter. This has slightly increased in size. Minimal inflammatory change/edema adjacent to the gallbladder is likely due to the underlying cirrhosis. No gallbladder wall thickening identified. Mild calcified plaque within the normal caliber abdominal aorta. Soft tissue densities within the gluteal regions favor medication injection. Mild subcutaneous fat stranding within the left lateral abdominal wall. Suboptimal evaluation for bowel pathology due to the lack of intravenous and oral contrast. However, there is no definite bowel wall thickening or obstruction. Prior appendectomy. Colonic diverticulosis. No evidence for acute diverticulitis. IMPRESSION: 1. No bowel wall thickening or obstruction. 2. Colonic diverticulosis. No evidence for acute diverticulitis. 3. Cirrhotic liver demonstrating fatty change. 4. Minimal inflammatory change/edema adjacent to the gallbladder is likely due to underlying cirrhosis. No gallbladder wall thickening identified. 5. A single mildly enlarged gastrohepatic lymph node. This bears watching future examinations. 6. Mild subcutaneous fat stranding within the left lateral abdominal wall. This could be due to cellulitis or prior medication injection. 7. Right-sided nephrolithiasis. No ureteral stones. No hydronephrosis. ACT 112: Negative or not required by law. Electronically signed by: Yogesh Daniel M.D. 10/05/2021 11:[address] 10/05/21 11:25 CT chest diagnostic wo con CLINICAL HISTORY: upper GIB, N/V TECHNIQUE: Multidetector row helical CT of the chest was performed. Coronal and sagittal reformations were obtained. Automated dose lowering techniques and/or adjustment according to patient size were utilized for this exam. Comparison: None available at the time of this dictation. FINDINGS: Lungs and pleura: Normal. Heart and pericardium: Mitral annular prosthesis is seen. Vessels: Moderate atherosclerotic changes in the aorta and coronary arteries. Mediastinum and gloria: Unremarkable. Chest wall and lower neck: Unremarkable. Abdomen: A splenule is seen. Hepatic steatosis is seen. Bones: Unremarkable. IMPRESSION: Unremarkable evaluation of the chest. ACT 112: Negative or not required by law. Electronically signed by: Dale Baker M.D. 10/05/2021 12:09 PM 10/05/2021: EGD notes are reviewed performed due to history of coffee-ground emesis and melena which demonstrated a regular Z-line fine 41 cm from the incisors. Grade 1 esophageal varices. Portal hypertensive gastropathy. Erosive gastropathy with stigmata of recent bleeding. Multiple areas of stigmata of recent bleeding in the stomach and fundus consisting of black eschars in setting of portal gastropathy oozing. 1 area of fresh heme in area of portal gastropathy which recurred post washing was again noted. APC successfully to stop bleeding. Erosive duodenopathy with stigmata of recent bleeding. Exam otherwise normal with no specimens collected.
[2021-10-06] MEDS ORDERED: THIAMINE HCL 100 MG in SYRINGE 9 ML IV SCH (09:00)
[2021-10-06] MEDS ORDERED: FOLIC ACID 1 MG in SYRINGE 9.8 ML IV SCH (09:00)
[2021-10-06] MEDS: cefTRIAXone SODIUM 2,000 MG in DEXTROSE 5% 50 ML IV SCH (11:09)
--- NOTE | 2021-10-06 21:07 | Hospitalist Progress Note ---
Date of Service October 06, 2021 Assessment & Plan (1) UGI bleed: Plan: - Suspected, with BUN 103 and reported multiple episodes of dark tarry stools last evening and coffee-ground emesis x1 this morning. With known history of cirrhosis, grade 1 esophageal varices. - Started on Protonix drip with bolus and octreotide in ED continue these. Also continue ceftriaxone started in ED. - EGD completed on 10/05: Erosive gastropathy with stigmata of recent bleeding. - Multiple areas of stigmata of recent bleeding in the stomach body and fundus consisting of black eschars in setting of portal gastropathy oozing. One area of fresh heme in area of portal gastropathy which recurred post washing was noted. Argon Plasms coagulation used (flow 1.4, 35W) successfully to stop bleeding. - Erosive duodenopathy with stigmata of recent bleeding -Patient currently tolerating a clear liquid diet Continue PPI. - Control pain, nausea/vomiting. (2) Anemia: Plan: - Symptomatic, with lightheadedness and palpitations. Likely due to upper GI bleed. Type and cross, consent achieved in ED. 2 units PRBCs ordered in ED. - Hgb 9.2 upon presentation, recheck prior to EGD later this afternoon was 7.6; was 11.7 in April 2021. - Recheck 9.6-----> 9.1 s/p transfusion. 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 - Previously on warfarin, however was switched to Lovenox when his hepatitis C treatment was initiated due to difficulty maintaining therapeutic INR. Patient on Lovenox for mechanical valve, last dose was last evening. We will hold this for now and place consult for Dr. Gutiérrez see patient, appreciate her recommendations regarding anticoagulation moving forward. (4) SABINE (acute kidney injury): Plan: - Creatinine 2.55 baseline around 1.101.30. - Normosol at 125 cc/hour. - Follow renal function on a.m. labs. (5) Alcohol abuse: Plan: - Near daily use, varying amounts, reports drinking a fifth of liquor/day this weekend, last drink yesterday around 3 PM yesterday 10/04. - AWSS with as needed lorazepam. - Currently attending AA meetings weekly, would benefit from rehab, patient has completed this before and is interested. (6) Hypertension: Plan: - Hold antihypertensives for now in the setting of hypotensin due to acute blood loss. - Home medications include HCTZ 12.5 mg daily, lisinopril 30 mg daily, metoprolol 100 mg daily. (7) Hepatitis C: Plan: - Recently completed treatment for this with [facility]. (8) GERD (gastroesophageal reflux disease): Plan: - Protonix at home, will be on IV Protonix for now. Plan: - Admit to PCU. - SCDs for DVT ppx. - Full Code. Admission and Anticipated Discharge Date Admission Date: October 05, 2021 Subjective Patient reports the frequency of his stools have decreased. Patient reports only 1 BM which was dark. Patient reports mild pain in his epigastric region when he coughs. Review of Systems Review of Systems: All systems reviewed & are unremarkable except as noted in HPI & below Physical Exam Physical Exam: General: awake, alert, no apparent distress Head: Normocephalic, atraumatic ENT: PERRL, EOMI, no pharyngeal exudate, mucous membranes moist Chest: Clear to auscultation, on room air, no adventitious breath sounds Cardiac: Regular rate and rhythm, no murmur, no JVD, normal peripheral pulses, good capillary refill Abdominal: NABS x 4 quadrants, soft, nontender to palpation, no rebound, guarding or tenderness Extremities: Normal inspection, no peripheral edema or erythema, calfs nontender to palpation Psych: Normal mood and affect Neuro: AAO x 3, strength intact bilaterally and rated 5/5, no motor deficits, speech is clear, no peripheral sensory deficits Skin: bruising no rash or erythema Results & Data Results & Data ([facility]) Vital Signs (Past 12 Hours) Vital Signs Temp Pulse Resp BP Pulse Ox 10/06/21 19:48 36.8 C 67 18 118/79 97 10/06/21 14:46 36.7 C 71 18 113/72 99 10/06/21 12:00 36.6 C 69 16 115/77 98 PG Care Time/CCT Total # of Minutes Spent Total Time Spent with Patient: Total time spent is greater than 50% in coordination of care (as documented) at patient's floor/unit and/or counseling patient: Coding Level of Care Code 07021 Subseq Hosp Care Lvl 2 Diagnoses UGI bleed K92.2 Anemia D64.9 H/O mitral valve replacement Z95.2 SABINE (acute kidney injury) N17.9 Alcohol abuse F10.10 Hypertension I10 Hepatitis C B19.20 GERD (gastroesophageal reflux disease) K21.9
[2021-10-06 21:49] LABS: Hematocrit (blood only) 27.5 % (42-52); Hemoglobin 9.1 g/dL (14.0-18.0)
[2021-10-07] MEDS: OCTREOTIDE ACETATE 500mcg / D5W 100mL @50mcg/hr IV SCH (00:35)
[2021-10-07] MEDS: PANTOprazole 40 MG in DEXTROSE 5% 100 ML IV SCH ×5 (03:01→23:47)
[2021-10-07] MEDS: FOLIC ACID 1 MG TAB PO SCH (07:39)
[2021-10-07] MEDS: THIAMINE HCL 100 MG TAB PO SCH (07:39)
--- NOTE | 2021-10-07 08:22 | Gastroenterology Progress Note ---
Date of Service October 07, 2021 Assessment & Plan (1) Alcohol abuse: Plan: Upper GI bleeding: Status post EGD 10/05/2021 which demonstrated bleeding portal hypertensive gastropathy. Continue PPI orally. Discontinue octreotide. He is on anticoagulation chronically due to history of mitral valve replacement. Patient is tolerating clear, recommend advance diet as tolerated. Cirrhosis: Likely due to alcohol with history of hepatitis C as well. Strongly recommend alcohol cessation Hepatitis C: Follow-up in outpatient clinic Enlarged abdominal lymph node--suggest following this, Pt should get imaging for cirrhosis every 6 months and can do CT scan as imaging study for now. Case reviewed with Dr. Perez. Please refer to supervising physician addendum for further recommendations. I have spent 10 minutes of discrete time performing the activities of this visit which include but are not limited to review of the medical record, obtaining a history, physical exam, and entering information in the electronic record. (2) Portal hypertensive gastropathy: (3) Hepatitis C: Admission and Anticipated Discharge Date Admission Date: October 05, 2021 Supervising Physician Co-Signing Physician Notes I have seen and examined the patient. I agree with note above by XUAN Barillas except as noted below. HPI No stools today. No abd pain, Hgb stable PE Abdomen pos bs,soft, no guarding nor rebound A/P GI bleeding resolved clinically. ok to restart anticoagulation for valve. abd node enlarged--follow as outpt. As the supervising physician, I , Sundar Perez MD have spent 12 minutes of discrete time performing the activities of this visit which include but not limited to review of the medical records, obtaining a history, physical exam and entering information in the electronic record. XUAN Barillas has reported spending 10 minutes of discrete time with the activities of this visit. Subjective Patient awake alert and oriented this morning. Sitting in bed and position of comfort. States he feels sore muscularly this morning. Reports of abdominal discomfort when coughing. Denies abdominal pain otherwise. No nausea or vomiting. Tolerating clear liquid diet. No fever chills or night sweats overnight. He reports no bowel movement yesterday evening or today so far. Review of Systems Review of Systems: All systems reviewed & are unremarkable except as noted in Subjective Physical Exam Gastrointestinal (Abdomen): Inspection/Auscultation: abdomen normal to ins pection and normal bowel sounds; abdomen not distended Results & Data ([facility]) Vital Signs (Past 12 Hours) Vital Signs Temp Pulse Pulse Resp BP Pulse Ox 10/07/21 07:44 36.8 C 79 16 123/80 98 10/07/21 03:00 37.1 C 69 18 120/80 95 10/06/21 23:48 36.9 C 73 18 129/75 97 10/06/21 23:16 60 Laboratory Results Laboratory Results - last 24 hr 10/06/21 10/07/21 10/07/21 19:50 08:03 08:03 WBC 4.22 L RBC 2.85 L Hgb 9.1 L 9.4 L Hct 27.5 L 28.7 L MCV 100.7 H MCH 33.0 MCHC 32.8 RDW Std Deviation 68.6 H RDW Coeff of Bri 18.6 H Plt Count 69 L MPV 12.6 H Platelet Estimate Decreased L Sodium 136 Potassium 4.0 Chloride 108 H Carbon Dioxide 19 L Anion Gap 9 BUN 46 H D Creatinine 1.08 D Est Cr Clr Drug Dosing 96.3 Est GFR ( Amer) 96.9 Est GFR (Non-Af Amer) 83.6 BUN/Creatinine Ratio 42.6 H Glucose 193 H Estimat Average Glucose Hemoglobin A1c Calcium 9.3 Iron TIBC Unsaturated IBC Transferrin % Sat Ferritin Total Bilirubin 0.9 Direct Bilirubin 0.3 H AST 188 H ALT 62 H Alkaline Phosphatase 42 Total Protein 7.1 Albumin 4.2 Vitamin B12 Folate 10/07/21 10/07/21 10/07/21 08:03 08:03 09:25 WBC RBC Hgb Hct MCV MCH MCHC RDW Std Deviation RDW Coeff of Bri Plt Count MPV Platelet Estimate Sodium Potassium Chloride Carbon Dioxide Anion Gap BUN Creatinine Est Cr Clr Drug Dosing Est GFR ( Amer) Est GFR (Non-Af Amer) BUN/Creatinine Ratio Glucose Estimat Average Glucose 97 Hemoglobin A1c 5.0 Calcium Iron 62 TIBC 451 H Unsaturated IBC 389 H Transferrin % Sat 14 L Ferritin 971.6 H Total Bilirubin Direct Bilirubin AST ALT Alkaline Phosphatase Total Protein Albumin Vitamin B12 482 Folate > 22.30
[2021-10-07 09:15] LABS: Albumin Level 4.2 gm/dl (3.4-5.0); BUN Creatinine Ratio 42.6 (10-20); Bilirubin Direct 0.3 mg/dl (0-0.2); Bilirubin,Total 0.9 mg/dl (0.2-1.0); Calcium 9.3 mg/dl (8.5-10.1); Creatinine Clr Calc Pharmacy 96.3 ml/min; Est GFR (African American) 96.9 ml/min; Est GFR (Non-African American) 83.6 ml/min; Total Protein 7.1 gm/dl (6.0-8.3)
[2021-10-07 09:32] LABS: Hematocrit (blood only) 28.7 % (42-52); Hemoglobin 9.4 g/dL (14.0-18.0); Mean Corpuscular Hgb Conc 32.8 g/dL (32-36); Mean Corpuscular Volume 100.7 fL (80-100); Mean Platelet Volume 12.6 fL (7.4-10.4); Platelet Count 69 K/uL (130-400); RDW Coefficient of Variation 18.6 % (11.5-14.5); RDW Standard Deviation 68.6 fL (36.4-46.3); Red Blood Count 2.85 M/uL (4.7-6.1); White Blood Count 4.22 K/uL (4.8-10.8)
[2021-10-07 09:33] LABS: Platelet Estimate Decreased (Normal)
[2021-10-07 10:28] LABS: Ferritin 971.6 ng/ml (8-388)
[2021-10-07 10:32] LABS: Folate (Folic Acid) > 22.30 ng/ml (>5.38)
[2021-10-07 10:33] LABS: Vitamin B12 482 pg/ml (180-914)
[2021-10-07 10:48] LABS: Estimated Average Glucose 97 mg/dl
[2021-10-07] MEDS: cefTRIAXone SODIUM 2,000 MG in DEXTROSE 5% 50 ML IV SCH (11:03)
[2021-10-07] MEDS ORDERED: Heparin IV Adult Wt-Based Standard *NO* Bolus Protocol IV ONE (15:43)
[2021-10-07] MEDS: HEPARIN SODIUM/DEXTROSE 25,000 UNITS/500 ML BAG IV SCH (17:13)
[2021-10-07] MEDS ORDERED: ENOXAPARIN 100 MG/1ML SYR SQ SCH (18:00)
--- NOTE | 2021-10-07 21:49 | Hospitalist Progress Note ---
Date of Service October 07, 2021 Assessment & Plan (1) UGI bleed: Plan: 2nd to portal gastropathy. Rx with Protonix drip and octreotide drip. EGD by [facility] 10/05 with: - Multiple areas of stigmata of recent bleeding in the stomach body and fundus consisting of black eschars in setting of portal gastropathy oozing. One area of fresh heme in area of portal gastropathy which recurred post washing was noted. Argon Plasms coagulation used (flow 1.4, 35W) successfully to stop bleeding. - Erosive duodenopathy with stigmata of recent bleeding H/H stable since several days ago with no signs of ongoing bleeding. Plan - cont PPI drip; d/c octreotide drip. Advance diet. Resume AC - will use heparin drip in taylor of lovenox in the event he does re- bleeding; heparin can be stopped quickly. CBC am. (2) Anemia: Plan: 2nd to acute blood loss anemia from #1. S/P 2 UNITS prbcs earlier this admission. h/h stable since then. CBC in am. 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 Previously on warfarin, however was switched to Lovenox when his hepatitis C treatment was initiated due to difficulty maintaining therapeutic INR. Spoke with GI - ok to resume AC. Spoke directly with Dr Gutiérrez - heparin IV or lovenox SC both permissible. Plan to start with IV heparin - can be stopped rapidly and reversed if any GI bleeding. Standard dosing, no bolus. Plan to start warfarin 5mg tomorrow with slow uptrend in INR. CBC in am. (4) SABINE (acute kidney injury): Plan: Peak Creatinine 2.55 Now normal/resolved 2nd to #1 (5) Alcohol abuse: Plan: last drink 10/04/21. no evidence of withdrawal at this time. Currently attending AA meetings weekly, would benefit from rehab, patient has completed this before and is interested. Will readdress with him. (6) Hypertension: Plan: Continue to hold HCTZ 12.5 mg daily, lisinopril 30 mg daily, metoprolol 100 mg daily. (7) Hepatitis C: Plan: Recently completed treatment for this with [facility]. (8) GERD (gastroesophageal reflux disease): Plan: cont IV PPI (9) Acute blood loss anemia: Plan: 2nd to #1 s/p 2 units PRBCs H/H stable since Trend his cbc daily (10) Pancytopenia: Plan: 2nd to cirrhosis trend his CBC (11) Hyperglycemia: Plan: HbA1C returned low at 5% but may not be accurate given acute blood loss & blood transfusion check BSGs ac/hs institute therapy as needed Plan: PT eval requested Admission and Anticipated Discharge Date Admission Date: October 05, 2021 Subjective tele wnl overnight tolerating clears no stool since his EGD he states that when he coughs or moves he has mild abdominal discomfort under the ribs drinking/eating does not bother this ambulating Review of Systems Review of Systems: gen - no anorexia cv - no cp pulm - no dyspnea or [facility] - no nausea/emesis; no BRBPR Physical Exam Physical Exam: gen - NAD mouth - MMM neck - no JVD heart - RRR, s1 s2, no murmur; [facility] sound heard lungs - CTA bl abd - soft NT ND BS+ ext - no edema, pulses 2+ b/l skin - pallor; no jaundice psych - a/o x 3 Results & Data Results & Data ([facility]) Vital Signs (Past 12 Hours) Vital Signs Temp Pulse Pulse Pulse Resp BP Pulse Ox 10/07/21 19:55 37.1 C 71 18 126/65 97 10/07/21 17:00 10/07/21 16:43 69 10/07/21 11:53 36.5 C 67 18 129/84 100 Pulse Ox 10/07/21 19:55 10/07/21 17:00 99 10/07/21 16:43 10/07/21 11:53 Laboratory Results Laboratory Results - last 24 hr 10/06/21 10/07/21 10/07/21 19:50 08:03 08:03 WBC 4.22 L RBC 2.85 L Hgb 9.1 L 9.4 L Hct 27.5 L 28.7 L MCV 100.7 H MCH 33.0 MCHC 32.8 RDW Std Deviation 68.6 H RDW Coeff of Bri 18.6 H Plt Count 69 L MPV 12.6 H Platelet Estimate Decreased L Sodium 136 Potassium 4.0 Chloride 108 H Carbon Dioxide 19 L Anion Gap 9 BUN 46 H D Creatinine 1.08 D Est Cr Clr Drug Dosing 96.3 Est GFR ( Amer) 96.9 Est GFR (Non-Af Amer) 83.6 BUN/Creatinine Ratio 42.6 H Glucose 193 H Estimat Average Glucose Hemoglobin A1c Calcium 9.3 Iron TIBC Unsaturated IBC Transferrin % Sat Ferritin Total Bilirubin 0.9 Direct Bilirubin 0.3 H AST 188 H ALT 62 H Alkaline Phosphatase 42 Total Protein 7.1 Albumin 4.2 Vitamin B12 Folate 10/07/21 10/07/21 10/07/21 08:03 08:03 09:25 WBC RBC Hgb Hct MCV MCH MCHC RDW Std Deviation RDW Coeff of Bri Plt Count MPV Platelet Estimate Sodium Potassium Chloride Carbon Dioxide Anion Gap BUN Creatinine Est Cr Clr Drug Dosing Est GFR ( Amer) Est GFR (Non-Af Amer) BUN/Creatinine Ratio Glucose Estimat Average Glucose 97 Hemoglobin A1c 5.0 Calcium Iron 62 TIBC 451 H Unsaturated IBC 389 H Transferrin % Sat 14 L Ferritin 971.6 H Total Bilirubin Direct Bilirubin AST ALT Alkaline Phosphatase Total Protein Albumin Vitamin B12 482 Folate > 22.30 PG Care Time/CCT Total # of Minutes Spent Total Time Spent with Patient: Total time spent is greater than 50% in coordination of care (as documented) at patient's floor/unit and/or counseling patient: Coding Level of Care Code 44971 Subseq Hosp Care Lvl 3 Diagnoses UGI bleed K92.2 Anemia D64.9 H/O mitral valve replacement Z95.2 SABINE (acute kidney injury) N17.9 Alcohol abuse F10.10 Hypertension I10 Hepatitis C B19.20 GERD (gastroesophageal reflux disease) K21.9 Acute blood loss anemia D62 Pancytopenia D61.818 Hyperglycemia R73.9
[2021-10-07 23:06] LABS: Partial Thromboplastin Ratio 1.7
[2021-10-07 23:07] LABS: Partial Thromboplastin Time 46.9 Seconds (21.0-31.0)
[2021-10-08] MEDS: PANTOprazole 40 MG in DEXTROSE 5% 100 ML IV SCH ×2 (04:46→07:42)
[2021-10-08 05:38] LABS: Hematocrit (blood only) 26.5 % (42-52); Hemoglobin 8.9 g/dL (14.0-18.0); Mean Corpuscular Hemoglobin 33.1 pg (25-34); Mean Corpuscular Hgb Conc 33.6 g/dL (32-36); Mean Corpuscular Volume 98.5 fL (80-100); Mean Platelet Volume 12.1 fL (7.4-10.4); Platelet Count 72 K/uL (130-400); RDW Coefficient of Variation 17.5 % (11.5-14.5); RDW Standard Deviation 62.9 fL (36.4-46.3); Red Blood Count 2.69 M/uL (4.7-6.1); White Blood Count 4.36 K/uL (4.8-10.8)
[2021-10-08 06:01] LABS: BUN Creatinine Ratio 27.8 (10-20); Calcium 9.3 mg/dl (8.5-10.1); Creatinine Clr Calc Pharmacy 88.2 ml/min; Est GFR (African American) 96.9 ml/min; Est GFR (Non-African American) 83.6 ml/min; Potassium 3.9 mmol/L (3.5-5.1)
[2021-10-08 06:05] LABS: Partial Thromboplastin Ratio 2.3
[2021-10-08 06:06] LABS: Partial Thromboplastin Time 63.5 Seconds (21.0-31.0)
[2021-10-08] MEDS: THIAMINE HCL 100 MG TAB PO SCH ×2 (07:52→20:07)
[2021-10-08] MEDS: FOLIC ACID 1 MG TAB PO SCH (07:53)
--- NOTE | 2021-10-08 08:40 | Gastroenterology Progress Note ---
Date of Service October 08, 2021 Assessment & Plan (1) Alcohol abuse: Plan: Upper GI bleeding: Status post EGD 10/05/2021 which demonstrated bleeding portal hypertensive gastropathy. Continue PPI orally. Octreotide was discontinued. He is on anticoagulation chronically due to history of mitral valve replacement. Anticoagulation restarted by hospitalist - currently on Heparin gtt. Patient is tolerating solid foods. Hgb 8.9, Hct 26.5 this morning reflecting slight drop from yesterday with no obvious signs of bleeding. Continue to monitor. Cirrhosis: Likely due to alcohol with history of hepatitis C as well. Strongly recommend alcohol cessation Hepatitis C: Follow-up in outpatient clinic Enlarged abdominal lymph node--suggest following this, Pt should get imaging for cirrhosis every [address] scan as imaging study for now. Case reviewed with Dr. Perez. Please refer to supervising physician addendum for further recommendations. I have spent 10 minutes of discrete time performing the activities of this visit which include but are not limited to review of the medical record, obtaining a history, physical exam, and entering information in the electronic record. (2) Portal hypertensive gastropathy: (3) Hepatitis C: Admission and Anticipated Discharge Date Admission Date: October 05, 2021 Supervising Physician Co-Signing Physician Notes I have seen and examined the patient. I agree with note above by XUAN Barillas except as noted below. HPI Pt denies abd pain. Once small stools last 24 hours was last night. Hgb 8.9 vs 9.4 and 9.1 prior. PE Abdomen pos bs, soft, no guarding nor rebound A/P GI bleeding secondary to portal gastropathy---although H and H drop, there are no stools to suggest active bleeding. Continue PPI. anemia--follow H and H abdominal lymph node enlarged--follow as outpt. As the supervising physician, I , Sundar Perez MD have spent 10 minutes of discrete time performing the activities of this visit which include but not limited to review of the medical records, obtaining a history, physical exam and entering information in the electronic record. XUAN Barillas has reported spending 10 minutes of discrete time with the activities of this visit. Subjective Patient awake alert and oriented and walking in the halls this morning. States he is feeling well overall. He has some lingering muscular soreness. Denies any abdominal pain, nausea, vomiting. He is tolerating solid regular diet. Reports that he had a very small bowel movement last night and it was black in color. No other bleeding per patient report. Review of Systems Review of Systems: All systems reviewed & are unremarkable except as noted in HPI & below Physical Exam Gastrointestinal (Abdomen): Inspection/Auscultation: abdomen normal to inspection and normal bowel sounds; abdomen not distended Results & Data ([facility]) Vital Signs (Past 12 Hours) Vital Signs Temp Pulse Pulse Pulse Resp BP Pulse Ox 10/08/21 06:55 36.6 C 75 20 132/82 97 10/08/21 04:27 36.8 C 79 18 125/93 98 10/07/21 23:18 36.8 C 80 18 129/87 98 10/07/21 22:20 62 Laboratory Results Laboratory Results - last 24 hr 10/07/21 10/07/21 10/07/21 08:03 08:03 08:03 WBC 4.22 L RBC 2.85 L Hgb 9.4 L Hct 28.7 L MCV 100.7 H MCH 33.0 MCHC 32.8 RDW Std Deviation 68.6 H RDW Coeff of Bri 18.6 H Plt Count 69 L MPV 12.6 H Platelet Estimate Decreased L APTT PTT Ratio Sodium 136 Potassium 4.0 Chloride 108 H Carbon Dioxide 19 L Anion Gap 9 BUN 46 H D Creatinine 1.08 D Est Cr Clr Drug Dosing 96.3 Est GFR ( Amer) 96.9 Est GFR (Non-Af Amer) 83.6 BUN/Creatinine Ratio 42.6 H Glucose 193 H POC Glucose Estimat Average Glucose Hemoglobin A1c Calcium 9.3 Magnesium Iron 62 TIBC 451 H Unsaturated IBC 389 H Transferrin % Sat 14 L Ferritin 971.6 H Total Bilirubin 0.9 Direct Bilirubin 0.3 H AST 188 H ALT 62 H Alkaline Phosphatase 42 Total Protein 7.1 Albumin 4.2 Vitamin B12 Folate 10/07/21 10/07/21 10/07/21 08:03 09:25 22:26 WBC RBC Hgb Hct MCV MCH MCHC RDW Std Deviation RDW Coeff of Bri Plt Count MPV Platelet Estimate APTT 46.9 H* PTT Ratio 1.7 Sodium Potassium Chloride Carbon Dioxide Anion Gap BUN Creatinine Est Cr Clr Drug Dosing Est GFR ( Amer) Est GFR (Non-Af Amer) BUN/Creatinine Ratio Glucose POC Glucose Estimat Average Glucose 97 Hemoglobin A1c 5.0 Calcium Magnesium Iron TIBC Unsaturated IBC Transferrin % Sat Ferritin Total Bilirubin Direct Bilirubin AST ALT Alkaline Phosphatase Total Protein Albumin Vitamin B12 482 Folate > 22.30 10/08/21 10/08/21 10/08/21 05:23 05:23 05:23 WBC 4.36 L RBC 2.69 L Hgb 8.9 L Hct 26.5 L MCV 98.5 MCH 33.1 MCHC 33.6 RDW Std Deviation 62.9 H RDW Coeff of Bri 17.5 H Plt Count 72 L MPV 12.1 H Platelet Estimate APTT 63.5 H* PTT Ratio 2.3 Sodium 135 L Potassium 3.9 Chloride 107 Carbon Dioxide 21 Anion Gap 7 BUN 30 H Creatinine 1.08 Est Cr Clr Drug Dosing 88.2 Est GFR ( Amer) 96.9 Est GFR (Non-Af Amer) 83.6 BUN/Creatinine Ratio 27.8 H Glucose 116 H POC Glucose Estimat Average Glucose Hemoglobin A1c Calcium 9.3 Magnesium Iron TIBC Unsaturated IBC Transferrin % Sat Ferritin Total Bilirubin Direct Bilirubin AST ALT Alkaline Phosphatase Total Protein Albumin Vitamin B12 Folate 10/08/21 10/08/21 05:23 07:50 WBC RBC Hgb Hct MCV MCH MCHC RDW Std Deviation RDW Coeff of Bri Plt Count MPV Platelet Estimate APTT PTT Ratio Sodium Potassium Chloride Carbon Dioxide Anion Gap BUN Creatinine Est Cr Clr Drug Dosing Est GFR ( Amer) Est GFR (Non-Af Amer) BUN/Creatinine Ratio Glucose POC Glucose 157 H Estimat Average Glucose Hemoglobin A1c Calcium Magnesium 1.3 L Iron TIBC Unsaturated IBC Transferrin % Sat Ferritin Total Bilirubin Direct Bilirubin AST ALT Alkaline Phosphatase Total Protein Albumin Vitamin B12 Folate
[2021-10-08] MEDS: MAGNESIUM SULFATE / D5W 1 GM/100 ML BAG IV SCH ×3 (09:55→13:45)
[2021-10-08] MEDS: PANTOprazole 40 MG TAB PO SCH ×2 (09:55→20:07)
[2021-10-08] MEDS: CEROVITE ADV FORMULA TAB PO SCH (09:55)
[2021-10-08] MEDS: HEPARIN SODIUM/DEXTROSE 25,000 UNITS/500 ML BAG IV SCH (10:42)
[2021-10-08] MEDS: WARFARIN SOD 5 MG TAB PO SCH (17:25)
[2021-10-08 17:38] LABS: Partial Thromboplastin Ratio 2.2
[2021-10-08 17:39] LABS: Partial Thromboplastin Time 61.8 Seconds (21.0-31.0)
--- NOTE | 2021-10-08 19:13 | Hospitalist Progress Note ---
Date of Service October 08, 2021 Assessment & Plan (1) UGI bleed: Plan: 2nd to portal gastropathy. Rx with Protonix drip and octreotide drip. EGD by [facility] 10/05 with: - Multiple areas of stigmata of recent bleeding in the stomach body and fundus consisting of black eschars in setting of portal gastropathy oozing. One area of fresh heme in area of portal gastropathy which recurred post washing was noted. Argon Plasms coagulation used (flow 1.4, 35W) successfully to stop bleeding. - Erosive duodenopathy with stigmata of recent bleeding H/H cont to remain stable since several days ago with no signs of ongoing bleeding. Plan - d/c PPI drip; change to PO protonix BID. Cont heparin drip until tomorrow; resume coumadin today. INR and PTT in am. If H/H tomorrow am are stable can stop heparin drip then and transition to lovenox 1mg/kg BID. Appreciate GI assistance. (2) Anemia: Plan: 2nd to acute blood loss anemia from #1. S/P 2 UNITS prbcs earlier this admission. h/h stable since then. CBC in am. 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 Previously on warfarin, however was switched to Lovenox when his hepatitis C treatment was initiated due to difficulty maintaining therapeutic INR. Cont heparin drip again overnight. Resume coumadin today at 5mg/day. INR am. If H/H stable tomorrow - stop heparin drip, change to SC lovenox. Lovenox bridge at discharge until INR is 2.5 to 3.5. CBC in am. (4) SABINE (acute kidney injury): Plan: Peak Creatinine 2.55 resolved Cr now 1 2nd to #1 (5) Alcohol abuse: Plan: last drink 10/04/21. no evidence of withdrawal at this time. Currently attending AA meetings weekly, would benefit from rehab from patient at this point hoping to return home. Cont thiamine BID, folate, MVI. (6) Hypertension: Plan: Continue to hold HCTZ 12.5 mg daily, lisinopril 30 mg daily, metoprolol 100 mg daily. BPs controlled w/o them However, would benefit from inderal or nadalol given his portal HTN (7) Hepatitis C: Plan: Recently completed treatment for this with [facility]. (8) GERD (gastroesophageal reflux disease): Plan: cont PPI twice daily (9) Acute blood loss anemia: Plan: 2nd to #1 s/p 2 units PRBCs H/H stable since Trend his cbc daily (10) Pancytopenia: Plan: 2nd to cirrhosis trend his CBC stable/acceptable for now b12/folate wnl check TSH for completeness (11) Hyperglycemia: Plan: HbA1C returned low at 5% but may not be accurate given acute blood loss & blood transfusion checking BSGs and thus far are all about 150 or less institute therapy as needed (12) Cirrhosis: Plan: radiographic evidence and EGD evidence (varices, portal gastropathy, etc) 2nd to etoh and/or HepC no evidence of hepatic encephalopathy needs to be 100% abstinent from etoh Plan: PT, OT evals completed - cleared for home updated by phone this evening Admission and Anticipated Discharge Date Admission Date: October 05, 2021 Subjective no events feels good no abd pain, GI intolerance to food, nausea or emesis did have 1 small BM finally - black in color, no BRBPR tele wnl overnight tolerating heparin IV no new complaints Review of Systems Review of Systems: gen - feels well, good energy & appetite cv - no chest pain pulm - no dyspnea GI - no abd pain Physical Exam Physical Exam: gen - NAD mouth - MMM neck - no JVD heart - RRR, s1 s2, no murmur; mech valve closure sound heard lungs - CTA bl abd - soft NT ND BS+ ext - no edema, pulses 2+ b/l skin - pallor psych - a/o x 3 Results & Data Results & Data ([facility]) Vital Signs (Past 12 Hours) Vital Signs Temp Pulse Pulse Resp BP BP Pulse Ox 10/08/21 17:00 10/08/21 15:46 36.8 C 100 H 24 122/79 99 10/08/21 12:43 36.7 C 83 16 140/92 96 10/08/21 08:58 36.6 C 77 20 127/79 97 Pulse Ox 10/08/21 17:00 98 10/08/21 15:46 10/08/21 12:43 10/08/21 08:58 Laboratory Results Laboratory Results - last 24 hr 10/07/21 10/08/21 10/08/21 22:26 05:23 05:23 WBC RBC Hgb Hct MCV MCH MCHC RDW Std Deviation RDW Coeff of Bri Plt Count MPV APTT 46.9 H* 63.5 H* PTT Ratio 1.7 2.3 Sodium 135 L Potassium 3.9 Chloride 107 Carbon Dioxide 21 Anion Gap 7 BUN 30 H Creatinine 1.08 Est Cr Clr Drug Dosing 88.2 Est GFR ( Amer) 96.9 Est GFR (Non-Af Amer) 83.6 BUN/Creatinine Ratio 27.8 H Glucose 116 H POC Glucose Calcium 9.3 Magnesium 10/08/21 10/08/21 10/08/21 05:23 05:23 07:50 WBC 4.36 L RBC 2.69 L Hgb 8.9 L Hct 26.5 L MCV 98.5 MCH 33.1 MCHC 33.6 RDW Std Deviation 62.9 H RDW Coeff of Bri 17.5 H Plt Count 72 L MPV 12.1 H APTT PTT Ratio Sodium Potassium Chloride Carbon Dioxide Anion Gap BUN Creatinine Est Cr Clr Drug Dosing Est GFR ( Amer) Est GFR (Non-Af Amer) BUN/Creatinine Ratio Glucose POC Glucose 157 H Calcium Magnesium 1.3 L 10/08/21 10/08/21 10/08/21 11:33 16:10 17:00 WBC RBC Hgb Hct MCV MCH MCHC RDW Std Deviation RDW Coeff of Bri Plt Count MPV APTT 61.8 H* PTT Ratio 2.2 Sodium Potassium Chloride Carbon Dioxide Anion Gap BUN Creatinine Est Cr Clr Drug Dosing Est GFR ( Amer) Est GFR (Non-Af Amer) BUN/Creatinine Ratio Glucose POC Glucose 119 H 141 H Calcium Magnesium PG Care Time/CCT Total # of Minutes Spent Total Time Spent with Patient: Total time spent is greater than 50% in coordination of care (as documented) at patient's floor/unit and/or counseling patient: Coding Level of Care Code 00529 Subseq Hosp Care Lvl 2 Diagnoses UGI bleed K92.2 Anemia D64.9 H/O mitral valve replacement Z95.2 SABINE (acute kidney injury) N17.9 Alcohol abuse F10.10 Hypertension I10 Hepatitis C B19.20 GERD (gastroesophageal reflux disease) K21.9 Acute blood loss anemia D62 Pancytopenia D61.818 Hyperglycemia R73.9 Cirrhosis K74.60
[2021-10-09] MEDS: HEPARIN SODIUM/DEXTROSE 25,000 UNITS/500 ML BAG IV SCH (02:17)
[2021-10-09 06:34] LABS: Hematocrit (blood only) 27.4 % (42-52); Hemoglobin 9.2 g/dL (14.0-18.0); Mean Corpuscular Hgb Conc 33.6 g/dL (32-36); Mean Corpuscular Volume 98.2 fL (80-100); Mean Platelet Volume 12.2 fL (7.4-10.4); Platelet Count 83 K/uL (130-400); RDW Coefficient of Variation 16.9 % (11.5-14.5); RDW Standard Deviation 61.3 fL (36.4-46.3); Red Blood Count 2.79 M/uL (4.7-6.1)
[2021-10-09 06:56] LABS: INR 1.3 (0.9-1.1); Partial Thromboplastin Ratio 2.2; Prothrombin Time 13.5 Seconds (9.0-12.0)
[2021-10-09 06:57] LABS: Albumin Globulin Ratio 1.5 (0.9-2); Albumin Level 4.3 gm/dl (3.4-5.0); BUN Creatinine Ratio 19.8 (10-20); Bilirubin,Total 0.8 mg/dl (0.2-1.0); Calcium 9.8 mg/dl (8.5-10.1); Creatinine Clr Calc Pharmacy 120.3 ml/min; Est GFR (African American) 123.1 ml/min; Est GFR (Non-African American) 106.2 ml/min; Globulin 2.8 gm/dl (2.5-4.0); Magnesium 1.8 mg/dl (1.7-2.4); Total Protein 7.1 gm/dl (6.0-8.3)
[2021-10-09 07:01] LABS: Partial Thromboplastin Time 61.4 Seconds (21.0-31.0)
[2021-10-09] MEDS: THIAMINE HCL 100 MG TAB PO SCH ×2 (08:43→20:00)
[2021-10-09] MEDS: PANTOprazole 40 MG TAB PO SCH ×2 (08:43→20:01)
[2021-10-09] MEDS: FOLIC ACID 1 MG TAB PO SCH (08:43)
[2021-10-09] MEDS: CEROVITE ADV FORMULA TAB PO SCH (08:43)
[2021-10-09] MEDS: ENOXAPARIN 100 MG/1ML SYR SQ SCH ×2 (11:51→23:14)
--- NOTE | 2021-10-09 16:48 | Gastroenterology Progress Note ---
Date of Service October 09, 2021 Assessment & Plan (1) Alcohol abuse: Plan: Upper GI bleeding: Status post EGD 10/05/2021 which demonstrated bleeding portal hypertensive gastropathy. Continue PPI orally. Stable clinically. Cirrhosis: Likely due to alcohol with history of hepatitis C as well. Strongly recommend alcohol cessation--discussed with patient. Hepatitis C: Follow-up in outpatient clinic Enlarged abdominal lymph node--suggest following this, Pt should get imaging for cirrhosis every [address] scan as imaging study for now. Will sign off. Please call for further questions. ISundar MD have spent 16 minutes of discrete time performing the activities of this visit which include but are not limited to review of the medical record, obtaining a history, physical exam, and entering information in the electronic record. (2) Portal hypertensive gastropathy: (3) Hepatitis C: Admission and Anticipated Discharge Date Admission Date: October 05, 2021 Subjective CC f/u GI bleeding HPI Pt denies abd pain. States 3 large stools today black but last one starting to move toward normal color. Hgb 9.2 today. Pt on Lovenox as bridge to coumadin managed by hospitalist. Physical Exam Constitutional: WD/WN, vitals as above Gastrointestinal (Abdomen): normal bowel sounds, soft, nontender, no hepatosplenomegaly Results & Data ([facility]) Vital Signs (Past 12 Hours) Vital Signs Temp Pulse Pulse Resp BP BP Pulse Ox 10/09/21 15:41 36.9 C 75 18 132/79 95 10/09/21 11:23 36.8 C 66 18 130/83 98 10/09/21 07:26 36.5 C 63 14 126/77 99 10/09/21 07:14 54 L
[2021-10-09] MEDS: WARFARIN SOD 5 MG TAB PO SCH (17:13)
--- NOTE | 2021-10-09 20:50 | Hospitalist Progress Note ---
Date of Service October 09, 2021 Assessment & Plan (1) UGI bleed: Plan: 2nd to portal gastropathy. Rx with Protonix drip and octreotide drip. EGD by [facility] 10/05 with: - Multiple areas of stigmata of recent bleeding in the stomach body and fundus consisting of black eschars in setting of portal gastropathy oozing. One area of fresh heme in area of portal gastropathy which recurred post washing was noted. Argon Plasms coagulation used (flow 1.4, 35W) successfully to stop bleeding. - Erosive duodenopathy with stigmata of recent bleeding H/H cont to remain stable since several days ago with no signs of ongoing bleeding. Current dark/melena stool is likely OLD blood. Plan - Cont PO protonix BID. Stop heparin drip and transition over to lovenox 90mg BID with warfarin Watch 24 hours on lovenox to ensure no recurrent GI bleeding INR in am CBC in am (2) Anemia: Plan: 2nd to acute blood loss anemia from #1. S/P 2 UNITS prbcs earlier this admission. h/h stable since then. CBC in am. 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 Previously on warfarin, however was switched to Lovenox when his hepatitis C treatment was initiated due to difficulty maintaining therapeutic INR. STOP heparin drip Change to lovenox 90mg BID Cont coumadin 5mg daily, day #2 of such INR in am. CBC in am. (4) SABINE (acute kidney injury): Plan: Peak Creatinine 2.55 resolved Cr now 1 2nd to #1 (5) Alcohol abuse: Plan: last drink 10/04/21. no evidence of withdrawal at this time. Currently attending AA meetings weekly. Cont thiamine BID, folate, MVI. (6) Hypertension: Plan: Continue to hold HCTZ 12.5 mg daily, lisinopril 30 mg daily, metoprolol 100 mg daily. BPs controlled w/o them However, would benefit from inderal or nadalol given his portal HTN will start inderal 10mg BID (7) Hepatitis C: Plan: Recently completed treatment for this with [facility]. (8) GERD (gastroesophageal reflux disease): Plan: cont PPI twice daily (9) Acute blood loss anemia: Plan: 2nd to #1 s/p 2 units PRBCs H/H stable since Trend his cbc daily (10) Pancytopenia: Plan: 2nd to cirrhosis trend his CBC stable/acceptable for now b12/folate wnl TSH wnl (11) Hyperglycemia: Plan: HbA1C returned low at 5% but may not be accurate given acute blood loss & blood transfusion checking BSGs and thus far are all about 150 or less institute therapy as needed (12) Cirrhosis: Plan: radiographic evidence and EGD evidence (varices, portal gastropathy, etc) 2nd to etoh and/or HepC no evidence of hepatic encephalopathy needs to be 100% abstinent from etoh long discussion with him today about the cirrhosis Plan: PT, OT jose c completed - cleared for home updated by phone yesterday evening d/c home tomorrow Admission and Anticipated Discharge Date Admission Date: October 05, 2021 Subjective tele overnight wnl had another stool today - still quite dark, but formed no gross bright red blood feels good ambulating eating drinking no abd pain Review of Systems Review of Systems: gen - no fevers or chills or weakness cv - no cp pulm - no dyspnea GI - no N/V Physical Exam Physical Exam: gen - NAD, looks good mouth - MMM neck - no JVD heart - RRR, s1 s2, no murmur; mech valve closure sound heard lungs - CTA bl abd - soft NT ND BS+ ext - no edema, pulses 2+ b/l skin - pallor - mild psych - a/o x 3 Results & Data Results & Data ([facility]) Vital Signs (Past 12 Hours) Vital Signs Temp Pulse Pulse Resp BP BP Pulse Ox 10/09/21 19:38 36.7 C 73 16 142/81 H 98 10/09/21 15:41 36.9 C 75 18 132/79 95 10/09/21 14:20 78 10/09/21 11:23 36.8 C 66 18 130/83 98 Laboratory Results Laboratory Results - last 24 hr 10/08/21 10/09/21 10/09/21 21:44 06:09 06:09 WBC 5.60 RBC 2.79 L Hgb 9.2 L Hct 27.4 L MCV 98.2 MCH 33.0 MCHC 33.6 RDW Std Deviation 61.3 H RDW Coeff of Bri 16.9 H Plt Count 83 L MPV 12.2 H PT 13.5 H INR 1.3 H APTT 61.4 H* PTT Ratio 2.2 Sodium Potassium Chloride Carbon Dioxide Anion Gap BUN Creatinine Est Cr Clr Drug Dosing Est GFR ( Amer) Est GFR (Non-Af Amer) BUN/Creatinine Ratio Glucose POC Glucose 129 H Calcium Magnesium Total Bilirubin AST ALT Alkaline Phosphatase Total Protein Albumin Globulin Albumin/Globulin Ratio TSH 10/09/21 10/09/21 10/09/21 06:09 06:09 07:24 WBC RBC Hgb Hct MCV MCH MCHC RDW Std Deviation RDW Coeff of Bri Plt Count MPV PT INR APTT PTT Ratio Sodium 136 Potassium 4.0 Chloride 105 Carbon Dioxide 24 Anion Gap 7 BUN 17 Creatinine 0.86 Est Cr Clr Drug Dosing 120.3 Est GFR ( Amer) 123.1 Est GFR (Non-Af Amer) 106.2 BUN/Creatinine Ratio 19.8 Glucose 105 H POC Glucose 130 H Calcium 9.8 Magnesium 1.8 Total Bilirubin 0.8 AST 83 H ALT 48 Alkaline Phosphatase 54 Total Protein 7.1 Albumin 4.3 Globulin 2.8 Albumin/Globulin Ratio 1.5 TSH 2.604 10/09/21 10/09/21 10/09/21 11:21 15:58 20:27 WBC RBC Hgb Hct MCV MCH MCHC RDW Std Deviation RDW Coeff of Bri Plt Count MPV PT INR APTT PTT Ratio Sodium Potassium Chloride Carbon Dioxide Anion Gap BUN Creatinine Est Cr Clr Drug Dosing Est GFR ( Amer) Est GFR (Non-Af Amer) BUN/Creatinine Ratio Glucose POC Glucose 118 H 132 H 135 H Calcium Magnesium Total Bilirubin AST ALT Alkaline Phosphatase Total Protein Albumin Globulin Albumin/Globulin Ratio TSH PG Care Time/CCT Total # of Minutes Spent Total Time Spent with Patient: Total time spent is greater than 50% in coordination of care (as documented) at patient's floor/unit and/or counseling patient: Coding Level of Care Code 19351 Subseq Hosp Care Lvl 2 Diagnoses UGI bleed K92.2 Anemia D64.9 H/O mitral valve replacement Z95.2 SABINE (acute kidney injury) N17.9 Alcohol abuse F10.10 Hypertension I10 Hepatitis C B19.20 GERD (gastroesophageal reflux disease) K21.9 Acute blood loss anemia D62 Pancytopenia D61.818 Hyperglycemia R73.9 Cirrhosis K74.60
[2021-10-09] MEDS: PROPRANOLOL HCL 10 MG TAB PO SCH (22:00)
[2021-10-10] MEDS: ENOXAPARIN 100 MG/1ML SYR SQ SCH (07:53)
[2021-10-10] MEDS: PROPRANOLOL HCL 10 MG TAB PO SCH (07:53)
[2021-10-10] MEDS: THIAMINE HCL 100 MG TAB PO SCH (07:54)
[2021-10-10] MEDS: FOLIC ACID 1 MG TAB PO SCH (07:54)
[2021-10-10] MEDS: PANTOprazole 40 MG TAB PO SCH (07:54)
[2021-10-10] MEDS: CEROVITE ADV FORMULA TAB PO SCH (07:54)
[2021-10-10 07:56] LABS: INR 1.6 (0.9-1.1); Prothrombin Time 16.9 Seconds (9.0-12.0)
[2021-10-10 09:22] LABS: Hematocrit (blood only) 26.8 % (42-52); Hemoglobin 8.9 g/dL (14.0-18.0); Mean Corpuscular Hemoglobin 33.2 pg (25-34); Mean Corpuscular Hgb Conc 33.2 g/dL (32-36); Mean Platelet Volume 12.8 fL (7.4-10.4); Platelet Count 90 K/uL (130-400); RDW Coefficient of Variation 17.1 % (11.5-14.5); RDW Standard Deviation 62.2 fL (36.4-46.3); Red Blood Count 2.68 M/uL (4.7-6.1); White Blood Count 5.39 K/uL (4.8-10.8)
--- NOTE | 2021-10-10 12:03 | Discharge Summary ---
Date of Service date of admission - October 05, 2021 date of discharge - October 10, 2021 Admission HPI Per Admitting Provider Mr. Thakkar is a 41-year-old male with past medical history of IVDA with history of hepatitis C which he recently completed treatment for, endocarditis and CVA in 2002 now s/p mechanical mitral valve replacement currently on Lovenox, alcohol abuse with cirrhosis, hypertension, hyperlipidemia, and GERD who presents today with dark stools and hematemesis. Patient reports he had an alcohol mobley this weekend, consuming a fifth of liquor/day on Monday and Monday. Last evening, he began experiencing dark, tarry stools and this morning had 1 episode of bloody emesis this morning. He also felt lightheaded and experienced palpitations this morning, which prompted his arrival to the ED for further evaluation. In ED, heart rate 126, borderline hypotensive at 105/64 then later became hypotensive 87/62, but responsive to IVF. Labs significant for Hgb 9.2, PT 13.7, INR 1.3, K+ 5.4, BUN 103, Cr 2.55, glucose 154, t. bili 1.2, AST 61, lipase 251. CT A/P with cirrhotic liver demonstrated fatty change. Chest CT unremarkable. Patient received IVF currently started on Protonix drip with bolus, as well as octreotide and ceftriaxone in ED. GI consulted, plan for endoscopy this afternoon. Hospitalist service consulted for further evaluation and admission. Principal Diagnosis acute blood loss anemia due to upper GI bleeding 2nd portal gastropathy Discharge Exam gen - NAD, looks good mouth - MMM neck - no JVD heart - RRR, s1 s2, no murmur; mech valve closure sound heard lungs - CTA bl abd - soft NT ND BS+ ext - no edema, pulses 2+ b/l skin - pallor - mild psych - a/o x 3 Discharge Data Allergies Allergy/AdvReac Type Severity Reaction Status Date / Time No Known Allergies Allergy Verified 02/09/21 12:30 Consultations [facility] PT OT Procedures Performed 1. 2 units PRBCs 2. Operation Date: 10/05/21 12:45 Actual Procedures Esophagogastroduodenoscopy - Sundar Perez MD - Z-line regular, 41 cm from the incisors. - Grade I esophageal varices. - Portal hypertensive gastropathy. - Erosive gastropathy with stigmata of recent bleeding. - Multiple areas of stigmata of recent bleeding in the stomach body and fundus consisting of black eschars in setting of portal gastropathy oozing. One area of fresh heme in area of portal gastropathy which recurred post washing was noted. Argon Plasms coagulation used (flow 1.4, 35W) successfully to stop bleeding. - Erosive duodenopathy with stigmata of recent bleeding. - The examination was otherwise normal. - No specimens collected. Ordered Studies Abdomen/Pelvis CT 10/05/21 11:[address] WITHOUT CONTRAST CT DOSE: 1068.83 mGy.cm HISTORY: Nausea, vomiting, upper and lower GIB, eval for ulcer/perf TECHNIQUE: Multiaxial CT images of the abdomen and pelvis were performed without contrast. A dose lowering technique was utilized adhering to the principles of ALARA. COMPARISON STUDY: Abdomen and pelvis CT 01/30/2017. FINDINGS: Please refer to the same day chest CT for further evaluation of the lung bases. No pneumoperitoneum. No pneumatosis. Poststernotomy changes and a mitral valve prosthesis again noted. No suspicious lytic or blastic osseous lesions. Heterogeneous appearance of liver consistent with hepatic steatosis. Subtle nodular contour to the liver consistent with cirrhosis. The spleen, adrenal glands, and pancreas are unremarkable. There is a punctate stone within the lower pole the right kidney. No left renal calculi. No ureteral calculi. No hydronephrosis. Normal bladder. No retroperitoneal lymphadenopathy. Stable subcentimeter periaortic lymph nodes. There is a single prominent gastrohepatic lymph node measuring 9 mm in short axis diameter. This has slightly increased in size. Minimal inflammatory change/edema adjacent to the gallbladder is likely due to the underlying cirrhosis. No gallbladder wall thickening identified. Mild calcified plaque within the normal caliber abdominal aorta. Soft tissue densities within the gluteal regions favor medication injection. Mild subcutaneous fat stranding within the left lateral abdominal wall. Suboptimal evaluation for bowel pathology due to the lack of intravenous and oral contrast. However, there is no definite bowel wall thickening or obstruction. Prior appen dectomy. Colonic diverticulosis. No evidence for acute diverticulitis. IMPRESSION: 1. No bowel wall thickening or obstruction. 2. Colonic diverticulosis. No evidence for acute diverticulitis. 3. Cirrhotic liver demonstrating fatty change. 4. Minimal inflammatory change/edema adjacent to the gallbladder is likely due to underlying cirrhosis. No gallbladder wall thickening identified. 5. A single mildly enlarged gastrohepatic lymph node. This bears watching future examinations. 6. Mild subcutaneous fat stranding within the left lateral abdominal wall. This could be due to cellulitis or prior medication injection. 7. Right-sided nephrolithiasis. No ureteral stones. No hydronephrosis. ACT 112: Negative or not required by law. Electronically signed by: Yogesh Daniel M.D. 10/05/2021 11:[address] 10/05/21 11:25 CT chest diagnostic wo con CLINICAL HISTORY: upper GIB, N/V TECHNIQUE: Multidetector row helical CT of the chest was performed. Coronal and sagittal reformations were obtained. Automated dose lowering techniques and/or adjustment according to patient size were utilized for this exam. Comparison: None available at the time of this dictation. FINDINGS: Lungs and pleura: Normal. Heart and pericardium: Mitral annular prosthesis is seen. Vessels: Moderate atherosclerotic changes in the aorta and coronary arteries. Mediastinum and gloria: Unremarkable. Chest wall and lower neck: Unremarkable. Abdomen: A splenule is seen. Hepatic steatosis is seen. Bones: Unremarkable. IMPRESSION: Unremarkable evaluation of the chest. ACT 112: Negative or not required by law. Electronically signed by: Dale Baker M.D. 10/05/2021 12:09 PM Hospital Course (1) UGI bleed: 2nd to portal gastropathy. Initially treated with Protonix drip and octreotide drip. EGD by [facility] 10/05/21 with: - Multiple areas of stigmata of recent bleeding in the stomach body and fundus consisting of black eschars in setting of portal gastropathy oozing. One area of fresh heme in area of portal gastropathy which recurred post washing was noted. Argon Plasma coagulation used (flow 1.4, 35W) successfully to stop bleeding. - Erosive duodenopathy with stigmata of recent bleeding was also seen. Presenting hemoglobin was 9.2, falling to 7.6 due to the upper GI bleeding. s/p 2 units PRBCs. Following the EGD & the blood transfusion his H/H remained stable from that point forward with most hemoglobin levels about 9. He did have several dark/melena stools post-EDG but these were felt to be OLD blood given the stability of his hemoglobin. He was resumed on a clear liquid diet and this was advanced slowly & cautiously. He was tolerated regular diet before discharge. IV PPI was transitioned to oral PPI twice daily. Octreotide drip was discontinued. With respect to his chronic anticoagulation - he was initially started on a heparin drip. He tolerated this for 2+ days without any overt signs of bleeding. This was then transitioned over to lovenox 1mg/kg BID. He also tolerated this without overt bleeding. Discharge hemoglobin was 8.9. 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 Previously on warfarin, however was switched to Lovenox monotherapy when his hepatitis C treatment was initiated due to difficulty maintaining therapeutic I NR. During THIS stay he was Initially placed on heparin drip, then transitioned to lovenox 90mg BID. He tolerated such without any recurrent GI bleeding. After discussing his care with his anticoagulation provider Dr Syed Gutiérrez we proceeded with restarting coumadin. He received 2 doses of coumadin 5mg (10/08, 10/09). He was instructed to take 2mg on 10/10 and 2mg on 10/11, with follow-up in the anticoagulation clinic on 10/12 for additional instructions. He will employ a lovenox 1mg/kg BID bridge while waiting for coumadin to be therapeutic. Discharge INR was 1.6. He was counseled on the interaction of alcohol with coumadin. (5) SABINE (acute kidney injury): Peak Creatinine 2.55 Resolved - with creatinine of 0.8 at discharge 2nd to #1 above (6) Alcohol abuse: last drink 10/04/21. no evidence of withdrawal during the hospitalization. Currently attending AA meetings weekly as outpatient. Cont thiamine BID, folate, MVI. (7) Hypertension: HCTZ 12.5 mg daily, lisinopril 30 mg daily, and metoprolol 100 mg daily were all held during the hospitalization due to his GI bleeding. All BPs were controlled w/o the above medications. However, would benefit from inderal or nadalol given his portal HTN. Thus, started inderal 10mg BID before discharge and he tolerated such. (8) Hepatitis C: Recently completed treatment for this with [facility]. (9) GERD (gastroesophageal reflux disease): cont PPI twice daily (10) Pancytopenia: 2nd to cirrhosis stable/acceptable readings b12/folate wnl TSH wnl (11) Hyperglycemia: HbA1C returned low at 5% but may not be accurate given acute blood loss & blood transfusion BSGs were checked and all were about 150 or less He did not require any specific Rx for such (12) Cirrhosis: radiographic evidence and EGD evidence (varices, portal gastropathy, etc) 2nd to etoh and/or HepC no evidence of hepatic encephalopathy needs to be 100% abstinent from etoh long discussion with him on day of discharge about the cirrhosis MELD score currently VERY low f/u with [facility] in [place] for ongoing surveillance He voiced understanding of the need for alcohol abstinence (13) Enlarged lymph node: CT abd/pelvis showed a single, enlarged gastrohepatic lymph node measuring 9mm in size. This will need to be followed carefully over time, at least with a repeat CT scan in several months. Total Time Total Time Spent Total Time Spent (In Minutes): 50 Discharge Plan Discharge Items Patient Disposition: Home - Self-Care Reason For Visit: Upper GI Bleeding Discharge Diagnosis: 1. Upper GI bleeding due to "portal gastropathy" (dilated blood vessels in the stomach due to cirrhosis of the liver) 2. Esophageal varices (dilated blood vessels of the esophagus due to cirrhosis) - not bleeding at time of the EGD 3. Anemia - due to #1 - 1 unit of blood given; discharge hemoglobin 8.9 4. Mechanical heart valve - on lovenox with coumadin; discharge INR 1.6 Activity: As commented below Activity Comment: gradually increase activities over the next 5 days Non-emergency contact: Primary Care Provider and Specialist Call non-emergency contact if: you have any medication questions, your symptoms worsen and you have a fever Follow-up/Referrals: Bridget Gutiérrez MD, PhD [Pathologist] - 10/12/21 (call Monday am to schedule an appointment) Sundar Perez [Physician] - 10/22/21 ([address] Dr Perez or Yuliya Samano [facility]OCKEY at [facility] - 1-2 weeks) Isauro Madera MD [Primary Care Provider] - 10/18/21 (1 week) Diet: Low Fiber Addtl Attending Provider Instructions: Edin De Leon presented to the hospital with concerns for gastrointestinal bleeding, likely from an "upper" source (stomach, esophagus, etc). You underwent a blood transfusion due to anemia from the bleeding. You also had an upper endoscopy (EGD) by Dr Sundar Perez from [facility]. The EGD showed the presence of esophageal varices but fortunately these were not bleeding (see handout). The EGD also showed "portal gastropathy". This was treated by Dr Perez during the procedure. See handout. You received IV acid reducers to heal your stomach. Following the EGD and the blood transfusion your blood counts (hemoglobin) remained stable over the next 3-4 days. Your hemoglobin was 8.9 at time of discharge. About 3 days before discharge we resumed blood thinners for your mechanical mitral valve. Despite resuming IV heparin then lovenox you had no evidence of any recurrent GI bleeding. We started coumadin back on 10/08/21. You received 5mg on 10/08, then 5mg again on 10/09. Your INR today is 1.6. Note that your next 2-3 bowel movements may still be dark or black. This is OLD blood. The stools should normalize (will be brown) by mid-week. Recommendations - 1. 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 2. STOP your aspirin. 3. DO NOT TAKE any [id number] anti-inflammatory pills. This includes motrin, naprosyn, alleve, ibuprofen. 4. STOP your lisinopril. 5. STOP your hydrochlorothiazide. 6. STOP your metoprolol succinate. 7. START propranolol 10mg twice daily, first dose TONIGHT. This medication treats high blood pressure but also tries to reduce the pressure in the dilated vessels of the stomach & esophagus. 8. Coumadin - * take 2mg of coumadin today, 10/10 * take 2mg of coumadin tomorrow, 10/11 * 10/12 - see Dr Gutiérrez in the [facility]madin [facility] for further guidance 9. Lovenox - take your lovenox as previous. First dose TONIGHT. Space the doses about 12 hours apart. 10. Take thiamine 200mg twice daily x 30 days. 11. Please do everything in your power to abstain from all forms of alcohol. The alcohol will place you at risk of further progression of your cirrhosis as well as increase the chances of having bleeding from your stomach again. Continue to attend AA as previous. Please speak with your family doctor about other ways to help maintain sobriety. Follow-up - see separate section Return to [facility] if - * you have fevers over 100 degrees * you have severe abdominal pain * you see ongoing black, tarry, dark stools * you see bright red blood in the stool * you have vomiting of bright red blood or coffee-ground colored material * any other concerns It was our pleasure to care for you at [facility]! Dr Bianchi Pending Studies at Discharge: No Stand-Alone Forms: My [facility], Smoking Cessation Medications and DC Order Prescriptions: New propranolol 10 mg Tablet 10 mg PO BID Qty: 60 RF: 1 thiamine HCl (vitamin B1) 100 mg Tablet 200 mg PO BID 30 Days Qty: 120 RF: 0 Continued folic acid 1 mg Tablet 1 mg PO QAM 90 Days Qty: 90 RF: 1 multivitamin Tablet 1 tab PO DAILY RF: 0 magnesium 250 mg Tablet 250 mg PO QAM RF: 0 Changed pantoprazole 40 mg Tablet,Delayed Release (Dr/Ec) 40 mg PO BID 30 Days Qty: 60 RF: 2 Discontinued hydrochlorothiazide 12.5 mg tablet 12.5 mg PO QAM RF: 0 metoprolol succinate 100 mg Tablet Extended Release 24 Hr 100 mg PO QAM Qty: 0 RF: 0 lisinopril 30 mg Tablet 30 mg PO QAM Qty: 0 RF: 0 aspirin 81 mg Tablet,Delayed Release (Dr/Ec) 81 mg PO QAM RF: 0 No Action warfarin 2 mg tablet See Rx Instructions PO UD RF: 0 Discharge Orders: Discharge Order (Routine); Ordered 10/10/21 Ordered By: Luís Jiang/Other Patient Handouts: Esophageal Varices Admission Data Admit Date/Time: 10/05/21 13:23 Attending Provider: Luís Bianchi Admit Provider: Morris Payne Primary Care Provider: Isauro Madera Other Providers: Sundar Perez Other Interventions: Discharge Summary Assessment (RN) Last Done: 10/10/21 12:27 Coding Level of Care Code D/C DAY MANAGEMENT >30 MINS Diagnoses UGI bleed K92.2 H/O mitral valve replacement Z95.2 SABINE (acute kidney injury) N17.9 Alcohol abuse F10.10 Hypertension I10 Hepatitis C B19.20 GERD (gastroesophageal reflux disease) K21.9 Acute blood loss anemia D62 Pancytopenia D61.818 Hyperglycemia R73.9 Cirrhosis K74.60 Enlarged lymph node R59.9 Portal hypertensive gastropathy K76.6; K31.89
== END 2021-10-10 13:08 | disposition home or self-care (01) | DRG 378 ==
LOC: ED 09:08 → 2E 13:23 → SUATTDRO 13:23 → 2E 14:37